=== PATIENT | male | born 1960 | race African-American/Black ===

== ENCOUNTER 2019-12-15 11:10 | Inpatient (IN) | payer SELFPAY ==
[~2019-12-15] VITALS: Ht 182.9 cm; Wt 65.0 kg
--- NOTE | 2019-12-15 11:49 | RAD ---
EXAM: PORTABLE CHEST 1V INDICATION: Shortness of air, chest pain. TECHNIQUE: Single view COMPARISON: 12/07/2008 FINDINGS: The heart size is normal. The great vessels appear unremarkable. There is no hilar or mediastinal mass. The lungs are clear. There is no pleural effusion or pneumothorax. There are no significant osseous abnormalities. IMPRESSION: No active cardiopulmonary disease. Electronically signed by: Victoriano Salazar MD (12/15/2019 11:46 AM) [id number]
[2019-12-15 11:52] LABS: BASO # 0.1 x10^3/uL (0.0-0.2); BASO % 1 % (0-3); EOS % 0 % (0-3); HEMATOCRIT 46.6 % (39.0-53.0); HEMOGLOBIN 15.8 g/dL (13.0-17.5); LYMPH # 1.2 x10^3/uL (1.0-4.8); LYMPH % 9 % (24-48); MEAN CORPUSCULAR HEMOGLOBIN 37 pg (25-35); MEAN CORPUSCULAR HGB CONC 34 g/dL (31-37); MEAN CORPUSCULAR VOLUME 108 fL (79-100); MONO # 0.8 x10^3/uL (0.0-1.1); MONO % 6 % (0-9); NEUT # 11.9 x10^3/uL (1.8-7.7); NEUT % 85 % (31-73); PLATELET COUNT 397 x10^3/uL (140-400); RED BLOOD COUNT 4.32 x10^6/uL (4.30-5.70); RED CELL DISTRIBUTION WIDTH 18.1 % (11.5-14.5)
--- NOTE | 2019-12-15 11:55 | PHYS DOC ---
Past Medical History Past Medical History: Diabetes-Type II, Hypertension Past Surgical History: Other Additional Past Surgical Histo: HERNIA Smoking Status: Current Every Day Smoker Alcohol Use: Heavy General Adult EDM: Chief Complaint: CHEST PAIN HPI: HPI: Patient is a 59 year old male who was brought here by EMS from home due to epigastric abdominal pain, nonproductive cough, nausea and vomiting. Patient has been drinking heavily every day. Patient has been depressed, he was thinking about drinking to . However, he has not been drinking today. 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 His younger brother about a month ago as well. Patient complained of epigastric pain whenever he drinks. Patient denied that he been exposed to anybody who tested positive for COVID-19 Review of Systems: Review of Systems: Constitutional: Denies fever or chills. [] Eyes: Denies change in visual acuity. [] HENT: Denies nasal congestion or sore throat. [] Respiratory: Positive for cough and trouble breathing] Cardiovascular: Positive for chest pain GI: Denies abdominal pain, nausea, vomiting, bloody stools or diarrhea. [] : Denies dysuria. [] Musculoskeletal: Denies back pain or joint pain. [] Integument: Denies rash. [] Neurologic: Denies headache, focal weakness or sensory changes. [] Endocrine: Denies polyuria or polydipsia. [] Lymphatic: Denies swollen glands. [] Psychiatric: Positive for depression, suicidal ideation Heart Score: HEART Score for Chest Pain: HEART Score for Chest Pain Response (Comments) Value History Slighlty/Non-Suspicious 0 ECG Normal 0 Age >45 - < 65 1 Risk Factors 1 or 2 Risk Factors 1 Troponin < Normal Limit 0 Total 2 Risk Factors: Risk Factors: DM, Current or recent (<one month) smoker, HTN, HLP, family history of CAD, obesity. Risk Scores: Score 0 - 3: 2.5% MACE over next 6 weeks - Discharge Home Score 4 - 6: 20.3% MACE over next 6 weeks - Admit for Clinical Observation Score 7 - 10: 72.7% MACE over next 6 weeks - Early Invasive Strategies Physical Exam: PE: Constitutional: Well developed, well nourished, no acute distress, non-toxic faye earance. [] HENT: Normocephalic, atraumatic, bilateral external ears normal, oropharynx moist, no oral exudates, nose normal. [] Eyes: PERRLA, EOMI, conjunctiva normal, no discharge. [] Neck: Normal range of motion, no tenderness, supple, no stridor. [] Cardiovascular:Heart rate regular rhythm, no murmur [] Lungs & Thorax: Bilateral breath sounds clear to auscultation [] Abdomen: Bowel sounds normal, soft, tenderness in epigastric area, no masses, no pulsatile masses. [] Skin: Warm, dry, no erythema, no rash. [] Back: No tenderness, no CVA tenderness. [] Extremities: No tenderness, no cyanosis, no clubbing, ROM intact, no edema. [] Neurologic: Alert and oriented X 3, normal motor function, normal sensory function, no focal deficits noted. [] Psychologic: Affect normal,depressed, suicidal ideation. Current Patient Data: Labs: Laboratory Tests Test 12/15/19 11:28 White Blood Count 14.0 x10^3/uL (4.0-11.0) H Red Blood Count 4.32 x10^6/uL (4.30-5.70) Hemoglobin 15.8 g/dL (13.0-17.5) Hematocrit 46.6 % (39.0-53.0) Mean Corpuscular Volume 108 fL (79-100) H Mean Corpuscular Hemoglobin 37 pg (25-35) H Mean Corpuscular Hemoglobin Concent 34 g/dL (31-37) Red Cell Distribution Width 18.1 % (11.5-14.5) H Platelet Count 397 x10^3/uL (140-400) Neutrophils (%) (Auto) 85 % (31-73) H Lymphocytes (%) (Auto) 9 % (24-48) L Monocytes (%) (Auto) 6 % (0-9) Eosinophils (%) (Auto) 0 % (0-3) Basophils (%) (Auto) 1 % (0-3) Neutrophils # (Auto) 11.9 x10^3/uL (1.8-7.7) H Lymphocytes # (Auto) 1.2 x10^3/uL (1.0-4.8) Monocytes # (Auto) 0.8 x10^3/uL (0.0-1.1) Eosinophils # (Auto) 0.0 x10^3/uL (0.0-0.7) Basophils # (Auto) 0.1 x10^3/uL (0.0-0.2) Laboratory Tests 12/15/19 11:28 Vital Signs: Vital Signs Date Time Temp Pulse Resp B/P (MAP) Pulse Ox O2 Delivery O2 Flow Rate FiO2 12/15/19 11:16 97.3 99 18 153/106 (122) 96 Room Air 97.3 EKG: EKG: [][place] [address] EKG REPORT Signed PATIENT: BELLA FLORES TACCOUNT: [id number] : 1960 LOCATION: [address] [place] [address] AGE: 59 SEX: M EXAM PROCEDURE: 12 Lead EKG STATUS: ADM IN ORD. PHYSICIAN: IZABEL PENG DO REASON: [address] [id number] Test Date: 2019-12-15 Test Time: 11:16:38 Pat Name: BELLA FLORES Department: Room: 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: : 1960 Requested By: IZABEL PENG Order Number: [id number] Reading MD: Brody Yung Measurements Intervals Mutual Rate: 99 P: 90 SD: 124 QRS: 90 QRSD: 86 T: 112 QT: 386 QTc: 501 Interpretive Statements SINUS RHYTHM BIATRIAL ENLARGEMENT LVH WITH REPOLARIZATION ABNORMALITY PROLONGED QT ABNORMAL ECG RI6.01 No previous ECG available for comparison Electronically Signed On 12-16-2019 8:59:27 CDT by Brody Yung DICTATED and SIGNED BY: BRODY YUNG MD DATE: 12/15/19 1116 Radiology/Procedures: Radiology/Procedures: [][address] [address] IMAGING REPORT Signed PATIENT: BELLA FLORES TACCOUNT: [id number] : 1960 LOCATION: ER AGE: 59 SEX: M EXAM STATUS: PRE ER ORD. PHYSICIAN: IZABEL PENG DO REASON: soa, cp PROCEDURE: PORTABLE CHEST 1V EXAM: PORTABLE CHEST 1V INDICATION: Shortness of air, chest pain. TECHNIQUE: Single view COMPARISON: 12/07/2008 FINDINGS: The heart size is normal. The great vessels appear unremarkable. There is no hilar or mediastinal mass. The lungs are clear. There is no pleural effusion or pneumothorax. There are no significant osseous abnormalities. IMPRESSION: No active cardiopulmonary disease. Electronically signed by: Marylin Salazar MD (12/15/2019 11:46 AM) [id number] DICTATED and SIGNED BY: MARYLIN SALAZAR MD DATE: 12/15/19 1146 [facility] [address] [place], [place] [id number] IMAGING REPORT Signed PATIENT: BELLA FLORES TACCOUNT: [id number] : 1960 LOCATION: ER AGE: 59 SEX: M EXAM STATUS: REG ER ORD. PHYSICIAN: IZABEL PENG DO REASON: abdominal pain, n/v,alcoholic, PROCEDURE: CT ABDOMEN PELVIS WO CONTRAST EXAM: CT Abdomen and Pelvis without IV contrast INDICATION: Abdominal pain, nausea vomiting. Alcoholic. TECHNIQUE: Multi-detector row CT images were acquired from the lung bases through the abdomen and pelvis without the use of IV contrast. Sagittal and coronal images were acquired from the transaxial data. All CT scans performed at this facility utilize dose optimization techniques as appropriate to the exam, including the following: Automated exposure control and adjustment of the mA and/or KV according to patient size (this includes techniques or standardized protocols for targeted exams where dose is indication/reason for exam). ORAL CONTRAST: None COMPARISON: None FINDINGS: The absence of IV contrast limits evaluation of soft tissue pathology. LOWER CHEST: Unremarkable LIVER: Mild diffuse hypoattenuation suggesting fatty infiltration of the liver. BILIARY SYSTEM: Gallbladder is surgically absent. Bile ducts are not dilated. PANCREAS: Unremarkable SPLEEN: Extensive splenic calcifications. No splenomegaly. ADRENALS: Unremarkable KIDNEYS & URETERS: Unremarkable BLADDER: Mild diffuse urinary bladder wall thickening. REPRODUCTIVE ORGANS: Unremarkable GASTROINTESTINAL: There is abnormal wall thickening in the cecum and ascending colon with diffuse collapse of the large bowel along the entirety of its length. There is colonic diverticulosis best appreciated in the sigmoid colon without pericolonic soft tissue stranding suspicious for acute diverticulitis. The stomach and small bowel are unremarkable. The appendix is not well seen. There are no findings of acute appendicitis. MESENTERY/PERITONEUM/RETROPERITONEUM: Unremarkable VASCULAR: Abdominal aortic calcifications. LYMPH NODES: No adenopathy OSSEOUS & SOFT TISSUES: Unremarkable IMPRESSION: Diffuse colonic spasm with wall thickening, suspicious for colitis in the appropriate clinical context. Mild diffuse urinary bladder wall thickening could also reflect cystitis or sequelae of chronic bladder outlet obstruction. Correlate clinically. Otherwise no acute findings on noncontrast abdomen and pelvis CT. Electronically signed by: Marylin Salazar MD (12/15/2019 2:42 PM) [id number] DICTATED and SIGNED BY: MARYLIN SALAZAR MD DATE: 12/15/19 1442 Course & Med Decision Making: Course & Med Decision Making Pertinent Labs and Imaging studies reviewed. (See chart for details) Patient is a 59-year-old male who was evaluated in ER today due to epigastric abdominal pain, patient is an alcoholic, he was found to have alcohol induced pancreatitis. Patient also has been depressed, suicidal ideation. Patient will be admitted to hospital for further evaluation and treatment. Dragon Disclaimer: Dragon Disclaimer: This electronic medical record was generated, in whole or in part, using a voice recognition dictation system. Departure Departure Impression: Primary Impression: Alcohol-induced pancreatitis Additional Impression: Suicidal ideation Disposition: ADMITTED INPATIENT Admitting Physician: MISSY (DR. MIKE) Condition: STABLE Referrals: NON,STAFF (PCP) IZABEL PENG DO December 15, 2019 11:55
[2019-12-15 12:00] LABS: PROTHROMBIN TIME PATIENT 12.9 SEC (11.7-14.0)
[2019-12-15 12:02] LABS: CALCIUM 9.1 mg/dL (8.5-10.1); CREATININE 1.8 mg/dL (0.7-1.3); GFR 38.9; POTASSIUM 4.1 mmol/L (3.5-5.1)
[2019-12-15 12:08] LABS: ALBUMIN 4.2 g/dL (3.4-5.0); MAGNESIUM 1.8 mg/dL (1.8-2.4); TOTAL BILIRUBIN 1.8 mg/dL (0.2-1.0); TOTAL PROTEIN 8.3 g/dL (6.4-8.2)
[2019-12-15 12:30] LABS: ACETAMIN < 2.0 mcg/ml (10-30); ETHANOL < 10 mg/dL (0-10); SALIC 4.7 mg/dL (2.8-20.0)
[2019-12-15] MEDS ORDERED: IV NORMAL SALINE 1000ML BAG 1,000 ML IV ONE (12:30)
--- NOTE | 2019-12-15 14:45 | RAD ---
EXAM: CT Abdomen and Pelvis without IV contrast INDICATION: Abdominal pain, nausea vomiting. Alcoholic. TECHNIQUE: Multi-detector row CT images were acquired from the lung bases through the abdomen and pelvis without the use of IV contrast. Sagittal and coronal images were acquired from the transaxial data. All CT scans performed at this facility utilize dose optimization techniques as appropriate to the exam, including the following: Automated exposure control and adjustment of the mA and/or KV according to patient size (this includes techniques or standardized protocols for targeted exams where dose is indication/reason for exam). ORAL CONTRAST: None COMPARISON: None FINDINGS: The absence of IV contrast limits evaluation of soft tissue pathology. LOWER CHEST: Unremarkable LIVER: Mild diffuse hypoattenuation suggesting fatty infiltration of the liver. BILIARY SYSTEM: Gallbladder is surgically absent. Bile ducts are not dilated. PANCREAS: Unremarkable SPLEEN: Extensive splenic calcifications. No splenomegaly. ADRENALS: Unremarkable KIDNEYS & URETERS: Unremarkable BLADDER: Mild diffuse urinary bladder wall thickening. REPRODUCTIVE ORGANS: Unremarkable GASTROINTESTINAL: There is abnormal wall thickening in the cecum and ascending colon with diffuse collapse of the large bowel along the entirety of its length. There is colonic diverticulosis best appreciated in the sigmoid colon without pericolonic soft tissue stranding suspicious for acute diverticulitis. The stomach and small bowel are unremarkable. The appendix is not well seen. There are no findings of acute appendicitis. MESENTERY/PERITONEUM/RETROPERITONEUM: Unremarkable VASCULAR: Abdominal aortic calcifications. LYMPH NODES: No adenopathy OSSEOUS & SOFT TISSUES: Unremarkable IMPRESSION: Diffuse colonic spasm with wall thickening, suspicious for colitis in the appropriate clinical context. Mild diffuse urinary bladder wall thickening could also reflect cystitis or sequelae of chronic bladder outlet obstruction. Correlate clinically. Otherwise no acute findings on noncontrast abdomen and pelvis CT. Electronically signed by: Victoriano Salazar MD (12/15/2019 2:42 PM) [id number]
[2019-12-15 14:50] LABS: BILIRUBIN,URINE MODERATE (NEG); CLARITY,URINE CLEAR; COLOR,URINE YELLOW; NITRITE,URINE NEGATIVE (NEG); PH,URINE 5.5 (<5.0-8.0); PROTEIN,URINE NEGATIVE (NEG-TRACE)
[2019-12-15 15:01] LABS: BACTERIA,URINE FEW /HPF (0-FEW); HYALINE CASTS, URINE MANY /HPF; RBC,URINE 0 /HPF (0-2); SQUAMOUS EPITHELIAL CELL,UR FEW /LPF
--- NOTE | 2019-12-15 15:10 | PDOC1 ---
History and Physical Date of Admission Date of Admission DATE: 12/15/19 TIME: 15:10 Identification/Chief Complaint Chief Complaint Chest pain History of Present Illness History of Present Illness Mr Barahona is a 59yo M w/ PMHx Diabetes-Type II, Hypertension, smoker, heavy ETOH drinker who presents to ED via EMS for complaint of chest pain, SOB, abdominal pain with vomiting. With regard to his chest pain he characterizes it as pain near his umbilicus and his abdomen and it does not radiate it is 6 out of 10, colicky in nature, worsens with food and drinking alcohol. With regard to his shortness of breath this only occurred after a few episodes of vomiting. He has been vomiting for the past 2 days, is unable to hold down the alcohol which she has been drinking heavily for the past 30 days. He called EMS after his last 2 episodes of emesis were bloody. On ROS he notes that he has been feeling suicidal lately and has been thinking of drinking alcohol until he dies he had thoughts and plans of his for the last few days every day. 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 He is also grieving for the of his brother who at age 49 approximately 29 days ago of an unspecified cancer. Patient notes he has not been taking care of himself and had been laid off from his job as part of the coronavirus pandemic that is currently globally affecting everyone. He is a heavy smoker as well smokes at least 20 cigars every day. He notes he has been losing weight over the past 30 days, thinks he is probably lost at least 10 kg. In ED he was noted with WBC 14 Hb 15.8 with MCV 108, platelets 397, BNP 214, lipase 1247, and a 135, K4.1, BUN 45, CR 1.8, glucose 105. He underwent a noncontrast CT scan of his abdomen and pelvis, revealing diffuse colonic spasm with wall thickening, suspicious for colitis. BP 180/101, HR 100 BPM, Afebrile. Admitted for further treatment. Past Medical History Cardiovascular: HTN Pulmonary: No pertinent hx Endocrine: Diabetes Past Surgical History Past Surgical History: Hernia Repair Family History Family History: Cancer, Diabetes, High Cholestrol, Hypertension, Kidney Disease Social History Smoke: 2 packs per day ALCOHOL: heavy Drugs: Marijuana Current Problem List Problem List Problems Medical Problems: (1) Cough Status: Acute Current Medications Current Medications Current Medications Sodium Chloride 1,000 ml @ 1,000 mls/hr 1X ONCE IV Last administered on 12/15/19at 12:26; Start 12/15/19 at 12:30; Stop 12/15/19 at 13:29; Status DC Allergies Allergies: Coded Allergies: No Known Drug Allergies (Unverified , 12/15/19) ROS General: YES: Fatigue, Malaise; No: Chills, Night Sweats, Appetite, Other PSYCHOLOGICAL ROS: YES: Anxiety, Depression, Obsessive thoughts, Sleep disturba nces, Suicidal ideation; No: Behavioral Disorder, Concentration difficultie, Decreased libido, Disorientation, Hallucinations, Hostility, Irritablity, Memory difficulties, Mood Swings, Physical abuse, Sexual abuse, Other Eyes: No Blurry vision, No Decreased vision, No Double vision, No Dry eyes, No Excessive tearing, No Eye Pain, No Itchy Eyes, No Loss of vision, No Photophobia, No Scotomata, No Uses contacts, No Uses glasses, No Other HEENT: No: Heacaches, Visual Changes, Hearing change, Nasal congestion, Nasal discharge, Oral lesions, Sinus pain, Sore Throat, Epistaxis, Sneezing, Snoring, Tinnitus, Vertigo, Vocal changes, Other ALLERGY AND IMMUNOLOGY: No: Hives, Insect Bite Sensitivity, Itchy/Watery Eyes, Nasal Congestion, Post Nasal Drip, Seasonal Allergies, Other Hematological and Lymphatic: No: Bleeding Problems, Blood Clots, Blood Transfusions, Brusing, Night Sweats, Pallor, Swollen Lymph Nodes, Other ENDOCRINE: No: Breast Changes, Galactorrhea, Hair Pattern Changes, Hot Flashes, Malaise/lethargy, Mood Swings, Palpitations, Polydipsia/polyuria, Skin Changes, Temperature Intolerance, Unexpected Weight Changes, Other Breast: No New/Changing Breast Lumps, No Nipple changes, No Nipple discharge, No Other Respiratory: No: Cough, Hemoptysis, Orthopnea, Pleuritic Pain, Shortness of breath, SOB with excertion, Sputum Changes, Stridor, Tachypnea, Wheezing, Other Cardiovascular: yes Chest Pain; No Palpitations, No Orthopnea, No Paroxysmal Noc. Dyspnea, No Edema, No Lt Headedness, No Other Gastrointestinal: Yes Nausea, Yes Vomiting, Yes Abdominal Pain; No Diarrhea, No Constipation, No Melena, No Hematochezia, No Other Genitourinary: No Dysuria, No Frequency, No Incontinence, No Hematuria, No Retention, No Discharge, No Urgency, No Pain, No Flank Pain, No Other, No , No , No , No , No , No , No Musculoskeletal: No Gait Disturbance, No Joint Pain, No Joint Stiffness, No Joint Swelling, No Muscle Pain, No Muscular Weakness, No Pain In:, No Swelling In:, No Other Neurological: No Behavorial Changes, No Bowel/Bladder ControlChng, No Confusion, No Dizziness, No Gait Disturbance, No Headaches, No Impaired Coord/balance, No Memory Loss, No Numbness/Tingling, No Seizures, No Speech Problems, No Tremors, No Visual Changes, No Weakness, No Other Skin: No Dry Skin, No Eczema, No Hair Changes, No Lumps, No Mole Changes, No Mottling, No Nail Changes, No Pruritus, No Rash, No Skin Lesion Changes, No Other, No Acne Physical Exam General: Alert, Oriented X3, Cooperative, mild distress HEENT: Atraumatic, PERRLA, EOMI, Mucous membr. moist/pink Lungs: Clear to auscultation, Normal air movement Heart: S1S2, RRR, no thrills, no rubs, no gallops, no murmurs Abdomen: Normal bowel sounds, Soft, No hepatosplenomegaly, No masses, Other (epigastric tenderness) Rectal Exam: not examined Extremities: No clubbing, No cyanosis, No edema, Normal pulses, No tenderness/ swelling Skin: No rashes, No breakdown, No significant lesion Neuro: Normal gait, Normal speech, Strength at 5/5 X4 ext, Normal tone, Sensation intact, Cranial nerves 3-12 NL, Reflexes 2+ Psych/Mental Status: Mental status NL, Mood NL Vitals Vitals Vital Signs Date Time Temp Pulse Resp B/P (MAP) Pulse Ox O2 Delivery O2 Flow Rate FiO2 12/15/19 11:16 97.3 99 18 153/106 (122) 96 Room Air 97.3 Labs Labs Laboratory Tests Test 12/15/19 11:12 12/15/19 11:15 12/15/19 11:28 12/15/19 14:40 Salicylates Level 4.7 mg/dL (2.8-20.0) Salicylate Last Dose Date Unknown Salicylate Last Dose Time Unknown Acetaminophen Level < 2.0 mcg/ml (10-30) Acetaminophen Last Dose Date Unknown Acetaminophen Last Dose Time Unknown Ethyl Alcohol Level < 10 mg/dL (0-10) Troponin I Quantitative < 0.017 ng/mL (0.000-0.055) White Blood Count 14.0 x10^3/uL (4.0-11.0) Red Blood Count 4.32 x10^6/uL (4.30-5.70) Hemoglobin 15.8 g/dL (13.0-17.5) Hematocrit 46.6 % (39.0-53.0) Mean Corpuscular Volume 108 fL (79-100) Mean Corpuscular Hemoglobin 37 pg (25-35) Mean Corpuscular Hemoglobin Concent 34 g/dL (31-37) Red Cell Distribution Width 18.1 % (11.5-14.5) Platelet Count 397 x10^3/uL (140-400) Neutrophils (%) (Auto) 85 % (31-73) Lymphocytes (%) (Auto) 9 % (24-48) Monocytes (%) (Auto) 6 % (0-9) Eosinophils (%) (Auto) 0 % (0-3) Basophils (%) (Auto) 1 % (0-3) Neutrophils # (Auto) 11.9 x10^3/uL (1.8-7.7) Lymphocytes # (Auto) 1.2 x10^3/uL (1.0-4.8) Monocytes # (Auto) 0.8 x10^3/uL (0.0-1.1) Eosinophils # (Auto) 0.0 x10^3/uL (0.0-0.7) Basophils # (Auto) 0.1 x10^3/uL (0.0-0.2) Prothrombin Time 12.9 SEC (11.7-14.0) Prothromb Time International Ratio 1.0 (0.8-1.1) Activated Partial Thromboplast Time 28 SEC (24-38) Sodium Level 135 mmol/L (136-145) Potassium Level 4.1 mmol/L (3.5-5.1) Chloride Level 86 mmol/L (98-107) Carbon Dioxide Level 24 mmol/L (21-32) Anion Gap 25 (6-14) Blood Urea Nitrogen 45 mg/dL (8-26) Creatinine 1.8 mg/dL (0.7-1.3) Estimated GFR (Cockcroft-Gault) 38.9 BUN/Creatinine Ratio 25 (6-20) Glucose Level 105 mg/dL (70-99) Calcium Level 9.1 mg/dL (8.5-10.1) Magnesium Level 1.8 mg/dL (1.8-2.4) Total Bilirubin 1.8 mg/dL (0.2-1.0) Aspartate Amino Transf (AST/SGOT) 194 U/L (15-37) Alanine Aminotransferase (ALT/SGPT) 116 U/L (16-63) Alkaline Phosphatase 132 U/L (46-116) CD-Hjd-J-Type Natriuretic Peptide 214 pg/mL (0-124) Total Protein 8.3 g/dL (6.4-8.2) Albumin 4.2 g/dL (3.4-5.0) Albumin/Globulin Ratio 1.0 (1.0-1.7) Lipase 1247 U/L (73-393) Urine Collection Type Unknown Urine Color Yellow Urine Clarity Clear Urine pH 5.5 (<5.0-8.0) Urine Specific [place] 1.020 (1.000-1.030) Urine Protein Negative mg/dL (NEG-TRACE) Urine Glucose (UA) Negative mg/dL (NEG) Urine Ketones (Stick) >=80 mg/dL (NEG) Urine Blood Negative (NEG) Urine Nitrite Negative (NEG) Urine Bilirubin Moderate (NEG) Urine Urobilinogen Dipstick 1.0 mg/dL (0.2 mg/dL) Urine Leukocyte Esterase Negative (NEG) Urine RBC 0 /HPF (0-2) Urine WBC 1-4 /HPF (0-4) Urine Squamous Epithelial Cells Few /LPF Urine Bacteria Few /HPF (0-FEW) Urine Hyaline Casts Many /HPF Urine Mucus Marked /LPF Laboratory Tests Test 12/15/19 11:12 12/15/19 11:15 12/15/19 11:28 12/15/19 14:40 Salicylates Level 4.7 mg/dL (2.8-20.0) Salicylate Last Dose Date Unknown Salicylate Last Dose Time Unknown Acetaminophen Level < 2.0 mcg/ml (10-30) Acetaminophen Last Dose Date Unknown Acetaminophen Last Dose Time Unknown Ethyl Alcohol Level < 10 mg/dL (0-10) Troponin I Quantitative < 0.017 ng/mL (0.000-0.055) White Blood Count 14.0 x10^3/uL (4.0-11.0) Red Blood Count 4.32 x10^6/uL (4.30-5.70) Hemoglobin 15.8 g/dL (13.0-17.5) Hematocrit 46.6 % (39.0-53.0) Mean Corpuscular Volume 108 fL (79-100) Mean Corpuscular Hemoglobin 37 pg (25-35) Mean Corpuscular Hemoglobin Concent 34 g/dL (31-37) Red Cell Distribution Width 18.1 % (11.5-14.5) Platelet Count 397 x10^3/uL (140-400) Neutrophils (%) (Auto) 85 % (31-73) Lymphocytes (%) (Auto) 9 % (24-48) Monocytes (%) (Auto) 6 % (0-9) Eosinophils (%) (Auto) 0 % (0-3) Basophils (%) (Auto) 1 % (0-3) Neutrophils # (Auto) 11.9 x10^3/uL (1.8-7.7) Lymphocytes # (Auto) 1.2 x10^3/uL (1.0-4.8) Monocytes # (Auto) 0.8 x10^3/uL (0.0-1.1) Eosinophils # (Auto) 0.0 x10^3/uL (0.0-0.7) Basophils # (Auto) 0.1 x10^3/uL (0.0-0.2) Prothrombin Time 12.9 SEC (11.7-14.0) Prothromb Time International Ratio 1.0 (0.8-1.1) Activated Partial Thromboplast Time 28 SEC (24-38) Sodium Level 135 mmol/L (136-145) Potassium Level 4.1 mmol/L (3.5-5.1) Chloride Level 86 mmol/L (98-107) Carbon Dioxide Level 24 mmol/L (21-32) Anion Gap 25 (6-14) Blood Urea Nitrogen 45 mg/dL (8-26) Creatinine 1.8 mg/dL (0.7-1.3) Estimated GFR (Cockcroft-Gault) 38.9 BUN/Creatinine Ratio 25 (6-20) Glucose Level 105 mg/dL (70-99) Calcium Level 9.1 mg/dL (8.5-10.1) Magnesium Level 1.8 mg/dL (1.8-2.4) Total Bilirubin 1.8 mg/dL (0.2-1.0) Aspartate Amino Transf (AST/SGOT) 194 U/L (15-37) Alanine Aminotransferase (ALT/SGPT) 116 U/L (16-63) Alkaline Phosphatase 132 U/L (46-116) TD-Eog-E-Type Natriuretic Peptide 214 pg/mL (0-124) Total Protein 8.3 g/dL (6.4-8.2) Albumin 4.2 g/dL (3.4-5.0) Albumin/Globulin Ratio 1.0 (1.0-1.7) Lipase 1247 U/L (73-393) Urine Collection Type Unknown Urine Color Yellow Urine Clarity Clear Urine pH 5.5 (<5.0-8.0) Urine Specific [place] 1.020 (1.000-1.030) Urine Protein Negative mg/dL (NEG-TRACE) Urine Glucose (UA) Negative mg/dL (NEG) Urine Ketones (Stick) >=80 mg/dL (NEG) Urine Blood Negative (NEG) Urine Nitrite Negative (NEG) Urine Bilirubin Moderate (NEG) Urine Urobilinogen Dipstick 1.0 mg/dL (0.2 mg/dL) Urine Leukocyte Esterase Negative (NEG) Urine RBC 0 /HPF (0-2) Urine WBC 1-4 /HPF (0-4) Urine Squamous Epithelial Cells Few /LPF Urine Bacteria Few /HPF (0-FEW) Urine Hyaline Casts Many /HPF Urine Mucus Marked /LPF Images Images CT abd/pelv noncontrast: LOWER CHEST: Unremarkable LIVER: Mild diffuse hypoattenuation suggesting fatty infiltration of the liver. BILIARY SYSTEM: Gallbladder is surgically absent. Bile ducts are not dilated. PANCREAS: Unremarkable SPLEEN: Extensive splenic calcifications. No splenomegaly. ADRENALS: Unremarkable KIDNEYS & URETERS: Unremarkable BLADDER: Mild diffuse urinary bladder wall thickening. REPRODUCTIVE ORGANS: Unremarkable GASTROINTESTINAL: There is abnormal wall thickening in the cecum and ascending colon with diffuse collapse of the large bowel along the entirety of its length. There is colonic diverticulosis best appreciated in the sigmoid colon without pericolonic soft tissue stranding suspicious for acute diverticulitis. The stomach and small bowel are unremarkable. The appendix is not well seen. There are no findings of acute appendicitis. MESENTERY/PERITONEUM/RETROPERITONEUM: Unremarkable VASCULAR: Abdominal aortic calcifications. LYMPH NODES: No adenopathy OSSEOUS & SOFT TISSUES: Unremarkable IMPRESSION: Diffuse colonic spasm with wall thickening, suspicious for colitis in the appropriate clinical context. Mild diffuse urinary bladder wall thickening could also reflect cystitis or sequelae of chronic bladder outlet obstruction. Correlate clinically. Otherwise no acute findings on noncontrast abdomen and pelvis CT. VTE Prophylaxis Ordered VTE Prophylaxis Devices: Yes VTE Pharmacological Prophylaxi: Yes Assessment/Plan Assessment/Plan A/P: Alcohol-induced pancreatitis - will keep NPO, IVF, pain control, nausea control Epigastric abdominal pain - likely pancreatitis vs concomitant PUD, will keep n.p.o., IV Protonix x1 Hematemesis - likely amarilis-hollingsworth from vomiting. Will give aggressive antiemetics Acute alcohol withdrawal - CIWA scale. Daily banana bag Macrocytosis - likely ETOH induced Leukocytosis - likely from vomiting, will trend WU - vasomotor nephropathy, will hydrate, follow renal function DM 2 -we will place on low-dose sliding scale while n.p.o. every 6 hours HTN - IV hydralazine prn Suicidal - counseled on coping mechanisms, will have PAT team assessment. Plan is to drink ETOH until he dies. FEN - NPO PPX - Protonix IV, lovenox FULL CODE Dispo - inpatient for at least 2 midnights for alcohol induced pancreatitis CAESAR MIKE MD December 15, 2019 15:10
[2019-12-15 15:37] LABS: AMPHETAMINE/METHAMPHETAMINE NEG (NEG); BARBITURATES NEG (NEG); BENZODIAZEPINES NEG (NEG); CANNABINOIDS POS (NEG); COCAINE NEG (NEG); METHADONE NEG (NEG); OPIATES NEG (NEG); PHENCYCLIDINE NEG (NEG)
--- NOTE | 2019-12-15 16:20 | NUR ---
Patient transferred from the ED to room 432. Nurse Adriana (3rd floor nurse) was with patient as a 1:1 for suicide ideation. She will do admission and charting and I will be a supporting RN.
[2019-12-15] MEDS ORDERED: IV NORMAL SALINE 1000ML BAG 1,000 ML IV SCH (16:45)
[2019-12-15] MEDS ORDERED: ACETAMINOPHEN 325 MG TABLET. PO PRN (16:45)
[2019-12-15] MEDS ORDERED: ONDANSETRON PF 4 MG/2 ML VIAL. IV PRN (16:45)
[2019-12-15] MEDS ORDERED: LORazepam 1 MG TABLET PO PRN ×2 (16:45)
[2019-12-15] MEDS ORDERED: HALOPERIDOL LACTATE 5 MG/ML VIAL. IVP PRN (16:45)
[2019-12-15] MEDS ORDERED: PANTOPRAZOLE IV PUSH 40 MG VIAL. IVP ONE (16:45)
[2019-12-15] MEDS ORDERED: diphenhydrAMINE 50 MG/ML VIAL IVP PRN (16:45)
[2019-12-15] MEDS ORDERED: DEXTROSE 50% 25 GM / 50ML DISP.SYRIN. IV PRN (16:45)
[2019-12-15] MEDS ORDERED: cloNIDine HCL 0.1 MG TABLET PO PRN (16:45)
[2019-12-15] MEDS: MULTIVIT INFUSN,ADULT 4,VIT K 10 ML, THIAMINE INJ 100 MG, FOLIC ACID INJ 1 MG in IV NOR... IV SCH (17:00)
[2019-12-15] MEDS ORDERED: PROCHLORPERAZINE 10 MG/2 ML VIAL. IV PRN (17:00)
[2019-12-15] MEDS ORDERED: hydrALAZINE 20 MG/ML VIAL. IVP PRN (17:00)
[2019-12-15 17:37] VITALS: BP 156/83
[2019-12-15] MEDS: INSULIN LISPRO 300 UNITS/3 ML VIAL. SQ SCH (18:00)
[2019-12-15] MEDS: NICOTINE 21MG PATCH. TD SCH (18:22)
[2019-12-15] MEDS: ENOXAPARIN 40 MG/0.4 ML SYRINGE. SQ SCH (18:23)
[2019-12-15] MEDS: MORPHINE SULFATE 4 MG/ML VIAL. IV PRN (18:25)
[2019-12-15 19:48] VITALS: BP 140/90
[2019-12-15 23:20] VITALS: BP 135/89
[2019-12-15] MEDS: ZOLPIDEM 5 MG TABLET. PO PRN (23:24)
[2019-12-16 03:12] VITALS: BP 137/93
--- NOTE | 2019-12-16 04:41 | NUR ---
iV FLUIDS OF NORMAL SALINE SCHEDULED FOR 1644 NOT GIVEN, PATIENT HAS BEEN ON BANANA BAG.
[2019-12-16] MEDS: INSULIN LISPRO 300 UNITS/3 ML VIAL. SQ SCH ×4 (06:00→17:18)
[2019-12-16 07:01] VITALS: BP 138/87
--- NOTE | 2019-12-16 08:06 | EKG ---
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
[2019-12-16] MEDS: MULTIVIT INFUSN,ADULT 4,VIT K 10 ML, THIAMINE INJ 100 MG, FOLIC ACID INJ 1 MG in IV NOR... IV SCH (08:30)
[2019-12-16] MEDS: NICOTINE 21MG PATCH. TD SCH (08:30)
[2019-12-16] MEDS: PANTOPRAZOLE IV PUSH 40 MG VIAL. IVP SCH (08:30)
[2019-12-16 11:01] VITALS: BP 140/88
[2019-12-16] MEDS: HYDROcodone/APAP 5/325MG 1 TAB TABLET PO PRN ×3 (11:06→22:46)
--- NOTE | 2019-12-16 11:27 | PDOC ---
[facility] PROGRESS NOTE Chief Complaint Chief Complaint Alcohol-induced pancreatitis Epigastric abdominal pain Hematemesis - likely amarilis-hollingsworth? Acute alcohol withdrawal Macrocytosis probably from chronic alcohol Leukocytosis WU DM 2 HTN Suicidal History of Present Illness History of Present Illness 12/16/2019 Patient seen and examined He has a one-to-one observer in the room Discussed with RN Chart reviewed Vitals/I&O Vitals/I&O: Vital Signs Date Time Temp Pulse Resp B/P (MAP) Pulse Ox O2 Delivery O2 Flow Rate FiO2 12/16/19 11:06 Room Air 12/16/19 11:01 98.8 96 16 140/88 (105) 96 98.8 I & O 12/15/19 12/15/19 12/16/19 15:00 23:00 07:00 Intake Total 1000 ml 1061.2 ml Output Total 0 ml Balance 1000 ml 1061.2 ml Physical Exam General: Alert, Oriented X3, Cooperative, mild distress, Other (Complains of thirst) Heart: Regular rate, Normal S1 Lungs: Clear Abdomen: Normal bowel sounds, No hepatosplenomegaly, No masses, Other (epigastric tenderness) Extremities: No clubbing, No cyanosis, No edema, Normal pulses, No tenderness/swelling Skin: No rashes, No breakdown, No significant lesion Labs Labs: Laboratory Tests Test 12/15/19 11:28 12/15/19 14:40 12/15/19 18:33 12/16/19 06:22 White Blood Count 14.0 x10^3/uL (4.0-11.0) Red Blood Count 4.32 x10^6/uL (4.30-5.70) Hemoglobin 15.8 g/dL (13.0-17.5) Hematocrit 46.6 % (39.0-53.0) Mean Corpuscular Volume 108 fL (79-100) Mean Corpuscular Hemoglobin 37 pg (25-35) Mean Corpuscular Hemoglobin Concent 34 g/dL (31-37) Red Cell Distribution Width 18.1 % (11.5-14.5) Platelet Count 397 x10^3/uL (140-400) Neutrophils (%) (Auto) 85 % (31-73) Lymphocytes (%) (Auto) 9 % (24-48) Monocytes (%) (Auto) 6 % (0-9) Eosinophils (%) (Auto) 0 % (0-3) Basophils (%) (Auto) 1 % (0-3) Neutrophils # (Auto) 11.9 x10^3/uL (1.8-7.7) Lymphocytes # (Auto) 1.2 x10^3/uL (1.0-4.8) Monocytes # (Auto) 0.8 x10^3/uL (0.0-1.1) Eosinophils # (Auto) 0.0 x10^3/uL (0.0-0.7) Basophils # (Auto) 0.1 x10^3/uL (0.0-0.2) Prothrombin Time 12.9 SEC (11.7-14.0) Prothromb Time International Ratio 1.0 (0.8-1.1) Activated Partial Thromboplast Time 28 SEC (24-38) Sodium Level 135 mmol/L (136-145) Potassium Level 4.1 mmol/L (3.5-5.1) Chloride Level 86 mmol/L (98-107) Carbon Dioxide Level 24 mmol/L (21-32) Anion Gap 25 (6-14) Blood Urea Nitrogen 45 mg/dL (8-26) Creatinine 1.8 mg/dL (0.7-1.3) Estimated GFR (Cockcroft-Gault) 38.9 BUN/Creatinine Ratio 25 (6-20) Glucose Level 105 mg/dL (70-99) Calcium Level 9.1 mg/dL (8.5-10.1) Magnesium Level 1.8 mg/dL (1.8-2.4) Total Bilirubin 1.8 mg/dL (0.2-1.0) Aspartate Amino Transf (AST/SGOT) 194 U/L (15-37) Alanine Aminotransferase (ALT/SGPT) 116 U/L (16-63) Alkaline Phosphatase 132 U/L (46-116) TL-Pin-X-Type Natriuretic Peptide 214 pg/mL (0-124) Total Protein 8.3 g/dL (6.4-8.2) Albumin 4.2 g/dL (3.4-5.0) Albumin/Globulin Ratio 1.0 (1.0-1.7) Lipase 1247 U/L (73-393) Urine Collection Type Unknown Urine Color Yellow Urine Clarity Clear Urine pH 5.5 (<5.0-8.0) Urine Specific [place] 1.020 (1.000-1.030) Urine Protein Negative mg/dL (NEG-TRACE) Urine Glucose (UA) Negative mg/dL (NEG) Urine Ketones (Stick) >=80 mg/dL (NEG) Urine Blood Negative (NEG) Urine Nitrite Negative (NEG) Urine Bilirubin Moderate (NEG) Urine Urobilinogen Dipstick 1.0 mg/dL (0.2 mg/dL) Urine Leukocyte Esterase Negative (NEG) Urine RBC 0 /HPF (0-2) Urine WBC 1-4 /HPF (0-4) Urine Squamous Epithelial Cells Few /LPF Urine Bacteria Few /HPF (0-FEW) Urine Hyaline Casts Many /HPF Urine Mucus Marked /LPF Urine Opiates Screen Neg (NEG) Urine Methadone Screen Neg (NEG) Urine Barbiturates Neg (NEG) Urine Phencyclidine Screen Neg (NEG) Urine Amphetamine/Methamphetamine Neg (NEG) Urine Benzodiazepines Screen Neg (NEG) Urine Cocaine Screen Neg (NEG) Urine Cannabinoids Screen Pos (NEG) Urine Ethyl Alcohol Neg (NEG) Glucose (Fingerstick) 220 mg/dL (70-99) 115 mg/dL (70-99) Assessment and Plan Assessmemt and Plan Problems Medical Problems: (1) Alcohol-induced pancreatitis Status: Acute (2) Cough Status: Acute Alcohol-induced pancreatitis slightly improved. We will start clear liquid diet and see if he tolerates it and recheck a lipase level in the morning Epigastric abdominal pain - likely pancreatitis vs concomitant PUD, will keep n.p.o., IV Protonix x1 Hematemesis - likely amarilis-hollingsworth from vomiting. Will give aggressive antiemetics and trend hemoglobin Acute alcohol withdrawal - CIWA scale. Daily banana bag and continue other alcohol withdrawal protocol discussed with RN Macrocytosis - likely ETOH induced, trend labs Leukocytosis - likely from vomiting, will trend WU -probably from dehydration we will give IV fluids DM 2 , sliding scale insulin HTN - IV hydralazine prn Suicidal - counseled on coping mechanisms, will have PAT team assessment. Plan is to drink ETOH until he dies. Prognosis long-term guarded if he does not quit drinking Home meds DVT prophylaxis Full code Comment Review of Relevant I have reviewed the following items adonis (where applicable) has been applied. Medications: Current Medications Medications (Trade) Dose Ordered Sig/Steph Route PRN Reason Start Time Stop Time Status Last Admin Dose Admin Sodium Chloride 1,000 ml @ 1,000 mls/hr 1X ONCE IV 12/15/19 12:30 12/15/19 13:29 DC 12/15/19 12:26 Ondansetron HCl (Zofran) 4 mg PRN Q4HRS PRN IV NAUSEA/VOMITING 12/15/19 16:45 12/15/19 18:25 Zolpidem Tartrate (Ambien) 5 mg PRN QHS PRN PO INSOMNIA 12/15/19 16:45 12/15/19 23:24 Enoxaparin Sodium (Lovenox 40mg Syringe) 40 mg Q24H SQ 12/15/19 17:00 12/15/19 18:23 Multivitamins 10 ml/Thiamine HCl 100 mg/Folic Acid 1 mg/Sodium Chloride 1,011.2 ml @ 100 mls/ hr DAILY IV 12/15/19 17:00 12/19/19 19:07 12/16/19 08:30 Nicotine (Nicoderm Cq 21mg) 1 patch DAILY TD 12/15/19 16:45 12/16/19 08:30 Sodium Chloride 1,000 ml @ 100 mls/hr Q10H IV 12/15/19 16:45 12/16/19 12:44 12/16/19 04:35 Pantoprazole Sodium (PROTONIX VIAL for IV PUSH) 40 mg DAILYAC IVP 12/16/19 07:30 12/16/19 08:30 Pantoprazole Sodium (PROTONIX VIAL for IV PUSH) 40 mg 1X ONCE IVP 12/15/19 16:45 12/15/19 16:55 DC 12/15/19 18:21 Morphine Sulfate (Morphine Sulfate) 4 mg PRN Q4HRS PRN IV PAIN 12/15/19 16:45 12/15/19 18:25 Prochlorperazine Edisylate (Compazine) 10 mg PRN Q6HRS PRN IV NAUSEA/VOMITING 12/15/19 17:00 12/15/19 20:07 Acetaminophen/ Hydrocodone Bitart (Lortab 5/325) 1 tab PRN Q4HRS PRN PO MODERATE-SEVERE PAIN 12/16/19 10:45 12/16/19 11:06 BETSY INMAN III DO December 16, 2019 11:27
--- NOTE | 2019-12-16 12:20 | NUR ---
SW following. Discussed with RN, pt currently 1:1, lipase elevated today. PAT team coming to see pt today for ETOH and SI. SW will continue to follow.
--- NOTE | 2019-12-16 12:30 | NUR ---
PT HOUSE [employer]YS PICKED UP BY DAUGHTER 'KEKE' AT 1145.
[2019-12-16 14:32] VITALS: BP 152/98
[2019-12-16] MEDS: ENOXAPARIN 40 MG/0.4 ML SYRINGE. SQ SCH (17:20)
[2019-12-16 19:00] VITALS: BP 152/92
--- NOTE | 2019-12-16 19:00 | PDOC1 ---
History & Psych Evaluation Date of Admission: Date of Admission DATE: 12/16/19 TIME: 18:45 Source: Source: Caregiver, Chart review, Patient Identification: Identification He is a 59-year-old -Beninese gentleman with alcoholic pancreatitis. Chief Complaint: Chief Complaint Alcohol abuse, depression, bereavement History of Present Illness: HPI: He is a 59-year-old -Beninese gentleman with history of untreated depression and alcohol use disorder admitted with alcohol induced pancreatitis. He is seen for initial psychiatric assessment. States, he has history of depression, however, never been treated for depression as it was not as bad. States, her depression is precipitated by the of his baby brother who of cancer a month ago. States, he used to drink heavily, since the of his brother he has been drinking 3 pints of vodka every day. 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 States, of his brother is ripping him apart. States, he was like his son. States, when he sees his 2 nephews who are very young, his depression get worse. In addition, he does have history of anxiety which exacerbated when coming out of alcohol. Depression is rated as 8/10 10 is worse. Anxiety is rated as 04/1010 is worse. He states, when his baby brother , he had thoughts of suicide to join him. Presently, he denies any suicidal or homicidal thoughts. Denies history of bipolar mood disorder. Denies history of hallucinations or psychosis. Denies history of complicated alcohol withdrawal. He is a smoker. He smokes marijuana daily. Past Psychiatric History: Denies past psychiatric history of hospital admissions, or treatment. Denies history of suicidal attempt. Past Medical History: Please see medical chart for details. Family History: Family history is significant for depression and anxiety in mother. Denies family history of suicide. 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 He lives with her and 2 granddaughters. Denies legal issues. He is unemployed. Current Medications: Current Medications Current Medications Medications (Trade) Dose Ordered Sig/Stehp Start Time Stop Time Status Last Admin Dose Admin Acetaminophen (Tylenol) 650 mg PRN Q4HRS PRN 12/15/19 16:45 Acetaminophen/ Hydrocodone Bitart (Lortab 5/325) 1 tab PRN Q4HRS PRN 12/16/19 10:45 12/16/19 18:34 1 TAB Clonidine HCl (Catapres) 0.1 mg PRN Q1HR PRN 12/15/19 16:45 Dextrose (Dextrose 50%-Water Syringe) 12.5 gm PRN Q15MIN PRN 12/15/19 16:45 Diphenhydramine HCl (Benadryl) 25 mg PRN Q15MIN PRN 12/15/19 16:45 Enoxaparin Sodium (Lovenox 40mg Syringe) 40 mg Q24H 12/15/19 17:00 12/16/19 17:20 40 MG Haloperidol Lactate (Haldol Inj) 5 mg PRN Q4HRS PRN 12/15/19 16:45 Hydralazine HCl (Apresoline Inj) 10 mg PRN Q4HRS PRN 12/15/19 17:00 Insulin Human Lispro (HumaLOG) 0-5 UNITS Q6HRS 12/15/19 18:00 Lorazepam (Ativan Inj) 2 mg PRN Q1HR PRN 12/15/19 16:45 Lorazepam (Ativan) 2 mg PRN Q1HR PRN 12/15/19 16:45 Morphine Sulfate (Morphine Sulfate) 4 mg PRN Q4HRS PRN 12/15/19 16:45 12/15/19 18:25 4 MG Multivitamins 10 ml/Thiamine HCl 100 mg/Folic Acid 1 mg/Sodium Chloride 1,011.2 ml @ 100 mls/ hr DAILY 12/15/19 17:00 12/19/19 19:07 12/16/19 08:30 100 MLS/HR Nicotine (Nicoderm Cq 21mg) 1 patch DAILY 12/15/19 16:45 12/16/19 08:30 1 PATCH Ondansetron HCl (Zofran) 4 mg PRN Q4HRS PRN 12/15/19 16:45 12/15/19 18:25 4 MG Pantoprazole Sodium (PROTONIX VIAL for IV PUSH) 40 mg 1X ONCE 12/15/19 16:45 12/15/19 16:55 DC 12/15/19 18:21 40 MG Prochlorperazine Edisylate (Compazine) 10 mg PRN Q6HRS PRN 12/15/19 17:00 12/15/19 20:07 10 MG Sodium Chloride 1,000 ml @ 100 mls/hr Q10H 12/15/19 16:45 12/16/19 12:44 DC 12/16/19 04:35 100 MLS/HR Zolpidem Tartrate (Ambien) 5 mg PRN QHS PRN 12/15/19 16:45 12/15/19 23:24 5 MG Allergies: Allergies: Coded Allergies: No Known Drug Allergies (Unverified , 12/15/19) Mental Status Examination: Mental Status Examination -Beninese gentleman, appears her stated age, depressed looking. Cooperative, tearful. Speech is soft with regular rate and rhythm. Thought processes goal directed. Denies auditory or visual hallucinations. Denies suicidal or homicidal thoughts. No abnormal perceptions noted. Mood is depressed and anxious. Affect is dysthymic. Insight is fair. Impulse control is fair. Judgment is fair. Attention span and concentration fair. ROS: Psychiatric review of system is positive for depression, anxiety, substance use, alcohol abuse, and complicated bereavement. Physical Exam: Refer to Physician's note. CHARGE ACCOUNT CLERK: No focal deficit MSK: No EPS, TDK, or abnormal involuntary movements Vitals: Vitals Vital Signs Date Time Temp Pulse Resp B/P (MAP) Pulse Ox O2 Delivery O2 Flow Rate FiO2 12/16/19 18:34 Room Air 12/16/19 14:32 98.3 88 18 152/98 (116) 96 98.3 Labs: Labs Laboratory Tests Test 12/15/19 11:12 12/15/19 11:15 12/15/19 11:28 12/15/19 14:40 Salicylates Level 4.7 mg/dL (2.8-20.0) Salicylate Last Dose Date Unknown Salicylate Last Dose Time Unknown Acetaminophen Level < 2.0 mcg/ml (10-30) Acetaminophen Last Dose Date Unknown Acetaminophen Last Dose Time Unknown Ethyl Alcohol Level < 10 mg/dL (0-10) Troponin I Quantitative < 0.017 ng/mL (0.000-0.055) White Blood Count 14.0 x10^3/uL (4.0-11.0) Red Blood Count 4.32 x10^6/uL (4.30-5.70) Hemoglobin 15.8 g/dL (13.0-17.5) Hematocrit 46.6 % (39.0-53.0) Mean Corpuscular Volume 108 fL (79-100) Mean Corpuscular Hemoglobin 37 pg (25-35) Mean Corpuscular Hemoglobin Concent 34 g/dL (31-37) Red Cell Distribution Width 18.1 % (11.5-14.5) Platelet Count 397 x10^3/uL (140-400) Neutrophils (%) (Auto) 85 % (31-73) Lymphocytes (%) (Auto) 9 % (24-48) Monocytes (%) (Auto) 6 % (0-9) Eosinophils (%) (Auto) 0 % (0-3) Basophils (%) (Auto) 1 % (0-3) Neutrophils # (Auto) 11.9 x10^3/uL (1.8-7.7) Lymphocytes # (Auto) 1.2 x10^3/uL (1.0-4.8) Monocytes # (Auto) 0.8 x10^3/uL (0.0-1.1) Eosinophils # (Auto) 0.0 x10^3/uL (0.0-0.7) Basophils # (Auto) 0.1 x10^3/uL (0.0-0.2) Prothrombin Time 12.9 SEC (11.7-14.0) Prothromb Time International Ratio 1.0 (0.8-1.1) Activated Partial Thromboplast Time 28 SEC (24-38) Sodium Level 135 mmol/L (136-145) Potassium Level 4.1 mmol/L (3.5-5.1) Chloride Level 86 mmol/L (98-107) Carbon Dioxide Level 24 mmol/L (21-32) Anion Gap 25 (6-14) Blood Urea Nitrogen 45 mg/dL (8-26) Creatinine 1.8 mg/dL (0.7-1.3) Estimated GFR (Cockcroft-Gault) 38.9 BUN/Creatinine Ratio 25 (6-20) Glucose Level 105 mg/dL (70-99) Calcium Level 9.1 mg/dL (8.5-10.1) Magnesium Level 1.8 mg/dL (1.8-2.4) Total Bilirubin 1.8 mg/dL (0.2-1.0) Aspartate Amino Transf (AST/SGOT) 194 U/L (15-37) Alanine Aminotransferase (ALT/SGPT) 116 U/L (16-63) Alkaline Phosphatase 132 U/L (46-116) LF-Woy-U-Type Natriuretic Peptide 214 pg/mL (0-124) Total Protein 8.3 g/dL (6.4-8.2) Albumin 4.2 g/dL (3.4-5.0) Albumin/Globulin Ratio 1.0 (1.0-1.7) Lipase 1247 U/L (73-393) Urine Collection Type Unknown Urine Color Yellow Urine Clarity Clear Urine pH 5.5 (<5.0-8.0) Urine Specific [place] 1.020 (1.000-1.030) Urine Protein Negative mg/dL (NEG-TRACE) Urine Glucose (UA) Negative mg/dL (NEG) Urine Ketones (Stick) >=80 mg/dL (NEG) Urine Blood Negative (NEG) Urine Nitrite Negative (NEG) Urine Bilirubin Moderate (NEG) Urine Urobilinogen Dipstick 1.0 mg/dL (0.2 mg/dL) Urine Leukocyte Esterase Negative (NEG) Urine RBC 0 /HPF (0-2) Urine WBC 1-4 /HPF (0-4) Urine Squamous Epithelial Cells Few /LPF Urine Bacteria Few /HPF (0-FEW) Urine Hyaline Casts Many /HPF Urine Mucus Marked /LPF Urine Opiates Screen Neg (NEG) Urine Methadone Screen Neg (NEG) Urine Barbiturates Neg (NEG) Urine Phencyclidine Screen Neg (NEG) Urine Amphetamine/Methamphetamine Neg (NEG) Urine Benzodiazepines Screen Neg (NEG) Urine Cocaine Screen Neg (NEG) Urine Cannabinoids Screen Pos (NEG) Urine Ethyl Alcohol Neg (NEG) Test 12/15/19 18:33 12/16/19 06:22 12/16/19 12:02 12/16/19 17:12 Glucose (Fingerstick) 220 mg/dL (70-99) 115 mg/dL (70-99) 176 mg/dL (70-99) 106 mg/dL (70-99) Laboratory Tests Test 12/16/19 06:22 12/16/19 12:02 12/16/19 17:12 Glucose (Fingerstick) 115 mg/dL (70-99) 176 mg/dL (70-99) 106 mg/dL (70-99) Diagnosis: Diagnosis: 1-major depressive disorder, first episode, moderate. 2-alcohol use disorder, recurrent, moderate to severe 3-THC use disorder. 4-complicated bereavement. Assessment: He is an -Beninese gentleman with major depressive episode in context of major depressive disorder. His low-grade depression is likely precipitated by the of his baby brother. He is taking care of his mother who has end- stage renal disease, adding up in his depression. He is in agreement to start Celexa 10 mg for depression and anxiety. Celexa is available in $4 list affordable for the patient. Plan: Start Celexa 10 mg daily for depression and anxiety. If tolerating orally. Psychoeducation provided. Supportive psychotherapy provided. Risks, benefits, alternatives of the treatment are discussed. He is in agreement with the plan and voiced understanding. Adverse drug reactions including but not limited to suicidality, weight gain/weight loss, increased anxiety, insomnia, sexual dysfunction, and risk of bleeding are discussed. He is cautioned about bleeding risk as he had bloody vomitus likely to Vanessa Onel. He is educated to stop Celexa in case of increased bleeding. Alcohol rehab is highly recommended to the patient. Grief counseling is also recommended to the patient as outpatient. Thank you for involving inpatient care. ENZO CRISTINA MD December 16, 2019 19:00
[2019-12-16] MEDS: ZOLPIDEM 5 MG TABLET. PO PRN (20:45)
[2019-12-16] MEDS: CITALOPRAM 10 MG TABLET. PO SCH (20:45)
[2019-12-16] MEDS: MORPHINE SULFATE 4 MG/ML VIAL. IV PRN (20:46)
[2019-12-16 23:00] VITALS: BP 141/84
[2019-12-17 03:00] VITALS: BP 137/98
[2019-12-17] MEDS: HYDROcodone/APAP 5/325MG 1 TAB TABLET PO PRN ×2 (05:24→16:52)
[2019-12-17] MEDS: PANTOPRAZOLE IV PUSH 40 MG VIAL. IVP SCH (05:24)
[2019-12-17] MEDS: INSULIN LISPRO 300 UNITS/3 ML VIAL. SQ SCH ×5 (07:30→21:42)
[2019-12-17 07:56] VITALS: BP 127/89
--- NOTE | 2019-12-17 08:48 | PDOC ---
PROGRESS NOTES Chief Complaint Chief Complaint IMPRESSION Alcohol-induced pancreatitis Epigastric abdominal pain Hematemesis - likely amarilis-hollingsworth? Acute alcohol withdrawal Macrocytosis probably from chronic alcohol Leukocytosis WU DM 2 HTN Suicidal History of Present Illness History of Present Illness 12/17/2019 Patient seen and examined He has a one-to-one observer in the room Discussed with RN Chart reviewed Vitals Vitals Vital Signs Date Time Temp Pulse Resp B/P (MAP) Pulse Ox O2 Delivery O2 Flow Rate FiO2 12/17/19 07:56 97.8 74 16 127/89 (102) 98 Room Air 97.8 Physical Exam General: Alert, Oriented X3, Cooperative, mild distress, Other (Complains of thirst) Heart: Regular rate, Normal S1 Lungs: Clear Abdomen: Normal bowel sounds, No hepatosplenomegaly, No masses, Other (epigastric tenderness) Extremities: No clubbing, No cyanosis, No edema, Normal pulses, No tenderness/swelling Skin: No rashes, No breakdown, No significant lesion Labs LABS Laboratory Tests Test 12/16/19 12:02 12/16/19 17:12 12/16/19 21:08 12/17/19 03:55 Glucose (Fingerstick) 176 mg/dL (70-99) 106 mg/dL (70-99) 130 mg/dL (70-99) Lipase 1113 U/L (73-393) Test 12/17/19 07:31 Glucose (Fingerstick) 96 mg/dL (70-99) Assessment and Plan Assessmemt and Plan Problems Medical Problems: (1) Alcohol-induced pancreatitis Status: Acute (2) Cough Status: Acute (3) Suicidal ideation Status: Acute Comment Review of Relevant I have reviewed the following items adonis (where applicable) has been applied. Labs Laboratory Tests Test 12/15/19 11:12 12/15/19 11:15 12/15/19 11:28 12/15/19 14:40 Salicylates Level 4.7 mg/dL (2.8-20.0) Salicylate Last Dose Date Unknown Salicylate Last Dose Time Unknown Acetaminophen Level < 2.0 mcg/ml (10-30) Acetaminophen Last Dose Date Unknown Acetaminophen Last Dose Time Unknown Ethyl Alcohol Level < 10 mg/dL (0-10) Troponin I Quantitative < 0.017 ng/mL (0.000-0.055) White Blood Count 14.0 x10^3/uL (4.0-11.0) Red Blood Count 4.32 x10^6/uL (4.30-5.70) Hemoglobin 15.8 g/dL (13.0-17.5) Hematocrit 46.6 % (39.0-53.0) Mean Corpuscular Volume 108 fL (79-100) Mean Corpuscular Hemoglobin 37 pg (25-35) Mean Corpuscular Hemoglobin Concent 34 g/dL (31-37) Red Cell Distribution Width 18.1 % (11.5-14.5) Platelet Count 397 x10^3/uL (140-400) Neutrophils (%) (Auto) 85 % (31-73) Lymphocytes (%) (Auto) 9 % (24-48) Monocytes (%) (Auto) 6 % (0-9) Eosinophils (%) (Auto) 0 % (0-3) Basophils (%) (Auto) 1 % (0-3) Neutrophils # (Auto) 11.9 x10^3/uL (1.8-7.7) Lymphocytes # (Auto) 1.2 x10^3/uL (1.0-4.8) Monocytes # (Auto) 0.8 x10^3/uL (0.0-1.1) Eosinophils # (Auto) 0.0 x10^3/uL (0.0-0.7) Basophils # (Auto) 0.1 x10^3/uL (0.0-0.2) Prothrombin Time 12.9 SEC (11.7-14.0) Prothromb Time International Ratio 1.0 (0.8-1.1) Activated Partial Thromboplast Time 28 SEC (24-38) Sodium Level 135 mmol/L (136-145) Potassium Level 4.1 mmol/L (3.5-5.1) Chloride Level 86 mmol/L (98-107) Carbon Dioxide Level 24 mmol/L (21-32) Anion Gap 25 (6-14) Blood Urea Nitrogen 45 mg/dL (8-26) Creatinine 1.8 mg/dL (0.7-1.3) Estimated GFR (Cockcroft-Gault) 38.9 BUN/Creatinine Ratio 25 (6-20) Glucose Level 105 mg/dL (70-99) Calcium Level 9.1 mg/dL (8.5-10.1) Magnesium Level 1.8 mg/dL (1.8-2.4) Total Bilirubin 1.8 mg/dL (0.2-1.0) Aspartate Amino Transf (AST/SGOT) 194 U/L (15-37) Alanine Aminotransferase (ALT/SGPT) 116 U/L (16-63) Alkaline Phosphatase 132 U/L (46-116) LV-Qdg-U-Type Natriuretic Peptide 214 pg/mL (0-124) Total Protein 8.3 g/dL (6.4-8.2) Albumin 4.2 g/dL (3.4-5.0) Albumin/Globulin Ratio 1.0 (1.0-1.7) Lipase 1247 U/L (73-393) Urine Collection Type Unknown Urine Color Yellow Urine Clarity Clear Urine pH 5.5 (<5.0-8.0) Urine Specific [place] 1.020 (1.000-1.030) Urine Protein Negative mg/dL (NEG-TRACE) Urine Glucose (UA) Negative mg/dL (NEG) Urine Ketones (Stick) >=80 mg/dL (NEG) Urine Blood Negative (NEG) Urine Nitrite Negative (NEG) Urine Bilirubin Moderate (NEG) Urine Urobilinogen Dipstick 1.0 mg/dL (0.2 mg/dL) Urine Leukocyte Esterase Negative (NEG) Urine RBC 0 /HPF (0-2) Urine WBC 1-4 /HPF (0-4) Urine Squamous Epithelial Cells Few /LPF Urine Bacteria Few /HPF (0-FEW) Urine Hyaline Casts Many /HPF Urine Mucus Marked /LPF Urine Opiates Screen Neg (NEG) Urine Methadone Screen Neg (NEG) Urine Barbiturates Neg (NEG) Urine Phencyclidine Screen Neg (NEG) Urine Amphetamine/Methamphetamine Neg (NEG) Urine Benzodiazepines Screen Neg (NEG) Urine Cocaine Screen Neg (NEG) Urine Cannabinoids Screen Pos (NEG) Urine Ethyl Alcohol Neg (NEG) Test 12/15/19 18:33 12/16/19 06:22 12/16/19 12:02 12/16/19 17:12 Glucose (Fingerstick) 220 mg/dL (70-99) 115 mg/dL (70-99) 176 mg/dL (70-99) 106 mg/dL (70-99) Test 5/4/20 21:08 12/17/19 03:55 12/17/19 07:31 Glucose (Fingerstick) 130 mg/dL (70-99) 96 mg/dL (70-99) Lipase 1113 U/L (73-393) Laboratory Tests Test 12/16/19 12:02 12/16/19 17:12 12/16/19 21:08 12/17/19 03:55 Glucose (Fingerstick) 176 mg/dL (70-99) 106 mg/dL (70-99) 130 mg/dL (70-99) Lipase 1113 U/L (73-393) Test 12/17/19 07:31 Glucose (Fingerstick) 96 mg/dL (70-99) Medications Current Medications Sodium Chloride 1,000 ml @ 1,000 mls/hr 1X ONCE IV Last administered on 12/15/19at 12:26; Start 12/15/19 at 12:30; Stop 12/15/19 at 13:29; Status DC Ondansetron HCl (Zofran) 4 mg PRN Q4HRS PRN IV NAUSEA/VOMITING, 1ST CHOICE Last administered on 12/15/19at 18:25; Start 12/15/19 at 16:45 Zolpidem Tartrate (Ambien) 5 mg PRN QHS PRN PO INSOMNIA Last administered on 12/16/19at 20:45; Start 12/15/19 at 16:45 Acetaminophen (Tylenol) 650 mg PRN Q4HRS PRN PO TEMP OVER 100.4F OR MILD PAIN; Start 12/15/19 at 16:45 Enoxaparin Sodium (Lovenox 40mg Syringe) 40 mg Q24H SQ Last administered on 12/16/19at 17:20; Start 12/15/19 at 17:00 Multivitamins 10 ml/Thiamine HCl 100 mg/Folic Acid 1 mg/Sodium Chloride 1,011.2 ml @ 100 mls/ hr DAILY IV Last administered on 12/16/19at 08:30; Start 12/15/19 at 17:00; Stop 12/19/19 at 19:07 Lorazepam (Ativan) 1 mg PRN Q1HR PRN PO For CIWA 8-14; Start 12/15/19 at 16:45 Lorazepam (Ativan) 2 mg PRN Q1HR PRN PO For CIWA 15 or greater; Start 12/15/19 at 16:45 Lorazepam (Ativan Inj) 1 mg PRN Q1HR PRN IV For CIWA 8-14; Start 12/15/19 at 16:45 Lorazepam (Ativan Inj) 2 mg PRN Q1HR PRN IV For CIWA 15 or greater; Start 12/15/19 at 16:45 Haloperidol Lactate (Haldol Inj) 5 mg PRN Q4HRS PRN IVP Hallucinatns,Confusn,Delirium; Start 12/15/19 at 16:45 Diphenhydramine HCl (Benadryl) 25 mg PRN Q15MIN PRN IVP EPS symptoms 2'Haldol admin; Start 12/15/19 at 16:45 Clonidine HCl (Catapres) 0.1 mg PRN Q1HR PRN PO SBP > 180 or DBP > 100, MRX3; Start 12/15/19 at 16:45 Nicotine (Nicoderm Cq 21mg) 1 patch DAILY TD Last administered on 12/16/19at 08:30; Start 12/15/19 at 16:45 Sodium Chloride 1,000 ml @ 100 mls/hr Q10H IV Last administered on 12/16/19at 04:35; Start 12/15/19 at 16:45; Stop 12/16/19 at 12:44; Status DC Insulin Human Lispro (HumaLOG) 0-5 UNITS Q6HRS SQ ; Start 12/15/19 at 18:00; Stop 12/17/19 at 00:47; Status DC Dextrose (Dextrose 50%-Water Syringe) 12.5 gm PRN Q15MIN PRN IV SEE COMMENTS; Start 12/15/19 at 16:45 Pantoprazole Sodium (PROTONIX VIAL for IV PUSH) 40 mg DAILYAC IVP Last administ ered on 12/17/19at 05:24; Start 12/16/19 at 07:30 Pantoprazole Sodium (PROTONIX VIAL for IV PUSH) 40 mg 1X ONCE IVP Last administered on 12/15/19at 18:21; Start 12/15/19 at 16:45; Stop 12/15/19 at 16:55; Status DC Morphine Sulfate (Morphine Sulfate) 4 mg PRN Q4HRS PRN IV PAIN Last administered on 12/16/19at 20:46; Start 12/15/19 at 16:45 Hydralazine HCl (Apresoline Inj) 10 mg PRN Q4HRS PRN IVP ELEVATED BP, SEE COMMENTS; Start 12/15/19 at 17:00 Prochlorperazine Edisylate (Compazine) 10 mg PRN Q6HRS PRN IV NAUSEA/VOMITING, 2ND CHOICE Last administered on 12/15/19at 20:07; Start 12/15/19 at 17:00 Acetaminophen/ Hydrocodone Bitart (Lortab 5/325) 1 tab PRN Q4HRS PRN PO MODERATE-SEVERE PAIN Last administered on 12/17/19at 05:24; Start 12/16/19 at 10:45 Citalopram Hydrobromide (CeleXA) 10 mg DAILY PO Last administered on 12/16/19at 20:45; Start 12/16/19 at 20:00 Insulin Human Lispro (HumaLOG) 0-5 UNITS QIDACHS SQ ; Start 12/17/19 at 07:30 Vitals/I & O Vital Sign - Last 24 Hours 12/16/19 12/16/19 12/16/19 12/16/19 11:01 11:06 12:20 14:32 Temp 98.8 98.3 98.8 98.3 Pulse 96 88 Resp 16 18 B/P (MAP) 140/88 (105) 152/98 (116) Pulse Ox 96 96 O2 Delivery Room Air Room Air Room Air Room Air 12/16/19 12/16/19 12/16/19 12/16/19 18:34 19:00 19:34 20:00 Temp 98.7 98.7 Pulse 88 Resp 16 18 B/P (MAP) 152/92 (112) Pulse Ox 98 96 O2 Delivery Room Air Room Air Room Air Room Air 12/16/19 12/16/19 12/16/19 12/16/19 20:46 21:16 22:46 23:00 Temp 98.5 98.5 Pulse 83 Resp 18 18 18 18 B/P (MAP) 141/84 (103) Pulse Ox 96 96 96 100 O2 Delivery Room Air Room Air Room Air Room Air 12/16/19 12/17/19 12/17/19 12/17/19 23:46 03:00 05:24 06:24 Temp 97.5 97.5 Pulse 85 Resp 18 18 18 18 B/P (MAP) 137/98 (111) Pulse Ox 100 9 9 9 O2 Delivery Room Air Room Air Room Air Room Air 12/17/19 07:56 Temp 97.8 97.8 Pulse 74 Resp 16 B/P (MAP) 127/89 (102) Pulse Ox 98 O2 Delivery Room Air Intake and Output 12/16/19 12/16/19 12/17/19 15:00 23:00 07:00 Intake Total 1470 ml 540 ml 450 ml Output Total 0 ml Balance 1470 ml 540 ml 450 ml CAMILLE GEE MD December 17, 2019 08:48
[2019-12-17] MEDS: NICOTINE 21MG PATCH. TD SCH (08:54)
[2019-12-17] MEDS: CITALOPRAM 10 MG TABLET. PO SCH (08:54)
[2019-12-17] MEDS: MULTIVIT INFUSN,ADULT 4,VIT K 10 ML, THIAMINE INJ 100 MG, FOLIC ACID INJ 1 MG in IV NOR... IV SCH (08:54)
--- NOTE | 2019-12-17 09:41 | NUR ---
[facility] following. Discussed with RN, pt scheduled for [facility] assessment at around 1100 today. Etienne from [facility] team saw pt yesterday (12/16/2019), pt received resources, will follow with [facility]. Dr. Soria consulted, started on mental health meds. [facility] will continue to follow. Addendum: 12/17/19 at 1314 by ELIZA URBAN [facility] to advise pt will follow up with [facility]. Pt will be contacted by [facility] for his intake. Pt does not need to stay in the hospital whilst waiting for intake date. RN notified.
[2019-12-17 11:00] VITALS: BP 154/94
[2019-12-17 15:00] VITALS: BP 157/97
[2019-12-17] MEDS: ENOXAPARIN 40 MG/0.4 ML SYRINGE. SQ SCH (17:35)
[2019-12-17 19:00] VITALS: BP 144/89
[2019-12-17 23:00] VITALS: BP 152/100
[2019-12-18 03:00] VITALS: BP 166/106
[2019-12-18 04:13] VITALS: BP 137/82
[2019-12-18 07:00] VITALS: BP 161/89
[2019-12-18] MEDS: PANTOPRAZOLE IV PUSH 40 MG VIAL. IVP SCH (07:26)
[2019-12-18] MEDS: INSULIN LISPRO 300 UNITS/3 ML VIAL. SQ SCH ×2 (07:30→11:30)
[2019-12-18] MEDS: HYDROcodone/APAP 5/325MG 1 TAB TABLET PO PRN (07:33)
[2019-12-18] MEDS: NICOTINE 21MG PATCH. TD SCH (08:45)
[2019-12-18] MEDS: MULTIVIT INFUSN,ADULT 4,VIT K 10 ML, THIAMINE INJ 100 MG, FOLIC ACID INJ 1 MG in IV NOR... IV SCH (08:46)
[2019-12-18] MEDS: CITALOPRAM 10 MG TABLET. PO SCH (08:46)
--- NOTE | 2019-12-18 09:57 | PDOC ---
PROGRESS NOTES Chief Complaint Chief Complaint DISCHARGE DX ========= Alcohol-induced pancreatitis Epigastric abdominal pain Hematemesis - likely amarilis-hollingsworth? RESOLVED Acute alcohol withdrawal RESOLVED Macrocytosis probably from chronic alcohol Leukocytosis WU DM 2 HTN Suicidal, RESOLVED History of Present Illness History of Present Illness 12/18/2019 Patient seen and examined F/U WITH OUT PT MENTAL HEALTH TOMORROW Discussed with RN Chart reviewed D/C PLANNING 35 MIN Vitals Vitals Vital Signs Date Time Temp Pulse Resp B/P (MAP) Pulse Ox O2 Delivery O2 Flow Rate FiO2 12/18/19 07:00 97.8 69 18 161/89 (113) 99 Room Air 97.8 Physical Exam Physical Exam ALERT, WANTS TO GO HOME TODAY, NO SI General: Alert, Oriented X3, Cooperative, No acute distress, mild distress, Other (Complains of thirst) Heart: Regular rate, Normal S1 Lungs: Clear Abdomen: Normal bowel sounds, Soft, No hepatosplenomegaly, No masses, Other (epigastric tenderness) Extremities: No clubbing, No cyanosis, No edema, Normal pulses, No tenderness/swelling Skin: No rashes, No breakdown, No significant lesion Labs LABS Laboratory Tests Test 12/17/19 11:03 12/17/19 17:13 12/17/19 21:30 12/18/19 07:28 Glucose (Fingerstick) 110 mg/dL (70-99) 114 mg/dL (70-99) 111 mg/dL (70-99) 101 mg/dL (70-99) Assessment and Plan Assessmemt and Plan Problems Medical Problems: (1) Alcohol-induced pancreatitis Status: Acute (2) Cough Status: Acute (3) Suicidal ideation Status: Acute Comment Review of Relevant I have reviewed the following items adonis (where applicable) has been applied. Labs Laboratory Tests Test 12/16/19 12:02 12/16/19 17:12 12/16/19 21:08 12/17/19 03:55 Glucose (Fingerstick) 176 mg/dL (70-99) 106 mg/dL (70-99) 130 mg/dL (70-99) Lipase 1113 U/L (73-393) Test 12/17/19 07:31 12/17/19 11:03 12/17/19 17:13 12/17/19 21:30 Glucose (Fingerstick) 96 mg/dL (70-99) 110 mg/dL (70-99) 114 mg/dL (70-99) 111 mg/dL (70-99) Test 12/18/19 07:28 Glucose (Fingerstick) 101 mg/dL (70-99) Laboratory Tests Test 12/17/19 11:03 12/17/19 17:13 12/17/19 21:30 12/18/19 07:28 Glucose (Fingerstick) 110 mg/dL (70-99) 114 mg/dL (70-99) 111 mg/dL (70-99) 101 mg/dL (70-99) Medications Current Medications Sodium Chloride 1,000 ml @ 1,000 mls/hr 1X ONCE IV Last administered on 12/15/19at 12:26; Start 12/15/19 at 12:30; Stop 12/15/19 at 13:29; Status DC Ondansetron HCl (Zofran) 4 mg PRN Q4HRS PRN IV NAUSEA/VOMITING, 1ST CHOICE Last administered on 12/15/19at 18:25; Start 12/15/19 at 16:45 Zolpidem Tartrate (Ambien) 5 mg PRN QHS PRN PO INSOMNIA Last administered on 12/16/19at 20:45; Start 12/15/19 at 16:45 Acetaminophen (Tylenol) 650 mg PRN Q4HRS PRN PO TEMP OVER 100.4F OR MILD PAIN; Start 12/15/19 at 16:45 Enoxaparin Sodium (Lovenox 40mg Syringe) 40 mg Q24H SQ Last administered on 12/17/19at 17:35; Start 12/15/19 at 17:00 Multivitamins 10 ml/Thiamine HCl 100 mg/Folic Acid 1 mg/Sodium Chloride 1,011.2 ml @ 100 mls/ hr DAILY IV Last administered on 12/18/19at 08:46; Start 12/15/19 at 17:00; Stop 12/19/19 at 19:07 Lorazepam (Ativan) 1 mg PRN Q1HR PRN PO For CIWA 8-14; Start 12/15/19 at 16:45 Lorazepam (Ativan) 2 mg PRN Q1HR PRN PO For CIWA 15 or greater; Start 12/15/19 at 16:45 Lorazepam (Ativan Inj) 1 mg PRN Q1HR PRN IV For CIWA 8-14; Start 12/15/19 at 16:45 Lorazepam (Ativan Inj) 2 mg PRN Q1HR PRN IV For CIWA 15 or greater; Start 12/15/19 at 16:45 Haloperidol Lactate (Haldol Inj) 5 mg PRN Q4HRS PRN IVP Hallucinatns,Confusn,Delirium; Start 12/15/19 at 16:45 Diphenhydramine HCl (Benadryl) 25 mg PRN Q15MIN PRN IVP EPS symptoms 2'Haldol admin; Start 12/15/19 at 16:45 Clonidine HCl (Catapres) 0.1 mg PRN Q1HR PRN PO SBP > 180 or DBP > 100, MRX3; Start 12/15/19 at 16:45 Nicotine (Nicoderm Cq 21mg) 1 patch DAILY TD Last administered on 12/18/19at 08:45; Start 12/15/19 at 16:45 Sodium Chloride 1,000 ml @ 100 mls/hr Q10H IV Last administered on 12/16/19at 04:35; Start 12/15/19 at 16:45; Stop 12/16/19 at 12:44; Status DC Insulin Human Lispro (HumaLOG) 0-5 UNITS Q6HRS SQ ; Start 12/15/19 at 18:00; Stop 12/17/19 at 00:47; Status DC Dextrose (Dextrose 50%-Water Syringe) 12.5 gm PRN Q15MIN PRN IV SEE COMMENTS; Start 12/15/19 at 16:45 Pantoprazole Sodium (PROTONIX VIAL for IV PUSH) 40 mg DAILYAC IVP Last administered on 12/18/19at 07:26; Start 12/16/19 at 07:30 Pantoprazole Sodium (PROTONIX VIAL for IV PUSH) 40 mg 1X ONCE IVP Last administered on 12/15/19at 18:21; Start 12/15/19 at 16:45; Stop 12/15/19 at 16:55; Status DC Morphine Sulfate (Morphine Sulfate) 4 mg PRN Q4HRS PRN IV PAIN Last administered on 12/16/19at 20:46; Start 12/15/19 at 16:45 Hydralazine HCl (Apresoline Inj) 10 mg PRN Q4HRS PRN IVP ELEVATED BP, SEE COMMENTS; Start 12/15/19 at 17:00 Prochlorperazine Edisylate (Compazine) 10 mg PRN Q6HRS PRN IV NAUSEA/VOMITING, 2ND CHOICE Last administered on 12/15/19at 20:07; Start 12/15/19 at 17:00 Acetaminophen/ Hydrocodone Bitart (Lortab 5/325) 1 tab PRN Q4HRS PRN PO MODERATE-SEVERE PAIN Last administered on 12/18/19at 07:33; Start 12/16/19 at 10:45 Citalopram Hydrobromide (CeleXA) 10 mg DAILY PO Last administered on 12/18/19at 08:46; Start 12/16/19 at 20:00 Insulin Human Lispro (HumaLOG) 0-5 UNITS QIDACHS SQ ; Start 12/17/19 at 07:30 Vitals/I & O Vital Sign - Last 24 Hours 12/17/19 12/17/19 12/17/19 12/17/19 11:00 15:00 16:52 17:58 Temp 97.4 98.2 97.4 98.2 Pulse 74 82 Resp 18 B/P (MAP) 154/94 (114) 157/97 (117) Pulse Ox 99 99 O2 Delivery Room Air Room Air Room Air Room Air 12/17/19 12/17/19 12/17/19 12/18/19 19:00 19:40 23:00 03:00 Temp 98.8 98.8 98.4 98.8 98.8 98.4 Pulse 82 80 76 Resp 18 16 18 B/P (MAP) 144/89 (107) 152/100 (117) 166/106 (126) Pulse Ox 94 98 98 O2 Delivery Room Air 12/18/19 12/18/19 04:13 07:00 Temp 97.8 97.8 Pulse 73 69 Resp 16 18 B/P (MAP) 137/82 (100) 161/89 (113) Pulse Ox 99 O2 Delivery Room Air Intake and Output 12/17/19 12/17/19 12/18/19 15:00 23:00 07:00 Intake Total 120 ml 360 ml 240 ml Output Total 1 ml Balance 120 ml 360 ml 239 ml CAMILLE GEE MD December 18, 2019 09:57
[2019-12-18 10:56] VITALS: BP 158/82
--- NOTE | 2019-12-18 11:22 | NUR ---
SW following. Discussed with RN, pt room air, GI soft diet. RN anticipates possible discharge home today with self care. Pt will follow up with [facility] for Level 1 treatment. SW will continue to follow.
--- NOTE | 2019-12-18 13:18 | PDOC3 ---
Discharge Summary Date of Admission: December 15, 2019 Date of Discharge: December 18, 2019 Follow-Up: 1-2 days Admitting Diagnosis comment: DISCHARGE DX ========= Alcohol-induced pancreatitis Epigastric abdominal pain Hematemesis - likely amarilis-hollingsworth? RESOLVED Acute alcohol withdrawal RESOLVED Macrocytosis probably from chronic alcohol Leukocytosis WU DM 2 HTN Suicidal, RESOLVED History of Present Illness History of Present Illness 12/18/2019 Patient seen and examined F/U WITH OUT PT MENTAL HEALTH TOMORROW Discussed with RN Chart reviewed D/C PLANNING 35 MIN Vitals Vitals Vital Signs Date Time Temp Pulse Resp B/P (MAP) Pulse Ox O2 Delivery O2 Flow Rate FiO2 12/18/19 07:00 97.8 69 18 161/89 (113) 99 Room Air 97.8 Physical Exam Physical Exam ALERT, WANTS TO GO HOME TODAY, NO SI General: Alert, Oriented X3, Cooperative, No acute distress, mild distress, Other (Complains of thirst) Heart: Regular rate, Normal S1 Lungs: Clear Abdomen: Normal bowel sounds, Soft, No hepatosplenomegaly, No masses, Other (epigastric tenderness) Extremities: No clubbing, No cyanosis, No edema, Normal pulses, No tenderness/swelling Skin: No rashes, No breakdown, No significant lesion Labs FINAL DIAGNOSIS Problems Medical Problems: (1) Alcohol-induced pancreatitis Status: Acute (2) Cough Status: Acute (3) Suicidal ideation Status: Acute Brief Hospital Course Mr. Barahona is a 59 old [sex] who presented with [ DEPRESSION, PANCREATITIS, ALCOHOL ABUSE] CONDITION AT DISCHARGE: Improved Discharge Medications Current Medications Sodium Chloride 1,000 ml @ 1,000 mls/hr 1X ONCE IV Last administered on 12/15/19at 12:26; Start 12/15/19 at 12:30; Stop 12/15/19 at 13:29; Status DC Ondansetron HCl (Zofran) 4 mg PRN Q4HRS PRN IV NAUSEA/VOMITING, 1ST CHOICE Last administered on 12/15/19at 18:25; Start 12/15/19 at 16:45 Zolpidem Tartrate (Ambien) 5 mg PRN QHS PRN PO INSOMNIA Last administered on 12/16/19at 20:45; Start 12/15/19 at 16:45 Acetaminophen (Tylenol) 650 mg PRN Q4HRS PRN PO TEMP OVER 100.4F OR MILD PAIN; Start 12/15/19 at 16:45 Enoxaparin Sodium (Lovenox 40mg Syringe) 40 mg Q24H SQ Last administered on 12/17/19at 17:35; Start 12/15/19 at 17:00 Multivitamins 10 ml/Thiamine HCl 100 mg/Folic Acid 1 mg/Sodium Chloride 1,011.2 ml @ 100 mls/ hr DAILY IV Last administered on 12/18/19at 08:46; Start 12/15/19 at 17:00; Stop 12/19/19 at 19:07 Lorazepam (Ativan) 1 mg PRN Q1HR PRN PO For CIWA 8-14; Start 12/15/19 at 16:45 Lorazepam (Ativan) 2 mg PRN Q1HR PRN PO For CIWA 15 or greater; Start 12/15/19 at 16:45 Lorazepam (Ativan Inj) 1 mg PRN Q1HR PRN IV For CIWA 8-14; Start 12/15/19 at 16:45 Lorazepam (Ativan Inj) 2 mg PRN Q1HR PRN IV For CIWA 15 or greater; Start 12/15/19 at 16:45 Haloperidol Lactate (Haldol Inj) 5 mg PRN Q4HRS PRN IVP Hallucinatns,Confusn,Delirium; Start 12/15/19 at 16:45 Diphenhydramine HCl (Benadryl) 25 mg PRN Q15MIN PRN IVP EPS symptoms 2'Haldol admin; Start 12/15/19 at 16:45 Clonidine HCl (Catapres) 0.1 mg PRN Q1HR PRN PO SBP > 180 or DBP > 100, MRX3; Start 12/15/19 at 16:45 Nicotine (Nicoderm Cq 21mg) 1 patch DAILY TD Last administered on 12/18/19at 08:45; Start 12/15/19 at 16:45 Sodium Chloride 1,000 ml @ 100 mls/hr Q10H IV Last administered on 12/16/19at 04:35; Start 12/15/19 at 16:45; Stop 12/16/19 at 12:44; Status DC Insulin Human Lispro (HumaLOG) 0-5 UNITS Q6HRS SQ ; Start 12/15/19 at 18:00; Stop 12/17/19 at 00:47; Status DC Dextrose (Dextrose 50%-Water Syringe) 12.5 gm PRN Q15MIN PRN IV SEE COMMENTS; Start 12/15/19 at 16:45 Pantoprazole Sodium (PROTONIX VIAL for IV PUSH) 40 mg DAILYAC IVP Last administered on 12/18/19at 07:26; Start 12/16/19 at 07:30 Pantoprazole Sodium (PROTONIX VIAL for IV PUSH) 40 mg 1X ONCE IVP Last administered on 12/15/19at 18:21; Start 12/15/19 at 16:45; Stop 12/15/19 at 16:55; Status DC Morphine Sulfate (Morphine Sulfate) 4 mg PRN Q4HRS PRN IV PAIN Last administered on 12/16/19at 20:46; Start 12/15/19 at 16:45 Hydralazine HCl (Apresoline Inj) 10 mg PRN Q4HRS PRN IVP ELEVATED BP, SEE COMMENTS; Start 12/15/19 at 17:00 Prochlorperazine Edisylate (Compazine) 10 mg PRN Q6HRS PRN IV NAUSEA/VOMITING, 2ND CHOICE Last administered on 12/15/19at 20:07; Start 12/15/19 at 17:00 Acetaminophen/ Hydrocodone Bitart (Lortab 5/325) 1 tab PRN Q4HRS PRN PO MODERATE-SEVERE PAIN Last administered on 12/18/19at 07:33; Start 12/16/19 at 10:45 Citalopram Hydrobromide (CeleXA) 10 mg DAILY PO Last administered on 12/18/19at 08:46; Start 12/16/19 at 20:00 Insulin Human Lispro (HumaLOG) 0-5 UNITS QIDACHS SQ ; Start 12/17/19 at 07:30 Vital Signs Vital Signs Date Time Temp Pulse Resp B/P (MAP) Pulse Ox O2 Delivery O2 Flow Rate FiO2 12/18/19 10:56 97.8 72 18 158/82 (107) 100 Room Air 97.8 Labs Laboratory Tests Test 12/16/19 17:12 12/16/19 21:08 12/17/19 03:55 12/17/19 07:31 Glucose (Fingerstick) 106 mg/dL (70-99) 130 mg/dL (70-99) 96 mg/dL (70-99) Lipase 1113 U/L (73-393) Test 12/17/19 11:03 12/17/19 17:13 12/17/19 21:30 12/18/19 07:28 Glucose (Fingerstick) 110 mg/dL (70-99) 114 mg/dL (70-99) 111 mg/dL (70-99) 101 mg/dL (70-99) Test 12/18/19 11:33 Glucose (Fingerstick) 98 mg/dL (70-99) Laboratory Tests Test 12/17/19 17:13 12/17/19 21:30 12/18/19 07:28 12/18/19 11:33 Glucose (Fingerstick) 114 mg/dL (70-99) 111 mg/dL (70-99) 101 mg/dL (70-99) 98 mg/dL (70-99) Allergies Allergies Coded Allergies Type Severity Reaction Last Updated Verified No Known Drug Allergies 12/15/19 No Disposition/Orders: D/C to Home CAMILLE GEE MD December 18, 2019 13:18
[2019-12-18] MEDS ORDERED: CITA10TA8 PO (13:23)
[2019-12-18] MEDS ORDERED: THIA100T43 PO (13:23)
[2019-12-18] MEDS ORDERED: FOLI0.8C PO (13:23)
[2019-12-18] MEDS ORDERED: ACET325T9 PO (13:23)
--- NOTE | 2019-12-18 13:26 | DISCH ---
DISCHARGE INSTRUCTIONS Condition on Discharge Condition on Discharge: Stable Activity After Discharge Activity Instructions for Disc: Activity as tolerated Exercise Instruction after Dis: Walk 10 min, 3 x per day Driving Instructions after Dis: Do not drive today Diet after Discharge Diet after Discharge: Regular Contacting the DR. after DC Call your doctor for: If your condition worsens CAMILLE GEE MD December 18, 2019 13:26
== END 2019-12-18 14:50 | disposition home or self-care (01) | DRG 368 ==
LOC: ER 11:10 → 4 NORTH 15:19
PROVIDERS: ADMIT Internal Medicine; ATTEND Internal Medicine
DX: K22.6 Gastro-esophageal laceration-hemorrhage syndrome (principal); K85.20 Alcohol induced acute pancreatitis without necrosis or infection; N17.0 Acute kidney failure with tubular necrosis; F10.239 Alcohol dependence with withdrawal, unspecified; R45.851 Suicidal ideations; D75.89 Other specified diseases of blood and blood-forming organs; E11.9 Type 2 diabetes mellitus without complications; E86.0 Dehydration; F12.90 Cannabis use, unspecified, uncomplicated; F17.210 Nicotine dependence, cigarettes, uncomplicated; F41.9 Anxiety disorder, unspecified; F43.21 Adjustment disorder with depressed mood; N30.90 Cystitis, unspecified without hematuria; I10 Essential (primary) hypertension; N32.0 Bladder-neck obstruction; Z71.89 Other specified counseling; Z63.4 Disappearance and death of family member; Z83.3 Family history of diabetes mellitus; Z82.49 Family history of ischemic heart disease and other diseases of the circulatory system; Z84.1 Family history of disorders of kidney and ureter; Z80.9 Family history of malignant neoplasm, unspecified
CPT/HCPCS: 36415; 71045; 74176; 80053; 80307; 80329; 81001; 82962; 83690; 83735; 83880; 84484; 85025; 85610; 85730; 93005; 96360; 96361; 99285; C9113; G0480; J0780; J1650; J1815; J2270; J2405; J3411; J3490; J7030; G0378

== ENCOUNTER 2019-12-27 22:47 | Emergency (ER) | payer SELFPAY ==
[~2019-12-27] VITALS: Ht 182.9 cm; Wt 59.1 kg
[2019-12-27 22:47] VITALS: BP 109/73
[~2019-12-27 22:47] MED LIST: ACET325T9 PO; CITA10TA8 PO; FOLI0.8C PO; THIA100T43 PO
--- NOTE | 2019-12-27 22:56 | PHYS DOC ---
Past Medical History Past Medical History: Diabetes-Type II, Hypertension Past Surgical History: Other Additional Past Surgical Histo: HERNIA Smoking Status: Current Every Day Smoker Alcohol Use: Heavy General Adult EDM: Chief Complaint: Shortness of breath HPI: HPI: Patient is a 59 year old male who presents with complaint of shortness of breath that started this morning about 9:00. Patient denies any chest pain. He denies any fever. He does indicate the cough is been productive of a little bit of white sputum. He was seen here about a week ago for the same complaint. Patient is also been drinking alcohol today. Medics indicate that patient's lungs were clear with 99% on room air. [] Review of Systems: Review of Systems: Constitutional: Denies fever or chills. [] Respiratory: Complains of cough and shortness of breath. [] Cardiovascular: Denies chest pain or edema. [] Integument: Denies rash. [] Neurologic: Denies headache, focal weakness or sensory changes. [] A full 10 point review of systems has been reviewed and is otherwise negative. Heart Score: Risk Factors: Risk Factors: DM, Current or recent (<one month) smoker, HTN, HLP, family history of CAD, obesity. Risk Scores: Score 0 - 3: 2.5% MACE over next 6 weeks - Discharge Home Score 4 - 6: 20.3% MACE over next 6 weeks - Admit for Clinical Observation Score 7 - 10: 72.7% MACE over next 6 weeks - Early Invasive Strategies Allergies: Allergies: Allergies Coded Allergies Type Severity Reaction Last Updated Verified No Known Drug Allergies 12/15/19 No Physical Exam: PE: Constitutional: Well developed, well nourished, no acute distress, non-toxic appearance. [] HENT: Normocephalic, atraumatic, bilateral external ears normal, oropharynx moist, no oral exudates, nose normal. [] Eyes: PERRLA, EOMI, conjunctiva normal, no discharge. [] Neck: Normal range of motion, no tenderness, supple, no stridor. [] Cardiovascular: Regular rate and rhythm [] Lungs & Thorax: Bilateral breath sounds clear to auscultation [] Abdomen: Bowel sounds normal, soft, no tenderness. [] Skin: Warm, dry, no erythema, no rash. [] Extremities: No tenderness, no cyanosis, no clubbing, ROM intact. [] Neurologic: Alert and oriented X 3, no focal deficits noted. [] EKG: EKG: [] Radiology/Procedures: Radiology/Procedures: [] Course & Med Decision Making: Course & Med Decision Making Pertinent Labs and Imaging studies reviewed. (See chart for details) [] Dragon Disclaimer: Dragon Disclaimer: This electronic medical record was generated, in whole or in part, using a voice recognition dictation system. Departure Departure Impression: Primary Impression: Anxiety Additional Impression: Alcohol abuse Disposition: 07 AGAINST MEDICAL ADVICE (A medical screening examination was performed on this patient and patient elected to leave with outpatient follow-up in lieu of paying $150 co-pay.) Referrals: NON,STAFF (PCP) SARITA VAZQUEZ Jr. DO December 27, 2019 22:56
== END 2019-12-27 23:17 | disposition left against medical advice (07) ==
LOC: ER 22:47
DX: F41.9 Anxiety disorder, unspecified (principal); R06.02 Shortness of breath; R05 Cough; E11.9 Type 2 diabetes mellitus without complications; I10 Essential (primary) hypertension; F17.200 Nicotine dependence, unspecified, uncomplicated; F10.20 Alcohol dependence, uncomplicated; Y90.9 Presence of alcohol in blood, level not specified
CPT/HCPCS: 99283

== ENCOUNTER 2020-03-24 23:14 | Inpatient (IN) | payer OTHER ==
[~2020-03-24] VITALS: Ht 182.9 cm; Wt 60.6 kg
--- NOTE | 2020-03-24 23:31 | PHYS DOC ---
Past Medical History Past Medical History: Anxiety, Diabetes-Type II, Hypertension Past Surgical History: Other Additional Past Surgical Histo: HERNIA Smoking Status: Current Every Day Smoker Alcohol Use: Heavy Drug Use: Marijuana General Adult EDM: Chief Complaint: WEAKNESS/GENERALIZED HPI: HPI: Patient is a 59 year old female who presents with a one-week history of generalized weakness and falls. Patient states he has difficulty moving his legs in the last week. Patient has had a fall. Patient denies any fever but states he cannot ambulate at home. Patient is having intermittent incontinence of stool urine. There is been no history of vomiting or difficulty breathing. Patient does have some lumbar back pain is worse with movement. Patient has had some diarrhea that is been yellow in nature Review of Systems: Review of Systems: Constitutional: Denies fever or chills. [] Eyes: Denies change in visual acuity. [] HENT: Denies nasal congestion or sore throat. [] Respiratory: Denies cough or shortness of breath. [] Cardiovascular: Denies chest pain complains of bilateral lower extremity edema GI: Denies abdominal pain, nausea, vomiting, bloody stools but has had diarrhea : Denies dysuria. [] Musculoskeletal: Complains of back pain Integument: Denies rash. [] Neurologic: Denies headache but has generalized weakness Endocrine: Denies polyuria or polydipsia. [] Lymphatic: Denies swollen glands. [] Psychiatric: Denies depression or anxiety. [] Heart Score: Risk Factors: Risk Factors: DM, Current or recent (<one month) smoker, HTN, HLP, family history of CAD, obesity. Risk Scores: Score 0 - 3: 2.5% MACE over next 6 weeks - Discharge Home Score 4 - 6: 20.3% MACE over next 6 weeks - Admit for Clinical Observation Score 7 - 10: 72.7% MACE over next 6 weeks - Early Invasive Strategies Allergies: Allergies: Allergies Coded Allergies Type Severity Reaction Last Updated Verified No Known Drug Allergies 12/15/19 No Physical Exam: PE: Constitutional: Cachectic, disheveled and frail HENT: Normocephalic, atraumatic, bilateral external ears normal, no trismus, nose normal. [] Eyes: PERRLA, EOMI, conjunctiva normal, no discharge. [] Neck: Normal range of motion, no tenderness, supple, no stridor. [] Cystic structure on the posterior neck Cardiovascular:Heart rate regular rhythm, peripheral pulses intact, cap refill brisk Lungs & Thorax: Bilateral breath sounds clear no respiratory distress Abdomen: soft, no tenderness, no masses, no pulsatile masses. [] Hepatomegaly Skin: Warm, dry, no erythema, no rash. [] Back: Mild tenderness diffusely Extremities: No tenderness, no cyanosis, no clubbing, ROM intact, 2+ bilateral lower extremities edema Neurologic: Alert and oriented X 3, generalized weakness to bilateral lower extremities. Patient is able to dorsiflex the bilateral but has difficulty lifting his legs off the bed. Psychologic: Blunted mood Current Patient Data: Labs: Laboratory Tests Test 03/24/20 23:55 03/25/20 00:06 White Blood Count 10.0 x10^3/uL Red Blood Count 2.70 x10^6/uL Hemoglobin 10.2 g/dL Hematocrit 29.1 % Mean Corpuscular Volume 108 fL Mean Corpuscular Hemoglobin 38 pg Mean Corpuscular Hemoglobin Concent 35 g/dL Red Cell Distribution Width 15.6 % Platelet Count 280 x10^3/uL Neutrophils (%) (Auto) 74 % Lymphocytes (%) (Auto) 18 % Monocytes (%) (Auto) 5 % Eosinophils (%) (Auto) 3 % Basophils (%) (Auto) 1 % Neutrophils # (Auto) 7.4 x10^3/uL Lymphocytes # (Auto) 1.8 x10^3/uL Monocytes # (Auto) 0.5 x10^3/uL Eosinophils # (Auto) 0.3 x10^3/uL Basophils # (Auto) 0.0 x10^3/uL Prothrombin Time 11.7 SEC Prothromb Time International Ratio 0.9 Activated Partial Thromboplast Time 32 SEC Sodium Level 141 mmol/L Potassium Level 1.7 mmol/L Chloride Level 94 mmol/L Carbon Dioxide Level 45 mmol/L Anion Gap 2 Blood Urea Nitrogen 11 mg/dL Creatinine 1.5 mg/dL Estimated GFR (Cockcroft-Gault) 58.2 BUN/Creatinine Ratio 7 Glucose Level 89 mg/dL Lactic Acid Level 3.2 mmol/L Calcium Level 8.9 mg/dL Magnesium Level 1.1 mg/dL Total Bilirubin 0.9 mg/dL Aspartate Amino Transf (AST/SGOT) 233 U/L Alanine Aminotransferase (ALT/SGPT) 93 U/L Alkaline Phosphatase 160 U/L Ammonia 16 mcmol/L Lactate Dehydrogenase 507 U/L Troponin I Quantitative 0.041 ng/mL FO-Sma-X-Type Natriuretic Peptide 1407 pg/mL Total Protein 6.4 g/dL Albumin 2.6 g/dL Albumin/Globulin Ratio 0.7 Lipase 220 U/L Thyroid Stimulating Hormone (TSH) 3.177 uIU/mL Ethyl Alcohol Level < 10 mg/dL Urine Collection Type Unknown Urine Color Yellow Urine Clarity Clear Urine pH 6.0 Urine Specific Sutton 1.010 Urine Protein 30 mg/dL Urine Glucose (UA) Negative mg/dL Urine Ketones (Stick) Negative mg/dL Urine Blood Large Urine Nitrite Negative Urine Bilirubin Negative Urine Urobilinogen Dipstick 1.0 mg/dL Urine Leukocyte Esterase Trace Urine RBC 6-10 /HPF Urine WBC 1-4 /HPF Urine Squamous Epithelial Cells Few /LPF Urine Amorphous Sediment Present /HPF Urine Bacteria 0 /HPF Urine Hyaline Casts Few /HPF Urine Mucus Slight /LPF Urine Opiates Screen Neg Urine Methadone Screen Neg Urine Barbiturates Neg Urine Phencyclidine Screen Neg Urine Amphetamine/Methamphetamine Neg Urine Benzodiazepines Screen Neg Urine Cocaine Screen Neg Urine Cannabinoids Screen Pos Urine Ethyl Alcohol Neg Current Medications Medications (Trade) Dose Ordered Sig/Steph Route PRN Reason Start Time Stop Time Status Last Admin Dose Admin Magnesium Sulfate 50 ml @ 25 mls/hr 1X ONCE IV 03/25/20 00:45 03/25/20 02:44 DC 03/25/20 01:16 Potassium Chloride/Water 100 ml @ 50 mls/hr 1X ONCE IV 03/25/20 01:00 03/25/20 02:59 03/25/20 01:16 Potassium Chloride (Klor-Con) 40 meq 1X ONCE PO 03/25/20 00:45 03/25/20 00:46 DC 03/25/20 01:15 Vital Signs: Vital Signs Date Time Temp Pulse Resp B/P (MAP) Pulse Ox O2 Delivery O2 Flow Rate FiO2 03/24/20 23:35 98.8 94 16 136/78 (97) 94 Room Air 98.8 EKG: EKG: [] EKG interpreted by me normal sinus rhythm with a rate of 91 normal axis inverted T waves with some ST depressions in V2 through V4 prolonged Q TC. These ST depressions are new from prior EKG. Radiology/Procedures: Radiology/Procedures: [][facility] [address] [facility] [place] [address] IMAGING REPORT Signed PATIENT: BELLA FLORESCOUNT: [id number] : 1960 LOCATION: ER AGE: 59 SEX: M EXAM STATUS: REG ER ORD. PHYSICIAN: MUSHTAQ CAMARILLO MD REASON: FALLS, WEAK PROCEDURE: CT LUMBAR SPINE WO CONTRAST CT head without contrast. CT lumbar spine without contrast. HISTORY: Fall, weakness. CT head findings: No intracranial hemorrhage, mass, hydrocephalus, extra-axial fluid collections or infarction. Imaged orbits, mastoids and bones are unremarkable. IMPRESSION: No acute intracranial CT abnormality. CT lumbar spine findings: There is a chronic appearing healed fracture deformity anterior cortex of the lower sacrum. There are chronic appearing bilateral L5 spondylolysis defects with sclerotic bony margins grade 1 anterolisthesis of L5 on S1. Lumbar vertebral body height and alignment intact. No acute fracture of the lumbar spine. Aortoiliac artery calcified plaque. Rectosigmoid wall thickening and diverticuli. Lumbar paraspinal tissues unremarkable. Disc bulges L4-5 and L5-S1 and facet spurring and endplate spurring contribute to spinal canal and neural foraminal stenoses are moderate to severe degree. IMPRESSION: 1. No acute osseous injury lumbar spine. 2. L5 spondylolysis. Lumbar disc disease as described above. 3. Rectosigmoid wall thickening and sigmoid diverticulosis, this could be wall thickening due to muscle spasm or due to colitis. Exposure: One or more of the following individualized dose reduction techniques were utilized for this examination: 1. Automated exposure control 2. Adjustment of the mA and/or kV according to patient size 3. Use of iterative reconstruction technique Electronically signed by: Libby Mendez MD (03/25/2020 1:10 AM) [facility] [place] SIGNED BY: LIBBY MENDEZ MD DATE: 03/25/20109 [facility] [address] [place] [address] IMAGING REPORT Signed PATIENT: BELLA FLORES TACCOUNT: [id number] : 1960 LOCATION: ER AGE: 59 SEX: M EXAM STATUS: REG ER ORD. PHYSICIAN: MUSHTAQ CAMARILLO MD REASON: FALLS, WEAK PROCEDURE: PORTABLE CHEST 1V AP chest x-ray HISTORY: Fall, weakness. COMPARISON: Chest x-ray December 15, 2019. FINDINGS: Calcified splenic granulomas. Heart size normal. Mediastinal silhouette is normal. No pneumothorax, pulmonary opacities or pleural effusions. Bones are unremarkable. IMPRESSION: No acute process. Electronically signed by: Libby Mendez MD (03/25/2020 1:44 AM) [facility] [place] SIGNED BY: LIBBY MENDEZ MD DATE: 03/25/20 0144 Course & Med Decision Making: Course & Med Decision Making Pertinent Labs and Imaging studies reviewed. (See chart for details) [] Patient denies any chest pain but upon further asking said he did have some about a week ago for the weakness started. 59-year-old male presents with profound weakness. Patient has significant hypokalemia with a potassium 1.7. Patient will be given IV and oral potassium as well as magnesium. Due to patient's reported back pain and weakness in the legs a CT was done which shows no obvious etiology for the symptoms. Patient does have evidence of colitis on the CT of the lumbar spine and has had diarrhea for a month. Patient will be given antibiotics. On reassessment patient is clinically unchanged. 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 Patient will be admitted to Dr. kang for evaluation and treatment. Critical care time was [35] minutes which includes time at bedside, spent in discussion of patient's care with specialist and/or family members, with interpretation of laboratory and/or radiological studies and is exclusive of procedures. Critical care time was [35] minutes exclusive of procedures. Critical condition: Profound hypokalemia, colitis, weakness Critical interventions: Potassium replacement and antibiotics and admission to the stepdown unit Arnulfo Disclaimer: Arnulfo Disclaimer: This electronic medical record was generated, in whole or in part, using a voice recognition dictation system. Departure Departure Impression: Primary Impression: Hypokalemia Additional Impressions: Generalized weakness Back pain Hypomagnesemia Colitis Admitting Physician: MISSY HONEYCUTT) Condition: GUARDED Referrals: NO PCP (PCP) Justicifation of Admission Dx: Justifications for Admission: Justification of Admission Dx: Yes MUSHTAQ CAMARILLO MD Mar 24, 2020 23:31
[2020-03-25 00:08] LABS: BASO % 1 % (0-3); EOS # 0.3 x10^3/uL (0.0-0.7); EOS % 3 % (0-3); HEMATOCRIT 29.1 % (39.0-53.0); HEMOGLOBIN 10.2 g/dL (13.0-17.5); LYMPH # 1.8 x10^3/uL (1.0-4.8); LYMPH % 18 % (24-48); MEAN CORPUSCULAR HEMOGLOBIN 38 pg (25-35); MEAN CORPUSCULAR HGB CONC 35 g/dL (31-37); MEAN CORPUSCULAR VOLUME 108 fL (79-100); MONO # 0.5 x10^3/uL (0.0-1.1); MONO % 5 % (0-9); NEUT # 7.4 x10^3/uL (1.8-7.7); NEUT % 74 % (31-73); PLATELET COUNT 280 x10^3/uL (140-400); RED CELL DISTRIBUTION WIDTH 15.6 % (11.5-14.5)
[2020-03-25 00:17] LABS: PROTHROMBIN TIME PATIENT 11.7 SEC (11.7-14.0)
[2020-03-25 00:21] LABS: BILIRUBIN,URINE NEGATIVE (NEG); CLARITY,URINE CLEAR; COLOR,URINE YELLOW; NITRITE,URINE NEGATIVE (NEG); PROTEIN,URINE 30 mg/dL (NEG-TRACE)
[2020-03-25 00:27] LABS: BARBITURATES NEG (NEG); BENZODIAZEPINES NEG (NEG); CANNABINOIDS POS (NEG); COCAINE NEG (NEG); METHADONE NEG (NEG); OPIATES NEG (NEG); PHENCYCLIDINE NEG (NEG)
[2020-03-25 00:28] LABS: ALBUMIN 2.6 g/dL (3.4-5.0); ALBUMIN/GLOBULIN RATIO 0.7 (1.0-1.7); CALCIUM 8.9 mg/dL (8.5-10.1); CREATININE 1.5 mg/dL (0.7-1.3); GFR 58.2; MAGNESIUM 1.1 mg/dL (1.8-2.4); TOTAL BILIRUBIN 0.9 mg/dL (0.2-1.0); TOTAL PROTEIN 6.4 g/dL (6.4-8.2)
[2020-03-25 00:30] LABS: AMPHETAMINE/METHAMPHETAMINE NEG (NEG)
[2020-03-25 00:34] LABS: POTASSIUM 1.7 mmol/L (3.5-5.1)
[2020-03-25 00:42] LABS: AMORPHOUS SEDIMENT,UR PRESENT /HPF; BACTERIA,URINE 0 /HPF (0-FEW); HYALINE CASTS, URINE FEW /HPF; SQUAMOUS EPITHELIAL CELL,UR FEW /LPF
[2020-03-25] MEDS ORDERED: POTASSIUM CHLORIDE 20 MEQ TABLET.ER. PO ONE ×5 (00:45→19:00)
[2020-03-25] MEDS ORDERED: MAGNESIUM SULFATE 2GM 50 ML IV ONE (00:45)
[2020-03-25] MEDS ORDERED: POTASSIUM CHLORIDE 20MEQ 100 ML IV ONE ×2 (01:00→03:00)
--- NOTE | 2020-03-25 01:13 | RAD ---
CT head without contrast. CT lumbar spine without contrast. HISTORY: Fall, weakness. CT head findings: No intracranial hemorrhage, mass, hydrocephalus, extra-axial fluid collections or infarction. Imaged orbits, mastoids and bones are unremarkable. IMPRESSION: No acute intracranial CT abnormality. CT lumbar spine findings: There is a chronic appearing healed fracture deformity anterior cortex of the lower sacrum. There are chronic appearing bilateral L5 spondylolysis defects with sclerotic bony margins grade 1 anterolisthesis of L5 on S1. Lumbar vertebral body height and alignment intact. No acute fracture of the lumbar spine. Aortoiliac artery calcified plaque. Rectosigmoid wall thickening and diverticuli. Lumbar paraspinal tissues unremarkable. Disc bulges L4-5 and L5-S1 and facet spurring and endplate spurring contribute to spinal canal and neural foraminal stenoses are moderate to severe degree. IMPRESSION: 1. No acute osseous injury lumbar spine. 2. L5 spondylolysis. Lumbar disc disease as described above. 3. Rectosigmoid wall thickening and sigmoid diverticulosis, this could be wall thickening due to muscle spasm or due to colitis. Exposure: One or more of the following individualized dose reduction techniques were utilized for this examination: 1. Automated exposure control 2. Adjustment of the mA and/or kV according to patient size 3. Use of iterative reconstruction technique Electronically signed by: Tobi Mendez MD (03/25/2020 1:10 AM) [facility]
[2020-03-25] MEDS ORDERED: IV NORMAL SALINE 1000ML BAG 1,000 ML IV ONE (01:30)
--- NOTE | 2020-03-25 01:47 | RAD ---
AP chest x-ray HISTORY: Fall, weakness. COMPARISON: Chest x-ray December 15, 2019. FINDINGS: Calcified splenic granulomas. Heart size normal. Mediastinal silhouette is normal. No pneumothorax, pulmonary opacities or pleural effusions. Bones are unremarkable. IMPRESSION: No acute process. Electronically signed by: Tobi Mendez MD (03/25/2020 1:44 AM) [facility]
[2020-03-25] MEDS ORDERED: ONDANSETRON PF 4 MG/2 ML VIAL. IV PRN ×2 (02:00→14:45)
[2020-03-25 03:00] VITALS: BP 186/79
[2020-03-25 04:17] LABS: BASO % 0 % (0-3); EOS # 0.2 x10^3/uL (0.0-0.7); EOS % 2 % (0-3); HEMATOCRIT 30.6 % (39.0-53.0); HEMOGLOBIN 10.8 g/dL (13.0-17.5); LYMPH # 1.6 x10^3/uL (1.0-4.8); LYMPH % 15 % (24-48); MEAN CORPUSCULAR HEMOGLOBIN 38 pg (25-35); MEAN CORPUSCULAR HGB CONC 35 g/dL (31-37); MEAN CORPUSCULAR VOLUME 108 fL (79-100); MONO # 0.5 x10^3/uL (0.0-1.1); MONO % 5 % (0-9); NEUT % 78 % (31-73); PLATELET COUNT 294 x10^3/uL (140-400); RED BLOOD COUNT 2.85 x10^6/uL (4.30-5.70); RED CELL DISTRIBUTION WIDTH 15.4 % (11.5-14.5); WHITE BLOOD COUNT 10.3 x10^3/uL (4.0-11.0)
[2020-03-25 04:29] LABS: BLOOD UREA NITROGEN 10 mg/dL (8-26); CALCIUM 8.1 mg/dL (8.5-10.1); CARBON DIOXIDE 44 mmol/L (21-32); CHLORIDE 99 mmol/L (98-107); CREATININE 1.2 mg/dL (0.7-1.3); GFR 75.2; GLUCOSE 90 mg/dL (70-99); SODIUM 142 mmol/L (136-145)
--- NOTE | 2020-03-25 04:36 | EKG ---
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
[2020-03-25 04:53] LABS: POTASSIUM 1.6 mmol/L (3.5-5.1)
[2020-03-25] MEDS ORDERED: MAGNESIUM SULFATE 4GM 100 ML IV ONE (05:30)
[2020-03-25] MEDS: POTASSIUM CHLORIDE 10MEQ 100 ML IV SCH ×6 (05:41→20:22)
[2020-03-25 07:00] VITALS: BP 131/83
--- NOTE | 2020-03-25 07:38 | NUR ---
Patient arrived by roshan at 0310. Patient inventory of items taken. Patient did not know what medications he is taking and only takes medication when available. Patient unable to walk has severe weakness in bilateral lower extremities. Patient had critical potassium this AM at 1.[address] Goodwin and new orders received.
[2020-03-25] MEDS: POTASSIUM CL 20MEQ D5-0.45NACL 1,000 ML IV SCH ×2 (08:00→15:42)
--- NOTE | 2020-03-25 10:18 | PDOC1 ---
History and Physical Date of Admission Date of Admission DATE: 03/25/20 TIME: 10:17 Identification/Chief Complaint Chief Complaint SEEN IN ER WITH WEAKNESS, 59 year old female who presents with a one-week history of generalized weakness and falls. Patient states he has difficulty moving his legs in the last week. has had a fall. Patient denies any fever but states he cannot ambulate at home.//intermittent incontinence of stool urine. There is been no history of vomiting or difficulty breathing. POS lumbar back pain is worse with movement. Patient has had some diarrhea that is been yellow in nature Past Medical History Past Medical History Past Medical History Past Medical History Past Medical History: Anxiety, Diabetes-Type II, Hypertension Past Surgical History: Other Additional Past Surgical Histo: HERNIA Smoking Status: Current Every Day Smoker Alcohol Use: Heavy Drug Use: Marijuana FHX ALCOHOL ABUSE Cardiovascular: HTN Pulmonary: No pertinent hx Endocrine: Diabetes Past Surgical History Past Surgical History: Hernia Repair Family History Family History: Cancer, Diabetes, High Cholestrol, Hypertension, Kidney Disease Social History Smoke: <1 pack per day ALCOHOL: none Drugs: Marijuana Current Problem List Problem List Problems Medical Problems: (1) Back pain Status: Acute (2) Colitis Status: Acute (3) Generalized weakness Status: Acute (4) Hypokalemia Status: Acute (5) Hypomagnesemia Status: Acute Current Medications Current Medications Current Medications Magnesium Sulfate 50 ml @ 25 mls/hr 1X ONCE IV Last administered on 03/25/20at 01:16; Start 03/25/20 at 00:45; Stop 03/25/20 at 02:44; Status DC Potassium Chloride/Water 100 ml @ 50 mls/hr 1X ONCE IV Last administered on 03/25/20at 01:16; Start 03/25/20 at 01:00; Stop 03/25/20 at 02:59; Status DC Potassium Chloride (Klor-Con) 40 meq 1X ONCE PO Last administered on 03/25/20at 01:15; Start 03/25/20 at 00:45; Stop 03/25/20 at 00:46; Status DC Potassium Chloride/Water 100 ml @ 50 mls/hr 1X ONCE IV Last administered on 03/25/20at 02:48; Start 03/25/20 at 03:00; Stop 03/25/20 at 04:59; Status DC Metronidazole 100 ml @ 100 mls/hr 1X ONCE IV Last administered on 03/25/20at 02:47; Start 03/25/20 at 01:30; Stop 03/25/20 at 02:29; Status DC Levofloxacin/ Dextrose 150 ml @ 100 mls/hr 1X ONCE IV Last administered on 03/25/20at 02:46; Start 03/25/20 at 01:30; Stop 03/25/20 at 02:59; Status DC Sodium Chloride 1,000 ml @ 1,000 mls/hr 1X ONCE IV Last administered on 03/25/20at 02:46; Start 03/25/20 at 01:30; Stop 03/25/20 at 02:29; Status DC Ondansetron HCl (Zofran) 4 mg PRN Q8HRS PRN IV NAUSEA/VOMITING; Start 03/25/20 at 02:00; Stop 03/26/20 at 01:59 Potassium Chloride (Klor-Con) 40 meq TIDWMEALS ONCE PO ; Start 03/25/20 at 08:00; Stop 03/25/20 at 08:01; Status DC Potassium Chloride (Klor-Con) 40 meq 1X ONCE PO Last administered on 03/25/20at 05:42; Start 03/25/20 at 05:30; Stop 03/25/20 at 05:31; Status DC Potassium Chloride/Water 100 ml @ 100 mls/hr Q1H IV Last administered on 03/25/20at 05:41; Start 03/25/20 at 05:30; Stop 03/25/20 at 07:29; Status DC Magnesium Sulfate 100 ml @ 25 mls/hr 1X ONCE IV Last administered on 03/25/20at 05:41; Start 03/25/20 at 05:30; Stop 03/25/20 at 09:29; Status DC Potassium Chloride/Dextrose/ Sod Cl 1,000 ml @ 100 mls/hr Q10H IV ; Start 03/25/20 at 08:00 Vitamin B Complex (Folbic Tablet) 1 tab DAILY PO ; Start 03/25/20 at 09:00 Thiamine Mononitrate (Vitamin B-1) 100 mg DAILY PO ; Start 03/25/20 at 09:00 Active Scripts Active B-1 (Thiamine HCl) 100 Mg Tablet 100 Mg PO DAILY08 30 Days Folic Acid 0.8 Mg Capsule 1 Cap PO DAILY 30 Days Celexa (Citalopram Hydrobromide) 10 Mg Tablet 10 Mg PO DAILY 30 Days Tylenol (Acetaminophen) 325 Mg Tablet 650 Mg PO PRN Q4HRS PRN 10 Days Allergies Allergies: Coded Allergies: No Known Drug Allergies (Unverified , 12/15/19) ROS Review of System Review of Systems: Review of Systems: Constitutional: Denies fever or chills. [] Eyes: Denies change in visual acuity. [] HENT: Denies nasal congestion or sore throat. [] Respiratory: Denies cough or shortness of breath. [] Cardiovascular: Denies chest pain complains of bilateral lower extremity edema GI: Denies abdominal pain, nausea, vomiting, bloody stools but has had diarrhea : Denies dysuria. [] Musculoskeletal: Complains of back pain Integument: Denies rash. [] Neurologic: Denies headache but has generalized weakness Endocrine: Denies polyuria or polydipsia. [] Lymphatic: Denies swollen glands. [] Psychiatric: Denies depression or anxiety. [] 14 PT ROS OTHERWISE NEG General: YES: Appetite ALLERGY AND IMMUNOLOGY: No: Hives, Insect Bite Sensitivity, Itchy/Watery Eyes, Nasal Congestion, Post Nasal Drip, Seasonal Allergies, Other Respiratory: No: Cough, Hemoptysis, Orthopnea, Pleuritic Pain, Shortness of breath, SOB with excertion, Sputum Changes, Stridor, Tachypnea, Wheezing, Other Musculoskeletal: Yes Gait Disturbance, Yes Joint Stiffness Neurological: Yes Gait Disturbance Physical Exam Physical Exam Constitutional: Cachectic, disheveled and frail HENT: Normocephalic, atraumatic, bilateral external ears normal, no trismus, nose normal. [] Eyes: PERRLA, EOMI, conjunctiva normal, no discharge. [] Neck: Normal range of motion, no tenderness, supple, no stridor. [] Cystic structure on the posterior neck Cardiovascular:Heart rate regular rhythm, peripheral pulses intact, cap refill brisk Lungs & Thorax: Bilateral breath sounds clear no respiratory distress Abdomen: soft, no tenderness, no masses, no pulsatile masses. [] Hepatomegaly Skin: Warm, dry, no erythema, no rash. [] Back: Mild tenderness diffusely Extremities: No tenderness, no cyanosis, no clubbing, ROM intact, 2+ bilateral lower extremities edema Neurologic: Alert and oriented X 3, generalized weakness to bilateral lower extremities. Patient is able to dorsiflex the bilateral but has difficulty lifting his legs off the bed. Psychologic: Blunted mood General: Cooperative HEENT: Atraumatic Abdomen: Normal bowel sounds, Soft Extremities: No cyanosis, No edema Neuro: Normal speech, Cranial nerves 3-12 NL Vitals Vitals Vital Signs Date Time Temp Pulse Resp B/P (MAP) Pulse Ox O2 Delivery O2 Flow Rate FiO2 03/25/20 07:00 97.8 81 18 131/83 (99) 98 Room Air 97.8 Labs Labs Laboratory Tests Test 03/24/20 23:55 03/25/20 00:01 03/25/20 00:06 03/25/20 03:40 White Blood Count 10.0 x10^3/uL (4.0-11.0) 10.3 x10^3/uL (4.0-11.0) Red Blood Count 2.70 x10^6/uL (4.30-5.70) 2.85 x10^6/uL (4.30-5.70) Hemoglobin 10.2 g/dL (13.0-17.5) 10.8 g/dL (13.0-17.5) Hematocrit 29.1 % (39.0-53.0) 30.6 % (39.0-53.0) Mean Corpuscular Volume 108 fL (79-100) 108 fL (79-100) Mean Corpuscular Hemoglobin 38 pg (25-35) 38 pg (25-35) Mean Corpuscular Hemoglobin Concent 35 g/dL (31-37) 35 g/dL (31-37) Red Cell Distribution Width 15.6 % (11.5-14.5) 15.4 % (11.5-14.5) Platelet Count 280 x10^3/uL (140-400) 294 x10^3/uL (140-400) Neutrophils (%) (Auto) 74 % (31-73) 78 % (31-73) Lymphocytes (%) (Auto) 18 % (24-48) 15 % (24-48) Monocytes (%) (Auto) 5 % (0-9) 5 % (0-9) Eosinophils (%) (Auto) 3 % (0-3) 2 % (0-3) Basophils (%) (Auto) 1 % (0-3) 0 % (0-3) Neutrophils # (Auto) 7.4 x10^3/uL (1.8-7.7) 8.0 x10^3/uL (1.8-7.7) Lymphocytes # (Auto) 1.8 x10^3/uL (1.0-4.8) 1.6 x10^3/uL (1.0-4.8) Monocytes # (Auto) 0.5 x10^3/uL (0.0-1.1) 0.5 x10^3/uL (0.0-1.1) Eosinophils # (Auto) 0.3 x10^3/uL (0.0-0.7) 0.2 x10^3/uL (0.0-0.7) Basophils # (Auto) 0.0 x10^3/uL (0.0-0.2) 0.0 x10^3/uL (0.0-0.2) Prothrombin Time 11.7 SEC (11.7-14.0) Prothromb Time International Ratio 0.9 (0.8-1.1) Activated Partial Thromboplast Time 32 SEC (24-38) Sodium Level 141 mmol/L (136-145) 142 mmol/L (136-145) Potassium Level 1.7 mmol/L (3.5-5.1) 1.6 mmol/L (3.5-5.1) Chloride Level 94 mmol/L (98-107) 99 mmol/L (98-107) Carbon Dioxide Level 45 mmol/L (21-32) 44 mmol/L (21-32) Anion Gap 2 (6-14) (6-14) Blood Urea Nitrogen 11 mg/dL (8-26) 10 mg/dL (8-26) Creatinine 1.5 mg/dL (0.7-1.3) 1.2 mg/dL (0.7-1.3) Estimated GFR (Cockcroft-Gault) 58.2 75.2 BUN/Creatinine Ratio 7 (6-20) Glucose Level 89 mg/dL (70-99) 90 mg/dL (70-99) Lactic Acid Level 3.2 mmol/L (0.4-2.0) 1.3 mmol/L (0.4-2.0) Calcium Level 8.9 mg/dL (8.5-10.1) 8.1 mg/dL (8.5-10.1) Magnesium Level 1.1 mg/dL (1.8-2.4) Total Bilirubin 0.9 mg/dL (0.2-1.0) Aspartate Amino Transf (AST/SGOT) 233 U/L (15-37) Alanine Aminotransferase (ALT/SGPT) 93 U/L (16-63) Alkaline Phosphatase 160 U/L (46-116) Ammonia 16 mcmol/L (11-34) Lactate Dehydrogenase 507 U/L (85-227) Troponin I Quantitative 0.041 ng/mL (0.000-0.055) AK-Mok-L-Type Natriuretic Peptide 1407 pg/mL (0-124) Total Protein 6.4 g/dL (6.4-8.2) Albumin 2.6 g/dL (3.4-5.0) Albumin/Globulin Ratio 0.7 (1.0-1.7) Lipase 220 U/L (73-393) Thyroid Stimulating Hormone (TSH) 3.177 uIU/mL (0.358-3.74) Ethyl Alcohol Level < 10 mg/dL (0-10) Bedside Troponin I 0.04 ng/ml (<0.08) Urine Collection Type Unknown Urine Color Yellow Urine Clarity Clear Urine pH 6.0 (<5.0-8.0) Urine Specific [place] 1.010 (1.000-1.030) Urine Protein 30 mg/dL (NEG-TRACE) Urine Glucose (UA) Negative mg/dL (NEG) Urine Ketones (Stick) Negative mg/dL (NEG) Urine Blood Large (NEG) Urine Nitrite Negative (NEG) Urine Bilirubin Negative (NEG) Urine Urobilinogen Dipstick 1.0 mg/dL (0.2 mg/dL) Urine Leukocyte Esterase Trace (NEG) Urine RBC 6-10 /HPF (0-2) Urine WBC 1-4 /HPF (0-4) Urine Squamous Epithelial Cells Few /LPF Urine Amorphous Sediment Present /HPF Urine Bacteria 0 /HPF (0-FEW) Urine Hyaline Casts Few /HPF Urine Mucus Slight /LPF Urine Opiates Screen Neg (NEG) Urine Methadone Screen Neg (NEG) Urine Barbiturates Neg (NEG) Urine Phencyclidine Screen Neg (NEG) Urine Amphetamine/Methamphetamine Neg (NEG) Urine Benzodiazepines Screen Neg (NEG) Urine Cocaine Screen Neg (NEG) Urine Cannabinoids Screen Pos (NEG) Urine Ethyl Alcohol Neg (NEG) Test 03/25/20 08:02 Glucose (Fingerstick) 105 mg/dL (70-99) Laboratory Tests Test 03/24/20 23:55 03/25/20 00:01 03/25/20 00:06 03/25/20 03:40 White Blood Count 10.0 x10^3/uL (4.0-11.0) 10.3 x10^3/uL (4.0-11.0) Red Blood Count 2.70 x10^6/uL (4.30-5.70) 2.85 x10^6/uL (4.30-5.70) Hemoglobin 10.2 g/dL (13.0-17.5) 10.8 g/dL (13.0-17.5) Hematocrit 29.1 % (39.0-53.0) 30.6 % (39.0-53.0) Mean Corpuscular Volume 108 fL (79-100) 108 fL (79-100) Mean Corpuscular Hemoglobin 38 pg (25-35) 38 pg (25-35) Mean Corpuscular Hemoglobin Concent 35 g/dL (31-37) 35 g/dL (31-37) Red Cell Distribution Width 15.6 % (11.5-14.5) 15.4 % (11.5-14.5) Platelet Count 280 x10^3/uL (140-400) 294 x10^3/uL (140-400) Neutrophils (%) (Auto) 74 % (31-73) 78 % (31-73) Lymphocytes (%) (Auto) 18 % (24-48) 15 % (24-48) Monocytes (%) (Auto) 5 % (0-9) 5 % (0-9) Eosinophils (%) (Auto) 3 % (0-3) 2 % (0-3) Basophils (%) (Auto) 1 % (0-3) 0 % (0-3) Neutrophils # (Auto) 7.4 x10^3/uL (1.8-7.7) 8.0 x10^3/uL (1.8-7.7) Lymphocytes # (Auto) 1.8 x10^3/uL (1.0-4.8) 1.6 x10^3/uL (1.0-4.8) Monocytes # (Auto) 0.5 x10^3/uL (0.0-1.1) 0.5 x10^3/uL (0.0-1.1) Eosinophils # (Auto) 0.3 x10^3/uL (0.0-0.7) 0.2 x10^3/uL (0.0-0.7) Basophils # (Auto) 0.0 x10^3/uL (0.0-0.2) 0.0 x10^3/uL (0.0-0.2) Prothrombin Time 11.7 SEC (11.7-14.0) Prothromb Time International Ratio 0.9 (0.8-1.1) Activated Partial Thromboplast Time 32 SEC (24-38) Sodium Level 141 mmol/L (136-145) 142 mmol/L (136-145) Potassium Level 1.7 mmol/L (3.5-5.1) 1.6 mmol/L (3.5-5.1) Chloride Level 94 mmol/L (98-107) 99 mmol/L (98-107) Carbon Dioxide Level 45 mmol/L (21-32) 44 mmol/L (21-32) Anion Gap 2 (6-14) (6-14) Blood Urea Nitrogen 11 mg/dL (8-26) 10 mg/dL (8-26) Creatinine 1.5 mg/dL (0.7-1.3) 1.2 mg/dL (0.7-1.3) Estimated GFR (Cockcroft-Gault) 58.2 75.2 BUN/Creatinine Ratio 7 (6-20) Glucose Level 89 mg/dL (70-99) 90 mg/dL (70-99) Lactic Acid Level 3.2 mmol/L (0.4-2.0) 1.3 mmol/L (0.4-2.0) Calcium Level 8.9 mg/dL (8.5-10.1) 8.1 mg/dL (8.5-10.1) Magnesium Level 1.1 mg/dL (1.8-2.4) Total Bilirubin 0.9 mg/dL (0.2-1.0) Aspartate Amino Transf (AST/SGOT) 233 U/L (15-37) Alanine Aminotransferase (ALT/SGPT) 93 U/L (16-63) Alkaline Phosphatase 160 U/L (46-116) Ammonia 16 mcmol/L (11-34) Lactate Dehydrogenase 507 U/L (85-227) Troponin I Quantitative 0.041 ng/mL (0.000-0.055) IV-Nuu-K-Type Natriuretic Peptide 1407 pg/mL (0-124) Total Protein 6.4 g/dL (6.4-8.2) Albumin 2.6 g/dL (3.4-5.0) Albumin/Globulin Ratio 0.7 (1.0-1.7) Lipase 220 U/L (73-393) Thyroid Stimulating Hormone (TSH) 3.177 uIU/mL (0.358-3.74) Ethyl Alcohol Level < 10 mg/dL (0-10) Bedside Troponin I 0.04 ng/ml (<0.08) Urine Collection Type Unknown Urine Color Yellow Urine Clarity Clear Urine pH 6.0 (<5.0-8.0) Urine Specific [place] 1.010 (1.000-1.030) Urine Protein 30 mg/dL (NEG-TRACE) Urine Glucose (UA) Negative mg/dL (NEG) Urine Ketones (Stick) Negative mg/dL (NEG) Urine Blood Large (NEG) Urine Nitrite Negative (NEG) Urine Bilirubin Negative (NEG) Urine Urobilinogen Dipstick 1.0 mg/dL (0.2 mg/dL) Urine Leukocyte Esterase Trace (NEG) Urine RBC 6-10 /HPF (0-2) Urine WBC 1-4 /HPF (0-4) Urine Squamous Epithelial Cells Few /LPF Urine Amorphous Sediment Present /HPF Urine Bacteria 0 /HPF (0-FEW) Urine Hyaline Casts Few /HPF Urine Mucus Slight /LPF Urine Opiates Screen Neg (NEG) Urine Methadone Screen Neg (NEG) Urine Barbiturates Neg (NEG) Urine Phencyclidine Screen Neg (NEG) Urine Amphetamine/Methamphetamine Neg (NEG) Urine Benzodiazepines Screen Neg (NEG) Urine Cocaine Screen Neg (NEG) Urine Cannabinoids Screen Pos (NEG) Urine Ethyl Alcohol Neg (NEG) Test 8/12/20 08:02 Glucose (Fingerstick) 105 mg/dL (70-99) Images Images CT head without contrast. CT lumbar spine without contrast. HISTORY: Fall, weakness. CT head findings: No intracranial hemorrhage, mass, hydrocephalus, extra-axial fluid collections or infarction. Imaged orbits, mastoids and bones are unremarkable. IMPRESSION: No acute intracranial CT abnormality. CT lumbar spine findings: There is a chronic appearing healed fracture deformity anterior cortex of the lower sacrum. There are chronic appearing bilateral L5 spondylolysis defects with sclerotic bony margins grade 1 anterolisthesis of L5 on S1. Lumbar vertebral body height and alignment intact. No acute fracture of the lumbar spine. Aortoiliac artery calcified plaque. Rectosigmoid wall thickening and diverticuli. Lumbar paraspinal tissues unremarkable. Disc bulges L4-5 and L5-S1 and facet spurring and endplate spurring contribute to spinal canal and neural foraminal stenoses are moderate to severe degree. IMPRESSION: 1. No acute osseous injury lumbar spine. 2. L5 spondylolysis. Lumbar disc disease as described above. 3. Rectosigmoid wall thickening and sigmoid diverticulosis, this could be wall thickening due to muscle spasm or due to colitis. Exposure: One or more of the following individualized dose reduction techniques were utilized for this examination: 1. Automated exposure control 2. Adjustment of the mA and/or kV according to patient size 3. Use of iterative reconstruction technique Electronically signed by: Tobi Mendez MD (03/25/2020 1:10 AM) AP chest x-ray HISTORY: Fall, weakness. COMPARISON: Chest x-ray December 15, 2019. FINDINGS: Calcified splenic granulomas. Heart size normal. Mediastinal silhouette is normal. No pneumothorax, pulmonary opacities or pleural effusions. Bones are unremarkable. IMPRESSION: No acute process. Electronically signed by: Tobi Mendez MD (03/25/2020 1:44 AM) [facility] [place] DICTATED and SIGNED BY: TOBI MENDEZ MD DATE: 03/25/20 0144 VTE Prophylaxis Ordered VTE Prophylaxis Devices: No VTE Pharmacological Prophylaxi: Yes Assessment/Plan Assessment/Plan Impression: Hypokalemia MALNUTRITION Generalized weakness Back pain Hypomagnesemia Colitis MACROCYTIC ANEMIA HX ALCOHOL ABUSE Macrocytosis probably from chronic alcohol Leukocytosis DM 2 HTN PLAN ADMIT PT/OT GI CONSULT REPLACE LYTES DVT PROPHYLAXIS STAT BMP 03/25 1430 STOOL CULTURE 74 MIN PT EXAM, CHART REVIEW, > 50% OF TIME SPENT WITH EXAM, CHART REVIEW, PT CARE COORDINATION Justicifation of Admission Dx: Justifications for Admission: Justification of Admission Dx: Yes CAMILLE GEE MD Mar 25, 2020 10:18
[2020-03-25 11:30] VITALS: BP 129/72
[2020-03-25] MEDS: THIAMINE 100 MG TABLET. PO SCH (13:00)
[2020-03-25] MEDS: VITAMIN B12,B9,B6 COMPLEX 1 TABLET. PO SCH (13:01)
[2020-03-25] MEDS: IV NORMAL SALINE 1000ML BAG 1,000 ML IV SCH (14:31)
[2020-03-25] MEDS ORDERED: ACETAMINOPHEN 325 MG TABLET. PO PRN (14:45)
[2020-03-25] MEDS ORDERED: ACETAMINOPHEN 650 MG SUPP.RECT. PR PRN (14:45)
[2020-03-25] MEDS ORDERED: 0.9 % SODIUM CHLORIDE 10 ML DISP.SYRIN. IV PRN (14:45)
[2020-03-25] MEDS ORDERED: DOCUSATE SODIUM 100 MG CAPSULE. PO PRN (14:45)
[2020-03-25] MEDS ORDERED: ALBUTEROL SULFATE 2.5 MG/3 ML NEBU. NEB PRN (14:45)
[2020-03-25] MEDS ORDERED: MAG HYDROX/ALUMINUM HYD/SIMETH 30 ML ORAL.SUSP PO PRN (14:45)
[2020-03-25] MEDS ORDERED: guaiFENesin ORAL 200 MG/10 ML LIQUID. PO PRN (14:45)
[2020-03-25 15:00] VITALS: BP 120/88
[2020-03-25 15:52] LABS: CALCIUM 7.7 mg/dL (8.5-10.1); CREATININE 1.2 mg/dL (0.7-1.3); GFR 75.2
--- NOTE | 2020-03-25 16:02 | PDOC2 ---
GI CONSULT Date of Service: DATE: 03/25/20 TIME: 15:39 Reason For Consult: colitis HPI: HPI: 59 y/o male admitted w/ weakness after fall at home. Noted w/ hypokalemia. GI- campos, tells me intermittent "bad hurting" epigastric pain x 1 month - occurs randomly, unrelated to eating. Additionally has lower abdominal bloating and diarrhea (sometimes every five minutes - can't make it to the mailbox and back without leaking). Also, sometimes he feels the urge to stool but nothing comes out. Stools are sometimes brown, sometimes red, sometimes yellow, and sometimes slimy clear. Says he has been eating and drinking but losing weight (not sure how much). Denies n/v, reflux/heartburn, dysphagia, melena, and constipation. Before symptom onset, sometimes would have a formed stool and sometimes would h ave a loose one. Additionally noted w/ macrocytic anemia and elevated LFTs. On CT in 12/2019: abnormal wall thickening in the cecum and ascending colon with diffuse collapse of the large bowel along the entirety of its length. Also noted diverticulosis (most notable in sigmoid colon, fatty liver, and urinary bladder wall thickening. On L-spine CT this time: rectosigmoid wall thickening. No previous EGD or colonoscopy. Diverticulosis and fatty liver on past imaging. S/p cholecystectomy (doesn't know if had stones). Denies liver and PUD history. Admitted in 12/2019 w/ alcoholic pancreatitis - he doesn't recall any past pancreas issues. No NSAIDs - takes Tylenol at home. Brother recently from colon cancer. PMH: PMH: HTN, DM, anxiety, depression w/ past suicidal thoughts, alcohol abuse, pancreatitis cholecystectomy, LIH repair FH: Family History: Cancer (sister - lymphoma, brother - colon (just )) Social History: Smoke: 2 packs per day ALCOHOL: heavy (down to 1 pint daily from 3) Drugs: Marijuana ROS: GEN: Denies fevers, chills, sweats HEENT: Denies blurred vision, sore throat CV: Denies chest pain RESP: Denies shortness of air, cough GI: Per HPI : Denies hematuria, dysuria ENDO: +weight loss NEURO: Denies confusion, dizziness MSK: +weakness SKIN: Denies jaundice, pruritus Vitals: Vitals: Vital Signs Date Time Temp Pulse Resp B/P (MAP) Pulse Ox O2 Delivery O2 Flow Rate FiO2 03/25/20 11:30 98.3 87 16 129/72 (91) 96 Room Air 98.3 Labs: Labs: Laboratory Tests Test 03/24/20 23:55 03/25/20 00:01 03/25/20 00:06 03/25/20 03:40 White Blood Count 10.0 x10^3/uL (4.0-11.0) 10.3 x10^3/uL (4.0-11.0) Red Blood Count 2.70 x10^6/uL (4.30-5.70) 2.85 x10^6/uL (4.30-5.70) Hemoglobin 10.2 g/dL (13.0-17.5) 10.8 g/dL (13.0-17.5) Hematocrit 29.1 % (39.0-53.0) 30.6 % (39.0-53.0) Mean Corpuscular Volume 108 fL (79-100) 108 fL (79-100) Mean Corpuscular Hemoglobin 38 pg (25-35) 38 pg (25-35) Mean Corpuscular Hemoglobin Concent 35 g/dL (31-37) 35 g/dL (31-37) Red Cell Distribution Width 15.6 % (11.5-14.5) 15.4 % (11.5-14.5) Platelet Count 280 x10^3/uL (140-400) 294 x10^3/uL (140-400) Neutrophils (%) (Auto) 74 % (31-73) 78 % (31-73) Lymphocytes (%) (Auto) 18 % (24-48) 15 % (24-48) Monocytes (%) (Auto) 5 % (0-9) 5 % (0-9) Eosinophils (%) (Auto) 3 % (0-3) 2 % (0-3) Basophils (%) (Auto) 1 % (0-3) 0 % (0-3) Neutrophils # (Auto) 7.4 x10^3/uL (1.8-7.7) 8.0 x10^3/uL (1.8-7.7) Lymphocytes # (Auto) 1.8 x10^3/uL (1.0-4.8) 1.6 x10^3/uL (1.0-4.8) Monocytes # (Auto) 0.5 x10^3/uL (0.0-1.1) 0.5 x10^3/uL (0.0-1.1) Eosinophils # (Auto) 0.3 x10^3/uL (0.0-0.7) 0.2 x10^3/uL (0.0-0.7) Basophils # (Auto) 0.0 x10^3/uL (0.0-0.2) 0.0 x10^3/uL (0.0-0.2) Prothrombin Time 11.7 SEC (11.7-14.0) Prothromb Time International Ratio 0.9 (0.8-1.1) Activated Partial Thromboplast Time 32 SEC (24-38) Sodium Level 141 mmol/L (136-145) 142 mmol/L (136-145) Potassium Level 1.7 mmol/L (3.5-5.1) 1.6 mmol/L (3.5-5.1) Chloride Level 94 mmol/L (98-107) 99 mmol/L (98-107) Carbon Dioxide Level 45 mmol/L (21-32) 44 mmol/L (21-32) Anion Gap 2 (6-14) (6-14) Blood Urea Nitrogen 11 mg/dL (8-26) 10 mg/dL (8-26) Creatinine 1.5 mg/dL (0.7-1.3) 1.2 mg/dL (0.7-1.3) Estimated GFR (Cockcroft-Gault) 58.2 75.2 BUN/Creatinine Ratio 7 (6-20) Glucose Level 89 mg/dL (70-99) 90 mg/dL (70-99) Lactic Acid Level 3.2 mmol/L (0.4-2.0) 1.3 mmol/L (0.4-2.0) Calcium Level 8.9 mg/dL (8.5-10.1) 8.1 mg/dL (8.5-10.1) Magnesium Level 1.1 mg/dL (1.8-2.4) Total Bilirubin 0.9 mg/dL (0.2-1.0) Aspartate Amino Transf (AST/SGOT) 233 U/L (15-37) Alanine Aminotransferase (ALT/SGPT) 93 U/L (16-63) Alkaline Phosphatase 160 U/L (46-116) Ammonia 16 mcmol/L (11-34) Lactate Dehydrogenase 507 U/L (85-227) Troponin I Quantitative 0.041 ng/mL (0.000-0.055) [id number]-[id number]-Type Natriuretic Peptide 1407 pg/mL (0-124) Total Protein 6.4 g/dL (6.4-8.2) Albumin 2.6 g/dL (3.4-5.0) Albumin/Globulin Ratio 0.7 (1.0-1.7) Lipase 220 U/L (73-393) Thyroid Stimulating Hormone (TSH) 3.177 uIU/mL (0.358-3.74) Ethyl Alcohol Level < 10 mg/dL (0-10) Bedside Troponin I 0.04 ng/ml (<0.08) Urine Collection Type Unknown Urine Color Yellow Urine Clarity Clear Urine pH 6.0 (<5.0-8.0) Urine Specific [place] 1.010 (1.000-1.030) Urine Protein 30 mg/dL (NEG-TRACE) Urine Glucose (UA) Negative mg/dL (NEG) Urine Ketones (Stick) Negative mg/dL (NEG) Urine Blood Large (NEG) Urine Nitrite Negative (NEG) Urine Bilirubin Negative (NEG) Urine Urobilinogen Dipstick 1.0 mg/dL (0.2 mg/dL) Urine Leukocyte Esterase Trace (NEG) Urine RBC 6-10 /HPF (0-2) Urine WBC 1-4 /HPF (0-4) Urine Squamous Epithelial Cells Few /LPF Urine Amorphous Sediment Present /HPF Urine Bacteria 0 /HPF (0-FEW) Urine Hyaline Casts Few /HPF Urine Mucus Slight /LPF Urine Opiates Screen Neg (NEG) Urine Methadone Screen Neg (NEG) Urine Barbiturates Neg (NEG) Urine Phencyclidine Screen Neg (NEG) Urine Amphetamine/Methamphetamine Neg (NEG) Urine Benzodiazepines Screen Neg (NEG) Urine Cocaine Screen Neg (NEG) Urine Cannabinoids Screen Pos (NEG) Urine Ethyl Alcohol Neg (NEG) Test 03/25/20 08:02 03/25/20 11:39 Glucose (Fingerstick) 105 mg/dL (70-99) 115 mg/dL (70-99) Allergies: Coded Allergies: No Known Drug Allergies (Unverified , 12/15/19) Medications: Current Medications Medications (Trade) Dose Ordered Sig/Steph Route PRN Reason Start Time Stop Time Status Last Admin Dose Admin Magnesium Sulfate 50 ml @ 25 mls/hr 1X ONCE IV 03/25/20 00:45 03/25/20 02:44 DC 03/25/20 01:16 Potassium Chloride/Water 100 ml @ 50 mls/hr 1X ONCE IV 03/25/20 01:00 03/25/20 02:59 DC 03/25/20 01:16 Potassium Chloride (Klor-Con) 40 meq 1X ONCE PO 03/25/20 00:45 03/25/20 00:46 DC 03/25/20 01:15 Potassium Chloride/Water 100 ml @ 50 mls/hr 1X ONCE IV 03/25/20 03:00 03/25/20 04:59 DC 03/25/20 02:48 Metronidazole 100 ml @ 100 mls/hr 1X ONCE IV 03/25/20 01:30 03/25/20 02:29 DC 03/25/20 02:47 Levofloxacin/ Dextrose 150 ml @ 100 mls/hr 1X ONCE IV 03/25/20 01:30 03/25/20 02:59 DC 03/25/20 02:46 Sodium Chloride 1,000 ml @ 1,000 mls/hr 1X ONCE IV 03/25/20 01:30 03/25/20 02:29 DC 03/25/20 02:46 Potassium Chloride (Klor-Con) 40 meq TIDWMEALS ONCE PO 03/25/20 08:00 03/25/20 08:01 DC 03/25/20 13:01 Potassium Chloride (Klor-Con) 40 meq 1X ONCE PO 03/25/20 05:30 03/25/20 05:31 DC 03/25/20 05:42 Potassium Chloride/Water 100 ml @ 100 mls/hr Q1H IV 03/25/20 05:30 03/25/20 07:29 DC 03/25/20 13:00 Magnesium Sulfate 100 ml @ 25 mls/hr 1X ONCE IV 03/25/20 05:30 03/25/20 09:29 DC 03/25/20 05:41 Vitamin B Complex (Folbic Tablet) 1 tab DAILY PO 03/25/20 09:00 03/25/20 13:01 Thiamine Mononitrate (Vitamin B-1) 100 mg DAILY PO 03/25/20 09:00 03/25/20 13:00 Sodium Chloride 1,000 ml @ 100 mls/hr Q10H IV 03/25/20 14:31 03/25/20 14:31 Imaging: Imaging: CXR IMPRESSION: No acute process. Head CT IMPRESSION: No acute intracranial CT abnormality. L-spine CT IMPRESSION: 1. No acute osseous injury lumbar spine. 2. L5 spondylolysis. Lumbar disc disease as described above. 3. Rectosigmoid wall thickening and sigmoid diverticulosis, this could be wall thickening due to muscle spasm or due to colitis. PE: GEN: thin, drinking coke HEENT: Atraumatic, PERRL LUNGS: diminished HEART: RRR ABD: currently non-tender (but points to epigastrium where pain occurs), soft, BS quiet EXTREMITY: No edema SKIN: No rashes, no jaundice NEURO/PSYCH: A & O 3 A/P: A/P: Weakness, fall, epigastric pain, bloating, diarrhea/change in bowel habits, weight loss Macrocytic anemia, hypokalemia Abnormal CT - this time w/ rectosigmoid thickening, earlier this year w/ right colon thickening and diffuse collapse of large bowel CRC screen - none Diverticulosis Alcohol abuse, abnormal LFTs, fatty liver S/p cholecystectomy H/o pancreatitis +marijuana R/o COVID-19 - test collected, though not STAT FH colon cancer -- Check anemia parameters. D/w Dr. Lennon - will return to pt room discuss possibility of EGD and colonoscopy on Monday. Enteric panel ordered per primary, will add fecal WBCs. 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 HOSEA RUBIO Mar 25, 2020 16:02
[2020-03-25 16:04] LABS: POTASSIUM 1.6 mmol/L (3.5-5.1)
[2020-03-25] MEDS ORDERED: LIDO:MAALOX 1:1 20 ML SINGLE DOSE. PO PRN (16:15)
--- NOTE | 2020-03-25 17:23 | NUR ---
SW following. Reviewed chart and discussed with RN. Pt from home, room air, clear liquid diet. GI consulted. SW to follow as needed.
[2020-03-25] MEDS: PANTOPRAZOLE 40 MG TABLET.DR. PO SCH (17:26)
[2020-03-25 19:00] VITALS: BP 151/85
[2020-03-25] MEDS: ENOXAPARIN 40 MG/0.4 ML SYRINGE. SQ SCH (20:23)
[2020-03-25 21:14] LABS: CALCIUM 8.2 mg/dL (8.5-10.1); CREATININE 1.1 mg/dL (0.7-1.3); GFR 83.2
[2020-03-25 21:31] LABS: POTASSIUM 1.8 mmol/L (3.5-5.1)
[2020-03-25 23:00] VITALS: BP 145/85
[2020-03-26] VITALS (12 sets, daily range): BP systolic 130–171; BP diastolic 69–104
[2020-03-26] MEDS: IV NORMAL SALINE 1000ML BAG 1,000 ML IV SCH ×3 (00:31→20:54)
[2020-03-26] MEDS: POTASSIUM CL 20MEQ D5-0.45NACL 1,000 ML IV SCH (02:23)
[2020-03-26 04:39] LABS: BASO % 0 % (0-3); EOS # 0.3 x10^3/uL (0.0-0.7); EOS % 4 % (0-3); HEMATOCRIT 27.5 % (39.0-53.0); HEMOGLOBIN 9.6 g/dL (13.0-17.5); LYMPH # 1.7 x10^3/uL (1.0-4.8); LYMPH % 19 % (24-48); MEAN CORPUSCULAR HEMOGLOBIN 38 pg (25-35); MEAN CORPUSCULAR HGB CONC 35 g/dL (31-37); MEAN CORPUSCULAR VOLUME 109 fL (79-100); MONO # 0.5 x10^3/uL (0.0-1.1); MONO % 6 % (0-9); NEUT # 6.2 x10^3/uL (1.8-7.7); NEUT % 71 % (31-73); PLATELET COUNT 254 x10^3/uL (140-400); RED BLOOD COUNT 2.52 x10^6/uL (4.30-5.70); RED CELL DISTRIBUTION WIDTH 15.2 % (11.5-14.5); WHITE BLOOD COUNT 8.7 x10^3/uL (4.0-11.0)
[2020-03-26 05:08] LABS: CALCIUM 7.5 mg/dL (8.5-10.1); CREATININE 1.1 mg/dL (0.7-1.3); GFR 83.2
[2020-03-26 05:16] LABS: POTASSIUM 1.7 mmol/L (3.5-5.1)
[2020-03-26] MEDS: PANTOPRAZOLE 40 MG TABLET.DR. PO SCH (07:30)
--- NOTE | 2020-03-26 08:24 | PDOC ---
PROGRESS NOTES Date of Service: DATE: 03/26/20 TIME: 08:24 Chief Complaint Chief Complaint VTE Prophylaxis Ordered VTE Prophylaxis Devices: No VTE Pharmacological Prophylaxi: Yes Assessment/Plan Assessment/Plan Impression: Hypokalemia COMBINED cause of alcohol and diarrhea MALNUTRITION Generalized weakness Back pain Hypomagnesemia Colitis MACROCYTIC ANEMIA HX ALCOHOL ABUSE Macrocytosis probably from chronic alcohol Leukocytosis DM 2 HTN 12/31 abnormal wall thickening in the cecum and ascending colon with diffuse collapse of the large bowel along the entirety of its length. There is colonic diverticulosis best appreciated in the sigmoid colon without p ericolonic soft tissue stranding MICROHEMATURIA PLAN ADMIT PT/OT GI CONSULT REPLACE LYTES, on protocol DVT PROPHYLAXIS STAT BMP 03/25 1430 STOOL CULTURE GI CONSULT Planning on mars-endoscopy Monday pending COVID testing. H/o alcoholic pancreatitis though normal pancreas on CT in [facility] 37 MIN PT EXAM, CC TIME CHART REVIEW, > 50% OF TIME SPENT WITH EXAM, CHART REVIEW, PT CARE COORDINATION Justicifation of Admission Dx: Justicifation of Admission Dx: Justifications for Admission: Justification of Admission Dx: Yes History of Present Illness History of Present Illness Identification/Chief Complaint Chief Complaint SEEN IN ER WITH WEAKNESS, 59 year old male who presents with a one-week history of generalized weakness and falls. Patient states he has difficulty moving his legs in the last week. has had a fall. Patient denies any fever but states he cannot ambulate at home.//intermittent incontinence of stool urine. There is been no history of vomiting or difficulty breathing. POS lumbar back pain is worse with movement. Patient has had some diarrhea that is been yellow in nature Past Medical History Past Medical History Past Medical History Past Medical History Past Medical History: Anxiety, Diabetes-Type II, Hypertension Past Surgical History: Other Additional Past Surgical Histo: HERNIA Smoking Status: Current Every Day Smoker Alcohol Use: Heavy Drug Use: Marijuana FHX ALCOHOL ABUSE Cardiovascular: HTN Pulmonary: No pertinent hx Endocrine: Diabetes Vitals Vitals Vital Signs Date Time Temp Pulse Resp B/P (MAP) Pulse Ox O2 Delivery O2 Flow Rate FiO2 03/26/20 07:00 97.2 81 18 155/88 (110) 94 Room Air 97.2 Physical Exam General: Alert, Oriented X3, Cooperative, No acute distress Lungs: Clear Abdomen: Normal bowel sounds, Soft Extremities: No cyanosis, No edema Labs LABS TECHNIQUE: Multi-detector row CT images were acquired from the lung bases through the abdomen and pelvis without the use of IV contrast. Sagittal and coronal images were acquired from the transaxial data. All CT scans performed at this facility utilize dose optimization techniques as appropriate to the exam, including the following: Automated exposure control and adjustment of the mA and/or KV according to patient size (this includes techniques or standardized protocols for targeted exams where dose is indication/reason for exam). ORAL CONTRAST: None COMPARISON: None FINDINGS: The absence of IV contrast limits evaluation of soft tissue pathology. LOWER CHEST: Unremarkable LIVER: Mild diffuse hypoattenuation suggesting fatty infiltration of the liver. BILIARY SYSTEM: Gallbladder is surgically absent. Bile ducts are not dilated. PANCREAS: Unremarkable SPLEEN: Extensive splenic calcifications. No splenomegaly. ADRENALS: Unremarkable KIDNEYS & URETERS: Unremarkable BLADDER: Mild diffuse urinary bladder wall thickening. REPRODUCTIVE ORGANS: Unremarkable GASTROINTESTINAL: There is abnormal wall thickening in the cecum and ascending colon with diffuse collapse of the large bowel along the entirety of its length. There is colonic diverticulosis best appreciated in the sigmoid colon without pericolonic soft tissue stranding suspicious for acute diverticulitis. The stomach and small bowel are unremarkable. The appendix is not well seen. There are no findings of acute appendicitis. MESENTERY/PERITONEUM/RETROPERITONEUM: Unremarkable VASCULAR: Abdominal aortic calcifications. LYMPH NODES: No adenopathy OSSEOUS & SOFT TISSUES: Unremarkable IMPRESSION: Diffuse colonic spasm with wall thickening, suspicious for colitis in the appropriate clinical context. Mild diffuse urinary bladder wall thickening could also reflect cystitis or sequelae of chronic bladder outlet obstruction. Correlate clinically. Otherwise no acute findings on noncontrast abdomen and pelvis CT. Electronically signed by: Marylin Bonilla MD (12/15/2019 2:42 PM) [id number] DICTATED and SIGNED BY: MARYLIN BONILLA MD DATE: 12/15/19 1442 Laboratory Tests Test 03/25/20 11:39 03/25/20 14:55 03/25/20 17:12 03/25/20 20:30 Glucose (Fingerstick) 115 mg/dL (70-99) 104 mg/dL (70-99) Sodium Level 141 mmol/L (136-145) 142 mmol/L (136-145) Potassium Level 1.6 mmol/L (3.5-5.1) 1.8 mmol/L (3.5-5.1) Chloride Level 99 mmol/L (98-107) 99 mmol/L (98-107) Carbon Dioxide Level 41 mmol/L (21-32) 39 mmol/L (21-32) Anion Gap 1 (6-14) 4 (6-14) Blood Urea Nitrogen 7 mg/dL (8-26) 6 mg/dL (8-26) Creatinine 1.2 mg/dL (0.7-1.3) 1.1 mg/dL (0.7-1.3) Estimated GFR (Cockcroft-Gault) 75.2 83.2 Glucose Level 130 mg/dL (70-99) 111 mg/dL (70-99) Calcium Level 7.7 mg/dL (8.5-10.1) 8.2 mg/dL (8.5-10.1) Test 03/25/20 20:31 03/26/20 03:50 Glucose (Fingerstick) 111 mg/dL (70-99) White Blood Count 8.7 x10^3/uL (4.0-11.0) Red Blood Count 2.52 x10^6/uL (4.30-5.70) Hemoglobin 9.6 g/dL (13.0-17.5) Hematocrit 27.5 % (39.0-53.0) Mean Corpuscular Volume 109 fL (79-100) Mean Corpuscular Hemoglobin 38 pg (25-35) Mean Corpuscular Hemoglobin Concent 35 g/dL (31-37) Red Cell Distribution Width 15.2 % (11.5-14.5) Platelet Count 254 x10^3/uL (140-400) Neutrophils (%) (Auto) 71 % (31-73) Lymphocytes (%) (Auto) 19 % (24-48) Monocytes (%) (Auto) 6 % (0-9) Eosinophils (%) (Auto) 4 % (0-3) Basophils (%) (Auto) 0 % (0-3) Neutrophils # (Auto) 6.2 x10^3/uL (1.8-7.7) Lymphocytes # (Auto) 1.7 x10^3/uL (1.0-4.8) Monocytes # (Auto) 0.5 x10^3/uL (0.0-1.1) Eosinophils # (Auto) 0.3 x10^3/uL (0.0-0.7) Basophils # (Auto) 0.0 x10^3/uL (0.0-0.2) Sodium Level 141 mmol/L (136-145) Potassium Level 1.7 mmol/L (3.5-5.1) Chloride Level 101 mmol/L (98-107) Carbon Dioxide Level 39 mmol/L (21-32) Anion Gap 1 (6-14) Blood Urea Nitrogen 5 mg/dL (8-26) Creatinine 1.1 mg/dL (0.7-1.3) Estimated GFR (Cockcroft-Gault) 83.2 Glucose Level 118 mg/dL (70-99) Calcium Level 7.5 mg/dL (8.5-10.1) Magnesium Level 1.7 mg/dL (1.8-2.4) Assessment and Plan Assessmemt and Plan Problems Medical Problems: (1) Back pain Status: Acute (2) Colitis Status: Acute (3) Generalized weakness Status: Acute (4) Hypokalemia Status: Acute (5) Hypomagnesemia Status: Acute Comment Review of Relevant I have reviewed the following items adonis (where applicable) has been applied. Labs Laboratory Tests Test 03/24/20 23:55 03/25/20 00:01 03/25/20 00:06 03/25/20 01:47 White Blood Count 10.0 x10^3/uL (4.0-11.0) Red Blood Count 2.70 x10^6/uL (4.30-5.70) Hemoglobin 10.2 g/dL (13.0-17.5) Hematocrit 29.1 % (39.0-53.0) Mean Corpuscular Volume 108 fL (79-100) Mean Corpuscular Hemoglobin 38 pg (25-35) Mean Corpuscular Hemoglobin Concent 35 g/dL (31-37) Red Cell Distribution Width 15.6 % (11.5-14.5) Platelet Count 280 x10^3/uL (140-400) Neutrophils (%) (Auto) 74 % (31-73) Lymphocytes (%) (Auto) 18 % (24-48) Monocytes (%) (Auto) 5 % (0-9) Eosinophils (%) (Auto) 3 % (0-3) Basophils (%) (Auto) 1 % (0-3) Neutrophils # (Auto) 7.4 x10^3/uL (1.8-7.7) Lymphocytes # (Auto) 1.8 x10^3/uL (1.0-4.8) Monocytes # (Auto) 0.5 x10^3/uL (0.0-1.1) Eosinophils # (Auto) 0.3 x10^3/uL (0.0-0.7) Basophils # (Auto) 0.0 x10^3/uL (0.0-0.2) Prothrombin Time 11.7 SEC (11.7-14.0) Prothromb Time International Ratio 0.9 (0.8-1.1) Activated Partial Thromboplast Time 32 SEC (24-38) Sodium Level 141 mmol/L (136-145) Potassium Level 1.7 mmol/L (3.5-5.1) Chloride Level 94 mmol/L (98-107) Carbon Dioxide Level 45 mmol/L (21-32) Anion Gap 2 (6-14) Blood Urea Nitrogen 11 mg/dL (8-26) Creatinine 1.5 mg/dL (0.7-1.3) Estimated GFR (Cockcroft-Gault) 58.2 BUN/Creatinine Ratio 7 (6-20) Glucose Level 89 mg/dL (70-99) Lactic Acid Level 3.2 mmol/L (0.4-2.0) Calcium Level 8.9 mg/dL (8.5-10.1) Magnesium Level 1.1 mg/dL (1.8-2.4) Total Bilirubin 0.9 mg/dL (0.2-1.0) Aspartate Amino Transf (AST/SGOT) 233 U/L (15-37) Alanine Aminotransferase (ALT/SGPT) 93 U/L (16-63) Alkaline Phosphatase 160 U/L (46-116) Ammonia 16 mcmol/L (11-34) Lactate Dehydrogenase 507 U/L (85-227) Troponin I Quantitative 0.041 ng/mL (0.000-0.055) BF-Adu-T-Type Natriuretic Peptide 1407 pg/mL (0-124) Total Protein 6.4 g/dL (6.4-8.2) Albumin 2.6 g/dL (3.4-5.0) Albumin/Globulin Ratio 0.7 (1.0-1.7) Lipase 220 U/L (73-393) Thyroid Stimulating Hormone (TSH) 3.177 uIU/mL (0.358-3.74) Ethyl Alcohol Level < 10 mg/dL (0-10) Bedside Troponin I 0.04 ng/ml (<0.08) Urine Collection Type Unknown Urine Color Yellow Urine Clarity Clear Urine pH 6.0 (<5.0-8.0) Urine Specific [place] 1.010 (1.000-1.030) Urine Protein 30 mg/dL (NEG-TRACE) Urine Glucose (UA) Negative mg/dL (NEG) Urine Ketones (Stick) Negative mg/dL (NEG) Urine Blood Large (NEG) Urine Nitrite Negative (NEG) Urine Bilirubin Negative (NEG) Urine Urobilinogen Dipstick 1.0 mg/dL (0.2 mg/dL) Urine Leukocyte Esterase Trace (NEG) Urine RBC 6-10 /HPF (0-2) Urine WBC 1-4 /HPF (0-4) Urine Squamous Epithelial Cells Few /LPF Urine Amorphous Sediment Present /HPF Urine Bacteria 0 /HPF (0-FEW) Urine Hyaline Casts Few /HPF Urine Mucus Slight /LPF Urine Opiates Screen Neg (NEG) Urine Methadone Screen Neg (NEG) Urine Barbiturates Neg (NEG) Urine Phencyclidine Screen Neg (NEG) Urine Amphetamine/Methamphetamine Neg (NEG) Urine Benzodiazepines Screen Neg (NEG) Urine Cocaine Screen Neg (NEG) Urine Cannabinoids Screen Pos (NEG) Urine Ethyl Alcohol Neg (NEG) Coronavirus (PCR) Not detected (Not Detected) Test 03/25/20 03:40 03/25/20 08:02 03/25/20 11:39 03/25/20 14:55 White Blood Count 10.3 x10^3/uL (4.0-11.0) Red Blood Count 2.85 x10^6/uL (4.30-5.70) Hemoglobin 10.8 g/dL (13.0-17.5) Hematocrit 30.6 % (39.0-53.0) Mean Corpuscular Volume 108 fL (79-100) Mean Corpuscular Hemoglobin 38 pg (25-35) Mean Corpuscular Hemoglobin Concent 35 g/dL (31-37) Red Cell Distribution Width 15.4 % (11.5-14.5) Platelet Count 294 x10^3/uL (140-400) Neutrophils (%) (Auto) 78 % (31-73) Lymphocytes (%) (Auto) 15 % (24-48) Monocytes (%) (Auto) 5 % (0-9) Eosinophils (%) (Auto) 2 % (0-3) Basophils (%) (Auto) 0 % (0-3) Neutrophils # (Auto) 8.0 x10^3/uL (1.8-7.7) Lymphocytes # (Auto) 1.6 x10^3/uL (1.0-4.8) Monocytes # (Auto) 0.5 x10^3/uL (0.0-1.1) Eosinophils # (Auto) 0.2 x10^3/uL (0.0-0.7) Basophils # (Auto) 0.0 x10^3/uL (0.0-0.2) Sodium Level 142 mmol/L (136-145) 141 mmol/L (136-145) Potassium Level 1.6 mmol/L (3.5-5.1) 1.6 mmol/L (3.5-5.1) Chloride Level 99 mmol/L (98-107) 99 mmol/L (98-107) Carbon Dioxide Level 44 mmol/L (21-32) 41 mmol/L (21-32) Anion Gap (6-14) 1 (6-14) Blood Urea Nitrogen 10 mg/dL (8-26) 7 mg/dL (8-26) Creatinine 1.2 mg/dL (0.7-1.3) 1.2 mg/dL (0.7-1.3) Estimated GFR (Cockcroft-Gault) 75.2 75.2 Glucose Level 90 mg/dL (70-99) 130 mg/dL (70-99) Lactic Acid Level 1.3 mmol/L (0.4-2.0) Calcium Level 8.1 mg/dL (8.5-10.1) 7.7 mg/dL (8.5-10.1) Iron Level 35 ug/dL (65-175) Total Iron Binding Capacity 97 ug/dL (250-450) Iron Saturation 36 % (15-34) Vitamin B12 Level 895 pg/mL (247-911) Glucose (Fingerstick) 105 mg/dL (70-99) 115 mg/dL (70-99) Test 03/25/20 17:12 03/25/20 20:30 03/25/20 20:31 03/26/20 03:50 Glucose (Fingerstick) 104 mg/dL (70-99) 111 mg/dL (70-99) Sodium Level 142 mmol/L (136-145) 141 mmol/L (136-145) Potassium Level 1.8 mmol/L (3.5-5.1) 1.7 mmol/L (3.5-5.1) Chloride Level 99 mmol/L (98-107) 101 mmol/L (98-107) Carbon Dioxide Level 39 mmol/L (21-32) 39 mmol/L (21-32) Anion Gap 4 (6-14) 1 (6-14) Blood Urea Nitrogen 6 mg/dL (8-26) 5 mg/dL (8-26) Creatinine 1.1 mg/dL (0.7-1.3) 1.1 mg/dL (0.7-1.3) Estimated GFR (Cockcroft-Gault) 83.2 83.2 Glucose Level 111 mg/dL (70-99) 118 mg/dL (70-99) Calcium Level 8.2 mg/dL (8.5-10.1) 7.5 mg/dL (8.5-10.1) White Blood Count 8.7 x10^3/uL (4.0-11.0) Red Blood Count 2.52 x10^6/uL (4.30-5.70) Hemoglobin 9.6 g/dL (13.0-17.5) Hematocrit 27.5 % (39.0-53.0) Mean Corpuscular Volume 109 fL (79-100) Mean Corpuscular Hemoglobin 38 pg (25-35) Mean Corpuscular Hemoglobin Concent 35 g/dL (31-37) Red Cell Distribution Width 15.2 % (11.5-14.5) Platelet Count 254 x10^3/uL (140-400) Neutrophils (%) (Auto) 71 % (31-73) Lymphocytes (%) (Auto) 19 % (24-48) Monocytes (%) (Auto) 6 % (0-9) Eosinophils (%) (Auto) 4 % (0-3) Basophils (%) (Auto) 0 % (0-3) Neutrophils # (Auto) 6.2 x10^3/uL (1.8-7.7) Lymphocytes # (Auto) 1.7 x10^3/uL (1.0-4.8) Monocytes # (Auto) 0.5 x10^3/uL (0.0-1.1) Eosinophils # (Auto) 0.3 x10^3/uL (0.0-0.7) Basophils # (Auto) 0.0 x10^3/uL (0.0-0.2) Magnesium Level 1.7 mg/dL (1.8-2.4) Laboratory Tests Test 03/25/20 11:39 03/25/20 14:55 03/25/20 17:12 03/25/20 20:30 Glucose (Fingerstick) 115 mg/dL (70-99) 104 mg/dL (70-99) Sodium Level 141 mmol/L (136-145) 142 mmol/L (136-145) Potassium Level 1.6 mmol/L (3.5-5.1) 1.8 mmol/L (3.5-5.1) Chloride Level 99 mmol/L (98-107) 99 mmol/L (98-107) Carbon Dioxide Level 41 mmol/L (21-32) 39 mmol/L (21-32) Anion Gap 1 (6-14) 4 (6-14) Blood Urea Nitrogen 7 mg/dL (8-26) 6 mg/dL (8-26) Creatinine 1.2 mg/dL (0.7-1.3) 1.1 mg/dL (0.7-1.3) Estimated GFR (Cockcroft-Gault) 75.2 83.2 Glucose Level 130 mg/dL (70-99) 111 mg/dL (70-99) Calcium Level 7.7 mg/dL (8.5-10.1) 8.2 mg/dL (8.5-10.1) Test 03/25/20 20:31 03/26/20 03:50 Glucose (Fingerstick) 111 mg/dL (70-99) White Blood Count 8.7 x10^3/uL (4.0-11.0) Red Blood Count 2.52 x10^6/uL (4.30-5.70) Hemoglobin 9.6 g/dL (13.0-17.5) Hematocrit 27.5 % (39.0-53.0) Mean Corpuscular Volume 109 fL (79-100) Mean Corpuscular Hemoglobin 38 pg (25-35) Mean Corpuscular Hemoglobin Concent 35 g/dL (31-37) Red Cell Distribution Width 15.2 % (11.5-14.5) Platelet Count 254 x10^3/uL (140-400) Neutrophils (%) (Auto) 71 % (31-73) Lymphocytes (%) (Auto) 19 % (24-48) Monocytes (%) (Auto) 6 % (0-9) Eosinophils (%) (Auto) 4 % (0-3) Basophils (%) (Auto) 0 % (0-3) Neutrophils # (Auto) 6.2 x10^3/uL (1.8-7.7) Lymphocytes # (Auto) 1.7 x10^3/uL (1.0-4.8) Monocytes # (Auto) 0.5 x10^3/uL (0.0-1.1) Eosinophils # (Auto) 0.3 x10^3/uL (0.0-0.7) Basophils # (Auto) 0.0 x10^3/uL (0.0-0.2) Sodium Level 141 mmol/L (136-145) Potassium Level 1.7 mmol/L (3.5-5.1) Chloride Level 101 mmol/L (98-107) Carbon Dioxide Level 39 mmol/L (21-32) Anion Gap 1 (6-14) Blood Urea Nitrogen 5 mg/dL (8-26) Creatinine 1.1 mg/dL (0.7-1.3) Estimated GFR (Cockcroft-Gault) 83.2 Glucose Level 118 mg/dL (70-99) Calcium Level 7.5 mg/dL (8.5-10.1) Magnesium Level 1.7 mg/dL (1.8-2.4) Microbiology 03/24/20 Blood Culture - Preliminary, Resulted NO GROWTH AFTER 1 DAY Medications Current Medications Magnesium Sulfate 50 ml @ 25 mls/hr 1X ONCE IV Last administered on 03/25/20at 01:16; Start 03/25/20 at 00:45; Stop 03/25/20 at 02:44; Status DC Potassium Chloride/Water 100 ml @ 50 mls/hr 1X ONCE IV Last administered on 03/25/20at 01:16; Start 03/25/20 at 01:00; Stop 03/25/20 at 02:59; Status DC Potassium Chloride (Klor-Con) 40 meq 1X ONCE PO Last administered on 03/25/20at 01:15; Start 03/25/20 at 00:45; Stop 03/25/20 at 00:46; Status DC Potassium Chloride/Water 100 ml @ 50 mls/hr 1X ONCE IV Last administered on 03/25/20at 02:48; Start 03/25/20 at 03:00; Stop 03/25/20 at 04:59; Status DC Metronidazole 100 ml @ 100 mls/hr 1X ONCE IV Last administered on 03/25/20at 02:47; Start 03/25/20 at 01:30; Stop 03/25/20 at 02:29; Status DC Levofloxacin/ Dextrose 150 ml @ 100 mls/hr 1X ONCE IV Last administered on 03/25/20at 02:46; Start 03/25/20 at 01:30; Stop 03/25/20 at 02:59; Status DC Sodium Chloride 1,000 ml @ 1,000 mls/hr 1X ONCE IV Last administered on 03/25/20at 02:46; Start 03/25/20 at 01:30; Stop 03/25/20 at 02:29; Status DC Ondansetron HCl (Zofran) 4 mg PRN Q8HRS PRN IV NAUSEA/VOMITING; Start 03/25/20 at 02:00; Stop 03/25/20 at 16:47; Status DC Potassium Chloride (Klor-Con) 40 meq TIDWMEALS ONCE PO Last administered on 03/25/20at 13:01; Start 03/25/20 at 08:00; Stop 03/25/20 at 08:01; Status DC Potassium Chloride (Klor-Con) 40 meq 1X ONCE PO Last administered on 03/25/20at 05:42; Start 03/25/20 at 05:30; Stop 03/25/20 at 05:31; Status DC Potassium Chloride/Water 100 ml @ 100 mls/hr Q1H IV Last administered on 03/25/20at 13:00; Start 03/25/20 at 05:30; Stop 03/25/20 at 07:29; Status DC Magnesium Sulfate 100 ml @ 25 mls/hr 1X ONCE IV Last administered on 03/25/20at 05:41; Start 03/25/20 at 05:30; Stop 03/25/20 at 09:29; Status DC Potassium Chloride/Dextrose/ Sod Cl 1,000 ml @ 100 mls/hr Q10H IV Last administered on 03/26/20at 02:23; Start 03/25/20 at 08:00 Vitamin B Complex (Folbic Tablet) 1 tab DAILY PO Last administered on 03/25/20at 13:01; Start 03/25/20 at 09:00 Thiamine Mononitrate (Vitamin B-1) 100 mg DAILY PO Last administered on 03/25/20at 13:00; Start 03/25/20 at 09:00 Sodium Chloride (Normal Saline Flush) 3 ml QSHIFT PRN IV AFTER MEDS AND BLOOD DRAWS; Start 03/25/20 at 14:45 Sodium Chloride 1,000 ml @ 100 mls/hr Q10H IV Last administered on 03/25/20at 14:31; Start 03/25/20 at 14:31 Ondansetron HCl (Zofran) 4 mg PRN Q4HRS PRN IV NAUSEA/VOMITING; Start 03/25/20 at 14:45 Acetaminophen (Tylenol) 650 mg PRN Q4HRS PRN PO TEMP OVER 100.4F OR MILD PAIN; Start 03/25/20 at 14:45 Acetaminophen (Tylenol Supp) 650 mg PRN Q4HRS PRN ID TEMP OVER 100.4F OR MILD PAIN; Start 03/25/20 at 14:45 Al Hydroxide/Mg Hydroxide (Mylanta Plus Xs) 30 ml PRN DAILY PRN PO HEARTBURN / GAS; Start 03/25/20 at 14:45 Docusate Sodium (Colace) 100 mg PRN BID PRN PO HARD STOOLS; Start 03/25/20 at 14:45 Albuterol Sulfate (Ventolin Neb Soln) 2.5 mg PRN Q4HRS PRN NEB SHORTNESS OF BREATH; Start 03/25/20 at 14:45 Guaifenesin (Robitussin) 200 mg PRN Q4HRS PRN PO COUGH; Start 03/25/20 at 14:45 Lorazepam (Ativan) 0.5 mg PRN Q4HRS PRN PO ANXIETY / AGITATION; Start 03/25/20 at 14:45 Enoxaparin Sodium (Lovenox 40mg Syringe) 40 mg Q24H SQ Last administered on 03/25/20at 20:23; Start 03/25/20 at 21:00 Pantoprazole Sodium (Protonix) 40 mg DAILYAC PO Last administered on 03/25/20at 17:26; Start 03/25/20 at 16:30 Multi-Ingredient Mouthwash/Gargle (Gi Cocktail) 20 ml PRN QID PRN PO epigastric pain Last administered on 03/25/20at 20:23; Start 03/25/20 at 16:15 Potassium Chloride (Klor-Con) 40 meq 1X ONCE PO Last administered on 03/25/20at 17:26; Start 03/25/20 at 16:45; Stop 03/25/20 at 16:46; Status DC Potassium Chloride (Klor-Con) 20 meq 1X ONCE PO Last administered on 03/25/20at 20:22; Start 03/25/20 at 19:00; Stop 03/25/20 at 19:01; Status DC Potassium Chloride/Water 100 ml @ 100 mls/hr Q1H IV Last administered on 03/25/20at 20:22; Start 03/25/20 at 17:00; Stop 03/25/20 at 20:59; Status DC Polyethylene Glycol (miraLAX Powder BULK BOTTLE) 238 gm 1X ONCE PO ; Start 03/26/20 at 11:00; Stop 03/26/20 at 11:01 Magnesium Citrate (Citroma) 296 ml 1X ONCE PO ; Start 03/26/20 at 09:00; Stop 03/26/20 at 09:01 Bisacodyl (Dulcolax Tab) 10 mg PRN DAILY PRN PO CONSTIPATION; Start 03/26/20 at 10:00 Active Scripts Active B-1 (Thiamine HCl) 100 Mg Tablet 100 Mg PO DAILY08 30 Days Folic Acid 0.8 Mg Capsule 1 Cap PO DAILY 30 Days Celexa (Citalopram Hydrobromide) 10 Mg Tablet 10 Mg PO DAILY 30 Days Tylenol (Acetaminophen) 325 Mg Tablet 650 Mg PO PRN Q4HRS PRN 10 Days Vitals/I & O Vital Sign - Last 24 Hours 03/25/20 03/25/20 03/25/20 03/25/20 11:30 15:00 19:00 20:00 Temp 98.3 97.6 97.8 98.3 97.6 97.8 Pulse 87 85 92 Resp 16 16 19 B/P (MAP) 129/72 (91) 120/88 (99) 151/85 (107) Pulse Ox 96 99 99 O2 Delivery Room Air Room Air Room Air Room Air 03/25/20 03/26/20 03/26/20 23:00 03:00 07:00 Temp 98.0 98.0 97.2 98.0 98.0 97.2 Pulse 81 78 81 Resp 22 18 B/P (MAP) 145/85 (105) 135/82 (99) 155/88 (110) Pulse Ox 99 96 94 O2 Delivery Room Air Room Air Room Air Intake and Output 03/25/20 03/25/20 03/26/20 15:00 23:00 07:00 Intake Total 240 ml 730 ml Output Total 1950 ml 1500 ml Balance -1710 ml -770 ml Justicifation of Admission Dx: Justifications for Admission: Justification of Admission Dx: Yes CAMILLE GEE MD Mar 26, 2020 08:24
[2020-03-26] MEDS ORDERED: POTASSIUM CHLORIDE 20 MEQ TABLET.ER. PO ONE (08:30)
[2020-03-26] MEDS: THIAMINE 100 MG TABLET. PO SCH (09:00)
[2020-03-26] MEDS: VITAMIN B12,B9,B6 COMPLEX 1 TABLET. PO SCH (09:00)
[2020-03-26] MEDS ORDERED: MAGNESIUM CITRATE 296 ML SOLUTION. PO ONE (09:00)
--- NOTE | 2020-03-26 09:34 | NUR ---
Dr Alcantar notified of patients continued critical lab values as well as involuntary muscle jerking that the pt has reported and staff noted. pt given orders to transfer to ICU. Kayley Duque notified of the patients status and bowel prep on hold until further notice.Pt sandy have ultrasound this morning and cdiff was collected on the pt 03/25/20 results pending. Pts covid results were negative. Pt notified of this change as well as his status and transferring to new room in ICU. Pt will go to room 108 and pt sttes he will call his mom Jennifer Eid [phone] to notify her.
--- NOTE | 2020-03-26 09:39 | PDOC ---
Date of Service: DATE: 03/26/20 TIME: 09:31 Subjective: Subjective: Diarrhea ongoing, feels weak, has muscle pain. Objective: Objective: Nurse called at 9:25 w/ plans to transfer to ICU for persistent hypokalemia - advised hold colonoscopy prep for now. Vital Signs: Vital Signs Date Time Temp Pulse Resp B/P (MAP) Pulse Ox O2 Delivery O2 Flow Rate FiO2 03/26/20 07:00 97.2 81 18 155/88 (110) 94 Room Air 97.2 Labs: Laboratory Tests Test 03/25/20 11:39 03/25/20 14:55 03/25/20 17:12 03/25/20 20:30 Glucose (Fingerstick) 115 mg/dL 104 mg/dL Sodium Level 141 mmol/L 142 mmol/L Potassium Level 1.6 mmol/L 1.8 mmol/L Chloride Level 99 mmol/L 99 mmol/L Carbon Dioxide Level 41 mmol/L 39 mmol/L Anion Gap 1 4 Blood Urea Nitrogen 7 mg/dL 6 mg/dL Creatinine 1.2 mg/dL 1.1 mg/dL Estimated GFR (Cockcroft-Gault) 75.2 83.2 Glucose Level 130 mg/dL 111 mg/dL Calcium Level 7.7 mg/dL 8.2 mg/dL Test 03/25/20 20:31 03/26/20 03:50 Glucose (Fingerstick) 111 mg/dL White Blood Count 8.7 x10^3/uL Red Blood Count 2.52 x10^6/uL Hemoglobin 9.6 g/dL Hematocrit 27.5 % Mean Corpuscular Volume 109 fL Mean Corpuscular Hemoglobin 38 pg Mean Corpuscular Hemoglobin Concent 35 g/dL Red Cell Distribution Width 15.2 % Platelet Count 254 x10^3/uL Neutrophils (%) (Auto) 71 % Lymphocytes (%) (Auto) 19 % Monocytes (%) (Auto) 6 % Eosinophils (%) (Auto) 4 % Basophils (%) (Auto) 0 % Neutrophils # (Auto) 6.2 x10^3/uL Lymphocytes # (Auto) 1.7 x10^3/uL Monocytes # (Auto) 0.5 x10^3/uL Eosinophils # (Auto) 0.3 x10^3/uL Basophils # (Auto) 0.0 x10^3/uL Sodium Level 141 mmol/L Potassium Level 1.7 mmol/L Chloride Level 101 mmol/L Carbon Dioxide Level 39 mmol/L Anion Gap 1 Blood Urea Nitrogen 5 mg/dL Creatinine 1.1 mg/dL Estimated GFR (Cockcroft-Gault) 83.2 Glucose Level 118 mg/dL Calcium Level 7.5 mg/dL Magnesium Level 1.7 mg/dL Imaging: Abd US pending PE: GEN: NAD LUNGS: CTAB HEART: RRR ABD: NABS, S/ND/NT NEURO/PSYCH: A & O 3 A/P: Persistent hypokalemia Macrocytic anemia Abd pain, diarrhea, weight loss ?colitis on imaging, FH colon cancer Alcohol abuse, h/o pancreatitis and cholecystectomy COVID negative -- Plans as above - hold colonoscopy prep for now - could pursue next week if remains inpatient. Await stool tests. Justicifation of Admission Dx: Justifications for Admission: Justification of Admission Dx: Yes HOSEA RUBIO Mar 26, 2020 09:39
[2020-03-26] MEDS ORDERED: BISACODYL 5 MG TABLET.DR. PO PRN (10:00)
[2020-03-26] MEDS ORDERED: MAGNESIUM SULFATE 4GM 100 ML IV ONE (10:00)
[2020-03-26] MEDS ORDERED: POLYETHYLENE GLYCOL 3350 BTL 238 GM POWDER PO ONE (11:00)
[2020-03-26] MEDS: POTASSIUM CHLORIDE 20 MEQ TABLET.ER. PO SCH ×3 (11:20→16:41)
--- NOTE | 2020-03-26 13:11 | NUR ---
Pt transferred to ICU and will need new orders once medically stable to initiate therapy service. Will await new orders Addendum: 03/26/20 at 1312 by DEEP COTTO PT Amended: Links added.
--- NOTE | 2020-03-26 14:04 | NUR ---
CONSULT CALLED TO DR. GARCÍA'S OFFICE ([place]).
--- NOTE | 2020-03-26 14:07 | RAD ---
EXAM: ABDOMINAL ULTRASOUND. HISTORY: Cirrhosis. COMPARISON: Abdomen pelvis CT without IV contrast 12/15/2019. FINDINGS: Sonographic evaluation of the abdomen was performed. The liver appears increased in parenchymal echotexture. It measures 17.8 cm in length.. There are no focal lesions. The spleen measures 9 cm. It contains scattered calcifications. Gallbladder surgically absent. The common duct measures 7 mm. The visualized portions of the pancreas reveal no abnormality. The right kidney measures 10.3 x 4.8 x 4.8 cm. Cortical thickness and echogenicity are preserved. There is no hydronephrosis. The left kidney measures 11.3 x 4.9 x 5.9 cm. Cortical thickness and echogenicity are preserved. There is no hydronephrosis. The visualized portions of the abdominal aorta and inferior vena cava are grossly patent and normal in caliber. Abdominal aortic calcifications are present. Small amount of ascites in the right abdomen. IMPRESSION: 1. Mild fatty liver. No hepatic masses identified. 2. Cholecystectomy with postcholecystectomy biliary prominence to 7 mm. No evidence of choledocholithiasis. 3. Small amount of ascites in the right upper quadrant abdomen. Electronically signed by: Victoriano Salazar MD (03/26/2020 2:04 PM) [id number]
[2020-03-26 14:48] LABS: BILIRUBIN,URINE NEGATIVE (NEG); CLARITY,URINE CLEAR; COLOR,URINE YELLOW; NITRITE,URINE NEGATIVE (NEG); PROTEIN,URINE NEGATIVE (NEG-TRACE); UROBILINOGEN,URINE 0.2 mg/dL (0.2 mg/dL)
[2020-03-26 14:56] LABS: BACTERIA,URINE 0 /HPF (0-FEW)
[2020-03-26 14:57] LABS: SQUAMOUS EPITHELIAL CELL,UR OCC /LPF
[2020-03-26] MEDS: VANCOMYCIN 125 MG/2.5 ML ORAL SOLUTION. PO SCH ×2 (14:57→21:39)
[2020-03-26 15:46] LABS: ALBUMIN 1.9 g/dL (3.4-5.0); ALBUMIN/GLOBULIN RATIO 0.6 (1.0-1.7); CALCIUM 8.5 mg/dL (8.5-10.1); CREATININE 0.9 mg/dL (0.7-1.3); GFR 104.9; TOTAL BILIRUBIN 0.4 mg/dL (0.2-1.0); TOTAL PROTEIN 5.2 g/dL (6.4-8.2)
[2020-03-26 16:04] LABS: BASE EXCESS COOX 10 mmol/L (-3-3); HCO3 COOX 33 mmol/L (21-28); METHEMOGLOBIN 0.3 % (0.0-1.9); OXYHEMOGLOBIN 90.3 %; PCO2 COOX 41 mmHg (35-46); PO2 COOX 63 mmHg (75-108); SAT O2 COOX 91 % (92-99)
[2020-03-26] MEDS: hydrALAZINE 20 MG/ML VIAL. IVP PRN (17:11)
--- NOTE | 2020-03-26 17:21 | NUR ---
PT TRANSFERRED TO ICU FROM 5TH FLOOR TO ELECTROLYTE MANAGEMENT. TALK TO GI AND START PO VANCOMYCIN. DR. GEE INSTRUCT TO OBTAIN PICC LINE TO GIVE FREQUENT POTASSIUM REPLACEMENT IV. DR. GARCÍA CONSULTED AND GAVE OK FOR PICC LINE. PT ORIENTED TO ROOM AND UNIT BED LOW AND LOCKED, SIDE RAILS UPX3, CALL LIGHT IN REACH, TELE APPLIED. WILL CONTINUE TO ASSESS.
[2020-03-26] MEDS ORDERED: POTASSIUM CHLORIDE 10MEQ 100 ML IV SCH (18:15)
[2020-03-26] MEDS: POTASSIUM CHLORIDE 20MEQ 100 ML IV SCH ×4 (18:33→22:48)
[2020-03-26] MEDS ORDERED: POTASSIUM CHLORIDE 20 MEQ TABLET.ER. PO SCH (19:00)
--- NOTE | 2020-03-26 19:11 | NUR ---
ASSESS PT AT BEDSIDE WITH NIGHT RN AND ASK PT IF HE FEELS HE IS GOING THROUGH WITHDRAWALS FROM ETOH. PT DENIES SYMPTOMS AT THIS TIME.
[2020-03-26] MEDS: NICOTINE 21MG PATCH. TD SCH (19:40)
[2020-03-26] MEDS ORDERED: HALOPERIDOL LACTATE 5 MG/ML VIAL. IVP PRN (20:15)
[2020-03-26] MEDS: diphenhydrAMINE 50 MG/ML VIAL IVP PRN (20:18)
[2020-03-26] MEDS: HALOPERIDOL LACTATE 5 MG/ML VIAL. IVP PRN (20:19)
[2020-03-26] MEDS ORDERED: DEXMEDETOMIDINE 400 MCG in IV NORMAL SALINE 100ML 96 ML IV PRN (21:00)
[2020-03-26] MEDS: ENOXAPARIN 40 MG/0.4 ML SYRINGE. SQ SCH (21:36)
[2020-03-27] VITALS (25 sets, daily range): BP systolic 103–175; BP diastolic 72–113
[2020-03-27] MEDS: POTASSIUM CHLORIDE 20MEQ 100 ML IV SCH ×4 (00:03→09:06)
[2020-03-27] MEDS: HALOPERIDOL LACTATE 5 MG/ML VIAL. IVP PRN ×4 (00:22→20:15)
[2020-03-27] MEDS: hydrALAZINE 20 MG/ML VIAL. IVP PRN ×4 (01:39→21:05)
--- NOTE | 2020-03-27 02:01 | NUR ---
At beginning of shift, pt tearful, stating "I have never felt like this before. I have never shook like this. I want my mom and I think she might while I am here." CIWA assessment performed-- pt scored 15 and stated "Well I have been drinking since I was a kid, so for over 45 years. I have never had withdrawals before." Call placed to Dr. Jenkins. Notified of pt hx and status. Received orders to start ETOH withdrawal protocol. 4 mg Ativan given per protocol at this time. [facility] then arrived to place a PICC line per order. After Ativan was given, pt became increasingly confused. Pt began garbling words together, was not following commands, and became agitated when the nurses performed ADLs and assisted with PICC placement. CIWA at this time up to 27. PICC line was placed successfully in [facility]. Another call placed to Dr. Jenkins to update on pt status, received order for PRN Precedex if needed. Order entered into system. Pt continues to be confused and is incontinent of bowel. Will pass on and continue to monitor. Pt is within sight of care team.
[2020-03-27] MEDS: diphenhydrAMINE 50 MG/ML VIAL IVP PRN (02:02)
[2020-03-27 06:11] LABS: BASO # 0.1 x10^3/uL (0.0-0.2); BASO % 1 % (0-3); EOS # 0.2 x10^3/uL (0.0-0.7); EOS % 3 % (0-3); HEMATOCRIT 29.6 % (39.0-53.0); HEMOGLOBIN 10.3 g/dL (13.0-17.5); LYMPH # 1.8 x10^3/uL (1.0-4.8); LYMPH % 21 % (24-48); MEAN CORPUSCULAR HEMOGLOBIN 38 pg (25-35); MEAN CORPUSCULAR HGB CONC 35 g/dL (31-37); MEAN CORPUSCULAR VOLUME 108 fL (79-100); MONO # 0.8 x10^3/uL (0.0-1.1); MONO % 10 % (0-9); NEUT # 5.4 x10^3/uL (1.8-7.7); NEUT % 65 % (31-73); PLATELET COUNT 281 x10^3/uL (140-400); RED BLOOD COUNT 2.73 x10^6/uL (4.30-5.70); RED CELL DISTRIBUTION WIDTH 15.5 % (11.5-14.5); WHITE BLOOD COUNT 8.3 x10^3/uL (4.0-11.0)
[2020-03-27 06:14] LABS: CALCIUM 8.2 mg/dL (8.5-10.1); GFR 92.9
[2020-03-27 06:27] LABS: POTASSIUM 2.7 mmol/L (3.5-5.1)
[2020-03-27] MEDS: IV NORMAL SALINE 1000ML BAG 1,000 ML IV SCH ×2 (06:33→19:46)
--- NOTE | 2020-03-27 07:07 | NUR ---
IP: Pt is COVID negative, however is C.diff + requiring contact plus precautions using brown sign.
[2020-03-27] MEDS: POTASSIUM CHLORIDE 20 MEQ TABLET.ER. PO SCH (08:00)
[2020-03-27] MEDS: PANTOPRAZOLE IV PUSH 40 MG VIAL. IVP SCH (08:19)
[2020-03-27] MEDS: NICOTINE 21MG PATCH. TD SCH (08:21)
[2020-03-27] MEDS: VITAMIN B12,B9,B6 COMPLEX 1 TABLET. PO SCH (09:00)
[2020-03-27] MEDS: VANCOMYCIN 125 MG/2.5 ML ORAL SOLUTION. PO SCH ×4 (09:00→20:47)
[2020-03-27] MEDS: THIAMINE 100 MG TABLET. PO SCH (09:00)
[2020-03-27] MEDS: MULTIVIT INFUSN,ADULT 4,VIT K 10 ML, THIAMINE INJ 100 MG, FOLIC ACID INJ 1 MG in IV NOR... IV SCH (09:07)
--- NOTE | 2020-03-27 11:06 | PDOC ---
[employer] PROGRESS NOTE Date of Service DOS: DATE: 03/27/20 TIME: 10:54 Chief Complaint Chief Complaint Hypokalemia Malnutrition Generalized weakness Back pain Hypomagnesemia Colitis Macrocytic anemia Alcohol abuse Macrocytosis probably from chronic alcohol Leukocytosis DM 2 Hypertension History of Present Illness History of Present Illness 03/27/2020 Patient seen and examined in the ICU Patient is sleepy in mild distress Potassium 2.7, Magnesium 2.5 GI hopes to do colonoscopy if still inpatient next week Discussed with RN Chart reviewed Vitals/I&O Vitals/I&O: Vital Signs Date Time Temp Pulse Resp B/P (MAP) Pulse Ox O2 Delivery O2 Flow Rate FiO2 03/27/20 10:11 107 20 134/87 (103) 98 Room Air 03/27/20 08:09 97.7 97.7 I & O 03/26/20 03/26/20 03/27/20 15:00 23:00 07:00 Intake Total 400 ml 890 ml 1429 ml Output Total 1610 ml 1250 ml Balance 400 ml -720 ml 179 ml Physical Exam General: Alert, mild distress Heart: Regular rate Lungs: Clear Abdomen: Normal bowel sounds, Soft Extremities: No clubbing, No cyanosis, No edema Skin: No rashes, No breakdown, No significant lesion Labs Labs: Laboratory Tests Test 03/26/20 13:29 03/26/20 14:00 03/26/20 15:15 03/27/20 05:45 O2 Saturation 91 % (92-99) Arterial Blood pH 7.53 (7.35-7.45) Arterial Blood pCO2 at Patient Temp 41 mmHg (35-46) Arterial Blood pO2 at Patient Temp 63 mmHg (75-108) Arterial Blood HCO3 33 mmol/L (21-28) Arterial Blood Base Excess 10 mmol/L (-3-3) Oxyhemoglobin 90.3 % Methemoglobin 0.3 % (0.0-1.9) Carbon Monoxide, Quantitative 0.3 % (0.0-1.9) FiO2 Ra Urine Collection Type Unknown Urine Color Yellow Urine Clarity Clear Urine pH 6.0 (<5.0-8.0) Urine Specific Atkins <=1.005 (1.000-1.030) Urine Protein Negative mg/dL (NEG-TRACE) Urine Glucose (UA) Negative mg/dL (NEG) Urine Ketones (Stick) Negative mg/dL (NEG) Urine Blood Moderate (NEG) Urine Nitrite Negative (NEG) Urine Bilirubin Negative (NEG) Urine Urobilinogen Dipstick 0.2 mg/dL (0.2 mg/dL) Urine Leukocyte Esterase Moderate (NEG) Urine RBC 6-10 /HPF (0-2) Urine WBC 1-4 /HPF (0-4) Urine Squamous Epithelial Cells Occ /LPF Urine Bacteria 0 /HPF (0-FEW) Sodium Level 142 mmol/L (136-145) 147 mmol/L (136-145) Potassium Level 2.0 mmol/L (3.5-5.1) 2.7 mmol/L (3.5-5.1) Chloride Level 102 mmol/L (98-107) 109 mmol/L (98-107) Carbon Dioxide Level 38 mmol/L (21-32) 33 mmol/L (21-32) Anion Gap 2 (6-14) 5 (6-14) Blood Urea Nitrogen 3 mg/dL (8-26) 2 mg/dL (8-26) Creatinine 0.9 mg/dL (0.7-1.3) 1.0 mg/dL (0.7-1.3) Estimated GFR (Cockcroft-Gault) 104.9 92.9 BUN/Creatinine Ratio 3 (6-20) Glucose Level 101 mg/dL (70-99) 97 mg/dL (70-99) Calcium Level 8.5 mg/dL (8.5-10.1) 8.2 mg/dL (8.5-10.1) Magnesium Level 2.5 mg/dL (1.8-2.4) Total Bilirubin 0.4 mg/dL (0.2-1.0) Aspartate Amino Transf (AST/SGOT) 103 U/L (15-37) Alanine Aminotransferase (ALT/SGPT) 63 U/L (16-63) Alkaline Phosphatase 108 U/L (46-116) Total Protein 5.2 g/dL (6.4-8.2) Albumin 1.9 g/dL (3.4-5.0) Albumin/Globulin Ratio 0.6 (1.0-1.7) Cortisol PM Sample 7.5 ug/dL (3.1-16.7) White Blood Count 8.3 x10^3/uL (4.0-11.0) Red Blood Count 2.73 x10^6/uL (4.30-5.70) Hemoglobin 10.3 g/dL (13.0-17.5) Hematocrit 29.6 % (39.0-53.0) Mean Corpuscular Volume 108 fL (79-100) Mean Corpuscular Hemoglobin 38 pg (25-35) Mean Corpuscular Hemoglobin Concent 35 g/dL (31-37) Red Cell Distribution Width 15.5 % (11.5-14.5) Platelet Count 281 x10^3/uL (140-400) Neutrophils (%) (Auto) 65 % (31-73) Lymphocytes (%) (Auto) 21 % (24-48) Monocytes (%) (Auto) 10 % (0-9) Eosinophils (%) (Auto) 3 % (0-3) Basophils (%) (Auto) 1 % (0-3) Neutrophils # (Auto) 5.4 x10^3/uL (1.8-7.7) Lymphocytes # (Auto) 1.8 x10^3/uL (1.0-4.8) Monocytes # (Auto) 0.8 x10^3/uL (0.0-1.1) Eosinophils # (Auto) 0.2 x10^3/uL (0.0-0.7) Basophils # (Auto) 0.1 x10^3/uL (0.0-0.2) Assessment and Plan Assessmemt and Plan Problems Medical Problems: (1) Back pain Status: Acute (2) Colitis Status: Acute (3) Generalized weakness Status: Acute (4) Hypokalemia Status: Acute (5) Hypomagnesemia Status: Acute ASSESSMENT Hypokalemia Malnutrition Generalized weakness Back pain Hypomagnesemia Colitis Macrocytic anemia Alcohol abuse Macrocytosis probably from chronic alcohol Leukocytosis DM 2 Hypertension PLAN Continue ICU monitoring Continue banana bag daily Continue IV protonix Acetaminophen PRN for pain Continue PT/OT Trend electrolytes, being replaced per protocol Home meds DVT prophylaxis Full code Comment Review of Relevant I have reviewed the following items adonis (where applicable) has been applied. Medications: Current Medications Medications (Trade) Dose Ordered Sig/Steph Route PRN Reason Start Time Stop Time Status Last Admin Dose Admin Hydralazine HCl (Apresoline Inj) 10 mg PRN Q4HRS PRN IVP ELEVATED BP, SEE COMMENTS 03/26/20 13:30 03/27/20 08:20 Vancomycin HCl (Vancomycin Oral Solution) 125 mg [id number] PO 03/26/20 17:00 03/26/20 21:39 Potassium Chloride/Water 100 ml @ 100 mls/hr Q2H IV 03/26/20 19:00 03/27/20 05:59 DC 03/27/20 01:53 Lorazepam (Ativan Inj) 4 mg PRN Q1HR PRN IV For CIWA 15 or greater 03/26/20 19:30 03/27/20 09:07 Nicotine (Nicoderm Cq 21mg) 1 patch DAILY TD 03/26/20 19:30 03/27/20 08:21 Haloperidol Lactate (Haldol Inj) 5 mg PRN Q4HRS PRN IVP Hallucinatns,Confusn,Delirium 03/26/20 20:15 03/27/20 06:22 Diphenhydramine HCl (Benadryl) 25 mg PRN Q15MIN PRN IVP EPS symptoms 2'Haldol admin 03/26/20 20:15 03/27/20 02:02 Potassium Chloride/Water 100 ml @ 100 mls/hr Q1H IV 03/27/20 08:00 03/27/20 09:59 DC 03/27/20 09:06 Multivitamins 10 ml/Thiamine HCl 100 mg/Folic Acid 1 mg/Sodium Chloride 1,011.2 ml @ 100 mls/ hr DAILY IV 03/27/20 09:00 03/31/20 19:07 03/27/20 09:07 Pantoprazole Sodium (PROTONIX VIAL for IV PUSH) 40 mg DAILYAC IVP 03/27/20 08:00 03/27/20 08:19 Justicifation of Admission Dx: Justifications for Admission: Justification of Admission Dx: Yes BETSY INMAN III DO Mar 27, 2020 11:06
--- NOTE | 2020-03-27 11:21 | PDOC2 ---
CONSULT Date of Consult Date of Consult DATE: 03/27/20 TIME: 11:12 Reason for Consult Reason for Consult: LOW K Referring Physician Referring Physician: KLEVER Identification/Chief Complaint Chief Complaint CRAMPING AND WEAKNESS Source Source: Chart review, Patient History of Present Illness Reason for Visit: THIS IS A 59 YR OLD WITH WEAKNESS AND FALL AT HOME. SEVERE HYPOKALEMIA WITH K OF 1.7 ON ADMIT WITH A CR OF 1.5. HAS HAD ABD BLOATING, EPIGASTRIC PAIN FOR ABOUT A MONTH. ALSO NOTED TO HAVE MET ALKALOSIS. GI EVALUATION ONGOING AT THIS TIME. ELEVATED TRANSAMINASES AND A MACROCYTIC ANEMIA IS ALSO NOTED. HE HAS ETOH ABUSE HX. NO CKD HX NOTED. Past Medical History Cardiovascular: HTN Pulmonary: No pertinent hx Endocrine: Diabetes Past Surgical History Past Surgical History: Hernia Repair Family History Family History: Cancer, Diabetes, High Cholestrol, Hypertension, Kidney Disease Social History 2 packs per day ALCOHOL: heavy (down to 1 pint daily from 3) Drugs: Marijuana Current Problem List Problem List Problems Medical Problems: (1) Back pain Status: Acute (2) Colitis Status: Acute (3) Generalized weakness Status: Acute (4) Hypokalemia Status: Acute (5) Hypomagnesemia Status: Acute Current Medications Current Medications Current Medications Magnesium Sulfate 50 ml @ 25 mls/hr 1X ONCE IV Last administered on 03/25/20at 01:16; Start 03/25/20 at 00:45; Stop 03/25/20 at 02:44; Status DC Potassium Chloride/Water 100 ml @ 50 mls/hr 1X ONCE IV Last administered on 03/25/20at 01:16; Start 03/25/20 at 01:00; Stop 03/25/20 at 02:59; Status DC Potassium Chloride (Klor-Con) 40 meq 1X ONCE PO Last administered on 03/25/20at 01:15; Start 03/25/20 at 00:45; Stop 03/25/20 at 00:46; Status DC Potassium Chloride/Water 100 ml @ 50 mls/hr 1X ONCE IV Last administered on 03/25/20at 02:48; Start 03/25/20 at 03:00; Stop 03/25/20 at 04:59; Status DC Metronidazole 100 ml @ 100 mls/hr 1X ONCE IV Last administered on 03/25/20at 02:47; Start 03/25/20 at 01:30; Stop 03/25/20 at 02:29; Status DC Levofloxacin/ Dextrose 150 ml @ 100 mls/hr 1X ONCE IV Last administered on 03/25/20at 02:46; Start 03/25/20 at 01:30; Stop 03/25/20 at 02:59; Status DC Sodium Chloride 1,000 ml @ 1,000 mls/hr 1X ONCE IV Last administered on 03/25/20at 02:46; Start 03/25/20 at 01:30; Stop 03/25/20 at 02:29; Status DC Ondansetron HCl (Zofran) 4 mg PRN Q8HRS PRN IV NAUSEA/VOMITING; Start 03/25/20 at 02:00; Stop 03/25/20 at 16:47; Status DC Potassium Chloride (Klor-Con) 40 meq TIDWMEALS ONCE PO Last administered on 03/25/20at 13:01; Start 03/25/20 at 08:00; Stop 03/25/20 at 08:01; Status DC Potassium Chloride (Klor-Con) 40 meq 1X ONCE PO Last administered on 03/25/20at 05:42; Start 03/25/20 at 05:30; Stop 03/25/20 at 05:31; Status DC Potassium Chloride/Water 100 ml @ 100 mls/hr Q1H IV Last administered on 03/25/20at 13:00; Start 03/25/20 at 05:30; Stop 03/25/20 at 07:29; Status DC Magnesium Sulfate 100 ml @ 25 mls/hr 1X ONCE IV Last administered on 03/25/20at 05:41; Start 03/25/20 at 05:30; Stop 03/25/20 at 09:29; Status DC Potassium Chloride/Dextrose/ Sod Cl 1,000 ml @ 100 mls/hr Q10H IV Last administered on 03/26/20at 02:23; Start 03/25/20 at 08:00; Stop 03/26/20 at 09:31; Status DC Vitamin B Complex (Folbic Tablet) 1 tab DAILY PO Last administered on 03/26/20at 09:00; Start 03/25/20 at 09:00 Thiamine Mononitrate (Vitamin B-1) 100 mg DAILY PO Last administered on 03/26/20at 09:00; Start 03/25/20 at 09:00 Sodium Chloride (Normal Saline Flush) 3 ml QSHIFT PRN IV AFTER MEDS AND BLOOD DRAWS; Start 03/25/20 at 14:45 Sodium Chloride 1,000 ml @ 100 mls/hr Q10H IV Last administered on 03/27/20at 06:33; Start 03/25/20 at 14:31 Ondansetron HCl (Zofran) 4 mg PRN Q4HRS PRN IV NAUSEA/VOMITING; Start 03/25/20 at 14:45 Acetaminophen (Tylenol) 650 mg PRN Q4HRS PRN PO TEMP OVER 100.4F OR MILD PAIN; Start 03/25/20 at 14:45 Acetaminophen (Tylenol Supp) 650 mg PRN Q4HRS PRN AR TEMP OVER 100.4F OR MILD PAIN; Start 03/25/20 at 14:45 Al Hydroxide/Mg Hydroxide (Mylanta Plus Xs) 30 ml PRN DAILY PRN PO HEARTBURN / GAS; Start 03/25/20 at 14:45 Docusate Sodium (Colace) 100 mg PRN BID PRN PO HARD STOOLS; Start 03/25/20 at 14:45; Stop 03/26/20 at 09:38; Status DC Albuterol Sulfate (Ventolin Neb Soln) 2.5 mg PRN Q4HRS PRN NEB SHORTNESS OF BREATH; Start 03/25/20 at 14:45 Guaifenesin (Robitussin) 200 mg PRN Q4HRS PRN PO COUGH; Start 03/25/20 at 14:45 Lorazepam (Ativan) 0.5 mg PRN Q4HRS PRN PO ANXIETY / AGITATION; Start 03/25/20 at 14:45 Enoxaparin Sodium (Lovenox 40mg Syringe) 40 mg Q24H SQ Last administered on 03/26/20at 21:36; Start 03/25/20 at 21:00 Pantoprazole Sodium (Protonix) 40 mg DAILYAC PO Last administered on 03/26/20at 07:30; Start 03/25/20 at 16:30; Stop 03/27/20 at 07:43; Status DC Multi-Ingredient Mouthwash/Gargle (Gi Cocktail) 20 ml PRN QID PRN PO epigastric pain Last administered on 03/25/20at 20:23; Start 03/25/20 at 16:15 Potassium Chloride (Klor-Con) 40 meq 1X ONCE PO Last administered on 03/25/20at 17:26; Start 03/25/20 at 16:45; Stop 03/25/20 at 16:46; Status DC Potassium Chloride (Klor-Con) 20 meq 1X ONCE PO Last administered on 03/25/20at 20:22; Start 03/25/20 at 19:00; Stop 03/25/20 at 19:01; Status DC Potassium Chloride/Water 100 ml @ 100 mls/hr Q1H IV Last administered on 03/25/20at 20:22; Start 03/25/20 at 17:00; Stop 03/25/20 at 20:59; Status DC Polyethylene Glycol (miraLAX Powder BULK BOTTLE) 238 gm 1X ONCE PO ; Start 03/26/20 at 11:00; Stop 03/26/20 at 09:38; Status DC Magnesium Citrate (Citroma) 296 ml 1X ONCE PO ; Start 03/26/20 at 09:00; Stop 03/26/20 at 09:39; Status DC Bisacodyl (Dulcolax Tab) 10 mg PRN DAILY PRN PO CONSTIPATION; Start 03/26/20 at 10:00; Stop 03/26/20 at 09:39; Status DC Potassium Chloride (Klor-Con) 60 meq 1X ONCE PO Last administered on 03/26/20at 08:30; Start 03/26/20 at 08:30; Stop 03/26/20 at 08:35; Status DC Potassium Chloride (Klor-Con) 40 meq DAILY08 PO ; Start 03/27/20 at 08:00 Potassium Chloride (Klor-Con) 40 meq Q2H PO Last administered on 03/26/20at 16:41; Start 03/26/20 at 10:00; Stop 03/26/20 at 14:01; Status DC Magnesium Sulfate 100 ml @ 25 mls/hr 1X ONCE IV Last administered on 03/26/20at 11:12; Start 03/26/20 at 10:00; Stop 03/26/20 at 13:59; Status DC Hydralazine HCl (Apresoline Inj) 10 mg PRN Q4HRS PRN IVP ELEVATED BP, SEE COMMENTS Last administered on 03/27/20at 08:20; Start 03/26/20 at 13:30 Vancomycin HCl (Vancomycin Oral Solution) 125 mg [id number] PO Last administered on 03/26/20at 21:39; Start 03/26/20 at 17:00 Potassium Chloride (Klor-Con) 40 meq Q2H PO ; Start 03/26/20 at 19:00; Stop 03/26/20 at 23:01; Status Cancel Potassium Chloride/Water 100 ml @ 100 mls/hr Q1H IV ; Start 03/26/20 at 18:15; Stop 03/27/20 at 06:14; Status UNV Potassium Chloride/Water 100 ml @ 100 mls/hr Q2H IV Last administered on 03/27/20at 01:53; Start 03/26/20 at 19:00; Stop 03/27/20 at 05:59; Status DC Lorazepam (Ativan Inj) 2 mg PRN Q1HR PRN IV For CIWA 8-14; Start 03/26/20 at 19:30 Lorazepam (Ativan Inj) 4 mg PRN Q1HR PRN IV For CIWA 15 or greater Last administered on 03/27/20at 09:07; Start 03/26/20 at 19:30 Nicotine (Nicoderm Cq 21mg) 1 patch DAILY TD Last administered on 03/27/20at 08:21; Start 03/26/20 at 19:30 Haloperidol Lactate (Haldol Inj) 5 mg PRN Q6HRS PRN IVP AGITATION; Start 03/26/20 at 20:15; Status UNV Haloperidol Lactate (Haldol Inj) 5 mg PRN Q4HRS PRN IVP Hallucinatns,Confusn,Delirium Last administered on 03/27/20at 06:22; Start 03/26/20 at 20:15 Diphenhydramine HCl (Benadryl) 25 mg PRN Q15MIN PRN IVP EPS symptoms 2'Haldol admin Last administered on 03/27/20at 02:02; Start 03/26/20 at 20:15 Dexmedetomidine HCl 400 mcg/ Sodium Chloride 100 ml @ 0 mls/hr CONT PRN IV ETOH WITHDRAWAL; Start 03/26/20 at 21:00 Potassium Chloride/Water 100 ml @ 100 mls/hr Q1H IV Last administered on 03/27/20at 09:06; Start 03/27/20 at 08:00; Stop 03/27/20 at 09:59; Status DC Multivitamins 10 ml/Thiamine HCl 100 mg/Folic Acid 1 mg/Sodium Chloride 1,011.2 ml @ 100 mls/ hr DAILY IV Last administered on 03/27/20at 09:07; Start 03/27/20 at 09:00; Stop 03/31/20 at 19:07 Pantoprazole Sodium (PROTONIX VIAL for IV PUSH) 40 mg DAILYAC IVP Last administered on 03/27/20at 08:19; Start 03/27/20 at 08:00 Active Scripts Active B-1 (Thiamine HCl) 100 Mg Tablet 100 Mg PO DAILY08 30 Days Folic Acid 0.8 Mg Capsule 1 Cap PO DAILY 30 Days Celexa (Citalopram Hydrobromide) 10 Mg Tablet 10 Mg PO DAILY 30 Days Tylenol (Acetaminophen) 325 Mg Tablet 650 Mg PO PRN Q4HRS PRN 10 Days Allergies Allergies: Coded Allergies: No Known Drug Allergies (Unverified , 12/15/19) ROS General: YES: Fatigue, Malaise, Appetite PSYCHOLOGICAL ROS: YES: Anxiety Eyes: Yes Decreased vision HEENT: YES: Heacaches Respiratory: YES: Cough Gastrointestinal: Yes Nausea, Yes Abdominal Pain, Yes Diarrhea Genitourinary: YES Other (DECREASED UO) Musculoskeletal: Yes Muscular Weakness Neurological: Yes Weakness Skin: Yes Dry Skin Physical Exam General: Alert, Cooperative HEENT: Atraumatic Lungs: Clear to auscultation Heart: Regular rate Abdomen: Normal bowel sounds Extremities: No clubbing Skin: No breakdown Neuro: Normal speech Psych/Mental Status: Mental status NL, Mood NL MUSCULOSKELETAL: No joint tenderness, No deformity Vitals VITALS Vital Signs Date Time Temp Pulse Resp B/P (MAP) Pulse Ox O2 Delivery O2 Flow Rate FiO2 03/27/20 10:11 107 20 134/87 (103) 98 Room Air 03/27/20 08:09 97.7 97.7 Labs Labs Laboratory Tests Test 03/25/20 11:39 03/25/20 14:55 03/25/20 17:12 03/25/20 18:20 Glucose (Fingerstick) 115 mg/dL (70-99) 104 mg/dL (70-99) Sodium Level 141 mmol/L (136-145) Potassium Level 1.6 mmol/L (3.5-5.1) Chloride Level 99 mmol/L (98-107) Carbon Dioxide Level 41 mmol/L (21-32) Anion Gap 1 (6-14) Blood Urea Nitrogen 7 mg/dL (8-26) Creatinine 1.2 mg/dL (0.7-1.3) Estimated GFR (Cockcroft-Gault) 75.2 Glucose Level 130 mg/dL (70-99) Calcium Level 7.7 mg/dL (8.5-10.1) Stool Campylobacter PCR Negative (NEGATIVE) Stool E. coli Shiga Toxins (PCR) Negative (NEGATIVE) Stool Salmonella PCR Negative (NEGATIVE) Stool Shigella PCR Negative (NEGATIVE) Test 03/25/20 18:40 03/25/20 20:30 03/25/20 20:31 03/26/20 03:50 Clostridium difficile Toxin (PCR) Positive (NEGATIVE) Sodium Level 142 mmol/L (136-145) 141 mmol/L (136-145) Potassium Level 1.8 mmol/L (3.5-5.1) 1.7 mmol/L (3.5-5.1) Chloride Level 99 mmol/L (98-107) 101 mmol/L (98-107) Carbon Dioxide Level 39 mmol/L (21-32) 39 mmol/L (21-32) Anion Gap 4 (6-14) 1 (6-14) Blood Urea Nitrogen 6 mg/dL (8-26) 5 mg/dL (8-26) Creatinine 1.1 mg/dL (0.7-1.3) 1.1 mg/dL (0.7-1.3) Estimated GFR (Cockcroft-Gault) 83.2 83.2 Glucose Level 111 mg/dL (70-99) 118 mg/dL (70-99) Calcium Level 8.2 mg/dL (8.5-10.1) 7.5 mg/dL (8.5-10.1) Glucose (Fingerstick) 111 mg/dL (70-99) White Blood Count 8.7 x10^3/uL (4.0-11.0) Red Blood Count 2.52 x10^6/uL (4.30-5.70) Hemoglobin 9.6 g/dL (13.0-17.5) Hematocrit 27.5 % (39.0-53.0) Mean Corpuscular Volume 109 fL (79-100) Mean Corpuscular Hemoglobin 38 pg (25-35) Mean Corpuscular Hemoglobin Concent 35 g/dL (31-37) Red Cell Distribution Width 15.2 % (11.5-14.5) Platelet Count 254 x10^3/uL (140-400) Neutrophils (%) (Auto) 71 % (31-73) Lymphocytes (%) (Auto) 19 % (24-48) Monocytes (%) (Auto) 6 % (0-9) Eosinophils (%) (Auto) 4 % (0-3) Basophils (%) (Auto) 0 % (0-3) Neutrophils # (Auto) 6.2 x10^3/uL (1.8-7.7) Lymphocytes # (Auto) 1.7 x10^3/uL (1.0-4.8) Monocytes # (Auto) 0.5 x10^3/uL (0.0-1.1) Eosinophils # (Auto) 0.3 x10^3/uL (0.0-0.7) Basophils # (Auto) 0.0 x10^3/uL (0.0-0.2) Phosphorus Level 3.5 mg/dL (2.6-4.7) Magnesium Level 1.7 mg/dL (1.8-2.4) Cortisol AM Sample 8.3 ug/dL (4.3-22.4) Test 03/26/20 13:29 03/26/20 14:00 03/26/20 15:15 03/27/20 05:45 O2 Saturation 91 % (92-99) Arterial Blood pH 7.53 (7.35-7.45) Arterial Blood pCO2 at Patient Temp 41 mmHg (35-46) Arterial Blood pO2 at Patient Temp 63 mmHg (75-108) Arterial Blood HCO3 33 mmol/L (21-28) Arterial Blood Base Excess 10 mmol/L (-3-3) Oxyhemoglobin 90.3 % Methemoglobin 0.3 % (0.0-1.9) Carbon Monoxide, Quantitative 0.3 % (0.0-1.9) FiO2 Ra Urine Collection Type Unknown Urine Color Yellow Urine Clarity Clear Urine pH 6.0 (<5.0-8.0) Urine Specific Hart <=1.005 (1.000-1.030) Urine Protein Negative mg/dL (NEG-TRACE) Urine Glucose (UA) Negative mg/dL (NEG) Urine Ketones (Stick) Negative mg/dL (NEG) Urine Blood Moderate (NEG) Urine Nitrite Negative (NEG) Urine Bilirubin Negative (NEG) Urine Urobilinogen Dipstick 0.2 mg/dL (0.2 mg/dL) Urine Leukocyte Esterase Moderate (NEG) Urine RBC 6-10 /HPF (0-2) Urine WBC 1-4 /HPF (0-4) Urine Squamous Epithelial Cells Occ /LPF Urine Bacteria 0 /HPF (0-FEW) Sodium Level 142 mmol/L (136-145) 147 mmol/L (136-145) Potassium Level 2.0 mmol/L (3.5-5.1) 2.7 mmol/L (3.5-5.1) Chloride Level 102 mmol/L (98-107) 109 mmol/L (98-107) Carbon Dioxide Level 38 mmol/L (21-32) 33 mmol/L (21-32) Anion Gap 2 (6-14) 5 (6-14) Blood Urea Nitrogen 3 mg/dL (8-26) 2 mg/dL (8-26) Creatinine 0.9 mg/dL (0.7-1.3) 1.0 mg/dL (0.7-1.3) Estimated GFR (Cockcroft-Gault) 104.9 92.9 BUN/Creatinine Ratio 3 (6-20) Glucose Level 101 mg/dL (70-99) 97 mg/dL (70-99) Calcium Level 8.5 mg/dL (8.5-10.1) 8.2 mg/dL (8.5-10.1) Magnesium Level 2.5 mg/dL (1.8-2.4) Total Bilirubin 0.4 mg/dL (0.2-1.0) Aspartate Amino Transf (AST/SGOT) 103 U/L (15-37) Alanine Aminotransferase (ALT/SGPT) 63 U/L (16-63) Alkaline Phosphatase 108 U/L (46-116) Total Protein 5.2 g/dL (6.4-8.2) Albumin 1.9 g/dL (3.4-5.0) Albumin/Globulin Ratio 0.6 (1.0-1.7) Cortisol PM Sample 7.5 ug/dL (3.1-16.7) White Blood Count 8.3 x10^3/uL (4.0-11.0) Red Blood Count 2.73 x10^6/uL (4.30-5.70) Hemoglobin 10.3 g/dL (13.0-17.5) Hematocrit 29.6 % (39.0-53.0) Mean Corpuscular Volume 108 fL (79-100) Mean Corpuscular Hemoglobin 38 pg (25-35) Mean Corpuscular Hemoglobin Concent 35 g/dL (31-37) Red Cell Distribution Width 15.5 % (11.5-14.5) Platelet Count 281 x10^3/uL (140-400) Neutrophils (%) (Auto) 65 % (31-73) Lymphocytes (%) (Auto) 21 % (24-48) Monocytes (%) (Auto) 10 % (0-9) Eosinophils (%) (Auto) 3 % (0-3) Basophils (%) (Auto) 1 % (0-3) Neutrophils # (Auto) 5.4 x10^3/uL (1.8-7.7) Lymphocytes # (Auto) 1.8 x10^3/uL (1.0-4.8) Monocytes # (Auto) 0.8 x10^3/uL (0.0-1.1) Eosinophils # (Auto) 0.2 x10^3/uL (0.0-0.7) Basophils # (Auto) 0.1 x10^3/uL (0.0-0.2) Laboratory Tests Test 03/26/20 13:29 03/26/20 14:00 03/26/20 15:15 03/27/20 05:45 O2 Saturation 91 % (92-99) Arterial Blood pH 7.53 (7.35-7.45) Arterial Blood pCO2 at Patient Temp 41 mmHg (35-46) Arterial Blood pO2 at Patient Temp 63 mmHg (75-108) Arterial Blood HCO3 33 mmol/L (21-28) Arterial Blood Base Excess 10 mmol/L (-3-3) Oxyhemoglobin 90.3 % Methemoglobin 0.3 % (0.0-1.9) Carbon Monoxide, Quantitative 0.3 % (0.0-1.9) FiO2 Ra Urine Collection Type Unknown Urine Color Yellow Urine Clarity Clear Urine pH 6.0 (<5.0-8.0) Urine Specific Hart <=1.005 (1.000-1.030) Urine Protein Negative mg/dL (NEG-TRACE) Urine Glucose (UA) Negative mg/dL (NEG) Urine Ketones (Stick) Negative mg/dL (NEG) Urine Blood Moderate (NEG) Urine Nitrite Negative (NEG) Urine Bilirubin Negative (NEG) Urine Urobilinogen Dipstick 0.2 mg/dL (0.2 mg/dL) Urine Leukocyte Esterase Moderate (NEG) Urine RBC 6-10 /HPF (0-2) Urine WBC 1-4 /HPF (0-4) Urine Squamous Epithelial Cells Occ /LPF Urine Bacteria 0 /HPF (0-FEW) Sodium Level 142 mmol/L (136-145) 147 mmol/L (136-145) Potassium Level 2.0 mmol/L (3.5-5.1) 2.7 mmol/L (3.5-5.1) Chloride Level 102 mmol/L (98-107) 109 mmol/L (98-107) Carbon Dioxide Level 38 mmol/L (21-32) 33 mmol/L (21-32) Anion Gap 2 (6-14) 5 (6-14) Blood Urea Nitrogen 3 mg/dL (8-26) 2 mg/dL (8-26) Creatinine 0.9 mg/dL (0.7-1.3) 1.0 mg/dL (0.7-1.3) Estimated GFR (Cockcroft-Gault) 104.9 92.9 BUN/Creatinine Ratio 3 (6-20) Glucose Level 101 mg/dL (70-99) 97 mg/dL (70-99) Calcium Level 8.5 mg/dL (8.5-10.1) 8.2 mg/dL (8.5-10.1) Magnesium Level 2.5 mg/dL (1.8-2.4) Total Bilirubin 0.4 mg/dL (0.2-1.0) Aspartate Amino Transf (AST/SGOT) 103 U/L (15-37) Alanine Aminotransferase (ALT/SGPT) 63 U/L (16-63) Alkaline Phosphatase 108 U/L (46-116) Total Protein 5.2 g/dL (6.4-8.2) Albumin 1.9 g/dL (3.4-5.0) Albumin/Globulin Ratio 0.6 (1.0-1.7) Cortisol PM Sample 7.5 ug/dL (3.1-16.7) White Blood Count 8.3 x10^3/uL (4.0-11.0) Red Blood Count 2.73 x10^6/uL (4.30-5.70) Hemoglobin 10.3 g/dL (13.0-17.5) Hematocrit 29.6 % (39.0-53.0) Mean Corpuscular Volume 108 fL (79-100) Mean Corpuscular Hemoglobin 38 pg (25-35) Mean Corpuscular Hemoglobin Concent 35 g/dL (31-37) Red Cell Distribution Width 15.5 % (11.5-14.5) Platelet Count 281 x10^3/uL (140-400) Neutrophils (%) (Auto) 65 % (31-73) Lymphocytes (%) (Auto) 21 % (24-48) Monocytes (%) (Auto) 10 % (0-9) Eosinophils (%) (Auto) 3 % (0-3) Basophils (%) (Auto) 1 % (0-3) Neutrophils # (Auto) 5.4 x10^3/uL (1.8-7.7) Lymphocytes # (Auto) 1.8 x10^3/uL (1.0-4.8) Monocytes # (Auto) 0.8 x10^3/uL (0.0-1.1) Eosinophils # (Auto) 0.2 x10^3/uL (0.0-0.7) Basophils # (Auto) 0.1 x10^3/uL (0.0-0.2) Assessment/Plan Assessment/Plan IMP DEHYDRATION MET ALKALOSIS WU DUE TO ABOVE SEVERE HYPOKALEMIA-GI LOSSES MOST LIKELY ETOH ABUSE DRUG ABUSE PLAN HYDRATION K REPLACEMENT URINE K GI EVALUATION WILL FOLLOW PIERRE GARCÍA MD Mar 27, 2020 11:21
--- NOTE | 2020-03-27 13:19 | PDOC ---
Date of Service: DATE: 03/27/20 TIME: 13:15 Objective: Objective: Per nurse - got Ativan and Haldol. Thinks mental status will allow to continue PO vanc. Vital Signs: Vital Signs Date Time Temp Pulse Resp B/P (MAP) Pulse Ox O2 Delivery O2 Flow Rate FiO2 03/27/20 13:09 104 20 167/98 (121) 94 Room Air 03/27/20 08:09 97.7 97.7 Labs: Laboratory Tests Test 03/26/20 13:29 03/26/20 14:00 03/26/20 15:15 03/27/20 05:45 O2 Saturation 91 % Arterial Blood pH 7.53 Arterial Blood pCO2 at Patient Temp 41 mmHg Arterial Blood pO2 at Patient Temp 63 mmHg Arterial Blood HCO3 33 mmol/L Arterial Blood Base Excess 10 mmol/L Oxyhemoglobin 90.3 % Methemoglobin 0.3 % Carbon Monoxide, Quantitative 0.3 % FiO2 Ra Urine Collection Type Unknown Urine Color Yellow Urine Clarity Clear Urine pH 6.0 Urine Specific [place] <=1.005 Urine Protein Negative mg/dL Urine Glucose (UA) Negative mg/dL Urine Ketones (Stick) Negative mg/dL Urine Blood Moderate Urine Nitrite Negative Urine Bilirubin Negative Urine Urobilinogen Dipstick 0.2 mg/dL Urine Leukocyte Esterase Moderate Urine RBC 6-10 /HPF Urine WBC 1-4 /HPF Urine Squamous Epithelial Cells Occ /LPF Urine Bacteria 0 /HPF Sodium Level 142 mmol/L 147 mmol/L Potassium Level 2.0 mmol/L 2.7 mmol/L Chloride Level 102 mmol/L 109 mmol/L Carbon Dioxide Level 38 mmol/L 33 mmol/L Anion Gap 2 5 Blood Urea Nitrogen 3 mg/dL 2 mg/dL Creatinine 0.9 mg/dL 1.0 mg/dL Estimated GFR (Cockcroft-Gault) 104.9 92.9 BUN/Creatinine Ratio 3 Glucose Level 101 mg/dL 97 mg/dL Calcium Level 8.5 mg/dL 8.2 mg/dL Magnesium Level 2.5 mg/dL Total Bilirubin 0.4 mg/dL Aspartate Amino Transf (AST/SGOT) 103 U/L Alanine Aminotransferase (ALT/SGPT) 63 U/L Alkaline Phosphatase 108 U/L Total Protein 5.2 g/dL Albumin 1.9 g/dL Albumin/Globulin Ratio 0.6 Cortisol PM Sample 7.5 ug/dL White Blood Count 8.3 x10^3/uL Red Blood Count 2.73 x10^6/uL Hemoglobin 10.3 g/dL Hematocrit 29.6 % Mean Corpuscular Volume 108 fL Mean Corpuscular Hemoglobin 38 pg Mean Corpuscular Hemoglobin Concent 35 g/dL Red Cell Distribution Width 15.5 % Platelet Count 281 x10^3/uL Neutrophils (%) (Auto) 65 % Lymphocytes (%) (Auto) 21 % Monocytes (%) (Auto) 10 % Eosinophils (%) (Auto) 3 % Basophils (%) (Auto) 1 % Neutrophils # (Auto) 5.4 x10^3/uL Lymphocytes # (Auto) 1.8 x10^3/uL Monocytes # (Auto) 0.8 x10^3/uL Eosinophils # (Auto) 0.2 x10^3/uL Basophils # (Auto) 0.1 x10^3/uL PE: GEN: NAD LUNGS: clear HEART: tachycardic ABD: non-distended NEURO/PSYCH: sleeping, has mittens A/P: Hypokalemia - better C Diff Alcohol abuse/withdrawal -- Hopefully alert enough to take vanco. Justicifation of Admission Dx: Justifications for Admission: Justification of Admission Dx: Yes HOSEA RUBIO Mar 27, 2020 13:19
--- NOTE | 2020-03-27 15:01 | NUR ---
SS following for discharge planning. SS reviewed pt chart and discussed with pt RN. Pt is from home and is currently on room air. Pt is self pay. PAT team referral made for ETOH and THC use. COVID19 negative. CDIFF positive. CIWA protocol. SS will continue to follow for discharge planning.
[2020-03-27] MEDS: ENOXAPARIN 40 MG/0.4 ML SYRINGE. SQ SCH (20:47)
[2020-03-27] MEDS ORDERED: LACTOBACILLUS RHAMNOSUS GG 1 CAPSULE. PO SCH (21:00)
[2020-03-28] VITALS (15 sets, daily range): BP systolic 131–180; BP diastolic 92–109
[2020-03-28] MEDS: hydrALAZINE 20 MG/ML VIAL. IVP PRN ×4 (01:11→15:36)
[2020-03-28 04:11] LABS: UR POTASSIUM 6.7 mmol/L (Not Estab.)
[2020-03-28] MEDS: HALOPERIDOL LACTATE 5 MG/ML VIAL. IVP PRN (04:50)
[2020-03-28] MEDS: IV NORMAL SALINE 1000ML BAG 1,000 ML IV SCH ×3 (04:51→22:31)
[2020-03-28 06:06] LABS: BASO % 1 % (0-3); EOS # 0.2 x10^3/uL (0.0-0.7); EOS % 3 % (0-3); HEMATOCRIT 30.8 % (39.0-53.0); HEMOGLOBIN 10.6 g/dL (13.0-17.5); LYMPH # 1.9 x10^3/uL (1.0-4.8); LYMPH % 24 % (24-48); MEAN CORPUSCULAR HEMOGLOBIN 38 pg (25-35); MEAN CORPUSCULAR HGB CONC 34 g/dL (31-37); MEAN CORPUSCULAR VOLUME 110 fL (79-100); MONO # 1.1 x10^3/uL (0.0-1.1); MONO % 14 % (0-9); NEUT # 4.7 x10^3/uL (1.8-7.7); NEUT % 59 % (31-73); PLATELET COUNT 337 x10^3/uL (140-400); RED CELL DISTRIBUTION WIDTH 16.3 % (11.5-14.5); WHITE BLOOD COUNT 7.9 x10^3/uL (4.0-11.0)
[2020-03-28 06:20] LABS: CALCIUM 8.4 mg/dL (8.5-10.1); GFR 92.9
[2020-03-28 06:21] LABS: POTASSIUM 2.6 mmol/L (3.5-5.1)
[2020-03-28] MEDS ORDERED: MAGNESIUM SULFATE 4GM 100 ML IV ONE (07:00)
[2020-03-28] MEDS: POTASSIUM CHLORIDE 20MEQ 100 ML IV SCH ×2 (07:37→08:49)
[2020-03-28] MEDS: POTASSIUM CHLORIDE 20 MEQ TABLET.ER. PO SCH (08:00)
[2020-03-28] MEDS: PANTOPRAZOLE IV PUSH 40 MG VIAL. IVP SCH (08:39)
[2020-03-28] MEDS: MULTIVIT INFUSN,ADULT 4,VIT K 10 ML, THIAMINE INJ 100 MG, FOLIC ACID INJ 1 MG in IV NOR... IV SCH (08:40)
[2020-03-28] MEDS: VANCOMYCIN 125 MG/2.5 ML ORAL SOLUTION. PO SCH ×4 (08:40→21:52)
[2020-03-28] MEDS: VITAMIN B12,B9,B6 COMPLEX 1 TABLET. PO SCH (08:47)
[2020-03-28] MEDS: NICOTINE 21MG PATCH. TD SCH (08:55)
--- NOTE | 2020-03-28 12:20 | PDOC ---
[employer] PROGRESS NOTE Date of Service DOS: DATE: 03/28/20 TIME: 12:09 Chief Complaint Chief Complaint Hypokalemia Malnutrition Generalized weakness Back pain Hypomagnesemia Colitis Macrocytic anemia Alcohol abuse Macrocytosis probably from chronic alcohol Leukocytosis DM 2 Hypertension History of Present Illness History of Present Illness 03/28/20 Patient seen and examined in ICU Discussed with RN Chart reviewed Potassium 2.6, Magnesium 1.6 Patient was not awake during visit 03/27/2020 Patient seen and examined in the ICU Patient is sleepy in mild distress Potassium 2.7, Magnesium 2.5 GI hopes to do colonoscopy if still inpatient next week Discussed with RN Chart reviewed Vitals/I&O Vitals/I&O: Vital Signs Date Time Temp Pulse Resp B/P (MAP) Pulse Ox O2 Delivery O2 Flow Rate FiO2 03/28/20 11:00 99 31 151/96 (114) 99 Room Air 03/28/20 08:00 98.1 98.1 I & O 03/27/20 03/27/20 03/28/20 15:00 23:00 07:00 Intake Total 1250 ml 1729 ml Output Total 625 ml 680 ml 725 ml Balance -625 ml 570 ml 1004 ml Physical Exam General: Alert, Cooperative, mild distress Heart: Regular rate Lungs: Clear Abdomen: Normal bowel sounds Extremities: No clubbing, Normal pulses Skin: No breakdown Labs Labs: Laboratory Tests Test 03/27/20 15:15 03/28/20 05:50 Urine Potassium 6.7 mmol/L (Not Estab.) Urine Potassium 24 Hour 27 mmol/24 hr (20-116) White Blood Count 7.9 x10^3/uL (4.0-11.0) Red Blood Count 2.80 x10^6/uL (4.30-5.70) Hemoglobin 10.6 g/dL (13.0-17.5) Hematocrit 30.8 % (39.0-53.0) Mean Corpuscular Volume 110 fL (79-100) Mean Corpuscular Hemoglobin 38 pg (25-35) Mean Corpuscular Hemoglobin Concent 34 g/dL (31-37) Red Cell Distribution Width 16.3 % (11.5-14.5) Platelet Count 337 x10^3/uL (140-400) Neutrophils (%) (Auto) 59 % (31-73) Lymphocytes (%) (Auto) 24 % (24-48) Monocytes (%) (Auto) 14 % (0-9) Eosinophils (%) (Auto) 3 % (0-3) Basophils (%) (Auto) 1 % (0-3) Neutrophils # (Auto) 4.7 x10^3/uL (1.8-7.7) Lymphocytes # (Auto) 1.9 x10^3/uL (1.0-4.8) Monocytes # (Auto) 1.1 x10^3/uL (0.0-1.1) Eosinophils # (Auto) 0.2 x10^3/uL (0.0-0.7) Basophils # (Auto) 0.0 x10^3/uL (0.0-0.2) Sodium Level 150 mmol/L (136-145) Potassium Level 2.6 mmol/L (3.5-5.1) Chloride Level 112 mmol/L (98-107) Carbon Dioxide Level 30 mmol/L (21-32) Anion Gap 8 (6-14) Blood Urea Nitrogen 3 mg/dL (8-26) Creatinine 1.0 mg/dL (0.7-1.3) Estimated GFR (Cockcroft-Gault) 92.9 Glucose Level 97 mg/dL (70-99) Calcium Level 8.4 mg/dL (8.5-10.1) Magnesium Level 1.6 mg/dL (1.8-2.4) Assessment and Plan Assessmemt and Plan Problems Medical Problems: (1) Back pain Status: Acute (2) Colitis Status: Acute (3) Generalized weakness Status: Acute (4) Hypokalemia Status: Acute (5) Hypomagnesemia Status: Acute Assessment: Hypokalemia Malnutrition Generalized weakness Back pain Hypomagnesemia Colitis Macrocytic anemia Alcohol abuse Macrocytosis probably from chronic alcohol Leukocytosis DM 2 Hypertension Plan: ICU monitoring Full code Mitts for patient safety Potassium and magnesium replacement Monitor potassium and magnesium levels Oral antibiotics Appreciate subspecialist input Comment Review of Relevant I have reviewed the following items adonis (where applicable) has been applied. Medications: Current Medications Medications (Trade) Dose Ordered Sig/Steph Route PRN Reason Start Time Stop Time Status Last Admin Dose Admin Magnesium Sulfate 100 ml @ 25 mls/hr 1X ONCE IV 03/28/20 07:00 03/28/20 10:59 DC 03/28/20 06:45 Potassium Chloride/Water 100 ml @ 100 mls/hr Q1H IV 03/28/20 07:00 03/28/20 08:59 DC 03/28/20 08:49 Justicifation of Admission Dx: Justifications for Admission: Justification of Admission Dx: Yes BETYS INMAN III DO Mar 28, 2020 12:20
--- NOTE | 2020-03-28 12:46 | PDOC ---
PROGRESS NOTES Date of Service DATE: 03/28/20 TIME: 12:44 SEEN IN FOLLOW UP OF HYPOK+. STILL WITH DIARRHEA Objective Objective Vital Signs Date Time Temp Pulse Resp B/P (MAP) Pulse Ox O2 Delivery O2 Flow Rate FiO2 03/28/20 12:00 98.2 100 34 164/95 (118) 99 Room Air 98.2 Intake and Output 03/28/20 07:00 Intake Total 2979 ml Output Total 2030 ml Balance 949 ml IV Total 2979 ml Output Urine Total 2030 ml Physical Exam Abdomen: Normal bowel sounds, Soft, No tenderness, No hepatosplenomegaly, No masses Extremities: No clubbing, No cyanosis, No edema, Normal pulses, No tenderness/swelling Lungs: Clear to auscultation Diagnosis Other HYPOKALEMIA Assessment Assessment Problems Medical Problems: (1) Back pain Status: Acute (2) Colitis Status: Acute (3) Generalized weakness Status: Acute (4) Hypokalemia Status: Acute (5) Hypomagnesemia Status: Acute Comment Review of Relevant I have reviewed the following items adonis (where applicable) has been applied. Labs Laboratory Tests Test 03/26/20 13:29 03/26/20 14:00 03/26/20 15:15 03/27/20 05:45 O2 Saturation 91 % (92-99) Arterial Blood pH 7.53 (7.35-7.45) Arterial Blood pCO2 at Patient Temp 41 mmHg (35-46) Arterial Blood pO2 at Patient Temp 63 mmHg (75-108) Arterial Blood HCO3 33 mmol/L (21-28) Arterial Blood Base Excess 10 mmol/L (-3-3) Oxyhemoglobin 90.3 % Methemoglobin 0.3 % (0.0-1.9) Carbon Monoxide, Quantitative 0.3 % (0.0-1.9) FiO2 Ra Urine Collection Type Unknown Urine Color Yellow Urine Clarity Clear Urine pH 6.0 (<5.0-8.0) Urine Specific Rogers <=1.005 (1.000-1.030) Urine Protein Negative mg/dL (NEG-TRACE) Urine Glucose (UA) Negative mg/dL (NEG) Urine Ketones (Stick) Negative mg/dL (NEG) Urine Blood Moderate (NEG) Urine Nitrite Negative (NEG) Urine Bilirubin Negative (NEG) Urine Urobilinogen Dipstick 0.2 mg/dL (0.2 mg/dL) Urine Leukocyte Esterase Moderate (NEG) Urine RBC 6-10 /HPF (0-2) Urine WBC 1-4 /HPF (0-4) Urine Squamous Epithelial Cells Occ /LPF Urine Bacteria 0 /HPF (0-FEW) Sodium Level 142 mmol/L (136-145) 147 mmol/L (136-145) Potassium Level 2.0 mmol/L (3.5-5.1) 2.7 mmol/L (3.5-5.1) Chloride Level 102 mmol/L (98-107) 109 mmol/L (98-107) Carbon Dioxide Level 38 mmol/L (21-32) 33 mmol/L (21-32) Anion Gap 2 (6-14) 5 (6-14) Blood Urea Nitrogen 3 mg/dL (8-26) 2 mg/dL (8-26) Creatinine 0.9 mg/dL (0.7-1.3) 1.0 mg/dL (0.7-1.3) Estimated GFR (Cockcroft-Gault) 104.9 92.9 BUN/Creatinine Ratio 3 (6-20) Glucose Level 101 mg/dL (70-99) 97 mg/dL (70-99) Calcium Level 8.5 mg/dL (8.5-10.1) 8.2 mg/dL (8.5-10.1) Magnesium Level 2.5 mg/dL (1.8-2.4) Total Bilirubin 0.4 mg/dL (0.2-1.0) Aspartate Amino Transf (AST/SGOT) 103 U/L (15-37) Alanine Aminotransferase (ALT/SGPT) 63 U/L (16-63) Alkaline Phosphatase 108 U/L (46-116) Total Protein 5.2 g/dL (6.4-8.2) Albumin 1.9 g/dL (3.4-5.0) Albumin/Globulin Ratio 0.6 (1.0-1.7) Cortisol PM Sample 7.5 ug/dL (3.1-16.7) White Blood Count 8.3 x10^3/uL (4.0-11.0) Red Blood Count 2.73 x10^6/uL (4.30-5.70) Hemoglobin 10.3 g/dL (13.0-17.5) Hematocrit 29.6 % (39.0-53.0) Mean Corpuscular Volume 108 fL (79-100) Mean Corpuscular Hemoglobin 38 pg (25-35) Mean Corpuscular Hemoglobin Concent 35 g/dL (31-37) Red Cell Distribution Width 15.5 % (11.5-14.5) Platelet Count 281 x10^3/uL (140-400) Neutrophils (%) (Auto) 65 % (31-73) Lymphocytes (%) (Auto) 21 % (24-48) Monocytes (%) (Auto) 10 % (0-9) Eosinophils (%) (Auto) 3 % (0-3) Basophils (%) (Auto) 1 % (0-3) Neutrophils # (Auto) 5.4 x10^3/uL (1.8-7.7) Lymphocytes # (Auto) 1.8 x10^3/uL (1.0-4.8) Monocytes # (Auto) 0.8 x10^3/uL (0.0-1.1) Eosinophils # (Auto) 0.2 x10^3/uL (0.0-0.7) Basophils # (Auto) 0.1 x10^3/uL (0.0-0.2) Test 03/27/20 15:15 03/28/20 05:50 Urine Potassium 6.7 mmol/L (Not Estab.) Urine Potassium 24 Hour 27 mmol/24 hr (20-116) White Blood Count 7.9 x10^3/uL (4.0-11.0) Red Blood Count 2.80 x10^6/uL (4.30-5.70) Hemoglobin 10.6 g/dL (13.0-17.5) Hematocrit 30.8 % (39.0-53.0) Mean Corpuscular Volume 110 fL (79-100) Mean Corpuscular Hemoglobin 38 pg (25-35) Mean Corpuscular Hemoglobin Concent 34 g/dL (31-37) Red Cell Distribution Width 16.3 % (11.5-14.5) Platelet Count 337 x10^3/uL (140-400) Neutrophils (%) (Auto) 59 % (31-73) Lymphocytes (%) (Auto) 24 % (24-48) Monocytes (%) (Auto) 14 % (0-9) Eosinophils (%) (Auto) 3 % (0-3) Basophils (%) (Auto) 1 % (0-3) Neutrophils # (Auto) 4.7 x10^3/uL (1.8-7.7) Lymphocytes # (Auto) 1.9 x10^3/uL (1.0-4.8) Monocytes # (Auto) 1.1 x10^3/uL (0.0-1.1) Eosinophils # (Auto) 0.2 x10^3/uL (0.0-0.7) Basophils # (Auto) 0.0 x10^3/uL (0.0-0.2) Sodium Level 150 mmol/L (136-145) Potassium Level 2.6 mmol/L (3.5-5.1) Chloride Level 112 mmol/L (98-107) Carbon Dioxide Level 30 mmol/L (21-32) Anion Gap 8 (6-14) Blood Urea Nitrogen 3 mg/dL (8-26) Creatinine 1.0 mg/dL (0.7-1.3) Estimated GFR (Cockcroft-Gault) 92.9 Glucose Level 97 mg/dL (70-99) Calcium Level 8.4 mg/dL (8.5-10.1) Magnesium Level 1.6 mg/dL (1.8-2.4) Laboratory Tests Test 03/27/20 15:15 03/28/20 05:50 Urine Potassium 6.7 mmol/L (Not Estab.) Urine Potassium 24 Hour 27 mmol/24 hr (20-116) White Blood Count 7.9 x10^3/uL (4.0-11.0) Red Blood Count 2.80 x10^6/uL (4.30-5.70) Hemoglobin 10.6 g/dL (13.0-17.5) Hematocrit 30.8 % (39.0-53.0) Mean Corpuscular Volume 110 fL (79-100) Mean Corpuscular Hemoglobin 38 pg (25-35) Mean Corpuscular Hemoglobin Concent 34 g/dL (31-37) Red Cell Distribution Width 16.3 % (11.5-14.5) Platelet Count 337 x10^3/uL (140-400) Neutrophils (%) (Auto) 59 % (31-73) Lymphocytes (%) (Auto) 24 % (24-48) Monocytes (%) (Auto) 14 % (0-9) Eosinophils (%) (Auto) 3 % (0-3) Basophils (%) (Auto) 1 % (0-3) Neutrophils # (Auto) 4.7 x10^3/uL (1.8-7.7) Lymphocytes # (Auto) 1.9 x10^3/uL (1.0-4.8) Monocytes # (Auto) 1.1 x10^3/uL (0.0-1.1) Eosinophils # (Auto) 0.2 x10^3/uL (0.0-0.7) Basophils # (Auto) 0.0 x10^3/uL (0.0-0.2) Sodium Level 150 mmol/L (136-145) Potassium Level 2.6 mmol/L (3.5-5.1) Chloride Level 112 mmol/L (98-107) Carbon Dioxide Level 30 mmol/L (21-32) Anion Gap 8 (6-14) Blood Urea Nitrogen 3 mg/dL (8-26) Creatinine 1.0 mg/dL (0.7-1.3) Estimated GFR (Cockcroft-Gault) 92.9 Glucose Level 97 mg/dL (70-99) Calcium Level 8.4 mg/dL (8.5-10.1) Magnesium Level 1.6 mg/dL (1.8-2.4) Microbiology 03/25/20 Fecal Leukocyte Stain - Final, Complete 03/25/20 Urine Culture - Final, Complete 03/24/20 Blood Culture - Preliminary, Resulted NO GROWTH AFTER 3 DAYS Medications Current Medications Magnesium Sulfate 50 ml @ 25 mls/hr 1X ONCE IV Last administered on 03/25/20at 01:16; Start 03/25/20 at 00:45; Stop 03/25/20 at 02:44; Status DC Potassium Chloride/Water 100 ml @ 50 mls/hr 1X ONCE IV Last administered on 03/25/20at 01:16; Start 03/25/20 at 01:00; Stop 03/25/20 at 02:59; Status DC Potassium Chloride (Klor-Con) 40 meq 1X ONCE PO Last administered on 03/25/20at 01:15; Start 03/25/20 at 00:45; Stop 03/25/20 at 00:46; Status DC Potassium Chloride/Water 100 ml @ 50 mls/hr 1X ONCE IV Last administered on 03/25/20at 02:48; Start 03/25/20 at 03:00; Stop 03/25/20 at 04:59; Status DC Metronidazole 100 ml @ 100 mls/hr 1X ONCE IV Last administered on 03/25/20at 02:47; Start 03/25/20 at 01:30; Stop 03/25/20 at 02:29; Status DC Levofloxacin/ Dextrose 150 ml @ 100 mls/hr 1X ONCE IV Last administered on 03/25/20at 02:46; Start 03/25/20 at 01:30; Stop 03/25/20 at 02:59; Status DC Sodium Chloride 1,000 ml @ 1,000 mls/hr 1X ONCE IV Last administered on 03/25/20at 02:46; Start 03/25/20 at 01:30; Stop 03/25/20 at 02:29; Status DC Ondansetron HCl (Zofran) 4 mg PRN Q8HRS PRN IV NAUSEA/VOMITING; Start 03/25/20 at 02:00; Stop 03/25/20 at 16:47; Status DC Potassium Chloride (Klor-Con) 40 meq TIDWMEALS ONCE PO Last administered on 03/25/20at 13:01; Start 03/25/20 at 08:00; Stop 03/25/20 at 08:01; Status DC Potassium Chloride (Klor-Con) 40 meq 1X ONCE PO Last administered on 03/25/20at 05:42; Start 03/25/20 at 05:30; Stop 03/25/20 at 05:31; Status DC Potassium Chloride/Water 100 ml @ 100 mls/hr Q1H IV Last administered on 03/25/20at 13:00; Start 03/25/20 at 05:30; Stop 03/25/20 at 07:29; Status DC Magnesium Sulfate 100 ml @ 25 mls/hr 1X ONCE IV Last administered on 03/25/20at 05:41; Start 03/25/20 at 05:30; Stop 03/25/20 at 09:29; Status DC Potassium Chloride/Dextrose/ Sod Cl 1,000 ml @ 100 mls/hr Q10H IV Last administered on 03/26/20at 02:23; Start 03/25/20 at 08:00; Stop 03/26/20 at 09:31; Status DC Vitamin B Complex (Folbic Tablet) 1 tab DAILY PO Last administered on 03/26/20at 09:00; Start 03/25/20 at 09:00 Thiamine Mononitrate (Vitamin B-1) 100 mg DAILY PO Last administered on 03/26/20at 09:00; Start 03/25/20 at 09:00; Stop 03/27/20 at 15:58; Status DC Sodium Chloride (Normal Saline Flush) 3 ml QSHIFT PRN IV AFTER MEDS AND BLOOD DRAWS; Start 03/25/20 at 14:45 Sodium Chloride 1,000 ml @ 100 mls/hr Q10H IV Last administered on 03/28/20at 12:31; Start 03/25/20 at 14:31 Ondansetron HCl (Zofran) 4 mg PRN Q4HRS PRN IV NAUSEA/VOMITING; Start 03/25/20 at 14:45 Acetaminophen (Tylenol) 650 mg PRN Q4HRS PRN PO TEMP OVER 100.4F OR MILD PAIN; Start 03/25/20 at 14:45 Acetaminophen (Tylenol Supp) 650 mg PRN Q4HRS PRN VT TEMP OVER 100.4F OR MILD PAIN; Start 03/25/20 at 14:45 Al Hydroxide/Mg Hydroxide (Mylanta Plus Xs) 30 ml PRN DAILY PRN PO HEARTBURN / GAS; Start 03/25/20 at 14:45 Docusate Sodium (Colace) 100 mg PRN BID PRN PO HARD STOOLS; Start 03/25/20 at 14:45; Stop 03/26/20 at 09:38; Status DC Albuterol Sulfate (Ventolin Neb Soln) 2.5 mg PRN Q4HRS PRN NEB SHORTNESS OF BREATH; Start 03/25/20 at 14:45 Guaifenesin (Robitussin) 200 mg PRN Q4HRS PRN PO COUGH; Start 03/25/20 at 14:45 Lorazepam (Ativan) 0.5 mg PRN Q4HRS PRN PO ANXIETY / AGITATION; Start 03/25/20 at 14:45 Enoxaparin Sodium (Lovenox 40mg Syringe) 40 mg Q24H SQ Last administered on 03/27/20at 20:47; Start 03/25/20 at 21:00 Pantoprazole Sodium (Protonix) 40 mg DAILYAC PO Last administered on 03/26/20at 07:30; Start 03/25/20 at 16:30; Stop 03/27/20 at 07:43; Status DC Multi-Ingredient Mouthwash/Gargle (Gi Cocktail) 20 ml PRN QID PRN PO epigastric pain Last administered on 03/25/20at 20:23; Start 03/25/20 at 16:15 Potassium Chloride (Klor-Con) 40 meq 1X ONCE PO Last administered on 03/25/20at 17:26; Start 03/25/20 at 16:45; Stop 03/25/20 at 16:46; Status DC Potassium Chloride (Klor-Con) 20 meq 1X ONCE PO Last administered on 03/25/20at 20:22; Start 03/25/20 at 19:00; Stop 03/25/20 at 19:01; Status DC Potassium Chloride/Water 100 ml @ 100 mls/hr Q1H IV Last administered on 03/25/20at 20:22; Start 03/25/20 at 17:00; Stop 03/25/20 at 20:59; Status DC Polyethylene Glycol (miraLAX Powder BULK BOTTLE) 238 gm 1X ONCE PO ; Start 03/26/20 at 11:00; Stop 03/26/20 at 09:38; Status DC Magnesium Citrate (Citroma) 296 ml 1X ONCE PO ; Start 03/26/20 at 09:00; Stop 03/26/20 at 09:39; Status DC Bisacodyl (Dulcolax Tab) 10 mg PRN DAILY PRN PO CONSTIPATION; Start 03/26/20 at 10:00; Stop 03/26/20 at 09:39; Status DC Potassium Chloride (Klor-Con) 60 meq 1X ONCE PO Last administered on 03/26/20at 08:30; Start 03/26/20 at 08:30; Stop 03/26/20 at 08:35; Status DC Potassium Chloride (Klor-Con) 40 meq DAILY08 PO ; Start 03/27/20 at 08:00 Potassium Chloride (Klor-Con) 40 meq Q2H PO Last administered on 03/26/20at 16:41; Start 03/26/20 at 10:00; Stop 03/26/20 at 14:01; Status DC Magnesium Sulfate 100 ml @ 25 mls/hr 1X ONCE IV Last administered on 03/26/20at 11:12; Start 03/26/20 at 10:00; Stop 03/26/20 at 13:59; Status DC Hydralazine HCl (Apresoline Inj) 10 mg PRN Q4HRS PRN IVP ELEVATED BP, SEE COMMENTS Last administered on 03/28/20at 09:41; Start 03/26/20 at 13:30 Vancomycin HCl (Vancomycin Oral Solution) 125 mg [id number] PO Last administered on 03/28/20at 08:40; Start 03/26/20 at 17:00 Potassium Chloride (Klor-Con) 40 meq Q2H PO ; Start 03/26/20 at 19:00; Stop 03/26/20 at 23:01; Status Cancel Potassium Chloride/Water 100 ml @ 100 mls/hr Q1H IV ; Start 03/26/20 at 18:15; Stop 03/27/20 at 06:14; Status UNV Potassium Chloride/Water 100 ml @ 100 mls/hr Q2H IV Last administered on 03/27/20at 01:53; Start 03/26/20 at 19:00; Stop 03/27/20 at 05:59; Status DC Lorazepam (Ativan Inj) 2 mg PRN Q1HR PRN IV For CIWA 8-14 Last administered on 03/28/20at 11:05; Start 03/26/20 at 19:30 Lorazepam (Ativan Inj) 4 mg PRN Q1HR PRN IV For CIWA 15 or greater Last administered on 03/28/20at 04:50; Start 03/26/20 at 19:30 Nicotine (Nicoderm Cq 21mg) 1 patch DAILY TD Last administered on 03/28/20at 08:55; Start 03/26/20 at 19:30 Haloperidol Lactate (Haldol Inj) 5 mg PRN Q6HRS PRN IVP AGITATION; Start 03/26/20 at 20:15; Status UNV Haloperidol Lactate (Haldol Inj) 5 mg PRN Q4HRS PRN IVP Hallucinatns,Confusn,Delirium Last administered on 03/28/20at 04:50; Start 03/26/20 at 20:15 Diphenhydramine HCl (Benadryl) 25 mg PRN Q15MIN PRN IVP EPS symptoms 2'Haldol admin Last administered on 03/27/20at 02:02; Start 03/26/20 at 20:15 Dexmedetomidine HCl 400 mcg/ Sodium Chloride 100 ml @ 0 mls/hr CONT PRN IV ETOH WITHDRAWAL; Start 03/26/20 at 21:00 Potassium Chloride/Water 100 ml @ 100 mls/hr Q1H IV Last administered on 03/27/20at 09:06; Start 03/27/20 at 08:00; Stop 03/27/20 at 09:59; Status DC Multivitamins 10 ml/Thiamine HCl 100 mg/Folic Acid 1 mg/Sodium Chloride 1,011.2 ml @ 100 mls/ hr DAILY IV Last administered on 03/28/20at 08:40; Start 03/27/20 at 09:00; Stop 03/31/20 at 19:07 Pantoprazole Sodium (PROTONIX VIAL for IV PUSH) 40 mg DAILYAC IVP Last administered on 03/28/20at 08:39; Start 03/27/20 at 08:00 Thiamine Mononitrate (Vitamin B-1) 100 mg DAILY PO ; Start 04/01/20 at 09:00 Lactobacillus Rhamnosus (Culturelle) 1 cap BID PO ; Start 03/27/20 at 21:00; Status Cancel Magnesium Sulfate 100 ml @ 25 mls/hr 1X ONCE IV Last administered on 03/28/20at 06:45; Start 03/28/20 at 07:00; Stop 03/28/20 at 10:59; Status DC Potassium Chloride/Water 100 ml @ 100 mls/hr Q1H IV Last administered on 03/28/20at 08:49; Start 03/28/20 at 07:00; Stop 03/28/20 at 08:59; Status DC Active Scripts Active B-1 (Thiamine HCl) 100 Mg Tablet 100 Mg PO DAILY08 30 Days Folic Acid 0.8 Mg Capsule 1 Cap PO DAILY 30 Days Celexa (Citalopram Hydrobromide) 10 Mg Tablet 10 Mg PO DAILY 30 Days Tylenol (Acetaminophen) 325 Mg Tablet 650 Mg PO PRN Q4HRS PRN 10 Days Vitals/I & O Vital Sign - Last 24 Hours 03/27/20 03/27/20 03/27/2014/20 13:09 13:59 15:17 16:00 Temp 97.3 97.3 Pulse 104 103 103 Resp 20 B/P (MAP) 167/98 (121) 154/96 (115) 169/110 (129) Pulse Ox 94 98 97 O2 Delivery Room Air Room Air Room Air Room Air 03/27/20 03/27/20 03/27/20 03/27/20 16:15 17:11 17:15 18:01 Pulse 106 97 97 103 Resp 20 B/P (MAP) 151/95 (113) 171/113 (132) 171/113 154/90 (111) Pulse Ox 96 98 97 O2 Delivery Room Air Room Air Room Air 03/27/20 03/27/20 03/27/20 03/27/20 19:00 20:00 20:00 21:00 Temp 98.0 98.0 Pulse 114 107 107 Resp 18 20 30 B/P (MAP) 168/107 (127) 165/104 (124) 175/112 (133) Pulse Ox 99 100 98 O2 Delivery Room Air Room Air Room Air Room Air 03/27/20 03/27/20 03/27/20 03/28/20 21:05 22:00 23:00 00:00 Pulse 104 118 114 Resp 36 40 B/P (MAP) 175/112 141/86 (104) 166/87 (113) Pulse Ox 98 99 O2 Delivery Room Air Room Air Room Air 03/28/20 03/28/20 03/28/20 03/28/20 00:00 01:00 01:11 02:00 Temp 98.2 98.2 Pulse 110 106 108 115 Resp 37 33 30 B/P (MAP) 167/99 (121) 180/95 (123) 180/99 131/92 (105) Pulse Ox 99 100 98 O2 Delivery Room Air Room Air Room Air 03/28/20 03/28/20 03/28/20 03/28/20 03:00 04:00 04:00 05:00 Temp 97.5 97.5 Pulse 109 111 102 Resp 21 B/P (MAP) 168/96 (120) 179/99 (125) 171/109 (129) Pulse Ox 99 98 99 O2 Delivery Room Air Room Air Room Air Room Air 8/15/03/28/20 03/28/20 03/28/20 05:16 06:00 07:00 08:00 Pulse 105 110 104 Resp 34 28 B/P (MAP) 171/109 142/94 (110) 163/93 (116) Pulse Ox 99 100 O2 Delivery Room Air Room Air Room Air 03/28/20 03/28/20 03/28/20 03/28/20 08:00 09:00 09:41 10:00 Temp 98.1 98.1 Pulse 103 105 105 104 Resp 32 35 23 B/P (MAP) 169/105 (126) 167/100 (122) 167/100 149/93 (111) Pulse Ox 100 100 100 O2 Delivery Room Air Room Air Room Air 03/28/20 03/28/20 11:00 12:00 Temp 98.2 98.2 Pulse 99 100 Resp 31 34 B/P (MAP) 151/96 (114) 164/95 (118) Pulse Ox 99 99 O2 Delivery Room Air Room Air Intake and Output 03/27/20 03/27/20 03/28/20 15:00 23:00 07:00 Intake Total 1250 ml 1729 ml Output Total 625 ml 680 ml 725 ml Balance -625 ml 570 ml 1004 ml Justicifation of Admission Dx: Justifications for Admission: Justification of Admission Dx: Yes Nutrition Consultation Dietary Evaluation: Recommendations by RD: Dietary education by RD, Increase Calorie Intake, Protein supplementation Comments: REC advance diet as able pending mental status, goal diet ADA/cardiac per pmhx w/glucerna supplemennts q day or more often pending pt preference If unable to advance diet within 24 - 48 hrs, recommend consideration of short-term nutrition support (dobhoff for TFs or TPN via PICC) Expected Outcomes/Goals: diet advancement Interpretation of weight loss: >10% in 6 months Malnutrition Findings: Food and Nutrition Intake (Sev: <50% est energy req 5days Weight Status: Underweight TERA ESQUIVEL MD Mar 28, 2020 12:46
[2020-03-28 13:55] LABS: ALBUMIN 1.9 g/dL (3.4-5.0); ALBUMIN/GLOBULIN RATIO 0.6 (1.0-1.7); CALCIUM 7.9 mg/dL (8.5-10.1); GFR 92.9; MAGNESIUM 2.6 mg/dL (1.8-2.4); POTASSIUM 3.4 mmol/L (3.5-5.1); TOTAL BILIRUBIN 0.3 mg/dL (0.2-1.0)
--- NOTE | 2020-03-28 21:33 | NUR ---
Report called to Nanci RN and pt transferred to [facility]
[2020-03-28] MEDS: ENOXAPARIN 40 MG/0.4 ML SYRINGE. SQ SCH (21:51)
[2020-03-29 02:33] VITALS: BP 162/100
[2020-03-29] MEDS: POTASSIUM CHLORIDE 20 MEQ TABLET.ER. PO SCH (08:00)
[2020-03-29] MEDS: PANTOPRAZOLE IV PUSH 40 MG VIAL. IVP SCH (08:20)
[2020-03-29] MEDS: MULTIVIT INFUSN,ADULT 4,VIT K 10 ML, THIAMINE INJ 100 MG, FOLIC ACID INJ 1 MG in IV NOR... IV SCH (08:20)
[2020-03-29] MEDS: VITAMIN B12,B9,B6 COMPLEX 1 TABLET. PO SCH (08:23)
[2020-03-29] MEDS: IV NORMAL SALINE 1000ML BAG 1,000 ML IV SCH (08:23)
[2020-03-29 08:38] LABS: BASO % 1 % (0-3); EOS # 0.5 x10^3/uL (0.0-0.7); EOS % 6 % (0-3); HEMATOCRIT 33.6 % (39.0-53.0); HEMOGLOBIN 11.2 g/dL (13.0-17.5); LYMPH # 2.2 x10^3/uL (1.0-4.8); LYMPH % 29 % (24-48); MEAN CORPUSCULAR HEMOGLOBIN 37 pg (25-35); MEAN CORPUSCULAR HGB CONC 33 g/dL (31-37); MEAN CORPUSCULAR VOLUME 112 fL (79-100); MONO # 0.9 x10^3/uL (0.0-1.1); MONO % 12 % (0-9); NEUT # 3.9 x10^3/uL (1.8-7.7); NEUT % 52 % (31-73); PLATELET COUNT 401 x10^3/uL (140-400); RED BLOOD COUNT 3.01 x10^6/uL (4.30-5.70); RED CELL DISTRIBUTION WIDTH 16.1 % (11.5-14.5); WHITE BLOOD COUNT 7.6 x10^3/uL (4.0-11.0)
[2020-03-29 08:55] LABS: ALBUMIN 2.1 g/dL (3.4-5.0); ALBUMIN/GLOBULIN RATIO 0.5 (1.0-1.7); CALCIUM 8.7 mg/dL (8.5-10.1); CREATININE 1.1 mg/dL (0.7-1.3); GFR 83.2; TOTAL BILIRUBIN 0.4 mg/dL (0.2-1.0); TOTAL PROTEIN 6.1 g/dL (6.4-8.2)
[2020-03-29 08:57] LABS: POTASSIUM 2.7 mmol/L (3.5-5.1)
[2020-03-29 09:00] VITALS: BP 158/100
[2020-03-29] MEDS: VANCOMYCIN 125 MG/2.5 ML ORAL SOLUTION. PO SCH ×5 (09:00→21:16)
[2020-03-29] MEDS: NICOTINE 21MG PATCH. TD SCH (09:06)
--- NOTE | 2020-03-29 09:43 | PDOC ---
PROGRESS NOTES Date of Service: DATE: 03/29/20 TIME: 09:40 Chief Complaint Chief Complaint Alcohol abuse and acute withdrawl sepsis, COlitis, c diff, on vanc and in isolation acute toxic and metabolic encephalopathy, concern for Wernicke, has been getting banana bag daily Hypokalemia , hypernatreia, severe Malnutrition Generalized weakness and debiltiy Back pain Hypomagnesemia Macrocytic anemia from alcohol, replacing vitamins Macrocytosis probably from chronic alcohol Leukocytosis DM 2 Hypertension History of Present Illness History of Present Illness 03/29, out of ICU, still very ill, confused, labs look terrible, I have changed the IV fluid from NS to d5half with K, PO intake poor, needs speech eval, marked trouble swallowing pills this AM, confused 03/28/20 Patient seen and examined in ICU Discussed with RN Chart reviewed Potassium 2.6, Magnesium 1.6 Patient was not awake during visit 03/27/2020 Patient seen and examined in the ICU Patient is sleepy in mild distress Potassium 2.7, Magnesium 2.5 GI hopes to do colonoscopy if still inpatient next week Discussed with RN Chart reviewed Vitals Vitals Vital Signs Date Time Temp Pulse Resp B/P (MAP) Pulse Ox O2 Delivery O2 Flow Rate FiO2 03/29/20 02:33 97.8 96 19 162/100 (120) 100 Room Air 97.8 Physical Exam General: Alert, Cooperative, mild distress, Other (confused, not oriented) Heart: Regular rate Lungs: Clear Abdomen: Normal bowel sounds, Soft, No tenderness, No hepatosplenomegaly, No masses Extremities: No clubbing, No cyanosis, No edema, Normal pulses, No tenderness/swelling Skin: No breakdown Labs LABS Laboratory Tests Test 03/28/20 13:00 03/29/20 07:45 Sodium Level 151 mmol/L (136-145) 152 mmol/L (136-145) Potassium Level 3.4 mmol/L (3.5-5.1) 2.7 mmol/L (3.5-5.1) Chloride Level 112 mmol/L (98-107) 113 mmol/L (98-107) Carbon Dioxide Level 30 mmol/L (21-32) 30 mmol/L (21-32) Anion Gap 9 (6-14) 9 (6-14) Blood Urea Nitrogen 4 mg/dL (8-26) 5 mg/dL (8-26) Creatinine 1.0 mg/dL (0.7-1.3) 1.1 mg/dL (0.7-1.3) Estimated GFR (Cockcroft-Gault) 92.9 83.2 BUN/Creatinine Ratio 4 (6-20) 5 (6-20) Glucose Level 94 mg/dL (70-99) 81 mg/dL (70-99) Calcium Level 7.9 mg/dL (8.5-10.1) 8.7 mg/dL (8.5-10.1) Magnesium Level 2.6 mg/dL (1.8-2.4) Total Bilirubin 0.3 mg/dL (0.2-1.0) 0.4 mg/dL (0.2-1.0) Aspartate Amino Transf (AST/SGOT) 55 U/L (15-37) 48 U/L (15-37) Alanine Aminotransferase (ALT/SGPT) 52 U/L (16-63) 49 U/L (16-63) Alkaline Phosphatase 109 U/L (46-116) 116 U/L (46-116) Total Protein 5.0 g/dL (6.4-8.2) 6.1 g/dL (6.4-8.2) Albumin 1.9 g/dL (3.4-5.0) 2.1 g/dL (3.4-5.0) Albumin/Globulin Ratio 0.6 (1.0-1.7) 0.5 (1.0-1.7) White Blood Count 7.6 x10^3/uL (4.0-11.0) Red Blood Count 3.01 x10^6/uL (4.30-5.70) Hemoglobin 11.2 g/dL (13.0-17.5) Hematocrit 33.6 % (39.0-53.0) Mean Corpuscular Volume 112 fL (79-100) Mean Corpuscular Hemoglobin 37 pg (25-35) Mean Corpuscular Hemoglobin Concent 33 g/dL (31-37) Red Cell Distribution Width 16.1 % (11.5-14.5) Platelet Count 401 x10^3/uL (140-400) Neutrophils (%) (Auto) 52 % (31-73) Lymphocytes (%) (Auto) 29 % (24-48) Monocytes (%) (Auto) 12 % (0-9) Eosinophils (%) (Auto) 6 % (0-3) Basophils (%) (Auto) 1 % (0-3) Neutrophils # (Auto) 3.9 x10^3/uL (1.8-7.7) Lymphocytes # (Auto) 2.2 x10^3/uL (1.0-4.8) Monocytes # (Auto) 0.9 x10^3/uL (0.0-1.1) Eosinophils # (Auto) 0.5 x10^3/uL (0.0-0.7) Basophils # (Auto) 0.0 x10^3/uL (0.0-0.2) Assessment and Plan Assessmemt and Plan Problems Medical Problems: (1) Back pain Status: Acute (2) Colitis Status: Acute (3) Generalized weakness Status: Acute (4) Hypokalemia Status: Acute (5) Hypomagnesemia Status: Acute Comment Review of Relevant I have reviewed the following items adonis (where applicable) has been applied. Labs Laboratory Tests Test 03/27/20 15:15 03/28/20 05:50 03/28/20 13:00 03/29/20 07:45 Urine Potassium 6.7 mmol/L (Not Estab.) Urine Potassium 24 Hour 27 mmol/24 hr (20-116) White Blood Count 7.9 x10^3/uL (4.0-11.0) 7.6 x10^3/uL (4.0-11.0) Red Blood Count 2.80 x10^6/uL (4.30-5.70) 3.01 x10^6/uL (4.30-5.70) Hemoglobin 10.6 g/dL (13.0-17.5) 11.2 g/dL (13.0-17.5) Hematocrit 30.8 % (39.0-53.0) 33.6 % (39.0-53.0) Mean Corpuscular Volume 110 fL (79-100) 112 fL (79-100) Mean Corpuscular Hemoglobin 38 pg (25-35) 37 pg (25-35) Mean Corpuscular Hemoglobin Concent 34 g/dL (31-37) 33 g/dL (31-37) Red Cell Distribution Width 16.3 % (11.5-14.5) 16.1 % (11.5-14.5) Platelet Count 337 x10^3/uL (140-400) 401 x10^3/uL (140-400) Neutrophils (%) (Auto) 59 % (31-73) 52 % (31-73) Lymphocytes (%) (Auto) 24 % (24-48) 29 % (24-48) Monocytes (%) (Auto) 14 % (0-9) 12 % (0-9) Eosinophils (%) (Auto) 3 % (0-3) 6 % (0-3) Basophils (%) (Auto) 1 % (0-3) 1 % (0-3) Neutrophils # (Auto) 4.7 x10^3/uL (1.8-7.7) 3.9 x10^3/uL (1.8-7.7) Lymphocytes # (Auto) 1.9 x10^3/uL (1.0-4.8) 2.2 x10^3/uL (1.0-4.8) Monocytes # (Auto) 1.1 x10^3/uL (0.0-1.1) 0.9 x10^3/uL (0.0-1.1) Eosinophils # (Auto) 0.2 x10^3/uL (0.0-0.7) 0.5 x10^3/uL (0.0-0.7) Basophils # (Auto) 0.0 x10^3/uL (0.0-0.2) 0.0 x10^3/uL (0.0-0.2) Sodium Level 150 mmol/L (136-145) 151 mmol/L (136-145) 152 mmol/L (136-145) Potassium Level 2.6 mmol/L (3.5-5.1) 3.4 mmol/L (3.5-5.1) 2.7 mmol/L (3.5-5.1) Chloride Level 112 mmol/L (98-107) 112 mmol/L (98-107) 113 mmol/L (98-107) Carbon Dioxide Level 30 mmol/L (21-32) 30 mmol/L (21-32) 30 mmol/L (21-32) Anion Gap 8 (6-14) 9 (6-14) 9 (6-14) Blood Urea Nitrogen 3 mg/dL (8-26) 4 mg/dL (8-26) 5 mg/dL (8-26) Creatinine 1.0 mg/dL (0.7-1.3) 1.0 mg/dL (0.7-1.3) 1.1 mg/dL (0.7-1.3) Estimated GFR (Cockcroft-Gault) 92.9 92.9 83.2 Glucose Level 97 mg/dL (70-99) 94 mg/dL (70-99) 81 mg/dL (70-99) Calcium Level 8.4 mg/dL (8.5-10.1) 7.9 mg/dL (8.5-10.1) 8.7 mg/dL (8.5-10.1) Magnesium Level 1.6 mg/dL (1.8-2.4) 2.6 mg/dL (1.8-2.4) BUN/Creatinine Ratio 4 (6-20) 5 (6-20) Total Bilirubin 0.3 mg/dL (0.2-1.0) 0.4 mg/dL (0.2-1.0) Aspartate Amino Transf (AST/SGOT) 55 U/L (15-37) 48 U/L (15-37) Alanine Aminotransferase (ALT/SGPT) 52 U/L (16-63) 49 U/L (16-63) Alkaline Phosphatase 109 U/L (46-116) 116 U/L (46-116) Total Protein 5.0 g/dL (6.4-8.2) 6.1 g/dL (6.4-8.2) Albumin 1.9 g/dL (3.4-5.0) 2.1 g/dL (3.4-5.0) Albumin/Globulin Ratio 0.6 (1.0-1.7) 0.5 (1.0-1.7) Laboratory Tests Test 03/28/20 13:00 03/29/20 07:45 Sodium Level 151 mmol/L (136-145) 152 mmol/L (136-145) Potassium Level 3.4 mmol/L (3.5-5.1) 2.7 mmol/L (3.5-5.1) Chloride Level 112 mmol/L (98-107) 113 mmol/L (98-107) Carbon Dioxide Level 30 mmol/L (21-32) 30 mmol/L (21-32) Anion Gap 9 (6-14) 9 (6-14) Blood Urea Nitrogen 4 mg/dL (8-26) 5 mg/dL (8-26) Creatinine 1.0 mg/dL (0.7-1.3) 1.1 mg/dL (0.7-1.3) Estimated GFR (Cockcroft-Gault) 92.9 83.2 BUN/Creatinine Ratio 4 (6-20) 5 (6-20) Glucose Level 94 mg/dL (70-99) 81 mg/dL (70-99) Calcium Level 7.9 mg/dL (8.5-10.1) 8.7 mg/dL (8.5-10.1) Magnesium Level 2.6 mg/dL (1.8-2.4) Total Bilirubin 0.3 mg/dL (0.2-1.0) 0.4 mg/dL (0.2-1.0) Aspartate Amino Transf (AST/SGOT) 55 U/L (15-37) 48 U/L (15-37) Alanine Aminotransferase (ALT/SGPT) 52 U/L (16-63) 49 U/L (16-63) Alkaline Phosphatase 109 U/L (46-116) 116 U/L (46-116) Total Protein 5.0 g/dL (6.4-8.2) 6.1 g/dL (6.4-8.2) Albumin 1.9 g/dL (3.4-5.0) 2.1 g/dL (3.4-5.0) Albumin/Globulin Ratio 0.6 (1.0-1.7) 0.5 (1.0-1.7) White Blood Count 7.6 x10^3/uL (4.0-11.0) Red Blood Count 3.01 x10^6/uL (4.30-5.70) Hemoglobin 11.2 g/dL (13.0-17.5) Hematocrit 33.6 % (39.0-53.0) Mean Corpuscular Volume 112 fL (79-100) Mean Corpuscular Hemoglobin 37 pg (25-35) Mean Corpuscular Hemoglobin Concent 33 g/dL (31-37) Red Cell Distribution Width 16.1 % (11.5-14.5) Platelet Count 401 x10^3/uL (140-400) Neutrophils (%) (Auto) 52 % (31-73) Lymphocytes (%) (Auto) 29 % (24-48) Monocytes (%) (Auto) 12 % (0-9) Eosinophils (%) (Auto) 6 % (0-3) Basophils (%) (Auto) 1 % (0-3) Neutrophils # (Auto) 3.9 x10^3/uL (1.8-7.7) Lymphocytes # (Auto) 2.2 x10^3/uL (1.0-4.8) Monocytes # (Auto) 0.9 x10^3/uL (0.0-1.1) Eosinophils # (Auto) 0.5 x10^3/uL (0.0-0.7) Basophils # (Auto) 0.0 x10^3/uL (0.0-0.2) Microbiology 03/26/20 Urine Culture - Final, Complete 03/25/20 Fecal Leukocyte Stain - Final, Complete 03/24/20 Blood Culture - Preliminary, Resulted NO GROWTH AFTER 4 DAYS Medications Current Medications Magnesium Sulfate 50 ml @ 25 mls/hr 1X ONCE IV Last administered on 03/25/20at 01:16; Start 03/25/20 at 00:45; Stop 03/25/20 at 02:44; Status DC Potassium Chloride/Water 100 ml @ 50 mls/hr 1X ONCE IV Last administered on 03/25/20at 01:16; Start 03/25/20 at 01:00; Stop 03/25/20 at 02:59; Status DC Potassium Chloride (Klor-Con) 40 meq 1X ONCE PO Last administered on 03/25/20at 01:15; Start 03/25/20 at 00:45; Stop 03/25/20 at 00:46; Status DC Potassium Chloride/Water 100 ml @ 50 mls/hr 1X ONCE IV Last administered on 03/25/20at 02:48; Start 03/25/20 at 03:00; Stop 03/25/20 at 04:59; Status DC Metronidazole 100 ml @ 100 mls/hr 1X ONCE IV Last administered on 03/25/20at 02:47; Start 03/25/20 at 01:30; Stop 03/25/20 at 02:29; Status DC Levofloxacin/ Dextrose 150 ml @ 100 mls/hr 1X ONCE IV Last administered on 03/25/20at 02:46; Start 03/25/20 at 01:30; Stop 03/25/20 at 02:59; Status DC Sodium Chloride 1,000 ml @ 1,000 mls/hr 1X ONCE IV Last administered on 03/25/20at 02:46; Start 03/25/20 at 01:30; Stop 03/25/20 at 02:29; Status DC Ondansetron HCl (Zofran) 4 mg PRN Q8HRS PRN IV NAUSEA/VOMITING; Start 03/25/20 at 02:00; Stop 03/25/20 at 16:47; Status DC Potassium Chloride (Klor-Con) 40 meq TIDWMEALS ONCE PO Last administered on 03/25/20at 13:01; Start 03/25/20 at 08:00; Stop 03/25/20 at 08:01; Status DC Potassium Chloride (Klor-Con) 40 meq 1X ONCE PO Last administered on 03/25/20at 05:42; Start 03/25/20 at 05:30; Stop 03/25/20 at 05:31; Status DC Potassium Chloride/Water 100 ml @ 100 mls/hr Q1H IV Last administered on 03/25/20at 13:00; Start 03/25/20 at 05:30; Stop 03/25/20 at 07:29; Status DC Magnesium Sulfate 100 ml @ 25 mls/hr 1X ONCE IV Last administered on 03/25/20at 05:41; Start 03/25/20 at 05:30; Stop 03/25/20 at 09:29; Status DC Potassium Chloride/Dextrose/ Sod Cl 1,000 ml @ 100 mls/hr Q10H IV Last administered on 03/26/20at 02:23; Start 03/25/20 at 08:00; Stop 03/26/20 at 09:31; Status DC Vitamin B Complex (Folbic Tablet) 1 tab DAILY PO Last administered on 03/26/20at 09:00; Start 03/25/20 at 09:00 Thiamine Mononitrate (Vitamin B-1) 100 mg DAILY PO Last administered on 03/26/20at 09:00; Start 03/25/20 at 09:00; Stop 03/27/20 at 15:58; Status DC Sodium Chloride (Normal Saline Flush) 3 ml QSHIFT PRN IV AFTER MEDS AND BLOOD DRAWS; Start 03/25/20 at 14:45 Sodium Chloride 1,000 ml @ 100 mls/hr Q10H IV Last administered on 03/29/20at 08:23; Start 03/25/20 at 14:31 Ondansetron HCl (Zofran) 4 mg PRN Q4HRS PRN IV NAUSEA/VOMITING; Start 03/25/20 at 14:45 Acetaminophen (Tylenol) 650 mg PRN Q4HRS PRN PO TEMP OVER 100.4F OR MILD PAIN; Start 03/25/20 at 14:45 Acetaminophen (Tylenol Supp) 650 mg PRN Q4HRS PRN [place] TEMP OVER 100.4F OR MILD PAIN; Start 03/25/20 at 14:45 Al Hydroxide/Mg Hydroxide (Mylanta Plus Xs) 30 ml PRN DAILY PRN PO HEARTBURN / GAS; Start 03/25/20 at 14:45 Docusate Sodium (Colace) 100 mg PRN BID PRN PO HARD STOOLS; Start 03/25/20 at 14:45; Stop 03/26/20 at 09:38; Status DC Albuterol Sulfate (Ventolin Neb Soln) 2.5 mg PRN Q4HRS PRN NEB SHORTNESS OF BREATH; Start 03/25/20 at 14:45 Guaifenesin (Robitussin) 200 mg PRN Q4HRS PRN PO COUGH; Start 03/25/20 at 14:45 Lorazepam (Ativan) 0.5 mg PRN Q4HRS PRN PO ANXIETY / AGITATION; Start 03/25/20 at 14:45 Enoxaparin Sodium (Lovenox 40mg Syringe) 40 mg Q24H SQ Last administered on 03/28/20at 21:51; Start 03/25/20 at 21:00 Pantoprazole Sodium (Protonix) 40 mg DAILYAC PO Last administered on 03/26/20at 07:30; Start 03/25/20 at 16:30; Stop 03/27/20 at 07:43; Status DC Multi-Ingredient Mouthwash/Gargle (Gi Cocktail) 20 ml PRN QID PRN PO epigastric pain Last administered on 03/25/20at 20:23; Start 03/25/20 at 16:15 Potassium Chloride (Klor-Con) 40 meq 1X ONCE PO Last administered on 03/25/20at 17:26; Start 03/25/20 at 16:45; Stop 03/25/20 at 16:46; Status DC Potassium Chloride (Klor-Con) 20 meq 1X ONCE PO Last administered on 03/25/20at 20:22; Start 03/25/20 at 19:00; Stop 03/25/20 at 19:01; Status DC Potassium Chloride/Water 100 ml @ 100 mls/hr Q1H IV Last administered on 03/25/20at 20:22; Start 03/25/20 at 17:00; Stop 03/25/20 at 20:59; Status DC Polyethylene Glycol (miraLAX Powder BULK BOTTLE) 238 gm 1X ONCE PO ; Start 03/26/20 at 11:00; Stop 03/26/20 at 09:38; Status DC Magnesium Citrate (Citroma) 296 ml 1X ONCE PO ; Start 03/26/20 at 09:00; Stop 03/26/20 at 09:39; Status DC Bisacodyl (Dulcolax Tab) 10 mg PRN DAILY PRN PO CONSTIPATION; Start 03/26/20 at 10:00; Stop 03/26/20 at 09:39; Status DC Potassium Chloride (Klor-Con) 60 meq 1X ONCE PO Last administered on 03/26/20at 08:30; Start 03/26/20 at 08:30; Stop 03/26/20 at 08:35; Status DC Potassium Chloride (Klor-Con) 40 meq DAILY08 PO ; Start 03/27/20 at 08:00 Potassium Chloride (Klor-Con) 40 meq Q2H PO Last administered on 03/26/20at 16:41; Start 03/26/20 at 10:00; Stop 03/26/20 at 14:01; Status DC Magnesium Sulfate 100 ml @ 25 mls/hr 1X ONCE IV Last administered on 03/26/20at 11:12; Start 03/26/20 at 10:00; Stop 03/26/20 at 13:59; Status DC Hydralazine HCl (Apresoline Inj) 10 mg PRN Q4HRS PRN IVP ELEVATED BP, SEE COMMENTS Last administered on 03/28/20at 15:36; Start 03/26/20 at 13:30 Vancomycin HCl (Vancomycin Oral Solution) 125 mg [id number] PO Last administered on 03/28/20at 21:52; Start 03/26/20 at 17:00 Potassium Chloride (Klor-Con) 40 meq Q2H PO ; Start 03/26/20 at 19:00; Stop 03/26/20 at 23:01; Status Cancel Potassium Chloride/Water 100 ml @ 100 mls/hr Q1H IV ; Start 03/26/20 at 18:15; Stop 03/27/20 at 06:14; Status UNV Potassium Chloride/Water 100 ml @ 100 mls/hr Q2H IV Last administered on 03/27/20at 01:53; Start 03/26/20 at 19:00; Stop 03/27/20 at 05:59; Status DC Lorazepam (Ativan Inj) 2 mg PRN Q1HR PRN IV For CIWA 8-14 Last administered on 03/29/20at 08:20; Start 03/26/20 at 19:30 Lorazepam (Ativan Inj) 4 mg PRN Q1HR PRN IV For CIWA 15 or greater Last administered on 03/29/20at 01:59; Start 03/26/20 at 19:30 Nicotine (Nicoderm Cq 21mg) 1 patch DAILY TD Last administered on 03/29/20at 09:06; Start 03/26/20 at 19:30 Haloperidol Lactate (Haldol Inj) 5 mg PRN Q6HRS PRN IVP AGITATION; Start 03/26/20 at 20:15; Status UNV Haloperidol Lactate (Haldol Inj) 5 mg PRN Q4HRS PRN IVP Martinez ucinatns,Confusn,Delirium Last administered on 03/28/20at 04:50; Start 03/26/20 at 20:15 Diphenhydramine HCl (Benadryl) 25 mg PRN Q15MIN PRN IVP EPS symptoms 2'Haldol admin Last administered on 03/27/20at 02:02; Start 03/26/20 at 20:15 Dexmedetomidine HCl 400 mcg/ Sodium Chloride 100 ml @ 0 mls/hr CONT PRN IV ETOH WITHDRAWAL; Start 03/26/20 at 21:00 Potassium Chloride/Water 100 ml @ 100 mls/hr Q1H IV Last administered on 03/27/20at 09:06; Start 03/27/20 at 08:00; Stop 03/27/20 at 09:59; Status DC Multivitamins 10 ml/Thiamine HCl 100 mg/Folic Acid 1 mg/Sodium Chloride 1,011.2 ml @ 100 mls/ hr DAILY IV Last administered on 03/29/20at 08:20; Start 03/27/20 at 09:00; Stop 03/31/20 at 19:07 Pantoprazole Sodium (PROTONIX VIAL for IV PUSH) 40 mg DAILYAC IVP Last administered on 03/29/20at 08:20; Start 03/27/20 at 08:00 Thiamine Mononitrate (Vitamin B-1) 100 mg DAILY PO ; Start 04/01/20 at 09:00 Lactobacillus Rhamnosus (Culturelle) 1 cap BID PO ; Start 03/27/20 at 21:00; Status Cancel Magnesium Sulfate 100 ml @ 25 mls/hr 1X ONCE IV Last administered on 03/28/20at 06:45; Start 03/28/20 at 07:00; Stop 03/28/20 at 10:59; Status DC Potassium Chloride/Water 100 ml @ 100 mls/hr Q1H IV Last administered on 03/28/20at 08:49; Start 03/28/20 at 07:00; Stop 03/28/20 at 08:59; Status DC Active Scripts Active B-1 (Thiamine HCl) 100 Mg Tablet 100 Mg PO DAILY08 30 Days Folic Acid 0.8 Mg Capsule 1 Cap PO DAILY 30 Days Celexa (Citalopram Hydrobromide) 10 Mg Tablet 10 Mg PO DAILY 30 Days Tylenol (Acetaminophen) 325 Mg Tablet 650 Mg PO PRN Q4HRS PRN 10 Days Vitals/I & O Vital Sign - Last 24 Hours 03/28/20 03/28/20 03/28/20 03/28/20 09:41 10:00 11:00 12:00 Temp 98.2 98.2 Pulse 105 104 99 100 Resp 23 31 34 B/P (MAP) 167/100 149/93 (111) 151/96 (114) 164/95 (118) Pulse Ox 100 99 99 O2 Delivery Room Air Room Air Room Air 03/28/20 03/28/20 03/28/20 03/28/20 15:36 16:00 21:35 23:00 Temp 97.9 98.0 97.9 98.0 Pulse 106 106 106 Resp 25 18 B/P (MAP) 183/110 172/93 (119) 153/95 (114) Pulse Ox 99 100 O2 Delivery Room Air Room Air Room Air 03/29/20 02:33 Temp 97.8 97.8 Pulse 96 Resp 19 B/P (MAP) 162/100 (120) Pulse Ox 100 O2 Delivery Room Air Intake and Output 03/28/20 03/28/20 03/29/20 15:00 23:00 07:00 Intake Total 1625 ml Output Total 500 ml 300 ml 1000 ml Balance -500 ml -300 ml 625 ml Nutrition Consultation Dietary Evaluation: Recommendations by RD: Dietary education by RD, Increase Calorie Intake, Protein supplementation Comments: REC advance diet as able pending mental status, goal diet ADA/cardiac per pmhx w/glucerna supplemennts q day or more often pending pt preference If unable to advance diet within 24 - 48 hrs, recommend consideration of short-term nutrition support (dobhoff for TFs or TPN via PICC) Expected Outcomes/Goals: diet advancement Interpretation of weight loss: >10% in 6 months Malnutrition Findings: Food and Nutrition Intake (Sev: <50% est energy req 5days Weight Status: Underweight Justicifation of Admission Dx: Justifications for Admission: Justification of Admission Dx: Yes OBEY ERNST MD Mar 29, 2020 09:43
[2020-03-29] MEDS: POTASSIUM CHLORIDE 20MEQ 100 ML IV SCH ×2 (09:49→11:35)
[2020-03-29] MEDS: POTASSIUM CL 20MEQ D5-0.45NACL 1,000 ML IV SCH ×2 (09:51→17:12)
[2020-03-29] MEDS ORDERED: HALOPERIDOL LACTATE 5 MG/ML VIAL. IVP ONE (11:00)
[2020-03-29 11:14] LABS: ANISOCYTOSIS PRESENT; PLT ESTIMATE ADEQUATE (ADEQUATE)
[2020-03-29 11:59] VITALS: BP 153/108
--- NOTE | 2020-03-29 12:08 | PDOC ---
PROGRESS NOTES Date of Service DATE: 03/29/20 TIME: 12:04 Subjective Subjective SEEN IN FOLLOW UP OF HYPOKALEMIA Objective Objective Vital Signs Date Time Temp Pulse Resp B/P (MAP) Pulse Ox O2 Delivery O2 Flow Rate FiO2 03/29/20 09:00 98.1 100 18 158/100 (119) 98 Room Air 98.1 Intake and Output 03/29/20 07:00 Intake Total 1625 ml Output Total 1800 ml Balance -175 ml Intake Oral 0 ml Blood Product IV Normal Saline Flush 110 ml Other 1515 ml Output Urine Total 1800 ml # Bowel Movements 3 Physical Exam Abdomen: Normal bowel sounds, Soft, No tenderness, No hepatosplenomegaly, No masses Heart: Regular rate, Normal S1, Normal S2, No murmurs, Gallops General: Alert, Oriented X3, Cooperative, No acute distress Lungs: Clear to auscultation, Normal air movement Psych/Mental Status: Other (CONFUSED) Diagnosis Other HYPOKALEMIA Assessment Assessment Problems Medical Problems: (1) Back pain Status: Acute (2) Colitis Status: Acute (3) Generalized weakness Status: Acute (4) Hypokalemia Status: Acute (5) Hypomagnesemia Status: Acute Plan Plan of Care K+ STILL LOW. CONT K+ REPLACEMENT. MAINTAIN MG++.WATCH FOR ETOH WITHDRAWAL Comment Review of Relevant I have reviewed the following items adonis (where applicable) has been applied. Labs Laboratory Tests Test 03/27/20 15:15 03/28/20 05:50 03/28/20 13:00 03/29/20 07:45 Urine Potassium 6.7 mmol/L (Not Estab.) Urine Potassium 24 Hour 27 mmol/24 hr (20-116) White Blood Count 7.9 x10^3/uL (4.0-11.0) 7.6 x10^3/uL (4.0-11.0) Red Blood Count 2.80 x10^6/uL (4.30-5.70) 3.01 x10^6/uL (4.30-5.70) Hemoglobin 10.6 g/dL (13.0-17.5) 11.2 g/dL (13.0-17.5) Hematocrit 30.8 % (39.0-53.0) 33.6 % (39.0-53.0) Mean Corpuscular Volume 110 fL (79-100) 112 fL (79-100) Mean Corpuscular Hemoglobin 38 pg (25-35) 37 pg (25-35) Mean Corpuscular Hemoglobin Concent 34 g/dL (31-37) 33 g/dL (31-37) Red Cell Distribution Width 16.3 % (11.5-14.5) 16.1 % (11.5-14.5) Platelet Count 337 x10^3/uL (140-400) 401 x10^3/uL (140-400) Neutrophils (%) (Auto) 59 % (31-73) 52 % (31-73) Lymphocytes (%) (Auto) 24 % (24-48) 29 % (24-48) Monocytes (%) (Auto) 14 % (0-9) 12 % (0-9) Eosinophils (%) (Auto) 3 % (0-3) 6 % (0-3) Basophils (%) (Auto) 1 % (0-3) 1 % (0-3) Neutrophils # (Auto) 4.7 x10^3/uL (1.8-7.7) 3.9 x10^3/uL (1.8-7.7) Lymphocytes # (Auto) 1.9 x10^3/uL (1.0-4.8) 2.2 x10^3/uL (1.0-4.8) Monocytes # (Auto) 1.1 x10^3/uL (0.0-1.1) 0.9 x10^3/uL (0.0-1.1) Eosinophils # (Auto) 0.2 x10^3/uL (0.0-0.7) 0.5 x10^3/uL (0.0-0.7) Basophils # (Auto) 0.0 x10^3/uL (0.0-0.2) 0.0 x10^3/uL (0.0-0.2) Sodium Level 150 mmol/L (136-145) 151 mmol/L (136-145) 152 mmol/L (136-145) Potassium Level 2.6 mmol/L (3.5-5.1) 3.4 mmol/L (3.5-5.1) 2.7 mmol/L (3.5-5.1) Chloride Level 112 mmol/L (98-107) 112 mmol/L (98-107) 113 mmol/L (98-107) Carbon Dioxide Level 30 mmol/L (21-32) 30 mmol/L (21-32) 30 mmol/L (21-32) Anion Gap 8 (6-14) 9 (6-14) 9 (6-14) Blood Urea Nitrogen 3 mg/dL (8-26) 4 mg/dL (8-26) 5 mg/dL (8-26) Creatinine 1.0 mg/dL (0.7-1.3) 1.0 mg/dL (0.7-1.3) 1.1 mg/dL (0.7-1.3) Estimated GFR (Cockcroft-Gault) 92.9 92.9 83.2 Glucose Level 97 mg/dL (70-99) 94 mg/dL (70-99) 81 mg/dL (70-99) Calcium Level 8.4 mg/dL (8.5-10.1) 7.9 mg/dL (8.5-10.1) 8.7 mg/dL (8.5-10.1) Magnesium Level 1.6 mg/dL (1.8-2.4) 2.6 mg/dL (1.8-2.4) BUN/Creatinine Ratio 4 (6-20) 5 (6-20) Total Bilirubin 0.3 mg/dL (0.2-1.0) 0.4 mg/dL (0.2-1.0) Aspartate Amino Transf (AST/SGOT) 55 U/L (15-37) 48 U/L (15-37) Alanine Aminotransferase (ALT/SGPT) 52 U/L (16-63) 49 U/L (16-63) Alkaline Phosphatase 109 U/L (46-116) 116 U/L (46-116) Total Protein 5.0 g/dL (6.4-8.2) 6.1 g/dL (6.4-8.2) Albumin 1.9 g/dL (3.4-5.0) 2.1 g/dL (3.4-5.0) Albumin/Globulin Ratio 0.6 (1.0-1.7) 0.5 (1.0-1.7) Platelet Estimate Adequate (ADEQUATE) Anisocytosis Present Macrocytosis Slight Laboratory Tests Test 03/28/20 13:00 03/29/20 07:45 Sodium Level 151 mmol/L (136-145) 152 mmol/L (136-145) Potassium Level 3.4 mmol/L (3.5-5.1) 2.7 mmol/L (3.5-5.1) Chloride Level 112 mmol/L (98-107) 113 mmol/L (98-107) Carbon Dioxide Level 30 mmol/L (21-32) 30 mmol/L (21-32) Anion Gap 9 (6-14) 9 (6-14) Blood Urea Nitrogen 4 mg/dL (8-26) 5 mg/dL (8-26) Creatinine 1.0 mg/dL (0.7-1.3) 1.1 mg/dL (0.7-1.3) Estimated GFR (Cockcroft-Gault) 92.9 83.2 BUN/Creatinine Ratio 4 (6-20) 5 (6-20) Glucose Level 94 mg/dL (70-99) 81 mg/dL (70-99) Calcium Level 7.9 mg/dL (8.5-10.1) 8.7 mg/dL (8.5-10.1) Magnesium Level 2.6 mg/dL (1.8-2.4) Total Bilirubin 0.3 mg/dL (0.2-1.0) 0.4 mg/dL (0.2-1.0) Aspartate Amino Transf (AST/SGOT) 55 U/L (15-37) 48 U/L (15-37) Alanine Aminotransferase (ALT/SGPT) 52 U/L (16-63) 49 U/L (16-63) Alkaline Phosphatase 109 U/L (46-116) 116 U/L (46-116) Total Protein 5.0 g/dL (6.4-8.2) 6.1 g/dL (6.4-8.2) Albumin 1.9 g/dL (3.4-5.0) 2.1 g/dL (3.4-5.0) Albumin/Globulin Ratio 0.6 (1.0-1.7) 0.5 (1.0-1.7) White Blood Count 7.6 x10^3/uL (4.0-11.0) Red Blood Count 3.01 x10^6/uL (4.30-5.70) Hemoglobin 11.2 g/dL (13.0-17.5) Hematocrit 33.6 % (39.0-53.0) Mean Corpuscular Volume 112 fL (79-100) Mean Corpuscular Hemoglobin 37 pg (25-35) Mean Corpuscular Hemoglobin Concent 33 g/dL (31-37) Red Cell Distribution Width 16.1 % (11.5-14.5) Platelet Count 401 x10^3/uL (140-400) Neutrophils (%) (Auto) 52 % (31-73) Lymphocytes (%) (Auto) 29 % (24-48) Monocytes (%) (Auto) 12 % (0-9) Eosinophils (%) (Auto) 6 % (0-3) Basophils (%) (Auto) 1 % (0-3) Neutrophils # (Auto) 3.9 x10^3/uL (1.8-7.7) Lymphocytes # (Auto) 2.2 x10^3/uL (1.0-4.8) Monocytes # (Auto) 0.9 x10^3/uL (0.0-1.1) Eosinophils # (Auto) 0.5 x10^3/uL (0.0-0.7) Basophils # (Auto) 0.0 x10^3/uL (0.0-0.2) Platelet Estimate Adequate (ADEQUATE) Anisocytosis Present Macrocytosis Slight Microbiology 03/26/20 Urine Culture - Final, Complete 03/25/20 Fecal Leukocyte Stain - Final, Complete 03/24/20 Blood Culture - Preliminary, Resulted NO GROWTH AFTER 4 DAYS Medications Current Medications Magnesium Sulfate 50 ml @ 25 mls/hr 1X ONCE IV Last administered on 03/25/20at 01:16; Start 03/25/20 at 00:45; Stop 03/25/20 at 02:44; Status DC Potassium Chloride/Water 100 ml @ 50 mls/hr 1X ONCE IV Last administered on 03/25/20at 01:16; Start 03/25/20 at 01:00; Stop 03/25/20 at 02:59; Status DC Potassium Chloride (Klor-Con) 40 meq 1X ONCE PO Last administered on 03/25/20at 01:15; Start 03/25/20 at 00:45; Stop 03/25/20 at 00:46; Status DC Potassium Chloride/Water 100 ml @ 50 mls/hr 1X ONCE IV Last administered on 03/25/20at 02:48; Start 03/25/20 at 03:00; Stop 03/25/20 at 04:59; Status DC Metronidazole 100 ml @ 100 mls/hr 1X ONCE IV Last administered on 03/25/20at 02:47; Start 03/25/20 at 01:30; Stop 03/25/20 at 02:29; Status DC Levofloxacin/ Dextrose 150 ml @ 100 mls/hr 1X ONCE IV Last administered on 03/25/20at 02:46; Start 03/25/20 at 01:30; Stop 03/25/20 at 02:59; Status DC Sodium Chloride 1,000 ml @ 1,000 mls/hr 1X ONCE IV Last administered on 03/25/20at 02:46; Start 03/25/20 at 01:30; Stop 03/25/20 at 02:29; Status DC Ondansetron HCl (Zofran) 4 mg PRN Q8HRS PRN IV NAUSEA/VOMITING; Start 03/25/20 at 02:00; Stop 03/25/20 at 16:47; Status DC Potassium Chloride (Klor-Con) 40 meq TIDWMEALS ONCE PO Last administered on 03/25/20at 13:01; Start 03/25/20 at 08:00; Stop 03/25/20 at 08:01; Status DC Potassium Chloride (Klor-Con) 40 meq 1X ONCE PO Last administered on 03/25/20at 05:42; Start 03/25/20 at 05:30; Stop 03/25/20 at 05:31; Status DC Potassium Chloride/Water 100 ml @ 100 mls/hr Q1H IV Last administered on 03/25/20at 13:00; Start 03/25/20 at 05:30; Stop 03/25/20 at 07:29; Status DC Magnesium Sulfate 100 ml @ 25 mls/hr 1X ONCE IV Last administered on 03/25/20at 05:41; Start 03/25/20 at 05:30; Stop 03/25/20 at 09:29; Status DC Potassium Chloride/Dextrose/ Sod Cl 1,000 ml @ 100 mls/hr Q10H IV Last administered on 03/26/20at 02:23; Start 03/25/20 at 08:00; Stop 03/26/20 at 09:31; Status DC Vitamin B Complex (Folbic Tablet) 1 tab DAILY PO Last administered on 03/26/20at 09:00; Start 03/25/20 at 09:00 Thiamine Mononitrate (Vitamin B-1) 100 mg DAILY PO Last administered on 03/26/20at 09:00; Start 03/25/20 at 09:00; Stop 03/27/20 at 15:58; Status DC Sodium Chloride (Normal Saline Flush) 3 ml QSHIFT PRN IV AFTER MEDS AND BLOOD DRAWS; Start 03/25/20 at 14:45 Sodium Chloride 1,000 ml @ 100 mls/hr Q10H IV Last administered on 03/29/20at 08:23; Start 03/25/20 at 14:31; Stop 03/29/20 at 09:37; Status DC Ondansetron HCl (Zofran) 4 mg PRN Q4HRS PRN IV NAUSEA/VOMITING; Start 03/25/20 at 14:45 Acetaminophen (Tylenol) 650 mg PRN Q4HRS PRN PO TEMP OVER 100.4F OR MILD PAIN; Start 03/25/20 at 14:45 Acetaminophen (Tylenol Supp) 650 mg PRN Q4HRS PRN UT TEMP OVER 100.4F OR MILD PAIN; Start 03/25/20 at 14:45 Al Hydroxide/Mg Hydroxide (Mylanta Plus Xs) 30 ml PRN DAILY PRN PO HEARTBURN / GAS; Start 03/25/20 at 14:45 Docusate Sodium (Colace) 100 mg PRN BID PRN PO HARD STOOLS; Start 03/25/20 at 14:45; Stop 03/26/20 at 09:38; Status DC Albuterol Sulfate (Ventolin Neb Soln) 2.5 mg PRN Q4HRS PRN NEB SHORTNESS OF BREATH; Start 03/25/20 at 14:45 Guaifenesin (Robitussin) 200 mg PRN Q4HRS PRN PO COUGH; Start 03/25/20 at 14:45 Lorazepam (Ativan) 0.5 mg PRN Q4HRS PRN PO ANXIETY / AGITATION; Start 03/25/20 at 14:45 Enoxaparin Sodium (Lovenox 40mg Syringe) 40 mg Q24H SQ Last administered on 03/28/20at 21:51; Start 03/25/20 at 21:00 Pantoprazole Sodium (Protonix) 40 mg DAILYAC PO Last administered on 03/26/20at 07:30; Start 03/25/20 at 16:30; Stop 03/27/20 at 07:43; Status DC Multi-Ingredient Mouthwash/Gargle (Gi Cocktail) 20 ml PRN QID PRN PO epigastric pain Last administered on 03/25/20at 20:23; Start 03/25/20 at 16:15 Potassium Chloride (Klor-Con) 40 meq 1X ONCE PO Last administered on 03/25/20at 17:26; Start 03/25/20 at 16:45; Stop 03/25/20 at 16:46; Status DC Potassium Chloride (Klor-Con) 20 meq 1X ONCE PO Last administered on 03/25/20at 20:22; Start 03/25/20 at 19:00; Stop 03/25/20 at 19:01; Status DC Potassium Chloride/Water 100 ml @ 100 mls/hr Q1H IV Last administered on 03/25/20at 20:22; Start 03/25/20 at 17:00; Stop 03/25/20 at 20:59; Status DC Polyethylene Glycol (miraLAX Powder BULK BOTTLE) 238 gm 1X ONCE PO ; Start 03/26/20 at 11:00; Stop 03/26/20 at 09:38; Status DC Magnesium Citrate (Citroma) 296 ml 1X ONCE PO ; Start 03/26/20 at 09:00; Stop 03/26/20 at 09:39; Status DC Bisacodyl (Dulcolax Tab) 10 mg PRN DAILY PRN PO CONSTIPATION; Start 03/26/20 at 10:00; Stop 03/26/20 at 09:39; Status DC Potassium Chloride (Klor-Con) 60 meq 1X ONCE PO Last administered on 03/26/20at 08:30; Start 03/26/20 at 08:30; Stop 03/26/20 at 08:35; Status DC Potassium Chloride (Klor-Con) 40 meq DAILY08 PO ; Start 03/27/20 at 08:00 Potassium Chloride (Klor-Con) 40 meq Q2H PO Last administered on 03/26/20at 16:41; Start 03/26/20 at 10:00; Stop 03/26/20 at 14:01; Status DC Magnesium Sulfate 100 ml @ 25 mls/hr 1X ONCE IV Last administered on 03/26/20at 11:12; Start 03/26/20 at 10:00; Stop 03/26/20 at 13:59; Status DC Hydralazine HCl (Apresoline Inj) 10 mg PRN Q4HRS PRN IVP ELEVATED BP, SEE COMMENTS Last administered on 03/28/20at 15:36; Start 03/26/20 at 13:30 Vancomycin HCl (Vancomycin Oral Solution) 125 mg [id number] PO Last administered on 03/28/20at 21:52; Start 03/26/20 at 17:00 Potassium Chloride (Klor-Con) 40 meq Q2H PO ; Start 03/26/20 at 19:00; Stop 03/26/20 at 23:01; Status Cancel Potassium Chloride/Water 100 ml @ 100 mls/hr Q1H IV ; Start 03/26/20 at 18:15; Stop 03/27/20 at 06:14; Status UNV Potassium Chloride/Water 100 ml @ 100 mls/hr Q2H IV Last administered on 03/27/20at 01:53; Start 03/26/20 at 19:00; Stop 03/27/20 at 05:59; Status DC Lorazepam (Ativan Inj) 2 mg PRN Q1HR PRN IV For CIWA 8-14 Last administered on 03/29/20at 08:20; Start 03/26/20 at 19:30 Lorazepam (Ativan Inj) 4 mg PRN Q1HR PRN IV For CIWA 15 or greater Last administered on 03/29/20at 10:02; Start 03/26/20 at 19:30 Nicotine (Nicoderm Cq 21mg) 1 patch DAILY TD Last administered on 03/29/20at 09:06; Start 03/26/20 at 19:30 Haloperidol Lactate (Haldol Inj) 5 mg PRN Q6HRS PRN IVP AGITATION; Start 03/26/20 at 20:15; Status UNV Haloperidol Lactate (Haldol Inj) 5 mg PRN Q4HRS PRN IVP Hallucinatns,Confusn,Delirium Last administered on 03/28/20at 04:50; Start 03/26/20 at 20:15 Diphenhydramine HCl (Benadryl) 25 mg PRN Q15MIN PRN IVP EPS symptoms 2'Haldol admin Last administered on 03/27/20at 02:02; Start 03/26/20 at 20:15 Dexmedetomidine HCl 400 mcg/ Sodium Chloride 100 ml @ 0 mls/hr CONT PRN IV ETOH WITHDRAWAL; Start 03/26/20 at 21:00 Potassium Chloride/Water 100 ml @ 100 mls/hr Q1H IV Last administered on 03/27/20at 09:06; Start 03/27/20 at 08:00; Stop 03/27/20 at 09:59; Status DC Multivitamins 10 ml/Thiamine HCl 100 mg/Folic Acid 1 mg/Sodium Chloride 1,011.2 ml @ 100 mls/ hr DAILY IV Last administered on 03/29/20at 08:20; Start 03/27/20 at 09:00; Stop 03/31/20 at 19:07 Pantoprazole Sodium (PROTONIX VIAL for IV PUSH) 40 mg DAILYAC IVP Last administered on 03/29/20at 08:20; Start 03/27/20 at 08:00 Thiamine Mononitrate (Vitamin B-1) 100 mg DAILY PO ; Start 04/01/20 at 09:00 Lactobacillus Rhamnosus (Culturelle) 1 cap BID PO ; Start 03/27/20 at 21:00; Status Cancel Magnesium Sulfate 100 ml @ 25 mls/hr 1X ONCE IV Last administered on 03/28/20at 06:45; Start 03/28/20 at 07:00; Stop 03/28/20 at 10:59; Status DC Potassium Chloride/Water 100 ml @ 100 mls/hr Q1H IV Last administered on 03/28/20at 08:49; Start 03/28/20 at 07:00; Stop 03/28/20 at 08:59; Status DC Potassium Chloride/Water 100 ml @ 100 mls/hr Q1H IV Last administered on 03/29/20at 11:35; Start 03/29/20 at 10:00; Stop 03/29/20 at 11:59; Status DC Potassium Chloride/Dextrose/ Sod Cl 1,000 ml @ 125 mls/hr Q8H IV Last administered on 03/29/20at 09:51; Start 03/29/20 at 09:45 Haloperidol Lactate (Haldol Inj) 5 mg 1X ONCE IVP Last administered on 03/29/20at 11:21; Start 03/29/20 at 11:00; Stop 03/29/20 at 11:01; Status DC Active Scripts Active B-1 (Thiamine HCl) 100 Mg Tablet 100 Mg PO DAILY08 30 Days Folic Acid 0.8 Mg Capsule 1 Cap PO DAILY 30 Days Celexa (Citalopram Hydrobromide) 10 Mg Tablet 10 Mg PO DAILY 30 Days Tylenol (Acetaminophen) 325 Mg Tablet 650 Mg PO PRN Q4HRS PRN 10 Days Vitals/I & O Vital Sign - Last 24 Hours 03/28/20 03/28/20 03/28/20 03/28/20 15:36 16:00 21:35 23:00 Temp 97.9 98.0 97.9 98.0 Pulse 106 106 106 Resp 25 18 B/P (MAP) 183/110 172/93 (119) 153/95 (114) Pulse Ox 99 100 O2 Delivery Room Air Room Air Room Air 03/29/20 03/29/20 03/29/20 02:33 08:00 09:00 Temp 97.8 98.1 97.8 98.1 Pulse 96 100 Resp 19 18 B/P (MAP) 162/100 (120) 158/100 (119) Pulse Ox 100 98 O2 Delivery Room Air Room Air Room Air Intake and Output 03/28/20 03/28/20 03/29/20 15:00 23:00 07:00 Intake Total 1625 ml Output Total 500 ml 300 ml 1000 ml Balance -500 ml -300 ml 625 ml Justicifation of Admission Dx: Justifications for Admission: Justification of Admission Dx: Yes Nutrition Consultation Dietary Evaluation: Recommendations by RD: Dietary education by RD, Increase Calorie Intake, Protein supplementation Comments: REC advance diet as able pending mental status, goal diet ADA/cardiac per pmhx w/glucerna supplemennts q day or more often pending pt preference If unable to advance diet within 24 - 48 hrs, recommend consideration of short-term nutrition support (dobhoff for TFs or TPN via PICC) Expected Outcomes/Goals: diet advancement Interpretation of weight loss: >10% in 6 months Malnutrition Findings: Food and Nutrition Intake (Sev: <50% est energy req 5days Weight Status: Underweight TERA ESQUIVEL MD Mar 29, 2020 12:08
--- NOTE | 2020-03-29 14:55 | NUR ---
Patient unable to swallow so vanco PO changed to flagyl IV, swallow study to be done tomorrow.
[2020-03-29 15:59] VITALS: BP 176/101
[2020-03-29] MEDS: hydrALAZINE 20 MG/ML VIAL. IVP PRN (17:13)
[2020-03-29 19:00] VITALS: BP 154/94
[2020-03-29] MEDS: ENOXAPARIN 40 MG/0.4 ML SYRINGE. SQ SCH (21:16)
[2020-03-29] MEDS: HALOPERIDOL LACTATE 5 MG/ML VIAL. IVP PRN (22:18)
[2020-03-29 22:51] VITALS: BP 145/95
[2020-03-29] MEDS: diphenhydrAMINE 50 MG/ML VIAL IVP PRN (23:03)
[2020-03-30] VITALS (8 sets, daily range): BP systolic 141–172; BP diastolic 88–119
[2020-03-30] MEDS: POTASSIUM CL 20MEQ D5-0.45NACL 1,000 ML IV SCH ×3 (02:10→16:39)
[2020-03-30 03:44] LABS: BASO # 0.1 x10^3/uL (0.0-0.2); BASO % 1 % (0-3); EOS # 0.3 x10^3/uL (0.0-0.7); EOS % 4 % (0-3); HEMATOCRIT 28.8 % (39.0-53.0); HEMOGLOBIN 9.6 g/dL (13.0-17.5); LYMPH # 2.3 x10^3/uL (1.0-4.8); LYMPH % 29 % (24-48); MEAN CORPUSCULAR HEMOGLOBIN 37 pg (25-35); MEAN CORPUSCULAR HGB CONC 33 g/dL (31-37); MEAN CORPUSCULAR VOLUME 110 fL (79-100); MONO # 1.2 x10^3/uL (0.0-1.1); MONO % 15 % (0-9); NEUT # 4.1 x10^3/uL (1.8-7.7); NEUT % 51 % (31-73); PLATELET COUNT 434 x10^3/uL (140-400); RED BLOOD COUNT 2.62 x10^6/uL (4.30-5.70); RED CELL DISTRIBUTION WIDTH 16.3 % (11.5-14.5); WHITE BLOOD COUNT 8.1 x10^3/uL (4.0-11.0)
[2020-03-30 04:02] LABS: CALCIUM 8.5 mg/dL (8.5-10.1); CREATININE 1.2 mg/dL (0.7-1.3); GFR 75.2
[2020-03-30 04:10] LABS: POTASSIUM 2.9 mmol/L (3.5-5.1)
--- NOTE | 2020-03-30 04:20 | NUR ---
Critical Potassium Lab 2.9, notified by Huyen in pharmacy at 0410, page sent to Dr. Jenkins at 0413. Made contact with Dr. Jenkins at 0418 hours and reviewed critical lab and received additional order for treatment. Will continue to monitor the patient at this time.
[2020-03-30] MEDS: POTASSIUM CHLORIDE 20MEQ 100 ML IV SCH ×2 (05:08→05:48)
[2020-03-30] MEDS: POTASSIUM CHLORIDE 20 MEQ TABLET.ER. PO SCH (07:43)
[2020-03-30] MEDS: VITAMIN B12,B9,B6 COMPLEX 1 TABLET. PO SCH (07:44)
[2020-03-30] MEDS: VANCOMYCIN 125 MG/2.5 ML ORAL SOLUTION. PO SCH ×3 (08:32→11:22)
[2020-03-30] MEDS: PANTOPRAZOLE IV PUSH 40 MG VIAL. IVP SCH (08:33)
[2020-03-30] MEDS: hydrALAZINE 20 MG/ML VIAL. IVP PRN (08:37)
[2020-03-30] MEDS: NICOTINE 21MG PATCH. TD SCH (08:39)
[2020-03-30] MEDS: MULTIVIT INFUSN,ADULT 4,VIT K 10 ML, THIAMINE INJ 100 MG, FOLIC ACID INJ 1 MG in IV NOR... IV SCH (08:40)
--- NOTE | 2020-03-30 10:16 | PDOC ---
Date of Service: DATE: 03/30/20 TIME: 10:11 Objective: Objective: Nurse was told getting scopes today - these were cancelled last week due to transfer to ICU for hypokalemia, +C Diff, and AMS. 1 stool charted today, 3 yesterday. Vital Signs: Vital Signs Date Time Temp Pulse Resp B/P (MAP) Pulse Ox O2 Delivery O2 Flow Rate FiO2 03/30/20 10:00 85 18 Room Air 03/30/20 08:37 171/101 03/30/20 07:00 97.8 97 97.8 Labs: Laboratory Tests Test 03/30/20 03:22 03/30/20 08:13 White Blood Count 8.1 x10^3/uL Red Blood Count 2.62 x10^6/uL Hemoglobin 9.6 g/dL Hematocrit 28.8 % Mean Corpuscular Volume 110 fL Mean Corpuscular Hemoglobin 37 pg Mean Corpuscular Hemoglobin Concent 33 g/dL Red Cell Distribution Width 16.3 % Platelet Count 434 x10^3/uL Neutrophils (%) (Auto) 51 % Lymphocytes (%) (Auto) 29 % Monocytes (%) (Auto) 15 % Eosinophils (%) (Auto) 4 % Basophils (%) (Auto) 1 % Neutrophils # (Auto) 4.1 x10^3/uL Lymphocytes # (Auto) 2.3 x10^3/uL Monocytes # (Auto) 1.2 x10^3/uL Eosinophils # (Auto) 0.3 x10^3/uL Basophils # (Auto) 0.1 x10^3/uL Sodium Level 153 mmol/L Potassium Level 2.9 mmol/L Chloride Level 115 mmol/L Carbon Dioxide Level 28 mmol/L Anion Gap 10 Blood Urea Nitrogen 5 mg/dL Creatinine 1.2 mg/dL Estimated GFR (Cockcroft-Gault) 75.2 Glucose Level 76 mg/dL Calcium Level 8.5 mg/dL Glucose (Fingerstick) 71 mg/dL URINE CULTURE Final Final No Growth on 03/28/20 at 1339 BLOOD CULTURE Final NO GROWTH AFTER 5 DAYS Imaging: [employer] Bedside Swallow Eval: Pt demo's inconsistent s/s aspiration across consistencies. Poor awareness &/or attention to the task of swallowing results in inconsistent oral holding. Hyolaryngeal mvmt appears WFL via palpation; however, pt requires 2 swallows per bolus w/ puree and honey thick, indicating risk for pharyngeal residues. No safe PO consistency identified at this time. See [employer] BSE report in Interventions for add'l details. IMPRESSIONS: Mod. oropharyngeal dysphagia w/ high risk for aspiration. Dysphagia appears c/w mild laryngeal dysfunction and impaired mental status. Dysphagia may improve w/ improved mental status, specifically improved awareness/attention to task. Baseline mental status unknown. RECOMMENDATIONS: NPO. Aggressive oral care. Will continue [employer] f/u to address dysphagia. PE: GEN: NAD, has mittens LUNGS: clear HEART: RR ABD: non-distended NEURO/PSYCH: sleeping A/P: Alcohol withdrawal Hypokalemia C Diff - PO vanco stopped, getting IV Flagyl - [employer] recommends NPO w/ AMS HTN -- Supportive care. Justicifation of Admission Dx: Justifications for Admission: Justification of Admission Dx: Yes HOSEA RUBIO Mar 30, 2020 10:16
--- NOTE | 2020-03-30 10:24 | NUR ---
SW following. Discussed with RN, pt still withdrawing, needs swallow eval. PAT unable to meet with pt since admission due to pt being too confused and not able to communicate effectively. RN advised pt is still very confused - not making any sense. SW will continue to follow.
--- NOTE | 2020-03-30 11:39 | NUR ---
Notified Dr. Murillo of patients elevated blood pressure, new orders received.
[2020-03-30] MEDS ORDERED: LABETALOL 20 MG/4 ML DISP.SYRIN. IVP PRN (11:45)
--- NOTE | 2020-03-30 13:27 | PDOC ---
DATE OF SERVICE DATE: 03/30/20 TIME: 13:21 SUBJECTIVE ROS stable OBJECTIVE Vital Signs Vital Signs Date Time Temp Pulse Resp B/P (MAP) Pulse Ox O2 Delivery O2 Flow Rate FiO2 03/30/20 12:12 99 172/106 03/30/20 11:00 97.4 22 96 Room Air 97.4 I & 0 Intake and Output 03/30/20 07:00 Intake Total 100 ml Output Total 1250 ml Balance -1150 ml IV Total 100 ml Output Urine Total 1250 ml # Voids 1 # Bowel Movements 1 PHYSICAL EXAM Physical Exam Abdomen: Normal bowel sounds, Soft, No tenderness, No hepatosplenomegaly, No masses Heart: Regular rate, Normal S1, Normal S2, No murmurs, Gallops General: Alert, Oriented X3, Cooperative, No acute distress Lungs: Clear to auscultation, Normal air movement Torres + DIAGNOSIS/ASSESSMENT Assessment & Plan HypoKalemia - Replace IV HyperNatremia - D5W IV, Pt currently NPO Alcohol abuse and acute withdrawal sepsis, COlitis, c diff, acute toxic and metabolic encephalopathy, concern for Wernicke, has been getting banana bag daily Severe Malnutrition Generalized weakness and debiltiy Hypomagnesemia- corrected 03/29 Macrocytic anemia from alcohol, replacing vitamins Macrocytosis probably from chronic alcohol DM 2 Hypertension COMMENT/RELEVANT DATA Meds Current Medications Medications (Trade) Dose Ordered Sig/Steph Start Time Stop Time Status Last Admin Dose Admin Acetaminophen (Tylenol Supp) 650 mg PRN Q4HRS PRN 03/25/20 14:45 Acetaminophen (Tylenol) 650 mg PRN Q4HRS PRN 03/25/20 14:45 Al Hydroxide/Mg Hydroxide (Mylanta Plus Xs) 30 ml PRN DAILY PRN 03/25/20 14:45 Albuterol Sulfate (Ventolin Neb Soln) 2.5 mg PRN Q4HRS PRN 03/25/20 14:45 Bisacodyl (Dulcolax Tab) 10 mg PRN DAILY PRN 03/26/20 10:00 03/26/20 09:39 DC Dexmedetomidine HCl 400 mcg/ Sodium Chloride 100 ml @ 0 mls/hr CONT PRN 03/26/20 21:00 03/29/20 13:16 DC Diphenhydramine HCl (Benadryl) 25 mg PRN Q15MIN PRN 03/26/20 20:15 03/29/20 23:03 25 MG Docusate Sodium (Colace) 100 mg PRN BID PRN 03/25/20 14:45 03/26/20 09:38 DC Enoxaparin Sodium (Lovenox 40mg Syringe) 40 mg Q24H 03/25/20 21:00 03/29/20 21:16 40 MG Guaifenesin (Robitussin) 200 mg PRN Q4HRS PRN 03/25/20 14:45 Haloperidol Lactate (Haldol Inj) 5 mg 1X ONCE 03/29/20 11:00 03/29/20 11:01 DC 03/29/20 11:21 5 MG Hydralazine HCl (Apresoline Inj) 10 mg PRN Q4HRS PRN 03/26/20 13:30 03/30/20 08:37 10 MG Labetalol HCl (Normodyne Iv Push) 10 mg PRN Q15MIN PRN 03/30/20 11:45 03/30/20 12:12 10 MG Lactobacillus Rhamnosus (Culturelle) 1 cap BID 03/27/20 21:00 Cancel Levofloxacin/ Dextrose 150 ml @ 100 mls/hr 1X ONCE 03/25/20 01:30 03/25/20 02:59 DC 03/25/20 02:46 100 MLS/HR Lorazepam (Ativan Inj) 4 mg PRN Q1HR PRN 03/26/20 19:30 03/30/20 02:05 4 MG Lorazepam (Ativan) 0.5 mg PRN Q4HRS PRN 03/25/20 14:45 Magnesium Citrate (Citroma) 296 ml 1X ONCE 03/26/20 09:00 03/26/20 09:39 DC Magnesium Sulfate 100 ml @ 25 mls/hr 1X ONCE 03/28/20 07:00 03/28/20 10:59 DC 03/28/20 06:45 25 MLS/HR Metronidazole 100 ml @ 100 mls/hr Q8HRS 03/29/20 14:00 03/30/20 12:40 100 MLS/HR Multi-Ingredient Mouthwash/Gargle (Gi Cocktail) 20 ml PRN QID PRN 03/25/20 16:15 03/25/20 20:23 20 ML Multivitamins 10 ml/Thiamine HCl 100 mg/Folic Acid 1 mg/Sodium Chloride 1,011.2 ml @ 100 mls/ hr DAILY 03/27/20 09:00 03/31/20 19:07 03/30/20 08:40 100 MLS/HR Nicotine (Nicoderm Cq 21mg) 1 patch DAILY 03/26/20 19:30 03/30/20 08:39 1 PATCH Ondansetron HCl (Zofran) 4 mg PRN Q4HRS PRN 03/25/20 14:45 Pantoprazole Sodium (PROTONIX VIAL for IV PUSH) 40 mg DAILYAC 03/27/20 08:00 03/30/20 08:33 40 MG Pantoprazole Sodium (Protonix) 40 mg DAILYAC 03/25/20 16:30 03/27/20 07:43 DC 03/26/20 07:30 40 MG Polyethylene Glycol (miraLAX Powder BULK BOTTLE) 238 gm 1X ONCE 03/26/20 11:00 03/26/20 09:38 DC Potassium Chloride/Dextrose/ Sod Cl 1,000 ml @ 125 mls/hr Q8H 03/29/20 09:45 03/30/20 02:10 125 MLS/HR Potassium Chloride/Water 100 ml @ 100 mls/hr Q1H 03/30/20 05:00 03/30/20 06:59 DC 03/30/20 05:48 100 MLS/HR Potassium Chloride (Klor-Con) 40 meq Q2H 03/26/20 19:00 03/26/20 23:01 Cancel Sodium Chloride 1,000 ml @ 100 mls/hr Q10H 03/25/20 14:31 03/29/20 09:37 DC 03/29/20 08:23 100 MLS/HR Sodium Chloride (Normal Saline Flush) 3 ml QSHIFT PRN 03/25/20 14:45 Thiamine Mononitrate (Vitamin B-1) 100 mg DAILY 04/01/20 09:00 Vancomycin HCl (Vancomycin Oral Solution) 125 mg [id number] 03/26/20 17:00 03/30/20 12:04 DC 03/30/20 08:32 125 MG Vitamin B Complex (Folbic Tablet) 1 tab DAILY 03/25/20 09:00 03/26/20 09:00 1 TAB Lab Laboratory Tests Test 03/30/20 03:22 03/30/20 08:13 03/30/20 11:19 White Blood Count 8.1 x10^3/uL (4.0-11.0) Red Blood Count 2.62 x10^6/uL (4.30-5.70) Hemoglobin 9.6 g/dL (13.0-17.5) Hematocrit 28.8 % (39.0-53.0) Mean Corpuscular Volume 110 fL (79-100) Mean Corpuscular Hemoglobin 37 pg (25-35) Mean Corpuscular Hemoglobin Concent 33 g/dL (31-37) Red Cell Distribution Width 16.3 % (11.5-14.5) Platelet Count 434 x10^3/uL (140-400) Neutrophils (%) (Auto) 51 % (31-73) Lymphocytes (%) (Auto) 29 % (24-48) Monocytes (%) (Auto) 15 % (0-9) Eosinophils (%) (Auto) 4 % (0-3) Basophils (%) (Auto) 1 % (0-3) Neutrophils # (Auto) 4.1 x10^3/uL (1.8-7.7) Lymphocytes # (Auto) 2.3 x10^3/uL (1.0-4.8) Monocytes # (Auto) 1.2 x10^3/uL (0.0-1.1) Eosinophils # (Auto) 0.3 x10^3/uL (0.0-0.7) Basophils # (Auto) 0.1 x10^3/uL (0.0-0.2) Sodium Level 153 mmol/L (136-145) Potassium Level 2.9 mmol/L (3.5-5.1) Chloride Level 115 mmol/L (98-107) Carbon Dioxide Level 28 mmol/L (21-32) Anion Gap 10 (6-14) Blood Urea Nitrogen 5 mg/dL (8-26) Creatinine 1.2 mg/dL (0.7-1.3) Estimated GFR (Cockcroft-Gault) 75.2 Glucose Level 76 mg/dL (70-99) Calcium Level 8.5 mg/dL (8.5-10.1) Glucose (Fingerstick) 71 mg/dL (70-99) 76 mg/dL (70-99) Results All relevant outside records, renal labs, imaging studies, telemetry/EKG's were reviewed. Justicifation of Admission Dx: Justifications for Admission: Justification of Admission Dx: Yes TENNILLE BEVERLY MD Mar 30, 2020 13:27
--- NOTE | 2020-03-30 15:16 | PDOC ---
PROGRESS NOTES Date of Service: DATE: 03/30/20 TIME: 15:10 Chief Complaint Chief Complaint Alcohol abuse and acute withdrawl sepsis, COlitis, c diff, on vanc and in isolation acute toxic and metabolic encephalopathy, concern for Wernicke, has been getting banana bag daily Hypokalemia , hypernatreia, severe Malnutrition Generalized weakness and debiltiy Back pain Hypomagnesemia Macrocytic anemia from alcohol, replacing vitamins Macrocytosis probably from chronic alcohol Leukocytosis DM 2 Hypertension History of Present Illness History of Present Illness Unable to obtain history due to patient's extreme somnolence. Per patient's nurse, remains NPO for swallow eval and contact precautions for C.diff. Vitals Vitals Vital Signs Date Time Temp Pulse Resp B/P (MAP) Pulse Ox O2 Delivery O2 Flow Rate FiO2 03/30/20 14:50 92 143/101 (115) 03/30/20 14:28 97.2 24 94 Room Air 97.2 Physical Exam General: No acute distress, Other (Somnolent, difficult to arouse, snoring loudly) Heart: Regular rate, Normal S1, Normal S2, No murmurs, Gallops Lungs: Clear Abdomen: Normal bowel sounds, Soft, No tenderness, No hepatosplenomegaly, No masses Extremities: No clubbing, No cyanosis, No edema, Normal pulses, No tenderness/swelling Skin: No breakdown Labs LABS Laboratory Tests Test 03/30/20 03:22 03/30/20 08:13 03/30/20 11:19 White Blood Count 8.1 x10^3/uL (4.0-11.0) Red Blood Count 2.62 x10^6/uL (4.30-5.70) Hemoglobin 9.6 g/dL (13.0-17.5) Hematocrit 28.8 % (39.0-53.0) Mean Corpuscular Volume 110 fL (79-100) Mean Corpuscular Hemoglobin 37 pg (25-35) Mean Corpuscular Hemoglobin Concent 33 g/dL (31-37) Red Cell Distribution Width 16.3 % (11.5-14.5) Platelet Count 434 x10^3/uL (140-400) Neutrophils (%) (Auto) 51 % (31-73) Lymphocytes (%) (Auto) 29 % (24-48) Monocytes (%) (Auto) 15 % (0-9) Eosinophils (%) (Auto) 4 % (0-3) Basophils (%) (Auto) 1 % (0-3) Neutrophils # (Auto) 4.1 x10^3/uL (1.8-7.7) Lymphocytes # (Auto) 2.3 x10^3/uL (1.0-4.8) Monocytes # (Auto) 1.2 x10^3/uL (0.0-1.1) Eosinophils # (Auto) 0.3 x10^3/uL (0.0-0.7) Basophils # (Auto) 0.1 x10^3/uL (0.0-0.2) Sodium Level 153 mmol/L (136-145) Potassium Level 2.9 mmol/L (3.5-5.1) Chloride Level 115 mmol/L (98-107) Carbon Dioxide Level 28 mmol/L (21-32) Anion Gap 10 (6-14) Blood Urea Nitrogen 5 mg/dL (8-26) Creatinine 1.2 mg/dL (0.7-1.3) Estimated GFR (Cockcroft-Gault) 75.2 Glucose Level 76 mg/dL (70-99) Calcium Level 8.5 mg/dL (8.5-10.1) Glucose (Fingerstick) 71 mg/dL (70-99) 76 mg/dL (70-99) Review of Systems Review of Systems Unable to obtain due to somnolent state Assessment and Plan Assessmemt and Plan Problems Medical Problems: (1) Back pain Status: Acute (2) Colitis Status: Acute (3) Generalized weakness Status: Acute (4) Hypokalemia Status: Acute (5) Hypomagnesemia Status: Acute Comment Review of Relevant I have reviewed the following items adonis (where applicable) has been applied. Labs Laboratory Tests Test 03/29/20 07:45 03/30/20 03:22 03/30/20 08:13 03/30/20 11:19 White Blood Count 7.6 x10^3/uL (4.0-11.0) 8.1 x10^3/uL (4.0-11.0) Red Blood Count 3.01 x10^6/uL (4.30-5.70) 2.62 x10^6/uL (4.30-5.70) Hemoglobin 11.2 g/dL (13.0-17.5) 9.6 g/dL (13.0-17.5) Hematocrit 33.6 % (39.0-53.0) 28.8 % (39.0-53.0) Mean Corpuscular Volume 112 fL (79-100) 110 fL (79-100) Mean Corpuscular Hemoglobin 37 pg (25-35) 37 pg (25-35) Mean Corpuscular Hemoglobin Concent 33 g/dL (31-37) 33 g/dL (31-37) Red Cell Distribution Width 16.1 % (11.5-14.5) 16.3 % (11.5-14.5) Platelet Count 401 x10^3/uL (140-400) 434 x10^3/uL (140-400) Neutrophils (%) (Auto) 52 % (31-73) 51 % (31-73) Lymphocytes (%) (Auto) 29 % (24-48) 29 % (24-48) Monocytes (%) (Auto) 12 % (0-9) 15 % (0-9) Eosinophils (%) (Auto) 6 % (0-3) 4 % (0-3) Basophils (%) (Auto) 1 % (0-3) 1 % (0-3) Neutrophils # (Auto) 3.9 x10^3/uL (1.8-7.7) 4.1 x10^3/uL (1.8-7.7) Lymphocytes # (Auto) 2.2 x10^3/uL (1.0-4.8) 2.3 x10^3/uL (1.0-4.8) Monocytes # (Auto) 0.9 x10^3/uL (0.0-1.1) 1.2 x10^3/uL (0.0-1.1) Eosinophils # (Auto) 0.5 x10^3/uL (0.0-0.7) 0.3 x10^3/uL (0.0-0.7) Basophils # (Auto) 0.0 x10^3/uL (0.0-0.2) 0.1 x10^3/uL (0.0-0.2) Platelet Estimate Adequate (ADEQUATE) Anisocytosis Present Macrocytosis Slight Sodium Level 152 mmol/L (136-145) 153 mmol/L (136-145) Potassium Level 2.7 mmol/L (3.5-5.1) 2.9 mmol/L (3.5-5.1) Chloride Level 113 mmol/L (98-107) 115 mmol/L (98-107) Carbon Dioxide Level 30 mmol/L (21-32) 28 mmol/L (21-32) Anion Gap 9 (6-14) 10 (6-14) Blood Urea Nitrogen 5 mg/dL (8-26) 5 mg/dL (8-26) Creatinine 1.1 mg/dL (0.7-1.3) 1.2 mg/dL (0.7-1.3) Estimated GFR (Cockcroft-Gault) 83.2 75.2 BUN/Creatinine Ratio 5 (6-20) Glucose Level 81 mg/dL (70-99) 76 mg/dL (70-99) Calcium Level 8.7 mg/dL (8.5-10.1) 8.5 mg/dL (8.5-10.1) Total Bilirubin 0.4 mg/dL (0.2-1.0) Aspartate Amino Transf (AST/SGOT) 48 U/L (15-37) Alanine Aminotransferase (ALT/SGPT) 49 U/L (16-63) Alkaline Phosphatase 116 U/L (46-116) Total Protein 6.1 g/dL (6.4-8.2) Albumin 2.1 g/dL (3.4-5.0) Albumin/Globulin Ratio 0.5 (1.0-1.7) Glucose (Fingerstick) 71 mg/dL (70-99) 76 mg/dL (70-99) Laboratory Tests Test 03/30/20 03:22 03/30/20 08:13 03/30/20 11:19 White Blood Count 8.1 x10^3/uL (4.0-11.0) Red Blood Count 2.62 x10^6/uL (4.30-5.70) Hemoglobin 9.6 g/dL (13.0-17.5) Hematocrit 28.8 % (39.0-53.0) Mean Corpuscular Volume 110 fL (79-100) Mean Corpuscular Hemoglobin 37 pg (25-35) Mean Corpuscular Hemoglobin Concent 33 g/dL (31-37) Red Cell Distribution Width 16.3 % (11.5-14.5) Platelet Count 434 x10^3/uL (140-400) Neutrophils (%) (Auto) 51 % (31-73) Lymphocytes (%) (Auto) 29 % (24-48) Monocytes (%) (Auto) 15 % (0-9) Eosinophils (%) (Auto) 4 % (0-3) Basophils (%) (Auto) 1 % (0-3) Neutrophils # (Auto) 4.1 x10^3/uL (1.8-7.7) Lymphocytes # (Auto) 2.3 x10^3/uL (1.0-4.8) Monocytes # (Auto) 1.2 x10^3/uL (0.0-1.1) Eosinophils # (Auto) 0.3 x10^3/uL (0.0-0.7) Basophils # (Auto) 0.1 x10^3/uL (0.0-0.2) Sodium Level 153 mmol/L (136-145) Potassium Level 2.9 mmol/L (3.5-5.1) Chloride Level 115 mmol/L (98-107) Carbon Dioxide Level 28 mmol/L (21-32) Anion Gap 10 (6-14) Blood Urea Nitrogen 5 mg/dL (8-26) Creatinine 1.2 mg/dL (0.7-1.3) Estimated GFR (Cockcroft-Gault) 75.2 Glucose Level 76 mg/dL (70-99) Calcium Level 8.5 mg/dL (8.5-10.1) Glucose (Fingerstick) 71 mg/dL (70-99) 76 mg/dL (70-99) Microbiology 03/26/20 Urine Culture - Final, Complete 03/25/20 Fecal Leukocyte Stain - Final, Complete 03/24/20 Blood Culture - Final, Complete NO GROWTH AFTER 5 DAYS Medications Current Medications Magnesium Sulfate 50 ml @ 25 mls/hr 1X ONCE IV Last administered on 03/25/20at 01:16; Start 03/25/20 at 00:45; Stop 03/25/20 at 02:44; Status DC Potassium Chloride/Water 100 ml @ 50 mls/hr 1X ONCE IV Last administered on 03/25/20at 01:16; Start 03/25/20 at 01:00; Stop 03/25/20 at 02:59; Status DC Potassium Chloride (Klor-Con) 40 meq 1X ONCE PO Last administered on 03/25/20at 01:15; Start 03/25/20 at 00:45; Stop 03/25/20 at 00:46; Status DC Potassium Chloride/Water 100 ml @ 50 mls/hr 1X ONCE IV Last administered on 03/25/20at 02:48; Start 03/25/20 at 03:00; Stop 03/25/20 at 04:59; Status DC Metronidazole 100 ml @ 100 mls/hr 1X ONCE IV Last administered on 03/25/20at 02:47; Start 03/25/20 at 01:30; Stop 03/25/20 at 02:29; Status DC Levofloxacin/ Dextrose 150 ml @ 100 mls/hr 1X ONCE IV Last administered on 03/25/20at 02:46; Start 03/25/20 at 01:30; Stop 03/25/20 at 02:59; Status DC Sodium Chloride 1,000 ml @ 1,000 mls/hr 1X ONCE IV Last administered on 03/25/20at 02:46; Start 03/25/20 at 01:30; Stop 03/25/20 at 02:29; Status DC Ondansetron HCl (Zofran) 4 mg PRN Q8HRS PRN IV NAUSEA/VOMITING; Start 03/25/20 at 02:00; Stop 03/25/20 at 16:47; Status DC Potassium Chloride (Klor-Con) 40 meq TIDWMEALS ONCE PO Last administered on 03/25/20at 13:01; Start 03/25/20 at 08:00; Stop 03/25/20 at 08:01; Status DC Potassium Chloride (Klor-Con) 40 meq 1X ONCE PO Last administered on 03/25/20at 05:42; Start 03/25/20 at 05:30; Stop 03/25/20 at 05:31; Status DC Potassium Chloride/Water 100 ml @ 100 mls/hr Q1H IV Last administered on 03/25/20at 13:00; Start 03/25/20 at 05:30; Stop 03/25/20 at 07:29; Status DC Magnesium Sulfate 100 ml @ 25 mls/hr 1X ONCE IV Last administered on 03/25/20at 05:41; Start 03/25/20 at 05:30; Stop 03/25/20 at 09:29; Status DC Potassium Chloride/Dextrose/ Sod Cl 1,000 ml @ 100 mls/hr Q10H IV Last administered on 03/26/20at 02:23; Start 03/25/20 at 08:00; Stop 03/26/20 at 09:31; Status DC Vitamin B Complex (Folbic Tablet) 1 tab DAILY PO Last administered on 03/26/20at 09:00; Start 03/25/20 at 09:00 Thiamine Mononitrate (Vitamin B-1) 100 mg DAILY PO Last administered on 03/26/20at 09:00; Start 03/25/20 at 09:00; Stop 03/27/20 at 15:58; Status DC Sodium Chloride (Normal Saline Flush) 3 ml QSHIFT PRN IV AFTER MEDS AND BLOOD DRAWS; Start 03/25/20 at 14:45 Sodium Chloride 1,000 ml @ 100 mls/hr Q10H IV Last administered on 03/29/20at 08:23; Start 03/25/20 at 14:31; Stop 03/29/20 at 09:37; Status DC Ondansetron HCl (Zofran) 4 mg PRN Q4HRS PRN IV NAUSEA/VOMITING; Start 03/25/20 at 14:45 Acetaminophen (Tylenol) 650 mg PRN Q4HRS PRN PO TEMP OVER 100.4F OR MILD PAIN; Start 03/25/20 at 14:45 Acetaminophen (Tylenol Supp) 650 mg PRN Q4HRS PRN PA TEMP OVER 100.4F OR MILD PAIN; Start 03/25/20 at 14:45 Al Hydroxide/Mg Hydroxide (Mylanta Plus Xs) 30 ml PRN DAILY PRN PO HEARTBURN / GAS; Start 03/25/20 at 14:45 Docusate Sodium (Colace) 100 mg PRN BID PRN PO HARD STOOLS; Start 03/25/20 at 14:45; Stop 03/26/20 at 09:38; Status DC Albuterol Sulfate (Ventolin Neb Soln) 2.5 mg PRN Q4HRS PRN NEB SHORTNESS OF BREATH; Start 03/25/20 at 14:45 Guaifenesin (Robitussin) 200 mg PRN Q4HRS PRN PO COUGH; Start 03/25/20 at 14:45 Lorazepam (Ativan) 0.5 mg PRN Q4HRS PRN PO ANXIETY / AGITATION; Start 03/25/20 at 14:45 Enoxaparin Sodium (Lovenox 40mg Syringe) 40 mg Q24H SQ Last administered on 03/29/20at 21:16; Start 03/25/20 at 21:00 Pantoprazole Sodium (Protonix) 40 mg DAILYAC PO Last administered on 03/26/20at 07:30; Start 03/25/20 at 16:30; Stop 03/27/20 at 07:43; Status DC Multi-Ingredient Mouthwash/Gargle (Gi Cocktail) 20 ml PRN QID PRN PO epigastric pain Last administered on 03/25/20at 20:23; Start 03/25/20 at 16:15 Potassium Chloride (Klor-Con) 40 meq 1X ONCE PO Last administered on 03/25/20at 17:26; Start 03/25/20 at 16:45; Stop 03/25/20 at 16:46; Status DC Potassium Chloride (Klor-Con) 20 meq 1X ONCE PO Last administered on 03/25/20at 20:22; Start 03/25/20 at 19:00; Stop 03/25/20 at 19:01; Status DC Potassium Chloride/Water 100 ml @ 100 mls/hr Q1H IV Last administered on 03/25/20at 20:22; Start 03/25/20 at 17:00; Stop 03/25/20 at 20:59; Status DC Polyethylene Glycol (miraLAX Powder BULK BOTTLE) 238 gm 1X ONCE PO ; Start 03/26/20 at 11:00; Stop 03/26/20 at 09:38; Status DC Magnesium Citrate (Citroma) 296 ml 1X ONCE PO ; Start 03/26/20 at 09:00; Stop 03/26/20 at 09:39; Status DC Bisacodyl (Dulcolax Tab) 10 mg PRN DAILY PRN PO CONSTIPATION; Start 03/26/20 at 10:00; Stop 03/26/20 at 09:39; Status DC Potassium Chloride (Klor-Con) 60 meq 1X ONCE PO Last administered on 03/26/20at 08:30; Start 03/26/20 at 08:30; Stop 03/26/20 at 08:35; Status DC Potassium Chloride (Klor-Con) 40 meq DAILY08 PO ; Start 03/27/20 at 08:00 Potassium Chloride (Klor-Con) 40 meq Q2H PO Last administered on 03/26/20at 16:41; Start 03/26/20 at 10:00; Stop 03/26/20 at 14:01; Status DC Magnesium Sulfate 100 ml @ 25 mls/hr 1X ONCE IV Last administered on 03/26/20at 11:12; Start 03/26/20 at 10:00; Stop 03/26/20 at 13:59; Status DC Hydralazine HCl (Apresoline Inj) 10 mg PRN Q4HRS PRN IVP ELEVATED BP, SEE COMMENTS Last administered on 03/30/20at 08:37; Start 03/26/20 at 13:30 Vancomycin HCl (Vancomycin Oral Solution) 125 mg [id number] PO Last administered on 03/30/20at 08:32; Start 03/26/20 at 17:00; Stop 03/30/20 at 12:04; Status DC Potassium Chloride (Klor-Con) 40 meq Q2H PO ; Start 03/26/20 at 19:00; Stop 03/26/20 at 23:01; Status Cancel Potassium Chloride/Water 100 ml @ 100 mls/hr Q1H IV ; Start 03/26/20 at 18:15; Stop 03/27/20 at 06:14; Status UNV Potassium Chloride/Water 100 ml @ 100 mls/hr Q2H IV Last administered on 03/27/20at 01:53; Start 03/26/20 at 19:00; Stop 03/27/20 at 05:59; Status DC Lorazepam (Ativan Inj) 2 mg PRN Q1HR PRN IV For CIWA 8-14 Last administered on 03/29/20at 08:20; Start 03/26/20 at 19:30 Lorazepam (Ativan Inj) 4 mg PRN Q1HR PRN IV For CIWA 15 or greater Last administered on 03/30/20at 02:05; Start 03/26/20 at 19:30 Nicotine (Nicoderm Cq 21mg) 1 patch DAILY TD Last administered on 03/30/20at 08:39; Start 03/26/20 at 19:30 Haloperidol Lactate (Haldol Inj) 5 mg PRN Q6HRS PRN IVP AGITATION; Start 03/26/20 at 20:15; Status UNV Haloperidol Lactate (Haldol Inj) 5 mg PRN Q4HRS PRN IVP Hallucinatns,Confusn,Delirium Last administered on 03/29/20at 22:18; Start 03/26/20 at 20:15 Diphenhydramine HCl (Benadryl) 25 mg PRN Q15MIN PRN IVP EPS symptoms 2'Haldol admin Last administered on 03/29/20at 23:03; Start 03/26/20 at 20:15 Dexmedetomidine HCl 400 mcg/ Sodium Chloride 100 ml @ 0 mls/hr CONT PRN IV ETOH WITHDRAWAL; Start 03/26/20 at 21:00; Stop 03/29/20 at 13:16; Status DC Potassium Chloride/Water 100 ml @ 100 mls/hr Q1H IV Last administered on 03/27/20at 09:06; Start 03/27/20 at 08:00; Stop 03/27/20 at 09:59; Status DC Multivitamins 10 ml/Thiamine HCl 100 mg/Folic Acid 1 mg/Sodium Chloride 1,011.2 ml @ 100 mls/ hr DAILY IV Last administered on 03/30/20at 08:40; Start 03/27/20 at 09:00; Stop 03/31/20 at 19:07 Pantoprazole Sodium (PROTONIX VIAL for IV PUSH) 40 mg DAILYAC IVP Last administered on 03/30/20at 08:33; Start 03/27/20 at 08:00 Thiamine Mononitrate (Vitamin B-1) 100 mg DAILY PO ; Start 04/01/20 at 09:00 Lactobacillus Rhamnosus (Culturelle) 1 cap BID PO ; Start 03/27/20 at 21:00; Status Cancel Magnesium Sulfate 100 ml @ 25 mls/hr 1X ONCE IV Last administered on 03/28/20at 06:45; Start 03/28/20 at 07:00; Stop 03/28/20 at 10:59; Status DC Potassium Chloride/Water 100 ml @ 100 mls/hr Q1H IV Last administered on 03/28/20at 08:49; Start 03/28/20 at 07:00; Stop 03/28/20 at 08:59; Status DC Potassium Chloride/Water 100 ml @ 100 mls/hr Q1H IV Last administered on 03/29/20at 11:35; Start 03/29/20 at 10:00; Stop 03/29/20 at 11:59; Status DC Potassium Chloride/Dextrose/ Sod Cl 1,000 ml @ 125 mls/hr Q8H IV Last administered on 03/30/20at 02:10; Start 03/29/20 at 09:45 Haloperidol Lactate (Haldol Inj) 5 mg 1X ONCE IVP Last administered on 03/29/20at 11:21; Start 03/29/20 at 11:00; Stop 03/29/20 at 11:01; Status DC Metronidazole 100 ml @ 100 mls/hr Q8HRS IV Last administered on 03/30/20at 12:40; Start 03/29/20 at 14:00 Potassium Chloride/Water 100 ml @ 100 mls/hr Q1H IV Last administered on 03/30/20at 05:48; Start 03/30/20 at 05:00; Stop 03/30/20 at 06:59; Status DC Labetalol HCl (Normodyne Iv Push) 10 mg PRN Q15MIN PRN IVP HYPERTENSION Last administered on 03/30/20at 12:12; Start 03/30/20 at 11:45 Active Scripts Active B-1 (Thiamine HCl) 100 Mg Tablet 100 Mg PO DAILY08 30 Days Folic Acid 0.8 Mg Capsule 1 Cap PO DAILY 30 Days Celexa (Citalopram Hydrobromide) 10 Mg Tablet 10 Mg PO DAILY 30 Days Tylenol (Acetaminophen) 325 Mg Tablet 650 Mg PO PRN Q4HRS PRN 10 Days Vitals/I & O Vital Sign - Last 24 Hours 03/29/20 03/29/20 03/29/20 03/29/20 15:59 17:13 19:00 20:00 Temp 98.2 98.7 98.2 98.7 Pulse 100 100 103 Resp 20 22 B/P (MAP) 176/101 (126) 176/101 154/94 (114) Pulse Ox 91 100 O2 Delivery Room Air Room Air Room Air 03/29/20 03/30/20 03/30/20 03/30/20 22:51 02:59 07:00 07:40 Temp 98.2 97.9 97.8 98.2 97.9 97.8 Pulse 120 102 96 Resp 18 20 24 B/P (MAP) 145/95 (112) 160/89 (112) 171/101 (124) Pulse Ox 100 100 97 O2 Delivery Room Air Room Air Room Air Room Air 03/30/20 03/30/20 03/30/20 03/30/20 08:37 10:00 11:00 12:12 Temp 97.4 97.4 Pulse 96 85 99 99 Resp 18 22 B/P (MAP) 171/101 172/106 (128) 172/106 Pulse Ox 96 O2 Delivery Room Air Room Air 03/30/20 03/30/20 14:28 14:50 Temp 97.2 97.2 Pulse 89 92 Resp 24 B/P (MAP) 172/119 (136) 143/101 (115) Pulse Ox 94 O2 Delivery Room Air Intake and Output 03/29/20 03/29/20 03/30/20 15:00 23:00 07:00 Intake Total 100 ml Output Total 600 ml 650 ml Balance 100 ml -600 ml -650 ml Nutrition Consultation Dietary Evaluation: Recommendations by RD: Dietary education by RD, Increase Calorie Intake, Protein supplementation Comments: REC advance diet as able pending mental status, diet per [employer] with ADA/cardiac per pmhx and offer glucerna supplements If unable to advance diet within 24 - 48 hrs, recommend consideration of short-term nutrition support via dobhoff for TFs Expected Outcomes/Goals: diet advancement- not met, goal onogoing Interpretation of weight loss: >10% in 6 months Malnutrition Findings: Food and Nutrition Intake (Sev: <50% est energy req 5days Weight Status: Underweight Justicifation of Admission Dx: Justifications for Admission: Justification of Admission Dx: Yes BRANDON WATSON MD Mar 30, 2020 15:16
[2020-03-30] MEDS: ENOXAPARIN 40 MG/0.4 ML SYRINGE. SQ SCH (20:41)
[2020-03-31] MEDS: POTASSIUM CL 20MEQ D5-0.45NACL 1,000 ML IV SCH ×4 (00:20→20:26)
[2020-03-31 03:00] VITALS: BP 141/93
[2020-03-31 04:27] LABS: BASO % 0 % (0-3); EOS # 0.3 x10^3/uL (0.0-0.7); EOS % 3 % (0-3); HEMATOCRIT 27.8 % (39.0-53.0); HEMOGLOBIN 9.5 g/dL (13.0-17.5); LYMPH # 2.8 x10^3/uL (1.0-4.8); LYMPH % 27 % (24-48); MEAN CORPUSCULAR HEMOGLOBIN 37 pg (25-35); MEAN CORPUSCULAR HGB CONC 34 g/dL (31-37); MEAN CORPUSCULAR VOLUME 109 fL (79-100); MONO # 1.2 x10^3/uL (0.0-1.1); MONO % 12 % (0-9); NEUT % 58 % (31-73); PLATELET COUNT 443 x10^3/uL (140-400); RED BLOOD COUNT 2.55 x10^6/uL (4.30-5.70); RED CELL DISTRIBUTION WIDTH 16.3 % (11.5-14.5); WHITE BLOOD COUNT 10.3 x10^3/uL (4.0-11.0)
[2020-03-31 04:59] LABS: CALCIUM 8.4 mg/dL (8.5-10.1); CREATININE 1.3 mg/dL (0.7-1.3); GFR 68.6
[2020-03-31 05:00] LABS: POTASSIUM 2.9 mmol/L (3.5-5.1)
[2020-03-31 05:03] LABS: MAGNESIUM 1.5 mg/dL (1.8-2.4); PHOSPHORUS 4.9 mg/dL (2.6-4.7)
[2020-03-31] MEDS: POTASSIUM CHLORIDE 20MEQ 100 ML IV SCH ×2 (05:33→07:25)
[2020-03-31] MEDS: PANTOPRAZOLE IV PUSH 40 MG VIAL. IVP SCH (05:37)
[2020-03-31] MEDS ORDERED: MAGNESIUM SULFATE 2GM 50 ML IV ONE (06:00)
[2020-03-31 07:00] VITALS: BP 143/91
[2020-03-31] MEDS: POTASSIUM CHLORIDE 20 MEQ TABLET.ER. PO SCH (07:08)
[2020-03-31] MEDS: VITAMIN B12,B9,B6 COMPLEX 1 TABLET. PO SCH (07:52)
[2020-03-31] MEDS: NICOTINE 21MG PATCH. TD SCH (08:41)
[2020-03-31] MEDS: MULTIVIT INFUSN,ADULT 4,VIT K 10 ML, THIAMINE INJ 100 MG, FOLIC ACID INJ 1 MG in IV NOR... IV SCH (08:43)
--- NOTE | 2020-03-31 09:13 | NUR ---
SW following. Discussed with RN, pt still withdrawing, getting mag and potassium replaced. Pt failed swallow study. SW will continue to follow.
[2020-03-31 11:00] VITALS: BP 140/92
--- NOTE | 2020-03-31 11:16 | PDOC ---
DATE OF SERVICE DATE: 03/31/20 TIME: 11:13 SUBJECTIVE ROS No concerns voiced by RN, Pt states feeling good OBJECTIVE Vital Signs Vital Signs Date Time Temp Pulse Resp B/P (MAP) Pulse Ox O2 Delivery O2 Flow Rate FiO2 03/31/20 07:24 Room Air 03/31/20 07:00 98.6 93 18 143/91 (108) 100 98.6 I & 0 Intake and Output 03/31/20 07:00 Intake Total 1100 ml Output Total 1800 ml Balance -700 ml IV Total 1100 ml Output Urine Total 1800 ml # Bowel Movements 2 PHYSICAL EXAM Physical Exam Abdomen: Normal bowel sounds, Soft, No tenderness, No hepatosplenomegaly, No masses Heart: Regular rate, Normal S1, Normal S2, No murmurs, Gallops General: Alert, Oriented X3, Cooperative, No acute distress Lungs: Clear to auscultation, Normal air movement Torres + DIAGNOSIS/ASSESSMENT Assessment & Plan HypoKalemia - Replace IV Hypomg - Low today, replace HyperNatremia - D5W IV, Alcohol abuse and acute withdrawal sepsis, COlitis, c diff, acute toxic and metabolic encephalopathy, concern for [place]ke, has been getting banana bag daily Severe Malnutrition Generalized weakness and debiltiy Macrocytic anemia from alcohol, replacing vitamins Macrocytosis probably from chronic alcohol DM 2 Hypertension- BP stable COMMENT/RELEVANT DATA Meds Current Medications Medications (Trade) Dose Ordered Sig/Steph Start Time Stop Time Status Last Admin Dose Admin Acetaminophen (Tylenol Supp) 650 mg PRN Q4HRS PRN 03/25/20 14:45 Acetaminophen (Tylenol) 650 mg PRN Q4HRS PRN 03/25/20 14:45 Al Hydroxide/Mg Hydroxide (Mylanta Plus Xs) 30 ml PRN DAILY PRN 03/25/20 14:45 Albuterol Sulfate (Ventolin Neb Soln) 2.5 mg PRN Q4HRS PRN 03/25/20 14:45 Bisacodyl (Dulcolax Tab) 10 mg PRN DAILY PRN 03/26/20 10:00 03/26/20 09:39 DC Dexmedetomidine HCl 400 mcg/ Sodium Chloride 100 ml @ 0 mls/hr CONT PRN 03/26/20 21:00 03/29/20 13:16 DC Diphenhydramine HCl (Benadryl) 25 mg PRN Q15MIN PRN 03/26/20 20:15 03/29/20 23:03 25 MG Docusate Sodium (Colace) 100 mg PRN BID PRN 03/25/20 14:45 03/26/20 09:38 DC Enoxaparin Sodium (Lovenox 40mg Syringe) 40 mg Q24H 03/25/20 21:00 03/30/20 20:41 40 MG Guaifenesin (Robitussin) 200 mg PRN Q4HRS PRN 03/25/20 14:45 Haloperidol Lactate (Haldol Inj) 5 mg 1X ONCE 03/29/20 11:00 03/29/20 11:01 DC 03/29/20 11:21 5 MG Hydralazine HCl (Apresoline Inj) 10 mg PRN Q4HRS PRN 03/26/20 13:30 03/30/20 08:37 10 MG Labetalol HCl (Normodyne Iv Push) 10 mg PRN Q15MIN PRN 03/30/20 11:45 03/30/20 12:12 10 MG Lactobacillus Rhamnosus (Culturelle) 1 cap BID 03/27/20 21:00 Cancel Levofloxacin/ Dextrose 150 ml @ 100 mls/hr 1X ONCE 03/25/20 01:30 03/25/20 02:59 DC 03/25/20 02:46 100 MLS/HR Lorazepam (Ativan Inj) 4 mg PRN Q1HR PRN 03/26/20 19:30 03/30/20 20:41 4 MG Lorazepam (Ativan) 0.5 mg PRN Q4HRS PRN 03/25/20 14:45 Magnesium Citrate (Citroma) 296 ml 1X ONCE 03/26/20 09:00 03/26/20 09:39 DC Magnesium Sulfate 50 ml @ 25 mls/hr 1X ONCE 03/31/20 06:00 03/31/20 07:59 DC 03/31/20 05:34 25 MLS/HR Metronidazole 100 ml @ 100 mls/hr Q8HRS 03/29/20 14:00 03/31/20 05:36 100 MLS/HR Multi-Ingredient Mouthwash/Gargle (Gi Cocktail) 20 ml PRN QID PRN 03/25/20 16:15 03/25/20 20:23 20 ML Multivitamins 10 ml/Thiamine HCl 100 mg/Folic Acid 1 mg/Sodium Chloride 1,011.2 ml @ 100 mls/ hr DAILY 03/27/20 09:00 03/31/20 19:07 03/31/20 08:43 100 MLS/HR Nicotine (Nicoderm Cq 21mg) 1 patch DAILY 03/26/20 19:30 03/31/20 08:41 1 PATCH Ondansetron HCl (Zofran) 4 mg PRN Q4HRS PRN 03/25/20 14:45 Pantoprazole Sodium (PROTONIX VIAL for IV PUSH) 40 mg DAILYAC 03/27/20 08:00 03/31/20 05:37 40 MG Pantoprazole Sodium (Protonix) 40 mg DAILYAC 03/25/20 16:30 03/27/20 07:43 DC 03/26/20 07:30 40 MG Polyethylene Glycol (miraLAX Powder BULK BOTTLE) 238 gm 1X ONCE 03/26/20 11:00 03/26/20 09:38 DC Potassium Chloride/Dextrose/ Sod Cl 1,000 ml @ 125 mls/hr Q8H 03/29/20 09:45 03/31/20 00:20 125 MLS/HR Potassium Chloride/Water 100 ml @ 100 mls/hr Q1H 03/31/20 06:00 03/31/20 07:59 DC 03/31/20 07:25 100 MLS/HR Potassium Chloride (Klor-Con) 40 meq Q2H 03/26/20 19:00 03/26/20 23:01 Cancel Sodium Chloride 1,000 ml @ 100 mls/hr Q10H 03/25/20 14:31 03/29/20 09:37 DC 03/29/20 08:23 100 MLS/HR Sodium Chloride (Normal Saline Flush) 3 ml QSHIFT PRN 03/25/20 14:45 Thiamine Mononitrate (Vitamin B-1) 100 mg DAILY 04/01/20 09:00 Vancomycin HCl (Vancomycin Oral Solution) 125 mg [id number] 03/26/20 17:00 03/30/20 12:04 DC 03/30/20 08:32 125 MG Vitamin B Complex (Folbic Tablet) 1 tab DAILY 03/25/20 09:00 03/26/20 09:00 1 TAB Lab Laboratory Tests Test 03/30/20 11:19 03/31/20 04:10 Glucose (Fingerstick) 76 mg/dL (70-99) White Blood Count 10.3 x10^3/uL (4.0-11.0) Red Blood Count 2.55 x10^6/uL (4.30-5.70) Hemoglobin 9.5 g/dL (13.0-17.5) Hematocrit 27.8 % (39.0-53.0) Mean Corpuscular Volume 109 fL (79-100) Mean Corpuscular Hemoglobin 37 pg (25-35) Mean Corpuscular Hemoglobin Concent 34 g/dL (31-37) Red Cell Distribution Width 16.3 % (11.5-14.5) Platelet Count 443 x10^3/uL (140-400) Neutrophils (%) (Auto) 58 % (31-73) Lymphocytes (%) (Auto) 27 % (24-48) Monocytes (%) (Auto) 12 % (0-9) Eosinophils (%) (Auto) 3 % (0-3) Basophils (%) (Auto) 0 % (0-3) Neutrophils # (Auto) 6.0 x10^3/uL (1.8-7.7) Lymphocytes # (Auto) 2.8 x10^3/uL (1.0-4.8) Monocytes # (Auto) 1.2 x10^3/uL (0.0-1.1) Eosinophils # (Auto) 0.3 x10^3/uL (0.0-0.7) Basophils # (Auto) 0.0 x10^3/uL (0.0-0.2) Sodium Level 153 mmol/L (136-145) Potassium Level 2.9 mmol/L (3.5-5.1) Chloride Level 116 mmol/L (98-107) Carbon Dioxide Level 29 mmol/L (21-32) Anion Gap 8 (6-14) Blood Urea Nitrogen 4 mg/dL (8-26) Creatinine 1.3 mg/dL (0.7-1.3) Estimated GFR (Cockcroft-Gault) 68.6 Glucose Level 95 mg/dL (70-99) Calcium Level 8.4 mg/dL (8.5-10.1) Phosphorus Level 4.9 mg/dL (2.6-4.7) Magnesium Level 1.5 mg/dL (1.8-2.4) Results All relevant outside records, renal labs, imaging studies, telemetry/EKG's were reviewed. Justicifation of Admission Dx: Justifications for Admission: Justification of Admission Dx: Yes TENNILLE BEVERLY MD Mar 31, 2020 11:16
[2020-03-31 12:28] LABS: CALCIUM 8.4 mg/dL (8.5-10.1); CREATININE 1.4 mg/dL (0.7-1.3); MAGNESIUM 1.8 mg/dL (1.8-2.4); POTASSIUM 3.3 mmol/L (3.5-5.1)
--- NOTE | 2020-03-31 12:48 | PDOC ---
Date of Service: DATE: 03/31/20 TIME: 12:46 Subjective: Subjective: More alert - doesn't think much diarrhea. Objective: Vital Signs: Vital Signs Date Time Temp Pulse Resp B/P (MAP) Pulse Ox O2 Delivery O2 Flow Rate FiO2 03/31/20 11:00 98.4 98 16 140/92 (108) 99 Room Air 98.4 Labs: Laboratory Tests Test 03/31/20 04:10 03/31/20 12:09 White Blood Count 10.3 x10^3/uL Red Blood Count 2.55 x10^6/uL Hemoglobin 9.5 g/dL Hematocrit 27.8 % Mean Corpuscular Volume 109 fL Mean Corpuscular Hemoglobin 37 pg Mean Corpuscular Hemoglobin Concent 34 g/dL Red Cell Distribution Width 16.3 % Platelet Count 443 x10^3/uL Neutrophils (%) (Auto) 58 % Lymphocytes (%) (Auto) 27 % Monocytes (%) (Auto) 12 % Eosinophils (%) (Auto) 3 % Basophils (%) (Auto) 0 % Neutrophils # (Auto) 6.0 x10^3/uL Lymphocytes # (Auto) 2.8 x10^3/uL Monocytes # (Auto) 1.2 x10^3/uL Eosinophils # (Auto) 0.3 x10^3/uL Basophils # (Auto) 0.0 x10^3/uL Sodium Level 153 mmol/L 152 mmol/L Potassium Level 2.9 mmol/L 3.3 mmol/L Chloride Level 116 mmol/L 116 mmol/L Carbon Dioxide Level 29 mmol/L 27 mmol/L Anion Gap 8 9 Blood Urea Nitrogen 4 mg/dL 4 mg/dL Creatinine 1.3 mg/dL 1.4 mg/dL Estimated GFR (Cockcroft-Gault) 68.6 63.0 Glucose Level 95 mg/dL 87 mg/dL Calcium Level 8.4 mg/dL 8.4 mg/dL Phosphorus Level 4.9 mg/dL Magnesium Level 1.5 mg/dL 1.8 mg/dL PE: GEN: NAD LUNGS: CTAB HEART: borderline tachycardic ABD: non-tender NEURO/PSYCH: more awake today, still w/ mittens A/P: Alcohol withdrawal Hypokalemia (better), hypernatremia C Diff -- Change to PO vanco when safe for PO. Justicifation of Admission Dx: Justifications for Admission: Justification of Admission Dx: Yes HOSEA RUBIO Mar 31, 2020 12:48
[2020-03-31 15:00] VITALS: BP 148/93
--- NOTE | 2020-03-31 15:25 | PDOC ---
PROGRESS NOTES Date of Service: DATE: 03/31/20 TIME: 15:20 Chief Complaint Chief Complaint Alcohol abuse and acute withdrawl sepsis, COlitis, c diff, on vanc and in isolation acute toxic and metabolic encephalopathy, concern for Wernicke, has been getting banana bag daily Hypokalemia , hypernatreia, severe Malnutrition Generalized weakness and debiltiy Back pain Hypomagnesemia Macrocytic anemia from alcohol, replacing vitamins Macrocytosis probably from chronic alcohol Leukocytosis DM 2 Hypertension History of Present Illness History of Present Illness Discussed with patient the details of his diagnoses, course of treatment, and plan. Still with diarrhea. Vitals Vitals Vital Signs Date Time Temp Pulse Resp B/P (MAP) Pulse Ox O2 Delivery O2 Flow Rate FiO2 03/31/20 11:00 98.4 98 16 140/92 (108) 99 Room Air 98.4 Physical Exam General: No acute distress, Other (Somnolent, difficult to arouse, snoring loudly) Heart: Regular rate, No murmurs, Gallops Lungs: Clear Abdomen: Normal bowel sounds, Soft, No tenderness Extremities: No clubbing, No cyanosis, No edema, Normal pulses Skin: No breakdown Labs LABS Laboratory Tests Test 03/31/20 04:10 03/31/20 12:09 White Blood Count 10.3 x10^3/uL (4.0-11.0) Red Blood Count 2.55 x10^6/uL (4.30-5.70) Hemoglobin 9.5 g/dL (13.0-17.5) Hematocrit 27.8 % (39.0-53.0) Mean Corpuscular Volume 109 fL (79-100) Mean Corpuscular Hemoglobin 37 pg (25-35) Mean Corpuscular Hemoglobin Concent 34 g/dL (31-37) Red Cell Distribution Width 16.3 % (11.5-14.5) Platelet Count 443 x10^3/uL (140-400) Neutrophils (%) (Auto) 58 % (31-73) Lymphocytes (%) (Auto) 27 % (24-48) Monocytes (%) (Auto) 12 % (0-9) Eosinophils (%) (Auto) 3 % (0-3) Basophils (%) (Auto) 0 % (0-3) Neutrophils # (Auto) 6.0 x10^3/uL (1.8-7.7) Lymphocytes # (Auto) 2.8 x10^3/uL (1.0-4.8) Monocytes # (Auto) 1.2 x10^3/uL (0.0-1.1) Eosinophils # (Auto) 0.3 x10^3/uL (0.0-0.7) Basophils # (Auto) 0.0 x10^3/uL (0.0-0.2) Sodium Level 153 mmol/L (136-145) 152 mmol/L (136-145) Potassium Level 2.9 mmol/L (3.5-5.1) 3.3 mmol/L (3.5-5.1) Chloride Level 116 mmol/L (98-107) 116 mmol/L (98-107) Carbon Dioxide Level 29 mmol/L (21-32) 27 mmol/L (21-32) Anion Gap 8 (6-14) 9 (6-14) Blood Urea Nitrogen 4 mg/dL (8-26) 4 mg/dL (8-26) Creatinine 1.3 mg/dL (0.7-1.3) 1.4 mg/dL (0.7-1.3) Estimated GFR (Cockcroft-Gault) 68.6 63.0 Glucose Level 95 mg/dL (70-99) 87 mg/dL (70-99) Calcium Level 8.4 mg/dL (8.5-10.1) 8.4 mg/dL (8.5-10.1) Phosphorus Level 4.9 mg/dL (2.6-4.7) Magnesium Level 1.5 mg/dL (1.8-2.4) 1.8 mg/dL (1.8-2.4) Review of Systems Review of Systems Diarrhea. Weakness. No abdominal pain, no fever. All other systems negative. Assessment and Plan Assessmemt and Plan Problems Medical Problems: (1) Back pain Status: Acute (2) Colitis Status: Acute (3) Generalized weakness Status: Acute (4) Hypokalemia Status: Acute (5) Hypomagnesemia Status: Acute Comment Review of Relevant I have reviewed the following items adonis (where applicable) has been applied. Labs Laboratory Tests Test 03/30/20 03:22 03/30/20 08:13 03/30/20 11:19 03/31/20 04:10 White Blood Count 8.1 x10^3/uL (4.0-11.0) 10.3 x10^3/uL (4.0-11.0) Red Blood Count 2.62 x10^6/uL (4.30-5.70) 2.55 x10^6/uL (4.30-5.70) Hemoglobin 9.6 g/dL (13.0-17.5) 9.5 g/dL (13.0-17.5) Hematocrit 28.8 % (39.0-53.0) 27.8 % (39.0-53.0) Mean Corpuscular Volume 110 fL (79-100) 109 fL (79-100) Mean Corpuscular Hemoglobin 37 pg (25-35) 37 pg (25-35) Mean Corpuscular Hemoglobin Concent 33 g/dL (31-37) 34 g/dL (31-37) Red Cell Distribution Width 16.3 % (11.5-14.5) 16.3 % (11.5-14.5) Platelet Count 434 x10^3/uL (140-400) 443 x10^3/uL (140-400) Neutrophils (%) (Auto) 51 % (31-73) 58 % (31-73) Lymphocytes (%) (Auto) 29 % (24-48) 27 % (24-48) Monocytes (%) (Auto) 15 % (0-9) 12 % (0-9) Eosinophils (%) (Auto) 4 % (0-3) 3 % (0-3) Basophils (%) (Auto) 1 % (0-3) 0 % (0-3) Neutrophils # (Auto) 4.1 x10^3/uL (1.8-7.7) 6.0 x10^3/uL (1.8-7.7) Lymphocytes # (Auto) 2.3 x10^3/uL (1.0-4.8) 2.8 x10^3/uL (1.0-4.8) Monocytes # (Auto) 1.2 x10^3/uL (0.0-1.1) 1.2 x10^3/uL (0.0-1.1) Eosinophils # (Auto) 0.3 x10^3/uL (0.0-0.7) 0.3 x10^3/uL (0.0-0.7) Basophils # (Auto) 0.1 x10^3/uL (0.0-0.2) 0.0 x10^3/uL (0.0-0.2) Sodium Level 153 mmol/L (136-145) 153 mmol/L (136-145) Potassium Level 2.9 mmol/L (3.5-5.1) 2.9 mmol/L (3.5-5.1) Chloride Level 115 mmol/L (98-107) 116 mmol/L (98-107) Carbon Dioxide Level 28 mmol/L (21-32) 29 mmol/L (21-32) Anion Gap 10 (6-14) 8 (6-14) Blood Urea Nitrogen 5 mg/dL (8-26) 4 mg/dL (8-26) Creatinine 1.2 mg/dL (0.7-1.3) 1.3 mg/dL (0.7-1.3) Estimated GFR (Cockcroft-Gault) 75.2 68.6 Glucose Level 76 mg/dL (70-99) 95 mg/dL (70-99) Calcium Level 8.5 mg/dL (8.5-10.1) 8.4 mg/dL (8.5-10.1) Glucose (Fingerstick) 71 mg/dL (70-99) 76 mg/dL (70-99) Phosphorus Level 4.9 mg/dL (2.6-4.7) Magnesium Level 1.5 mg/dL (1.8-2.4) Test 03/31/20 12:09 Sodium Level 152 mmol/L (136-145) Potassium Level 3.3 mmol/L (3.5-5.1) Chloride Level 116 mmol/L (98-107) Carbon Dioxide Level 27 mmol/L (21-32) Anion Gap 9 (6-14) Blood Urea Nitrogen 4 mg/dL (8-26) Creatinine 1.4 mg/dL (0.7-1.3) Estimated GFR (Cockcroft-Gault) 63.0 Glucose Level 87 mg/dL (70-99) Calcium Level 8.4 mg/dL (8.5-10.1) Magnesium Level 1.8 mg/dL (1.8-2.4) Laboratory Tests Test 03/31/20 04:10 03/31/20 12:09 White Blood Count 10.3 x10^3/uL (4.0-11.0) Red Blood Count 2.55 x10^6/uL (4.30-5.70) Hemoglobin 9.5 g/dL (13.0-17.5) Hematocrit 27.8 % (39.0-53.0) Mean Corpuscular Volume 109 fL (79-100) Mean Corpuscular Hemoglobin 37 pg (25-35) Mean Corpuscular Hemoglobin Concent 34 g/dL (31-37) Red Cell Distribution Width 16.3 % (11.5-14.5) Platelet Count 443 x10^3/uL (140-400) Neutrophils (%) (Auto) 58 % (31-73) Lymphocytes (%) (Auto) 27 % (24-48) Monocytes (%) (Auto) 12 % (0-9) Eosinophils (%) (Auto) 3 % (0-3) Basophils (%) (Auto) 0 % (0-3) Neutrophils # (Auto) 6.0 x10^3/uL (1.8-7.7) Lymphocytes # (Auto) 2.8 x10^3/uL (1.0-4.8) Monocytes # (Auto) 1.2 x10^3/uL (0.0-1.1) Eosinophils # (Auto) 0.3 x10^3/uL (0.0-0.7) Basophils # (Auto) 0.0 x10^3/uL (0.0-0.2) Sodium Level 153 mmol/L (136-145) 152 mmol/L (136-145) Potassium Level 2.9 mmol/L (3.5-5.1) 3.3 mmol/L (3.5-5.1) Chloride Level 116 mmol/L (98-107) 116 mmol/L (98-107) Carbon Dioxide Level 29 mmol/L (21-32) 27 mmol/L (21-32) Anion Gap 8 (6-14) 9 (6-14) Blood Urea Nitrogen 4 mg/dL (8-26) 4 mg/dL (8-26) Creatinine 1.3 mg/dL (0.7-1.3) 1.4 mg/dL (0.7-1.3) Estimated GFR (Cockcroft-Gault) 68.6 63.0 Glucose Level 95 mg/dL (70-99) 87 mg/dL (70-99) Calcium Level 8.4 mg/dL (8.5-10.1) 8.4 mg/dL (8.5-10.1) Phosphorus Level 4.9 mg/dL (2.6-4.7) Magnesium Level 1.5 mg/dL (1.8-2.4) 1.8 mg/dL (1.8-2.4) Microbiology 03/26/20 Urine Culture - Final, Complete 03/25/20 Fecal Leukocyte Stain - Final, Complete 03/24/20 Blood Culture - Final, Complete NO GROWTH AFTER 5 DAYS Medications Current Medications Magnesium Sulfate 50 ml @ 25 mls/hr 1X ONCE IV Last administered on 03/25/20at 01:16; Start 03/25/20 at 00:45; Stop 03/25/20 at 02:44; Status DC Potassium Chloride/Water 100 ml @ 50 mls/hr 1X ONCE IV Last administered on 03/25/20at 01:16; Start 03/25/20 at 01:00; Stop 03/25/20 at 02:59; Status DC Potassium Chloride (Klor-Con) 40 meq 1X ONCE PO Last administered on 03/25/20at 01:15; Start 03/25/20 at 00:45; Stop 03/25/20 at 00:46; Status DC Potassium Chloride/Water 100 ml @ 50 mls/hr 1X ONCE IV Last administered on 03/25/20at 02:48; Start 03/25/20 at 03:00; Stop 03/25/20 at 04:59; Status DC Metronidazole 100 ml @ 100 mls/hr 1X ONCE IV Last administered on 03/25/20at 02:47; Start 03/25/20 at 01:30; Stop 03/25/20 at 02:29; Status DC Levofloxacin/ Dextrose 150 ml @ 100 mls/hr 1X ONCE IV Last administered on 03/25/20at 02:46; Start 03/25/20 at 01:30; Stop 03/25/20 at 02:59; Status DC Sodium Chloride 1,000 ml @ 1,000 mls/hr 1X ONCE IV Last administered on 03/25/20at 02:46; Start 03/25/20 at 01:30; Stop 03/25/20 at 02:29; Status DC Ondansetron HCl (Zofran) 4 mg PRN Q8HRS PRN IV NAUSEA/VOMITING; Start 03/25/20 at 02:00; Stop 03/25/20 at 16:47; Status DC Potassium Chloride (Klor-Con) 40 meq TIDWMEALS ONCE PO Last administered on 03/25/20at 13:01; Start 03/25/20 at 08:00; Stop 03/25/20 at 08:01; Status DC Potassium Chloride (Klor-Con) 40 meq 1X ONCE PO Last administered on 03/25/20at 05:42; Start 03/25/20 at 05:30; Stop 03/25/20 at 05:31; Status DC Potassium Chloride/Water 100 ml @ 100 mls/hr Q1H IV Last administered on 03/25/20at 13:00; Start 03/25/20 at 05:30; Stop 03/25/20 at 07:29; Status DC Magnesium Sulfate 100 ml @ 25 mls/hr 1X ONCE IV Last administered on at 05:41; Start 03/25/20 at 05:30; Stop 03/25/20 at 09:29; Status DC Potassium Chloride/Dextrose/ Sod Cl 1,000 ml @ 100 mls/hr Q10H IV Last administered on 03/26/20at 02:23; Start 03/25/20 at 08:00; Stop 03/26/20 at 09:31; Status DC Vitamin B Complex (Folbic Tablet) 1 tab DAILY PO Last administered on 03/26/20at 09:00; Start 03/25/20 at 09:00 Thiamine Mononitrate (Vitamin B-1) 100 mg DAILY PO Last administered on 03/26/20at 09:00; Start 03/25/20 at 09:00; Stop 03/27/20 at 15:58; Status DC Sodium Chloride (Normal Saline Flush) 3 ml QSHIFT PRN IV AFTER MEDS AND BLOOD DRAWS; Start 03/25/20 at 14:45 Sodium Chloride 1,000 ml @ 100 mls/hr Q10H IV Last administered on 03/29/20at 08:23; Start 03/25/20 at 14:31; Stop 03/29/20 at 09:37; Status DC Ondansetron HCl (Zofran) 4 mg PRN Q4HRS PRN IV NAUSEA/VOMITING; Start 03/25/20 at 14:45 Acetaminophen (Tylenol) 650 mg PRN Q4HRS PRN PO TEMP OVER 100.4F OR MILD PAIN; Start 03/25/20 at 14:45 Acetaminophen (Tylenol Supp) 650 mg PRN Q4HRS PRN PA TEMP OVER 100.4F OR MILD PAIN; Start 03/25/20 at 14:45 Al Hydroxide/Mg Hydroxide (Mylanta Plus Xs) 30 ml PRN DAILY PRN PO HEARTBURN / GAS; Start 03/25/20 at 14:45 Docusate Sodium (Colace) 100 mg PRN BID PRN PO HARD STOOLS; Start 03/25/20 at 14:45; Stop 03/26/20 at 09:38; Status DC Albuterol Sulfate (Ventolin Neb Soln) 2.5 mg PRN Q4HRS PRN NEB SHORTNESS OF BREATH; Start 03/25/20 at 14:45 Guaifenesin (Robitussin) 200 mg PRN Q4HRS PRN PO COUGH; Start 03/25/20 at 14:45 Lorazepam (Ativan) 0.5 mg PRN Q4HRS PRN PO ANXIETY / AGITATION; Start 03/25/20 at 14:45 Enoxaparin Sodium (Lovenox 40mg Syringe) 40 mg Q24H SQ Last administered on 03/30/20at 20:41; Start 03/25/20 at 21:00 Pantoprazole Sodium (Protonix) 40 mg DAILYAC PO Last administered on 03/26/20at 07:30; Start 03/25/20 at 16:30; Stop 03/27/20 at 07:43; Status DC Multi-Ingredient Mouthwash/Gargle (Gi Cocktail) 20 ml PRN QID PRN PO epigastric pain Last administered on 03/25/20at 20:23; Start 03/25/20 at 16:15 Potassium Chloride (Klor-Con) 40 meq 1X ONCE PO Last administered on 03/25/20at 17:26; Start 03/25/20 at 16:45; Stop 03/25/20 at 16:46; Status DC Potassium Chloride (Klor-Con) 20 meq 1X ONCE PO Last administered on 03/25/20at 20:22; Start 03/25/20 at 19:00; Stop 03/25/20 at 19:01; Status DC Potassium Chloride/Water 100 ml @ 100 mls/hr Q1H IV Last administered on 03/25/20at 20:22; Start 03/25/20 at 17:00; Stop 03/25/20 at 20:59; Status DC Polyethylene Glycol (miraLAX Powder BULK BOTTLE) 238 gm 1X ONCE PO ; Start 03/26/20 at 11:00; Stop 03/26/20 at 09:38; Status DC Magnesium Citrate (Citroma) 296 ml 1X ONCE PO ; Start 03/26/20 at 09:00; Stop 03/26/20 at 09:39; Status DC Bisacodyl (Dulcolax Tab) 10 mg PRN DAILY PRN PO CONSTIPATION; Start 03/26/20 at 10:00; Stop 03/26/20 at 09:39; Status DC Potassium Chloride (Klor-Con) 60 meq 1X ONCE PO Last administered on 03/26/20at 08:30; Start 03/26/20 at 08:30; Stop 03/26/20 at 08:35; Status DC Potassium Chloride (Klor-Con) 40 meq DAILY08 PO ; Start 03/27/20 at 08:00 Potassium Chloride (Klor-Con) 40 meq Q2H PO Last administered on 03/26/20at 16:41; Start 03/26/20 at 10:00; Stop 03/26/20 at 14:01; Status DC Magnesium Sulfate 100 ml @ 25 mls/hr 1X ONCE IV Last administered on 03/26/20at 11:12; Start 03/26/20 at 10:00; Stop 03/26/20 at 13:59; Status DC Hydralazine HCl (Apresoline Inj) 10 mg PRN Q4HRS PRN IVP ELEVATED BP, SEE COMMENTS Last administered on 03/30/20at 08:37; Start 03/26/20 at 13:30 Vancomycin HCl (Vancomycin Oral Solution) 125 mg [id number] PO Last administered on 03/30/20at 08:32; Start 03/26/20 at 17:00; Stop 03/30/20 at 12:04; Status DC Potassium Chloride (Klor-Con) 40 meq Q2H PO ; Start 03/26/20 at 19:00; Stop 03/26/20 at 23:01; Status Cancel Potassium Chloride/Water 100 ml @ 100 mls/hr Q1H IV ; Start 03/26/20 at 18:15; Stop 03/27/20 at 06:14; Status UNV Potassium Chloride/Water 100 ml @ 100 mls/hr Q2H IV Last administered on 03/27/20at 01:53; Start 03/26/20 at 19:00; Stop 03/27/20 at 05:59; Status DC Lorazepam (Ativan Inj) 2 mg PRN Q1HR PRN IV For CIWA 8-14 Last administered on 03/31/20at 08:38; Start 03/26/20 at 19:30 Lorazepam (Ativan Inj) 4 mg PRN Q1HR PRN IV For CIWA 15 or greater Last administered on 03/30/20at 20:41; Start 03/26/20 at 19:30 Nicotine (Nicoderm Cq 21mg) 1 patch DAILY TD Last administered on 03/31/20at 08:41; Start 03/26/20 at 19:30 Haloperidol Lactate (Haldol Inj) 5 mg PRN Q6HRS PRN IVP AGITATION; Start 03/26/20 at 20:15; Status UNV Haloperidol Lactate (Haldol Inj) 5 mg PRN Q4HRS PRN IVP Hallucinatns,Confusn,Delirium Last administered on 03/29/20at 22:18; Start 03/26/20 at 20:15 Diphenhydramine HCl (Benadryl) 25 mg PRN Q15MIN PRN IVP EPS symptoms 2'Haldol admin Last administered on 03/29/20at 23:03; Start 03/26/20 at 20:15 Dexmedetomidine HCl 400 mcg/ Sodium Chloride 100 ml @ 0 mls/hr CONT PRN IV ETOH WITHDRAWAL; Start 03/26/20 at 21:00; Stop 03/29/20 at 13:16; Status DC Potassium Chloride/Water 100 ml @ 100 mls/hr Q1H IV Last administered on 03/27/20at 09:06; Start 03/27/20 at 08:00; Stop 03/27/20 at 09:59; Status DC Multivitamins 10 ml/Thiamine HCl 100 mg/Folic Acid 1 mg/Sodium Chloride 1,011.2 ml @ 100 mls/ hr DAILY IV Last administered on 03/31/20at 08:43; Start 03/27/20 at 09:00; Stop 03/31/20 at 19:07 Pantoprazole Sodium (PROTONIX VIAL for IV PUSH) 40 mg DAILYAC IVP Last administered on 03/31/20at 05:37; Start 03/27/20 at 08:00 Thiamine Mononitrate (Vitamin B-1) 100 mg DAILY PO ; Start 04/01/20 at 09:00 Lactobacillus Rhamnosus (Culturelle) 1 cap BID PO ; Start 03/27/20 at 21:00; Status Cancel Magnesium Sulfate 100 ml @ 25 mls/hr 1X ONCE IV Last administered on 03/28/20at 06:45; Start 03/28/20 at 07:00; Stop 03/28/20 at 10:59; Status DC Potassium Chloride/Water 100 ml @ 100 mls/hr Q1H IV Last administered on 03/28/20at 08:49; Start 03/28/20 at 07:00; Stop 03/28/20 at 08:59; Status DC Potassium Chloride/Water 100 ml @ 100 mls/hr Q1H IV Last administered on 03/29/20at 11:35; Start 03/29/20 at 10:00; Stop 03/29/20 at 11:59; Status DC Potassium Chloride/Dextrose/ Sod Cl 1,000 ml @ 125 mls/hr Q8H IV Last administered on 03/31/20at 00:20; Start 03/29/20 at 09:45 Haloperidol Lactate (Haldol Inj) 5 mg 1X ONCE IVP Last administered on 03/29/20at 11:21; Start 03/29/20 at 11:00; Stop 03/29/20 at 11:01; Status DC Metronidazole 100 ml @ 100 mls/hr Q8HRS IV Last administered on 03/31/20at 12:58; Start 03/29/20 at 14:00 Potassium Chloride/Water 100 ml @ 100 mls/hr Q1H IV Last administered on 03/30/20at 05:48; Start 03/30/20 at 05:00; Stop 03/30/20 at 06:59; Status DC Labetalol HCl (Normodyne Iv Push) 10 mg PRN Q15MIN PRN IVP HYPERTENSION- 2ND CHOICE Last administered on 03/30/20at 12:12; Start 03/30/20 at 11:45 Magnesium Sulfate 50 ml @ 25 mls/hr 1X ONCE IV Last administered on 03/31/20at 05:34; Start 03/31/20 at 06:00; Stop 03/31/20 at 07:59; Status DC Potassium Chloride/Water 100 ml @ 100 mls/hr Q1H IV Last administered on 03/31/20at 07:25; Start 03/31/20 at 06:00; Stop 03/31/20 at 07:59; Status DC Active Scripts Active B-1 (Thiamine HCl) 100 Mg Tablet 100 Mg PO DAILY08 30 Days Folic Acid 0.8 Mg Capsule 1 Cap PO DAILY 30 Days Celexa (Citalopram Hydrobromide) 10 Mg Tablet 10 Mg PO DAILY 30 Days Tylenol (Acetaminophen) 325 Mg Tablet 650 Mg PO PRN Q4HRS PRN 10 Days Vitals/I & O Vital Sign - Last 24 Hours 03/30/20 03/30/20 03/30/20 03/30/20 19:00 20:00 21:37 23:00 Temp 98.5 98.3 98.5 98.3 Pulse 127 101 100 Resp 20 18 18 B/P (MAP) 145/99 (114) 141/88 (105) 145/91 (109) Pulse Ox 99 96 94 O2 Delivery Room Air Room Air Room Air 03/31/20 03/31/20 03/31/20 03/31/20 03:00 07:00 07:24 11:00 Temp 98.3 98.6 98.4 98.3 98.6 98.4 Pulse 101 93 98 Resp 18 18 16 B/P (MAP) 141/93 (109) 143/91 (108) 140/92 (108) Pulse Ox 95 100 99 O2 Delivery Room Air Room Air Room Air Room Air Intake and Output 03/30/20 03/30/20 03/31/20 15:00 23:00 07:00 Intake Total 1100 ml Output Total 1100 ml 700 ml Balance -1100 ml 400 ml Nutrition Consultation Dietary Evaluation: Recommendations by RD: Dietary education by RD, Increase Calorie Intake, Protein supplementation Comments: REC advance diet as able pending mental status, diet per [employer] with ADA/cardiac per pmhx and offer glucerna supplements If unable to advance diet within 24 - 48 hrs, recommend consideration of short-term nutrition support via dobhoff for TFs Expected Outcomes/Goals: diet advancement- not met, goal onogoing Interpretation of weight loss: >10% in 6 months Malnutrition Findings: Food and Nutrition Intake (Sev: <50% est energy req 5days Weight Status: Underweight Justicifation of Admission Dx: Justifications for Admission: Justification of Admission Dx: Yes BRANDON WATSON MD Mar 31, 2020 15:25
[2020-03-31 19:00] VITALS: BP 150/93
[2020-03-31] MEDS: LORazepam 0.5 MG TABLET PO PRN (20:23)
[2020-03-31] MEDS: ENOXAPARIN 40 MG/0.4 ML SYRINGE. SQ SCH (20:24)
[2020-03-31 23:00] VITALS: BP 140/87
[2020-04-01 03:00] VITALS: BP 142/91
[2020-04-01] MEDS: PANTOPRAZOLE IV PUSH 40 MG VIAL. IVP SCH (05:56)
[2020-04-01] MEDS: POTASSIUM CL 20MEQ D5-0.45NACL 1,000 ML IV SCH ×3 (06:17→23:30)
[2020-04-01 07:00] VITALS: BP_SYST 161; BP_SYST 97; BP_DIAS 97
[2020-04-01 07:34] LABS: BASO # 0.1 x10^3/uL (0.0-0.2); BASO % 1 % (0-3); EOS # 0.3 x10^3/uL (0.0-0.7); EOS % 4 % (0-3); HEMATOCRIT 27.8 % (39.0-53.0); HEMOGLOBIN 9.3 g/dL (13.0-17.5); LYMPH % 34 % (24-48); MEAN CORPUSCULAR HEMOGLOBIN 37 pg (25-35); MEAN CORPUSCULAR HGB CONC 33 g/dL (31-37); MEAN CORPUSCULAR VOLUME 110 fL (79-100); MONO # 0.8 x10^3/uL (0.0-1.1); MONO % 9 % (0-9); NEUT # 4.6 x10^3/uL (1.8-7.7); NEUT % 52 % (31-73); PLATELET COUNT 435 x10^3/uL (140-400); RED BLOOD COUNT 2.53 x10^6/uL (4.30-5.70); RED CELL DISTRIBUTION WIDTH 16.6 % (11.5-14.5); WHITE BLOOD COUNT 8.9 x10^3/uL (4.0-11.0)
[2020-04-01 07:56] LABS: CALCIUM 8.2 mg/dL (8.5-10.1); CREATININE 1.5 mg/dL (0.7-1.3); GFR 58.2
[2020-04-01 07:58] LABS: POTASSIUM 2.8 mmol/L (3.5-5.1)
[2020-04-01] MEDS ORDERED: POTASSIUM CHLORIDE 20 MEQ TABLET.ER. PO PRN (08:15)
[2020-04-01] MEDS ORDERED: POTASSIUM CHLORIDE 10MEQ 100 ML IV PRN ×2 (08:15)
[2020-04-01] MEDS ORDERED: POTASSIUM BICARB 20 MEQ EFFERVESCENT TABLET. PO PRN (08:15)
[2020-04-01] MEDS ORDERED: POTASSIUM BICARB 20 MEQ EFFERVESCENT TABLET. FT PRN (08:15)
[2020-04-01] MEDS ORDERED: MAGNESIUM SULFATE 2GM 50 ML IV PRN (08:15)
[2020-04-01] MEDS: LORazepam 0.5 MG TABLET PO PRN (08:56)
[2020-04-01] MEDS: VITAMIN B12,B9,B6 COMPLEX 1 TABLET. PO SCH (08:56)
[2020-04-01] MEDS: THIAMINE 100 MG TABLET. PO SCH (08:56)
[2020-04-01] MEDS: POTASSIUM CHLORIDE 20 MEQ TABLET.ER. PO SCH (08:56)
[2020-04-01] MEDS: NICOTINE 21MG PATCH. TD SCH (08:57)
[2020-04-01] MEDS: POTASSIUM CHLORIDE 10MEQ 100 ML IV SCH ×4 (08:58→11:50)
[2020-04-01] MEDS ORDERED: MAGNESIUM OXIDE 400 MG TABLET PO PRN (09:00)
[2020-04-01] MEDS ORDERED: POTASSIUM & SODIUM PHOSPHATES PACKET. PO PRN (09:00)
--- NOTE | 2020-04-01 09:14 | PDOC ---
DATE OF SERVICE DATE: 04/01/20 TIME: 09:14 SUBJECTIVE ROS No concerns voiced by RN, Pt states feeling good OBJECTIVE Vital Signs Vital Signs Date Time Temp Pulse Resp B/P (MAP) Pulse Ox O2 Delivery O2 Flow Rate FiO2 04/01/20 07:08 Room Air 04/01/20 07:00 98.4 90 16 97/ 98 98.4 I & 0 Intake and Output 04/01/20 06:59 Intake Total 2550 ml Output Total 1425 ml Balance 1125 ml Intake Oral 1200 ml IV Total 1350 ml Output Urine Total 875 ml Stool Total 550 ml # Bowel Movements 5 PHYSICAL EXAM Physical Exam Abdomen: Normal bowel sounds, Soft, No tenderness, No hepatosplenomegaly, No masses Heart: Regular rate, Normal S1, Normal S2, No murmurs, Gallops General: Alert, Oriented X3, Cooperative, No acute distress Lungs: Clear to auscultation, Normal air movement Torres + DIAGNOSIS/ASSESSMENT Assessment & Plan HypoKalemia - Replace IV GI losses , ETOH , malnutrition Hypomg - replace as needed HyperNatremia - Recommend start D5W IV or encourage free water intake if not NPO UW - Worsening renal function, Cr was Normal Suspect 2/2 Diarrhea , IVF Diarrhea- per GI Alcohol abuse and acute withdrawal sepsis, COlitis, c diff, acute toxic and metabolic encephalopathy, concern for Wernicke, has been getting banana bag daily Severe Malnutrition Generalized weakness and debiltiy Macrocytic anemia from alcohol, replacing vitamins Macrocytosis probably from chronic alcohol DM 2 Hypertension- BP stable COMMENT/RELEVANT DATA Meds Current Medications Medications (Trade) Dose Ordered Sig/Steph Start Time Stop Time Status Last Admin Dose Admin Acetaminophen (Tylenol Supp) 650 mg PRN Q4HRS PRN 03/25/20 14:45 Acetaminophen (Tylenol) 650 mg PRN Q4HRS PRN 03/25/20 14:45 Al Hydroxide/Mg Hydroxide (Mylanta Plus Xs) 30 ml PRN DAILY PRN 03/25/20 14:45 Albuterol Sulfate (Ventolin Neb Soln) 2.5 mg PRN Q4HRS PRN 03/25/20 14:45 Bisacodyl (Dulcolax Tab) 10 mg PRN DAILY PRN 03/26/20 10:00 03/26/20 09:39 DC Dexmedetomidine HCl 400 mcg/ Sodium Chloride 100 ml @ 0 mls/hr CONT PRN 03/26/20 21:00 03/29/20 13:16 DC Diphenhydramine HCl (Benadryl) 25 mg PRN Q15MIN PRN 03/26/20 20:15 03/29/20 23:03 25 MG Docusate Sodium (Colace) 100 mg PRN BID PRN 03/25/20 14:45 03/26/20 09:38 DC Enoxaparin Sodium (Lovenox 40mg Syringe) 40 mg Q24H 03/25/20 21:00 03/31/20 20:24 40 MG Guaifenesin (Robitussin) 200 mg PRN Q4HRS PRN 03/25/20 14:45 Haloperidol Lactate (Haldol Inj) 5 mg 1X ONCE 03/29/20 11:00 03/29/20 11:01 DC 03/29/20 11:21 5 MG Hydralazine HCl (Apresoline Inj) 10 mg PRN Q4HRS PRN 03/26/20 13:30 03/30/20 08:37 10 MG Labetalol HCl (Normodyne Iv Push) 10 mg PRN Q15MIN PRN 03/30/20 11:45 03/30/20 12:12 10 MG Lactobacillus Rhamnosus (Culturelle) 1 cap BID 03/27/20 21:00 Cancel Levofloxacin/ Dextrose 150 ml @ 100 mls/hr 1X ONCE 03/25/20 01:30 03/25/20 02:59 DC 03/25/20 02:46 100 MLS/HR Lorazepam (Ativan Inj) 4 mg PRN Q1HR PRN 03/26/20 19:30 03/30/20 20:41 4 MG Lorazepam (Ativan) 0.5 mg PRN Q4HRS PRN 03/25/20 14:45 04/01/20 08:56 0.5 MG Magnesium Citrate (Citroma) 296 ml 1X ONCE 03/26/20 09:00 03/26/20 09:39 DC Magnesium Oxide (Magnesium Oxide) 400 mg PRN BID PRN 04/01/20 09:00 Magnesium Sulfate 50 ml @ 25 mls/hr PRN DAILY PRN 04/01/20 08:15 Metronidazole 100 ml @ 100 mls/hr Q8HRS 03/29/20 14:00 04/01/20 05:56 100 MLS/HR Multi-Ingredient Mouthwash/Gargle (Gi Cocktail) 20 ml PRN QID PRN 03/25/20 16:15 03/25/20 20:23 20 ML Multivitamins 10 ml/Thiamine HCl 100 mg/Folic Acid 1 mg/Sodium Chloride 1,011.2 ml @ 100 mls/ hr DAILY 03/27/20 09:00 03/31/20 19:07 DC 03/31/20 08:43 100 MLS/HR Nicotine (Nicoderm Cq 21mg) 1 patch DAILY 03/26/20 19:30 04/01/20 08:57 1 PATCH Ondansetron HCl (Zofran) 4 mg PRN Q4HRS PRN 03/25/20 14:45 Pantoprazole Sodium (PROTONIX VIAL for IV PUSH) 40 mg DAILYAC 03/27/20 08:00 04/01/20 05:56 40 MG Pantoprazole Sodium (Protonix) 40 mg DAILYAC 03/25/20 16:30 03/27/20 07:43 DC 03/26/20 07:30 40 MG Polyethylene Glycol (miraLAX Powder BULK BOTTLE) 238 gm 1X ONCE 03/26/20 11:00 03/26/20 09:38 DC Potassium Bicarbonate (Potassium Effervescent Tablet) 40 meq PRN Q4HRS PRN 04/01/20 08:15 Potassium Chloride/Dextrose/ Sod Cl 1,000 ml @ 125 mls/hr Q8H 03/29/20 09:45 04/01/20 06:17 125 MLS/HR Potassium Chloride/Water 100 ml @ 100 mls/hr Q1HR 04/01/20 09:00 04/01/20 12:59 04/01/20 08:58 100 MLS/HR Potassium Chloride (Klor-Con) 40 meq 1X PREOP PRN 04/01/20 08:15 Potassium Phos/ Sodium Phos (Phos-Nak) 1 pkt PRN BID PRN 04/01/20 09:00 Sodium Chloride 1,000 ml @ 100 mls/hr Q10H 03/25/20 14:31 03/29/20 09:37 DC 03/29/20 08:23 100 MLS/HR Sodium Chloride (Normal Saline Flush) 3 ml QSHIFT PRN 03/25/20 14:45 Thiamine Mononitrate (Vitamin B-1) 100 mg DAILY 04/01/20 09:00 04/01/20 08:56 100 MG Vancomycin HCl (Vancomycin Oral Solution) 125 mg [id number] 03/26/20 17:00 03/30/20 12:04 DC 03/30/20 08:32 125 MG Vitamin B Complex (Folbic Tablet) 1 tab DAILY 03/25/20 09:00 04/01/20 08:56 1 TAB Lab Laboratory Tests Test 03/31/20 12:09 04/01/20 06:10 Sodium Level 152 mmol/L (136-145) 151 mmol/L (136-145) Potassium Level 3.3 mmol/L (3.5-5.1) 2.8 mmol/L (3.5-5.1) Chloride Level 116 mmol/L (98-107) 115 mmol/L (98-107) Carbon Dioxide Level 27 mmol/L (21-32) 26 mmol/L (21-32) Anion Gap 9 (6-14) 10 (6-14) Blood Urea Nitrogen 4 mg/dL (8-26) 3 mg/dL (8-26) Creatinine 1.4 mg/dL (0.7-1.3) 1.5 mg/dL (0.7-1.3) Estimated GFR (Cockcroft-Gault) 63.0 58.2 Glucose Level 87 mg/dL (70-99) 100 mg/dL (70-99) Calcium Level 8.4 mg/dL (8.5-10.1) 8.2 mg/dL (8.5-10.1) Magnesium Level 1.8 mg/dL (1.8-2.4) White Blood Count 8.9 x10^3/uL (4.0-11.0) Red Blood Count 2.53 x10^6/uL (4.30-5.70) Hemoglobin 9.3 g/dL (13.0-17.5) Hematocrit 27.8 % (39.0-53.0) Mean Corpuscular Volume 110 fL (79-100) Mean Corpuscular Hemoglobin 37 pg (25-35) Mean Corpuscular Hemoglobin Concent 33 g/dL (31-37) Red Cell Distribution Width 16.6 % (11.5-14.5) Platelet Count 435 x10^3/uL (140-400) Neutrophils (%) (Auto) 52 % (31-73) Lymphocytes (%) (Auto) 34 % (24-48) Monocytes (%) (Auto) 9 % (0-9) Eosinophils (%) (Auto) 4 % (0-3) Basophils (%) (Auto) 1 % (0-3) Neutrophils # (Auto) 4.6 x10^3/uL (1.8-7.7) Lymphocytes # (Auto) 3.0 x10^3/uL (1.0-4.8) Monocytes # (Auto) 0.8 x10^3/uL (0.0-1.1) Eosinophils # (Auto) 0.3 x10^3/uL (0.0-0.7) Basophils # (Auto) 0.1 x10^3/uL (0.0-0.2) Results All relevant outside records, renal labs, imaging studies, telemetry/EKG's were reviewed. Justicifation of Admission Dx: Justifications for Admission: Justification of Admission Dx: Yes TENNILLE BEVERLY MD Apr 01, 2020 09:14
--- NOTE | 2020-04-01 09:36 | NUR ---
RAJNI following. Discussed with RN, pt more alert today, appropriate for PAT to come and assess. Pt still has critical potassium, has been upgraded to dysphagia 3. RAJNI will continue to follow. Addendum: 04/01/20 at 1023 by ELIZA URBAN Etienne (BERNARDINO) actually met with pt yesterday. Pt reported he smokes marijuana and drinks a pint of vodka a day, but does not feel this is an issue. Pt reported no depression, no SI, but does have some anxiety. Pt referral to [facility], [facility] and [facility]. Cleared by BERNARDINO.
--- NOTE | 2020-04-01 10:58 | PDOC ---
Date of Service: DATE: 04/01/20 TIME: 10:55 Subjective: Subjective: Feels better, doesn't like thickened liquids. Diarrhea is better but still there. Objective: Vital Signs: Vital Signs Date Time Temp Pulse Resp B/P (MAP) Pulse Ox O2 Delivery O2 Flow Rate FiO2 04/01/20 07:08 Room Air 04/01/20 07:00 98.4 90 16 161/97 (118) 98 98.4 Labs: Laboratory Tests Test 03/31/20 12:09 04/01/20 06:10 Sodium Level 152 mmol/L 151 mmol/L Potassium Level 3.3 mmol/L 2.8 mmol/L Chloride Level 116 mmol/L 115 mmol/L Carbon Dioxide Level 27 mmol/L 26 mmol/L Anion Gap 9 10 Blood Urea Nitrogen 4 mg/dL 3 mg/dL Creatinine 1.4 mg/dL 1.5 mg/dL Estimated GFR (Cockcroft-Gault) 63.0 58.2 Glucose Level 87 mg/dL 100 mg/dL Calcium Level 8.4 mg/dL 8.2 mg/dL Magnesium Level 1.8 mg/dL White Blood Count 8.9 x10^3/uL Red Blood Count 2.53 x10^6/uL Hemoglobin 9.3 g/dL Hematocrit 27.8 % Mean Corpuscular Volume 110 fL Mean Corpuscular Hemoglobin 37 pg Mean Corpuscular Hemoglobin Concent 33 g/dL Red Cell Distribution Width 16.6 % Platelet Count 435 x10^3/uL Neutrophils (%) (Auto) 52 % Lymphocytes (%) (Auto) 34 % Monocytes (%) (Auto) 9 % Eosinophils (%) (Auto) 4 % Basophils (%) (Auto) 1 % Neutrophils # (Auto) 4.6 x10^3/uL Lymphocytes # (Auto) 3.0 x10^3/uL Monocytes # (Auto) 0.8 x10^3/uL Eosinophils # (Auto) 0.3 x10^3/uL Basophils # (Auto) 0.1 x10^3/uL PE: GEN: NAD - sitting up in bed eating breakfast LUNGS: CTAB HEART: RRR ABD: soft NEURO/PSYCH: A & O 3 A/P: Alcohol withdrawal, dysphagia Hypokalemia, hypernatremia C Diff -- Thickened liquids per [employer] - ?okay for PO vanco Justicifation of Admission Dx: Justifications for Admission: Justification of Admission Dx: Yes HOSEA RUBIO Apr 01, 2020 10:58
[2020-04-01 11:00] VITALS: BP 157/94
[2020-04-01] MEDS ORDERED: PANTOPRAZOLE 40 MG TABLET.DR. PO SCH (11:30)
[2020-04-01 15:00] VITALS: BP 134/86
--- NOTE | 2020-04-01 18:54 | PDOC ---
PROGRESS NOTES Date of Service: DATE: 04/01/20 TIME: 18:53 Chief Complaint Chief Complaint Alcohol abuse and acute withdrawl sepsis, COlitis, c diff, on vanc and in isolation acute toxic and metabolic encephalopathy, concern for Wernicke, has been getting banana bag daily Hypokalemia , hypernatreia, severe Malnutrition Generalized weakness and debiltiy Back pain Hypomagnesemia Macrocytic anemia from alcohol, replacing vitamins Macrocytosis probably from chronic alcohol Leukocytosis DM 2 Hypertension History of Present Illness History of Present Illness Patient state she feels fine. Still with diarrhea. No nausea or vomiting. Vitals Vitals Vital Signs Date Time Temp Pulse Resp B/P (MAP) Pulse Ox O2 Delivery O2 Flow Rate FiO2 04/01/20 15:00 98.3 92 16 134/86 (102) 92 Room Air 98.3 Physical Exam General: No acute distress, Other (Somnolent, difficult to arouse, snoring loudly) Heart: Regular rate, No murmurs, Gallops Lungs: Clear Abdomen: Normal bowel sounds, Soft, No tenderness Extremities: No clubbing, No cyanosis, No edema, Normal pulses Skin: No breakdown Labs LABS Laboratory Tests Test 04/01/20 06:10 04/01/20 16:15 White Blood Count 8.9 x10^3/uL (4.0-11.0) Red Blood Count 2.53 x10^6/uL (4.30-5.70) Hemoglobin 9.3 g/dL (13.0-17.5) Hematocrit 27.8 % (39.0-53.0) Mean Corpuscular Volume 110 fL (79-100) Mean Corpuscular Hemoglobin 37 pg (25-35) Mean Corpuscular Hemoglobin Concent 33 g/dL (31-37) Red Cell Distribution Width 16.6 % (11.5-14.5) Platelet Count 435 x10^3/uL (140-400) Neutrophils (%) (Auto) 52 % (31-73) Lymphocytes (%) (Auto) 34 % (24-48) Monocytes (%) (Auto) 9 % (0-9) Eosinophils (%) (Auto) 4 % (0-3) Basophils (%) (Auto) 1 % (0-3) Neutrophils # (Auto) 4.6 x10^3/uL (1.8-7.7) Lymphocytes # (Auto) 3.0 x10^3/uL (1.0-4.8) Monocytes # (Auto) 0.8 x10^3/uL (0.0-1.1) Eosinophils # (Auto) 0.3 x10^3/uL (0.0-0.7) Basophils # (Auto) 0.1 x10^3/uL (0.0-0.2) Sodium Level 151 mmol/L (136-145) Potassium Level 2.8 mmol/L (3.5-5.1) 3.6 mmol/L (3.5-5.1) Chloride Level 115 mmol/L (98-107) Carbon Dioxide Level 26 mmol/L (21-32) Anion Gap 10 (6-14) Blood Urea Nitrogen 3 mg/dL (8-26) Creatinine 1.5 mg/dL (0.7-1.3) Estimated GFR (Cockcroft-Gault) 58.2 Glucose Level 100 mg/dL (70-99) Calcium Level 8.2 mg/dL (8.5-10.1) Review of Systems Review of Systems Diarrhea. Denies nausea, vomiting. All other review of systems negative Assessment and Plan Assessmemt and Plan Problems Medical Problems: (1) Back pain Status: Acute (2) Colitis Status: Acute (3) Generalized weakness Status: Acute (4) Hypokalemia Status: Acute (5) Hypomagnesemia Status: Acute Plan: We will switch patient to oral vancomycin once he is able to pass a swallow study. At that time he will be stable for discharge. Comment Review of Relevant I have reviewed the following items adonis (where applicable) has been applied. Labs Laboratory Tests Test 03/31/20 04:10 03/31/20 12:09 04/01/20 06:10 04/01/20 16:15 White Blood Count 10.3 x10^3/uL (4.0-11.0) 8.9 x10^3/uL (4.0-11.0) Red Blood Count 2.55 x10^6/uL (4.30-5.70) 2.53 x10^6/uL (4.30-5.70) Hemoglobin 9.5 g/dL (13.0-17.5) 9.3 g/dL (13.0-17.5) Hematocrit 27.8 % (39.0-53.0) 27.8 % (39.0-53.0) Mean Corpuscular Volume 109 fL (79-100) 110 fL (79-100) Mean Corpuscular Hemoglobin 37 pg (25-35) 37 pg (25-35) Mean Corpuscular Hemoglobin Concent 34 g/dL (31-37) 33 g/dL (31-37) Red Cell Distribution Width 16.3 % (11.5-14.5) 16.6 % (11.5-14.5) Platelet Count 443 x10^3/uL (140-400) 435 x10^3/uL (140-400) Neutrophils (%) (Auto) 58 % (31-73) 52 % (31-73) Lymphocytes (%) (Auto) 27 % (24-48) 34 % (24-48) Monocytes (%) (Auto) 12 % (0-9) 9 % (0-9) Eosinophils (%) (Auto) 3 % (0-3) 4 % (0-3) Basophils (%) (Auto) 0 % (0-3) 1 % (0-3) Neutrophils # (Auto) 6.0 x10^3/uL (1.8-7.7) 4.6 x10^3/uL (1.8-7.7) Lymphocytes # (Auto) 2.8 x10^3/uL (1.0-4.8) 3.0 x10^3/uL (1.0-4.8) Monocytes # (Auto) 1.2 x10^3/uL (0.0-1.1) 0.8 x10^3/uL (0.0-1.1) Eosinophils # (Auto) 0.3 x10^3/uL (0.0-0.7) 0.3 x10^3/uL (0.0-0.7) Basophils # (Auto) 0.0 x10^3/uL (0.0-0.2) 0.1 x10^3/uL (0.0-0.2) Sodium Level 153 mmol/L (136-145) 152 mmol/L (136-145) 151 mmol/L (136-145) Potassium Level 2.9 mmol/L (3.5-5.1) 3.3 mmol/L (3.5-5.1) 2.8 mmol/L (3.5-5.1) 3.6 mmol/L (3.5-5.1) Chloride Level 116 mmol/L (98-107) 116 mmol/L (98-107) 115 mmol/L (98-107) Carbon Dioxide Level 29 mmol/L (21-32) 27 mmol/L (21-32) 26 mmol/L (21-32) Anion Gap 8 (6-14) 9 (6-14) 10 (6-14) Blood Urea Nitrogen 4 mg/dL (8-26) 4 mg/dL (8-26) 3 mg/dL (8-26) Creatinine 1.3 mg/dL (0.7-1.3) 1.4 mg/dL (0.7-1.3) 1.5 mg/dL (0.7-1.3) Estimated GFR (Cockcroft-Gault) 68.6 63.0 58.2 Glucose Level 95 mg/dL (70-99) 87 mg/dL (70-99) 100 mg/dL (70-99) Calcium Level 8.4 mg/dL (8.5-10.1) 8.4 mg/dL (8.5-10.1) 8.2 mg/dL (8.5-10.1) Phosphorus Level 4.9 mg/dL (2.6-4.7) Magnesium Level 1.5 mg/dL (1.8-2.4) 1.8 mg/dL (1.8-2.4) Laboratory Tests Test 04/01/20 06:10 04/01/20 16:15 White Blood Count 8.9 x10^3/uL (4.0-11.0) Red Blood Count 2.53 x10^6/uL (4.30-5.70) Hemoglobin 9.3 g/dL (13.0-17.5) Hematocrit 27.8 % (39.0-53.0) Mean Corpuscular Volume 110 fL (79-100) Mean Corpuscular Hemoglobin 37 pg (25-35) Mean Corpuscular Hemoglobin Concent 33 g/dL (31-37) Red Cell Distribution Width 16.6 % (11.5-14.5) Platelet Count 435 x10^3/uL (140-400) Neutrophils (%) (Auto) 52 % (31-73) Lymphocytes (%) (Auto) 34 % (24-48) Monocytes (%) (Auto) 9 % (0-9) Eosinophils (%) (Auto) 4 % (0-3) Basophils (%) (Auto) 1 % (0-3) Neutrophils # (Auto) 4.6 x10^3/uL (1.8-7.7) Lymphocytes # (Auto) 3.0 x10^3/uL (1.0-4.8) Monocytes # (Auto) 0.8 x10^3/uL (0.0-1.1) Eosinophils # (Auto) 0.3 x10^3/uL (0.0-0.7) Basophils # (Auto) 0.1 x10^3/uL (0.0-0.2) Sodium Level 151 mmol/L (136-145) Potassium Level 2.8 mmol/L (3.5-5.1) 3.6 mmol/L (3.5-5.1) Chloride Level 115 mmol/L (98-107) Carbon Dioxide Level 26 mmol/L (21-32) Anion Gap 10 (6-14) Blood Urea Nitrogen 3 mg/dL (8-26) Creatinine 1.5 mg/dL (0.7-1.3) Estimated GFR (Cockcroft-Gault) 58.2 Glucose Level 100 mg/dL (70-99) Calcium Level 8.2 mg/dL (8.5-10.1) Microbiology 03/26/20 Urine Culture - Final, Complete 03/25/20 Fecal Leukocyte Stain - Final, Complete 03/24/20 Blood Culture - Final, Complete NO GROWTH AFTER 5 DAYS Medications Current Medications Magnesium Sulfate 50 ml @ 25 mls/hr 1X ONCE IV Last administered on 03/25/20at 01:16; Start 03/25/20 at 00:45; Stop 03/25/20 at 02:44; Status DC Potassium Chloride/Water 100 ml @ 50 mls/hr 1X ONCE IV Last administered on 03/25/20at 01:16; Start 03/25/20 at 01:00; Stop 03/25/20 at 02:59; Status DC Potassium Chloride (Klor-Con) 40 meq 1X ONCE PO Last administered on 03/25/20at 01:15; Start 03/25/20 at 00:45; Stop 03/25/20 at 00:46; Status DC Potassium Chloride/Water 100 ml @ 50 mls/hr 1X ONCE IV Last administered on 03/25/20at 02:48; Start 03/25/20 at 03:00; Stop 03/25/20 at 04:59; Status DC Metronidazole 100 ml @ 100 mls/hr 1X ONCE IV Last administered on 03/25/20at 02:47; Start 03/25/20 at 01:30; Stop 03/25/20 at 02:29; Status DC Levofloxacin/ Dextrose 150 ml @ 100 mls/hr 1X ONCE IV Last administered on 03/25/20at 02:46; Start 03/25/20 at 01:30; Stop 03/25/20 at 02:59; Status DC Sodium Chloride 1,000 ml @ 1,000 mls/hr 1X ONCE IV Last administered on 03/25/20at 02:46; Start 03/25/20 at 01:30; Stop 03/25/20 at 02:29; Status DC Ondansetron HCl (Zofran) 4 mg PRN Q8HRS PRN IV NAUSEA/VOMITING; Start 03/25/20 at 02:00; Stop 03/25/20 at 16:47; Status DC Potassium Chloride (Klor-Con) 40 meq TIDWMEALS ONCE PO Last administered on 03/25/20at 13:01; Start 03/25/20 at 08:00; Stop 03/25/20 at 08:01; Status DC Potassium Chloride (Klor-Con) 40 meq 1X ONCE PO Last administered on 03/25/20at 05:42; Start 03/25/20 at 05:30; Stop 03/25/20 at 05:31; Status DC Potassium Chloride/Water 100 ml @ 100 mls/hr Q1H IV Last administered on 03/25/20at 13:00; Start 03/25/20 at 05:30; Stop 03/25/20 at 07:29; Status DC Magnesium Sulfate 100 ml @ 25 mls/hr 1X ONCE IV Last administered on 03/25/20at 05:41; Start 03/25/20 at 05:30; Stop 03/25/20 at 09:29; Status DC Potassium Chloride/Dextrose/ Sod Cl 1,000 ml @ 100 mls/hr Q10H IV Last administered on 03/26/20at 02:23; Start 03/25/20 at 08:00; Stop 03/26/20 at 09:31; Status DC Vitamin B Complex (Folbic Tablet) 1 tab DAILY PO Last administered on 04/01/20at 08:56; Start 03/25/20 at 09:00 Thiamine Mononitrate (Vitamin B-1) 100 mg DAILY PO Last administered on 03/26/20at 09:00; Start 03/25/20 at 09:00; Stop 03/27/20 at 15:58; Status DC Sodium Chloride (Normal Saline Flush) 3 ml QSHIFT PRN IV AFTER MEDS AND BLOOD DRAWS; Start 03/25/20 at 14:45 Sodium Chloride 1,000 ml @ 100 mls/hr Q10H IV Last administered on 03/29/20at 08:23; Start 03/25/20 at 14:31; Stop 03/29/20 at 09:37; Status DC Ondansetron HCl (Zofran) 4 mg PRN Q4HRS PRN IV NAUSEA/VOMITING; Start 03/25/20 at 14:45 Acetaminophen (Tylenol) 650 mg PRN Q4HRS PRN PO TEMP OVER 100.4F OR MILD PAIN; Start 03/25/20 at 14:45 Acetaminophen (Tylenol Supp) 650 mg PRN Q4HRS PRN FL TEMP OVER 100.4F OR MILD PAIN; Start 03/25/20 at 14:45 Al Hydroxide/Mg Hydroxide (Mylanta Plus Xs) 30 ml PRN DAILY PRN PO HEARTBURN / GAS; Start 03/25/20 at 14:45 Docusate Sodium (Colace) 100 mg PRN BID PRN PO HARD STOOLS; Start 03/25/20 at 14:45; Stop 03/26/20 at 09:38; Status DC Albuterol Sulfate (Ventolin Neb Soln) 2.5 mg PRN Q4HRS PRN NEB SHORTNESS OF BREATH; Start 03/25/20 at 14:45 Guaifenesin (Robitussin) 200 mg PRN Q4HRS PRN PO COUGH; Start 03/25/20 at 14:45 Lorazepam (Ativan) 0.5 mg PRN Q4HRS PRN PO ANXIETY / AGITATION Last administered on 04/01/20at 08:56; Start 03/25/20 at 14:45 Enoxaparin Sodium (Lovenox 40mg Syringe) 40 mg Q24H SQ Last administered on 03/31/20at 20:24; Start 03/25/20 at 21:00 Pantoprazole Sodium (Protonix) 40 mg DAILYAC PO Last administered on 03/26/20at 07:30; Start 03/25/20 at 16:30; Stop 03/27/20 at 07:43; Status DC Multi-Ingredient Mouthwash/Gargle (Gi Cocktail) 20 ml PRN QID PRN PO epigastric pain Last administered on 03/25/20at 20:23; Start 03/25/20 at 16:15 Potassium Chloride (Klor-Con) 40 meq 1X ONCE PO Last administered on 03/25/20at 17:26; Start 03/25/20 at 16:45; Stop 03/25/20 at 16:46; Status DC Potassium Chloride (Klor-Con) 20 meq 1X ONCE PO Last administered on 03/25/20at 20:22; Start 03/25/20 at 19:00; Stop 03/25/20 at 19:01; Status DC Potassium Chloride/Water 100 ml @ 100 mls/hr Q1H IV Last administered on 03/25/20at 20:22; Start 03/25/20 at 17:00; Stop 03/25/20 at 20:59; Status DC Polyethylene Glycol (miraLAX Powder BULK BOTTLE) 238 gm 1X ONCE PO ; Start 03/26/20 at 11:00; Stop 03/26/20 at 09:38; Status DC Magnesium Citrate (Citroma) 296 ml 1X ONCE PO ; Start 03/26/20 at 09:00; Stop 03/26/20 at 09:39; Status DC Bisacodyl (Dulcolax Tab) 10 mg PRN DAILY PRN PO CONSTIPATION; Start 03/26/20 at 10:00; Stop 03/26/20 at 09:39; Status DC Potassium Chloride (Klor-Con) 60 meq 1X ONCE PO Last administered on 03/26/20at 08:30; Start 03/26/20 at 08:30; Stop 03/26/20 at 08:35; Status DC Potassium Chloride (Klor-Con) 40 meq DAILY08 PO Last administered on 04/01/20at 08:56; Start 03/27/20 at 08:00 Potassium Chloride (Klor-Con) 40 meq Q2H PO Last administered on 03/26/20at 1 6:41; Start 03/26/20 at 10:00; Stop 03/26/20 at 14:01; Status DC Magnesium Sulfate 100 ml @ 25 mls/hr 1X ONCE IV Last administered on 03/26/20at 11:12; Start 03/26/20 at 10:00; Stop 03/26/20 at 13:59; Status DC Hydralazine HCl (Apresoline Inj) 10 mg PRN Q4HRS PRN IVP ELEVATED BP, SEE COMMENTS Last administered on 03/30/20at 08:37; Start 03/26/20 at 13:30 Vancomycin HCl (Vancomycin Oral Solution) 125 mg [id number] PO Last administered on 03/30/20at 08:32; Start 03/26/20 at 17:00; Stop 03/30/20 at 12:04; Status DC Potassium Chloride (Klor-Con) 40 meq Q2H PO ; Start 03/26/20 at 19:00; Stop 03/26/20 at 23:01; Status Cancel Potassium Chloride/Water 100 ml @ 100 mls/hr Q1H IV ; Start 03/26/20 at 18:15; Stop 03/27/20 at 06:14; Status UNV Potassium Chloride/Water 100 ml @ 100 mls/hr Q2H IV Last administered on 03/27/20at 01:53; Start 03/26/20 at 19:00; Stop 03/27/20 at 05:59; Status DC Lorazepam (Ativan Inj) 2 mg PRN Q1HR PRN IV For CIWA 8-14 Last administered on 03/31/20at 23:35; Start 03/26/20 at 19:30 Lorazepam (Ativan Inj) 4 mg PRN Q1HR PRN IV For CIWA 15 or greater Last administered on 03/30/20at 20:41; Start 03/26/20 at 19:30 Nicotine (Nicoderm Cq 21mg) 1 patch DAILY TD Last administered on 04/01/20at 08:57; Start 03/26/20 at 19:30 Haloperidol Lactate (Haldol Inj) 5 mg PRN Q6HRS PRN IVP AGITATION; Start 03/26/20 at 20:15; Status UNV Haloperidol Lactate (Haldol Inj) 5 mg PRN Q4HRS PRN IVP Hallucinatns,Confusn,Delirium Last administered on 03/29/20at 22:18; Start 03/26/20 at 20:15 Diphenhydramine HCl (Benadryl) 25 mg PRN Q15MIN PRN IVP EPS symptoms 2'Haldol admin Last administered on 03/29/20at 23:03; Start 03/26/20 at 20:15 Dexmedetomidine HCl 400 mcg/ Sodium Chloride 100 ml @ 0 mls/hr CONT PRN IV ETOH WITHDRAWAL; Start 03/26/20 at 21:00; Stop 03/29/20 at 13:16; Status DC Potassium Chloride/Water 100 ml @ 100 mls/hr Q1H IV Last administered on 03/27/20at 09:06; Start 03/27/20 at 08:00; Stop 03/27/20 at 09:59; Status DC Multivitamins 10 ml/Thiamine HCl 100 mg/Folic Acid 1 mg/Sodium Chloride 1,011.2 ml @ 100 mls/ hr DAILY IV Last administered on 03/31/20at 08:43; Start 03/27/20 at 09:00; Stop 03/31/20 at 19:07; Status DC Pantoprazole Sodium (PROTONIX VIAL for IV PUSH) 40 mg DAILYAC IVP Last administered on 04/01/20at 05:56; Start 03/27/20 at 08:00; Stop 04/01/20 at 10:58; Status DC Thiamine Mononitrate (Vitamin B-1) 100 mg DAILY PO Last administered on 04/01/20at 08:56; Start 04/01/20 at 09:00 Lactobacillus Rhamnosus (Culturelle) 1 cap BID PO ; Start 03/27/20 at 21:00; Status Cancel Magnesium Sulfate 100 ml @ 25 mls/hr 1X ONCE IV Last administered on 03/28/20at 06:45; Start 03/28/20 at 07:00; Stop 03/28/20 at 10:59; Status DC Potassium Chloride/Water 100 ml @ 100 mls/hr Q1H IV Last administered on 03/28/20at 08:49; Start 03/28/20 at 07:00; Stop 03/28/20 at 08:59; Status DC Potassium Chloride/Water 100 ml @ 100 mls/hr Q1H IV Last administered on 03/29/20at 11:35; Start 03/29/20 at 10:00; Stop 03/29/20 at 11:59; Status DC Potassium Chloride/Dextrose/ Sod Cl 1,000 ml @ 125 mls/hr Q8H IV Last adminis tered on 04/01/20at 14:30; Start 03/29/20 at 09:45 Haloperidol Lactate (Haldol Inj) 5 mg 1X ONCE IVP Last administered on at 11:21; Start 03/29/20 at 11:00; Stop 03/29/20 at 11:01; Status DC Metronidazole 100 ml @ 100 mls/hr Q8HRS IV Last administered on 04/01/20at 13:10; Start 03/29/20 at 14:00 Potassium Chloride/Water 100 ml @ 100 mls/hr Q1H IV Last administered on at 05:48; Start 03/30/20 at 05:00; Stop 03/30/20 at 06:59; Status DC Labetalol HCl (Normodyne Iv Push) 10 mg PRN Q15MIN PRN IVP HYPERTENSION- 2ND CHOICE Last administered on 03/30/20at 12:12; Start 03/30/20 at 11:45 Magnesium Sulfate 50 ml @ 25 mls/hr 1X ONCE IV Last administered on 03/31/20at 05:34; Start 03/31/20 at 06:00; Stop 03/31/20 at 07:59; Status DC Potassium Chloride/Water 100 ml @ 100 mls/hr Q1H IV Last administered on 03/31/20at 07:25; Start 03/31/20 at 06:00; Stop 03/31/20 at 07:59; Status DC Potassium Chloride (Klor-Con) 40 meq 1X PREOP PRN PO SEE COMMENTS; Start 04/01/20 at 08:15 Potassium Bicarbonate (Potassium Effervescent Tablet) 40 meq 1X PRN PRN FT SEE COMMENTS; Start 04/01/20 at 08:15 Magnesium Oxide (Magnesium Oxide) 400 mg PRN BID PRN PO SEE COMMENTS; Start 04/01/20 at 09:00 Potassium Chloride/Water 100 ml @ 100 mls/hr PRN Q1HR PRN IV SEE COMMENTS; Start 04/01/20 at 08:15 Magnesium Sulfate 50 ml @ 25 mls/hr PRN DAILY PRN IV SEE COMMENTS; Start 04/01/20 at 08:15 Potassium Phos/ Sodium Phos (Phos-Nak) 1 pkt PRN BID PRN PO SEE COMMENTS; Start 04/01/20 at 09:00 Potassium Bicarbonate (Potassium Effervescent Tablet) 40 meq PRN Q4HRS PRN PO SEE COMMENTS; Start 04/01/20 at 08:15 Potassium Chloride/Water 100 ml @ 100 mls/hr PRN Q1HR PRN IV SEE COMMENTS; Start 04/01/20 at 08:15 Potassium Chloride/Water 100 ml @ 100 mls/hr Q1HR IV Last administered on 04/01/20at 11:50; Start 04/01/20 at 09:00; Stop 04/01/20 at 12:59; Status DC Lactobacillus Rhamnosus (Culturelle) 1 cap BID PO ; Start 04/01/20 at 21:00 Pantoprazole Sodium (Protonix) 40 mg DAILYAC PO ; Start 04/01/20 at 11:30; Stop 04/01/20 at 11:06; Status DC Pantoprazole Sodium (Protonix) 40 mg DAILYAC PO ; Start 04/02/20 at 07:30 Active Scripts Active B-1 (Thiamine HCl) 100 Mg Tablet 100 Mg PO DAILY08 30 Days Folic Acid 0.8 Mg Capsule 1 Cap PO DAILY 30 Days Celexa (Citalopram Hydrobromide) 10 Mg Tablet 10 Mg PO DAILY 30 Days Tylenol (Acetaminophen) 325 Mg Tablet 650 Mg PO PRN Q4HRS PRN 10 Days Vitals/I & O Vital Sign - Last 24 Hours 03/31/20 03/31/20 03/31/20 04/01/20 19:00 20:00 23:00 03:00 Temp 98.4 97.9 98.3 98.4 97.9 98.3 Pulse 98 99 101 Resp 20 20 20 B/P (MAP) 150/93 (112) 140/87 (104) 142/91 (108) Pulse Ox 98 95 98 O2 Delivery Room Air Room Air Room Air Room Air 04/01/20 04/01/20 04/01/20 04/01/20 07:00 07:08 11:00 15:00 Temp 98.4 97.8 98.3 98.4 97.8 98.3 Pulse 90 97 92 Resp 16 16 16 B/P (MAP) 161/97 (118) 157/94 (115) 134/86 (102) Pulse Ox 98 97 92 O2 Delivery Room Air Room Air Room Air Room Air Intake and Output 03/31/20 03/31/20 04/01/20 15:00 23:00 07:00 Intake Total 250 ml 2000 ml 300 ml Output Total 900 ml 525 ml Balance 250 ml 1100 ml -225 ml Nutrition Consultation Dietary Evaluation: Recommendations by RD: Dietary education by RD, Increase Calorie Intake, Protein supplementation Comments: REC advance diet as able pending mental status, diet per [employer] with ADA/cardiac per pmhx and offer glucerna supplements If unable to advance diet within 24 - 48 hrs, recommend consideration of short-term nutrition support via dobhoff for TFs Expected Outcomes/Goals: diet advancement- not met, goal onogoing Interpretation of weight loss: >10% in 6 months Malnutrition Findings: Food and Nutrition Intake (Sev: <50% est energy req 5days Weight Status: Underweight Justicifation of Admission Dx: Justifications for Admission: Justification of Admission Dx: Yes BRANDON WATSON MD Apr 01, 2020 18:54
[2020-04-01 19:00] VITALS: BP 144/89
[2020-04-01] MEDS ORDERED: hydrOXYzine 25 MG TABLET PO PRN (20:15)
[2020-04-01] MEDS: ENOXAPARIN 40 MG/0.4 ML SYRINGE. SQ SCH (21:00)
[2020-04-01] MEDS: LACTOBACILLUS RHAMNOSUS GG 1 CAPSULE. PO SCH (21:56)
[2020-04-01 23:00] VITALS: BP 136/85
[2020-04-02 03:00] VITALS: BP 134/89
[2020-04-02 06:31] LABS: BASO # 0.1 x10^3/uL (0.0-0.2); BASO % 1 % (0-3); EOS # 0.4 x10^3/uL (0.0-0.7); EOS % 4 % (0-3); HEMATOCRIT 26.2 % (39.0-53.0); LYMPH # 3.2 x10^3/uL (1.0-4.8); LYMPH % 31 % (24-48); MEAN CORPUSCULAR HEMOGLOBIN 38 pg (25-35); MEAN CORPUSCULAR HGB CONC 34 g/dL (31-37); MEAN CORPUSCULAR VOLUME 109 fL (79-100); MONO # 0.7 x10^3/uL (0.0-1.1); MONO % 7 % (0-9); NEUT # 5.9 x10^3/uL (1.8-7.7); NEUT % 58 % (31-73); PLATELET COUNT 407 x10^3/uL (140-400); RED CELL DISTRIBUTION WIDTH 16.7 % (11.5-14.5); WHITE BLOOD COUNT 10.3 x10^3/uL (4.0-11.0)
[2020-04-02 06:56] LABS: CALCIUM 8.2 mg/dL (8.5-10.1); CREATININE 1.4 mg/dL (0.7-1.3); POTASSIUM 3.7 mmol/L (3.5-5.1)
[2020-04-02 07:00] VITALS: BP 143/94
[2020-04-02] MEDS ORDERED: PANTOPRAZOLE 40 MG TABLET.DR. PO SCH (07:30)
[2020-04-02] MEDS: THIAMINE 100 MG TABLET. PO SCH (08:53)
[2020-04-02] MEDS: POTASSIUM CL 20MEQ D5-0.45NACL 1,000 ML IV SCH ×2 (08:53→17:45)
[2020-04-02] MEDS: LACTOBACILLUS RHAMNOSUS GG 1 CAPSULE. PO SCH (08:53)
[2020-04-02] MEDS: POTASSIUM CHLORIDE 20 MEQ TABLET.ER. PO SCH (08:54)
[2020-04-02] MEDS: VITAMIN B12,B9,B6 COMPLEX 1 TABLET. PO SCH (08:54)
[2020-04-02] MEDS: NICOTINE 21MG PATCH. TD SCH (08:59)
--- NOTE | 2020-04-02 09:33 | NUR ---
SW following. Discussed with RN, swallow re eval today, if okay - pt will be switched to oral abx and can discharge per Dr. Murillo. Pt cleared by PAT, no further SW needs.
--- NOTE | 2020-04-02 10:36 | PDOC ---
PROGRESS NOTES Date of Service: DATE: 04/02/20 TIME: 10:31 Chief Complaint Chief Complaint Alcohol abuse and acute withdrawl sepsis, COlitis, c diff, on vanc and in isolation acute toxic and metabolic encephalopathy, concern for Wernicke, has been getting banana bag daily Hypokalemia , hypernatreia, severe Malnutrition Generalized weakness and debiltiy Back pain Hypomagnesemia Macrocytic anemia from alcohol, replacing vitamins Macrocytosis probably from chronic alcohol Leukocytosis DM 2 Hypertension History of Present Illness History of Present Illness Patient states his diarrhea has resolved. He feels ready to go home. Discussed finishing course of antibiotics outpatient. Vitals Vitals Vital Signs Date Time Temp Pulse Resp B/P (MAP) Pulse Ox O2 Delivery O2 Flow Rate FiO2 04/02/20 07:00 98.5 96 18 143/94 (110) 93 Room Air 98.5 Physical Exam General: No acute distress, Other (Somnolent, difficult to arouse, snoring l oudly) Heart: Regular rate, No murmurs, Gallops Lungs: Clear Abdomen: Normal bowel sounds, Soft, No tenderness Extremities: No clubbing, No cyanosis, No edema, Normal pulses Skin: No breakdown Labs LABS Laboratory Tests Test 04/01/20 16:15 04/02/20 06:14 Potassium Level 3.6 mmol/L (3.5-5.1) 3.7 mmol/L (3.5-5.1) White Blood Count 10.3 x10^3/uL (4.0-11.0) Red Blood Count 2.40 x10^6/uL (4.30-5.70) Hemoglobin 9.0 g/dL (13.0-17.5) Hematocrit 26.2 % (39.0-53.0) Mean Corpuscular Volume 109 fL (79-100) Mean Corpuscular Hemoglobin 38 pg (25-35) Mean Corpuscular Hemoglobin Concent 34 g/dL (31-37) Red Cell Distribution Width 16.7 % (11.5-14.5) Platelet Count 407 x10^3/uL (140-400) Neutrophils (%) (Auto) 58 % (31-73) Lymphocytes (%) (Auto) 31 % (24-48) Monocytes (%) (Auto) 7 % (0-9) Eosinophils (%) (Auto) 4 % (0-3) Basophils (%) (Auto) 1 % (0-3) Neutrophils # (Auto) 5.9 x10^3/uL (1.8-7.7) Lymphocytes # (Auto) 3.2 x10^3/uL (1.0-4.8) Monocytes # (Auto) 0.7 x10^3/uL (0.0-1.1) Eosinophils # (Auto) 0.4 x10^3/uL (0.0-0.7) Basophils # (Auto) 0.1 x10^3/uL (0.0-0.2) Sodium Level 148 mmol/L (136-145) Chloride Level 114 mmol/L (98-107) Carbon Dioxide Level 24 mmol/L (21-32) Anion Gap 10 (6-14) Blood Urea Nitrogen 2 mg/dL (8-26) Creatinine 1.4 mg/dL (0.7-1.3) Estimated GFR (Cockcroft-Gault) 63.0 Glucose Level 102 mg/dL (70-99) Calcium Level 8.2 mg/dL (8.5-10.1) Phosphorus Level 4.3 mg/dL (2.6-4.7) Review of Systems Review of Systems Denies diarrhea, denies weakness, denies numbness. All other review of systems negative. Assessment and Plan Assessmemt and Plan Problems Medical Problems: (1) Back pain Status: Acute (2) Colitis Status: Acute (3) Generalized weakness Status: Acute (4) Hypokalemia Status: Acute (5) Hypomagnesemia Status: Acute Plan: Discharge patient on oral vancomycin 125 mg every 6 hours for 10 days, barring he passes a swallow study. Comment Review of Relevant I have reviewed the following items adonis (where applicable) has been applied. Labs Laboratory Tests Test 03/31/20 12:09 04/01/20 06:10 04/01/20 16:15 04/02/20 06:14 Sodium Level 152 mmol/L (136-145) 151 mmol/L (136-145) 148 mmol/L (136-145) Potassium Level 3.3 mmol/L (3.5-5.1) 2.8 mmol/L (3.5-5.1) 3.6 mmol/L (3.5-5.1) 3.7 mmol/L (3.5-5.1) Chloride Level 116 mmol/L (98-107) 115 mmol/L (98-107) 114 mmol/L (98-107) Carbon Dioxide Level 27 mmol/L (21-32) 26 mmol/L (21-32) 24 mmol/L (21-32) Anion Gap 9 (6-14) 10 (6-14) 10 (6-14) Blood Urea Nitrogen 4 mg/dL (8-26) 3 mg/dL (8-26) 2 mg/dL (8-26) Creatinine 1.4 mg/dL (0.7-1.3) 1.5 mg/dL (0.7-1.3) 1.4 mg/dL (0.7-1.3) Estimated GFR (Cockcroft-Gault) 63.0 58.2 63.0 Glucose Level 87 mg/dL (70-99) 100 mg/dL (70-99) 102 mg/dL (70-99) Calcium Level 8.4 mg/dL (8.5-10.1) 8.2 mg/dL (8.5-10.1) 8.2 mg/dL (8.5-10.1) Magnesium Level 1.8 mg/dL (1.8-2.4) White Blood Count 8.9 x10^3/uL (4.0-11.0) 10.3 x10^3/uL (4.0-11.0) Red Blood Count 2.53 x10^6/uL (4.30-5.70) 2.40 x10^6/uL (4.30-5.70) Hemoglobin 9.3 g/dL (13.0-17.5) 9.0 g/dL (13.0-17.5) Hematocrit 27.8 % (39.0-53.0) 26.2 % (39.0-53.0) Mean Corpuscular Volume 110 fL (79-100) 109 fL (79-100) Mean Corpuscular Hemoglobin 37 pg (25-35) 38 pg (25-35) Mean Corpuscular Hemoglobin Concent 33 g/dL (31-37) 34 g/dL (31-37) Red Cell Distribution Width 16.6 % (11.5-14.5) 16.7 % (11.5-14.5) Platelet Count 435 x10^3/uL (140-400) 407 x10^3/uL (140-400) Neutrophils (%) (Auto) 52 % (31-73) 58 % (31-73) Lymphocytes (%) (Auto) 34 % (24-48) 31 % (24-48) Monocytes (%) (Auto) 9 % (0-9) 7 % (0-9) Eosinophils (%) (Auto) 4 % (0-3) 4 % (0-3) Basophils (%) (Auto) 1 % (0-3) 1 % (0-3) Neutrophils # (Auto) 4.6 x10^3/uL (1.8-7.7) 5.9 x10^3/uL (1.8-7.7) Lymphocytes # (Auto) 3.0 x10^3/uL (1.0-4.8) 3.2 x10^3/uL (1.0-4.8) Monocytes # (Auto) 0.8 x10^3/uL (0.0-1.1) 0.7 x10^3/uL (0.0-1.1) Eosinophils # (Auto) 0.3 x10^3/uL (0.0-0.7) 0.4 x10^3/uL (0.0-0.7) Basophils # (Auto) 0.1 x10^3/uL (0.0-0.2) 0.1 x10^3/uL (0.0-0.2) Phosphorus Level 4.3 mg/dL (2.6-4.7) Laboratory Tests Test 04/01/20 16:15 04/02/20 06:14 Potassium Level 3.6 mmol/L (3.5-5.1) 3.7 mmol/L (3.5-5.1) White Blood Count 10.3 x10^3/uL (4.0-11.0) Red Blood Count 2.40 x10^6/uL (4.30-5.70) Hemoglobin 9.0 g/dL (13.0-17.5) Hematocrit 26.2 % (39.0-53.0) Mean Corpuscular Volume 109 fL (79-100) Mean Corpuscular Hemoglobin 38 pg (25-35) Mean Corpuscular Hemoglobin Concent 34 g/dL (31-37) Red Cell Distribution Width 16.7 % (11.5-14.5) Platelet Count 407 x10^3/uL (140-400) Neutrophils (%) (Auto) 58 % (31-73) Lymphocytes (%) (Auto) 31 % (24-48) Monocytes (%) (Auto) 7 % (0-9) Eosinophils (%) (Auto) 4 % (0-3) Basophils (%) (Auto) 1 % (0-3) Neutrophils # (Auto) 5.9 x10^3/uL (1.8-7.7) Lymphocytes # (Auto) 3.2 x10^3/uL (1.0-4.8) Monocytes # (Auto) 0.7 x10^3/uL (0.0-1.1) Eosinophils # (Auto) 0.4 x10^3/uL (0.0-0.7) Basophils # (Auto) 0.1 x10^3/uL (0.0-0.2) Sodium Level 148 mmol/L (136-145) Chloride Level 114 mmol/L (98-107) Carbon Dioxide Level 24 mmol/L (21-32) Anion Gap 10 (6-14) Blood Urea Nitrogen 2 mg/dL (8-26) Creatinine 1.4 mg/dL (0.7-1.3) Estimated GFR (Cockcroft-Gault) 63.0 Glucose Level 102 mg/dL (70-99) Calcium Level 8.2 mg/dL (8.5-10.1) Phosphorus Level 4.3 mg/dL (2.6-4.7) Microbiology 03/26/20 Urine Culture - Final, Complete 03/25/20 Fecal Leukocyte Stain - Final, Complete 03/24/20 Blood Culture - Final, Complete NO GROWTH AFTER 5 DAYS Medications Current Medications Magnesium Sulfate 50 ml @ 25 mls/hr 1X ONCE IV Last administered on 03/25/20at 01:16; Start 03/25/20 at 00:45; Stop 03/25/20 at 02:44; Status DC Potassium Chloride/Water 100 ml @ 50 mls/hr 1X ONCE IV Last administered on 03/25/20at 01:16; Start 03/25/20 at 01:00; Stop 03/25/20 at 02:59; Status DC Potassium Chloride (Klor-Con) 40 meq 1X ONCE PO Last administered on 03/25/20at 01:15; Start 03/25/20 at 00:45; Stop 03/25/20 at 00:46; Status DC Potassium Chloride/Water 100 ml @ 50 mls/hr 1X ONCE IV Last administered on 03/25/20at 02:48; Start 03/25/20 at 03:00; Stop 03/25/20 at 04:59; Status DC Metronidazole 100 ml @ 100 mls/hr 1X ONCE IV Last administered on 03/25/20at 02:47; Start 03/25/20 at 01:30; Stop 03/25/20 at 02:29; Status DC Levofloxacin/ Dextrose 150 ml @ 100 mls/hr 1X ONCE IV Last administered on 03/25/20at 02:46; Start 03/25/20 at 01:30; Stop 03/25/20 at 02:59; Status DC Sodium Chloride 1,000 ml @ 1,000 mls/hr 1X ONCE IV Last administered on 03/25/20at 02:46; Start 03/25/20 at 01:30; Stop 03/25/20 at 02:29; Status DC Ondansetron HCl (Zofran) 4 mg PRN Q8HRS PRN IV NAUSEA/VOMITING; Start 03/25/20 at 02:00; Stop 03/25/20 at 16:47; Status DC Potassium Chloride (Klor-Con) 40 meq TIDWMEALS ONCE PO Last administered on 03/25/20at 13:01; Start 03/25/20 at 08:00; Stop 03/25/20 at 08:01; Status DC Potassium Chloride (Klor-Con) 40 meq 1X ONCE PO Last administered on 03/25/20at 05:42; Start 03/25/20 at 05:30; Stop 03/25/20 at 05:31; Status DC Potassium Chloride/Water 100 ml @ 100 mls/hr Q1H IV Last administered on 03/25/20at 13:00; Start 03/25/20 at 05:30; Stop 03/25/20 at 07:29; Status DC Magnesium Sulfate 100 ml @ 25 mls/hr 1X ONCE IV Last administered on 03/25/20at 05:41; Start 03/25/20 at 05:30; Stop 03/25/20 at 09:29; Status DC Potassium Chloride/Dextrose/ Sod Cl 1,000 ml @ 100 mls/hr Q10H IV Last administered on 03/26/20at 02:23; Start 03/25/20 at 08:00; Stop 03/26/20 at 09:31; Status DC Vitamin B Complex (Folbic Tablet) 1 tab DAILY PO Last administered on 04/02/20at 08:54; Start 03/25/20 at 09:00 Thiamine Mononitrate (Vitamin B-1) 100 mg DAILY PO Last administered on 03/26/20at 09:00; Start 03/25/20 at 09:00; Stop 03/27/20 at 15:58; Status DC Sodium Chloride (Normal Saline Flush) 3 ml QSHIFT PRN IV AFTER MEDS AND BLOOD DRAWS; Start 03/25/20 at 14:45 Sodium Chloride 1,000 ml @ 100 mls/hr Q10H IV Last administered on 03/29/20at 08:23; Start 03/25/20 at 14:31; Stop 03/29/20 at 09:37; Status DC Ondansetron HCl (Zofran) 4 mg PRN Q4HRS PRN IV NAUSEA/VOMITING; Start 03/25/20 at 14:45 Acetaminophen (Tylenol) 650 mg PRN Q4HRS PRN PO TEMP OVER 100.4F OR MILD PAIN; Start 03/25/20 at 14:45 Acetaminophen (Tylenol Supp) 650 mg PRN Q4HRS PRN MO TEMP OVER 100.4F OR MILD PAIN; Start 03/25/20 at 14:45 Al Hydroxide/Mg Hydroxide (Mylanta Plus Xs) 30 ml PRN DAILY PRN PO HEARTBURN / GAS; Start 03/25/20 at 14:45 Docusate Sodium (Colace) 100 mg PRN BID PRN PO HARD STOOLS; Start 03/25/20 at 14:45; Stop 03/26/20 at 09:38; Status DC Albuterol Sulfate (Ventolin Neb Soln) 2.5 mg PRN Q4HRS PRN NEB SHORTNESS OF BR EATH; Start 03/25/20 at 14:45 Guaifenesin (Robitussin) 200 mg PRN Q4HRS PRN PO COUGH; Start 03/25/20 at 14:45 Lorazepam (Ativan) 0.5 mg PRN Q4HRS PRN PO ANXIETY / AGITATION Last administered on 04/01/20at 08:56; Start 03/25/20 at 14:45 Enoxaparin Sodium (Lovenox 40mg Syringe) 40 mg Q24H SQ Last administered on 03/31/20at 20:24; Start 03/25/20 at 21:00 Pantoprazole Sodium (Protonix) 40 mg DAILYAC PO Last administered on 03/26/20at 07:30; Start 03/25/20 at 16:30; Stop 03/27/20 at 07:43; Status DC Multi-Ingredient Mouthwash/Gargle (Gi Cocktail) 20 ml PRN QID PRN PO epigastric pain Last administered on 03/25/20at 20:23; Start 03/25/20 at 16:15 Potassium Chloride (Klor-Con) 40 meq 1X ONCE PO Last administered on 03/25/20at 17:26; Start 03/25/20 at 16:45; Stop 03/25/20 at 16:46; Status DC Potassium Chloride (Klor-Con) 20 meq 1X ONCE PO Last administered on 03/25/20at 20:22; Start 03/25/20 at 19:00; Stop 03/25/20 at 19:01; Status DC Potassium Chloride/Water 100 ml @ 100 mls/hr Q1H IV Last administered on 03/14 10/03at 20:22; Start 03/25/20 at 17:00; Stop 03/25/20 at 20:59; Status DC Polyethylene Glycol (miraLAX Powder BULK BOTTLE) 238 gm 1X ONCE PO ; Start 03/26/20 at 11:00; Stop 03/26/20 at 09:38; Status DC Magnesium Citrate (Citroma) 296 ml 1X ONCE PO ; Start 03/26/20 at 09:00; Stop 03/26/20 at 09:39; Status DC Bisacodyl (Dulcolax Tab) 10 mg PRN DAILY PRN PO CONSTIPATION; Start 03/26/20 at 10:00; Stop 03/26/20 at 09:39; Status DC Potassium Chloride (Klor-Con) 60 meq 1X ONCE PO Last administered on 03/26/20at 08:30; Start 03/26/20 at 08:30; Stop 03/26/20 at 08:35; Status DC Potassium Chloride (Klor-Con) 40 meq DAILY08 PO Last administered on 04/02/20at 08:54; Start 03/27/20 at 08:00 Potassium Chloride (Klor-Con) 40 meq Q2H PO Last administered on 03/26/20at 16:41; Start 03/26/20 at 10:00; Stop 03/26/20 at 14:01; Status DC Magnesium Sulfate 100 ml @ 25 mls/hr 1X ONCE IV Last administered on 03/26/20at 11:12; Start 03/26/20 at 10:00; Stop 03/26/20 at 13:59; Status DC Hydralazine HCl (Apresoline Inj) 10 mg PRN Q4HRS PRN IVP ELEVATED BP, SEE COMMENTS Last administered on 03/30/20at 08:37; Start 03/26/20 at 13:30 Vancomycin HCl (Vancomycin Oral Solution) 125 mg [id number] PO Last administered on 03/30/20at 08:32; Start 03/26/20 at 17:00; Stop 03/30/20 at 12:04; Status DC Potassium Chloride (Klor-Con) 40 meq Q2H PO ; Start 03/26/20 at 19:00; Stop 03/26/20 at 23:01; Status Cancel Potassium Chloride/Water 100 ml @ 100 mls/hr Q1H IV ; Start 03/26/20 at 18:15; Stop 03/27/20 at 06:14; Status UNV Potassium Chloride/Water 100 ml @ 100 mls/hr Q2H IV Last administered on 03/27/20at 01:53; Start 03/26/20 at 19:00; Stop 03/27/20 at 05:59; Status DC Lorazepam (Ativan Inj) 2 mg PRN Q1HR PRN IV For CIWA 8-14 Last administered on 03/31/20at 23:35; Start 03/26/20 at 19:30 Lorazepam (Ativan Inj) 4 mg PRN Q1HR PRN IV For CIWA 15 or greater Last administered on 03/30/20at 20:41; Start 03/26/20 at 19:30 Nicotine (Nicoderm Cq 21mg) 1 patch DAILY TD Last administered on 04/02/20at 08:59; Start 03/26/20 at 19:30 Haloperidol Lactate (Haldol Inj) 5 mg PRN Q6HRS PRN IVP AGITATION; Start 03/26/20 at 20:15; Status UNV Haloperidol Lactate (Haldol Inj) 5 mg PRN Q4HRS PRN IVP Hallucinatns,Confusn,Delirium Last administered on 03/29/20at 22:18; Start 03/26/20 at 20:15 Diphenhydramine HCl (Benadryl) 25 mg PRN Q15MIN PRN IVP EPS symptoms 2'Haldol admin Last administered on 03/29/20at 23:03; Start 03/26/20 at 20:15 Dexmedetomidine HCl 400 mcg/ Sodium Chloride 100 ml @ 0 mls/hr CONT PRN IV ETOH WITHDRAWAL; Start 03/26/20 at 21:00; Stop 03/29/20 at 13:16; Status DC Potassium Chloride/Water 100 ml @ 100 mls/hr Q1H IV Last administered on 03/27/20at 09:06; Start 03/27/20 at 08:00; Stop 03/27/20 at 09:59; Status DC Multivitamins 10 ml/Thiamine HCl 100 mg/Folic Acid 1 mg/Sodium Chloride 1,011.2 ml @ 100 mls/ hr DAILY IV Last administered on 03/31/20at 08:43; Start 03/27/20 at 09:00; Stop 03/31/20 at 19:07; Status DC Pantoprazole Sodium (PROTONIX VIAL for IV PUSH) 40 mg DAILYAC IVP Last administered on 04/01/20at 05:56; Start 03/27/20 at 08:00; Stop 04/01/20 at 10:58; Status DC Thiamine Mononitrate (Vitamin B-1) 100 mg DAILY PO Last administered on 04/02/20at 08:53; Start 04/01/20 at 09:00 Lactobacillus Rhamnosus (Culturelle) 1 cap BID PO ; Start 03/27/20 at 21:00; Status Cancel Magnesium Sulfate 100 ml @ 25 mls/hr 1X ONCE IV Last administered on 03/28/20at 06:45; Start 03/28/20 at 07:00; Stop 03/28/20 at 10:59; Status DC Potassium Chloride/Water 100 ml @ 100 mls/hr Q1H IV Last administered on 03/28/20at 08:49; Start 03/28/20 at 07:00; Stop 03/28/20 at 08:59; Status DC Potassium Chloride/Water 100 ml @ 100 mls/hr Q1H IV Last administered on 03/29/20at 11:35; Start 03/29/20 at 10:00; Stop 03/29/20 at 11:59; Status DC Potassium Chloride/Dextrose/ Sod Cl 1,000 ml @ 125 mls/hr Q8H IV Last adm inistered on 04/02/20at 08:53; Start 03/29/20 at 09:45 Haloperidol Lactate (Haldol Inj) 5 mg 1X ONCE IVP Last administered on at 11:21; Start 03/29/20 at 11:00; Stop 03/29/20 at 11:01; Status DC Metronidazole 100 ml @ 100 mls/hr Q8HRS IV Last administered on 04/02/20at 06:24; Start 03/29/20 at 14:00 Potassium Chloride/Water 100 ml @ 100 mls/hr Q1H IV Last administered on 03/30/20at 05:48; Start 03/30/20 at 05:00; Stop 03/30/20 at 06:59; Status DC Labetalol HCl (Normodyne Iv Push) 10 mg PRN Q15MIN PRN IVP HYPERTENSION- 2ND CHOICE Last administered on 03/30/20at 12:12; Start 03/30/20 at 11:45 Magnesium Sulfate 50 ml @ 25 mls/hr 1X ONCE IV Last administered on 03/31/20at 05:34; Start 03/31/20 at 06:00; Stop 03/31/20 at 07:59; Status DC Potassium Chloride/Water 100 ml @ 100 mls/hr Q1H IV Last administered on 03/31/20at 07:25; Start 03/31/20 at 06:00; Stop 03/31/20 at 07:59; Status DC Potassium Chloride (Klor-Con) 40 meq 1X PREOP PRN PO SEE COMMENTS; Start 04/01/20 at 08:15 Potassium Bicarbonate (Potassium Effervescent Tablet) 40 meq 1X PRN PRN FT SEE COMMENTS; Start 04/01/20 at 08:15 Magnesium Oxide (Magnesium Oxide) 400 mg PRN BID PRN PO SEE COMMENTS; Start 04/01/20 at 09:00 Potassium Chloride/Water 100 ml @ 100 mls/hr PRN Q1HR PRN IV SEE COMMENTS; Start 04/01/20 at 08:15 Magnesium Sulfate 50 ml @ 25 mls/hr PRN DAILY PRN IV SEE COMMENTS; Start 04/01/20 at 08:15 Potassium Phos/ Sodium Phos (Phos-Nak) 1 pkt PRN BID PRN PO SEE COMMENTS; Start 04/01/20 at 09:00 Potassium Bicarbonate (Potassium Effervescent Tablet) 40 meq PRN Q4HRS PRN PO SEE COMMENTS; Start 04/01/20 at 08:15 Potassium Chloride/Water 100 ml @ 100 mls/hr PRN Q1HR PRN IV SEE COMMENTS; Start 04/01/20 at 08:15 Potassium Chloride/Water 100 ml @ 100 mls/hr Q1HR IV Last administered on 04/01/20at 11:50; Start 04/01/20 at 09:00; Stop 04/01/20 at 12:59; Status DC Lactobacillus Rhamnosus (Culturelle) 1 cap BID PO Last administered on 04/02/20at 08:53; Start 04/01/20 at 21:00 Pantoprazole Sodium (Protonix) 40 mg DAILYAC PO ; Start 04/01/20 at 11:30; Stop 04/01/20 at 11:06; Status DC Pantoprazole Sodium (Protonix) 40 mg DAILYAC PO Last administered on 04/02/20at 06:24; Start 04/02/20 at 07:30 Hydroxyzine HCl (Atarax) 50 mg PRN QHS PRN PO ITCHING Last administered on 04/01/20at 21:56; Start 04/01/20 at 20:15 Active Scripts Active B-1 (Thiamine HCl) 100 Mg Tablet 100 Mg PO DAILY08 30 Days Folic Acid 0.8 Mg Capsule 1 Cap PO DAILY 30 Days Celexa (Citalopram Hydrobromide) 10 Mg Tablet 10 Mg PO DAILY 30 Days Tylenol (Acetaminophen) 325 Mg Tablet 650 Mg PO PRN Q4HRS PRN 10 Days Vitals/I & O Vital Sign - Last 24 Hours 8/1904/01/20 04/01/20 04/01/20 11:00 15:00 19:00 20:00 Temp 97.8 98.3 98.4 97.8 98.3 98.4 Pulse 97 92 98 Resp 16 16 18 B/P (MAP) 157/94 (115) 134/86 (102) 144/89 (107) Pulse Ox 97 92 97 O2 Delivery Room Air Room Air Room Air Room Air 04/01/20 04/02/20 04/02/20 23:00 03:00 07:00 Temp 97.8 98.7 98.5 97.8 98.7 98.5 Pulse 97 96 96 Resp 18 18 18 B/P (MAP) 136/85 (102) 134/89 (104) 143/94 (110) Pulse Ox 93 96 93 O2 Delivery Room Air Room Air Room Air Intake and Output 04/01/20 04/01/20 04/02/20 15:00 23:00 07:00 Output Total 950 ml 1250 ml Balance -950 ml -1250 ml Nutrition Consultation Dietary Evaluation: Recommendations by RD: Dietary education by RD, Increase Calorie Intake, Protein supplementation Comments: REC advance diet as able pending mental status, diet per [employer] with ADA/cardiac per pmhx and offer glucerna supplements If unable to advance diet within 24 - 48 hrs, recommend consideration of short-term nutrition support via dobhoff for TFs Expected Outcomes/Goals: diet advancement- not met, goal onogoing Interpretation of weight loss: >10% in 6 months Malnutrition Findings: Food and Nutrition Intake (Sev: <50% est energy req 5days Weight Status: Underweight Justicifation of Admission Dx: Justifications for Admission: Justification of Admission Dx: Yes BRANDON WATSON MD Apr 02, 2020 10:36
[2020-04-02 11:00] VITALS: BP 149/95
--- NOTE | 2020-04-02 11:06 | PDOC ---
DATE OF SERVICE DATE: 04/02/20 TIME: 11:03 SUBJECTIVE ROS stable OBJECTIVE Vital Signs Vital Signs Date Time Temp Pulse Resp B/P (MAP) Pulse Ox O2 Delivery O2 Flow Rate FiO2 04/02/20 11:00 98.2 92 18 149/95 (113) 96 Room Air 98.2 I & 0 Intake and Output 04/02/20 07:00 Output Total 2200 ml Balance -2200 ml Output Urine Total 2200 ml # Bowel Movements 11 PHYSICAL EXAM Physical Exam Abdomen: Normal bowel sounds, Soft, No tenderness, No hepatosplenomegaly, No masses Heart: Regular rate, Normal S1, Normal S2, No murmurs, Gallops General: Alert, Oriented X3, Cooperative, No acute distress Lungs: Clear to auscultation, Normal air movement Torres + DIAGNOSIS/ASSESSMENT Assessment & Plan HypoKalemia - currently on replacement , better today GI losses , ETOH , malnutrition Hypomg - replace as needed HyperNatremia - improving Recommend start D5W IV or encourage free water intake if not NPO WU - Cr was Normal , now 1,4< -1.5 Suspect 2/2 Diarrhea , recommend IVF Diarrhea- per GI Alcohol abuse and acute withdrawal sepsis, COlitis, c diff, acute toxic and metabolic encephalopathy, concern for [place], has been getting banana bag daily Severe Malnutrition Generalized weakness and debiltiy Macrocytic anemia from alcohol, replacing vitamins Macrocytosis probably from chronic alcohol DM 2 Hypertension- BP stable COMMENT/RELEVANT DATA Meds Current Medications Medications (Trade) Dose Ordered Sig/Steph Start Time Stop Time Status Last Admin Dose Admin Acetaminophen (Tylenol Supp) 650 mg PRN Q4HRS PRN 03/25/20 14:45 Acetaminophen (Tylenol) 650 mg PRN Q4HRS PRN 03/25/20 14:45 Al Hydroxide/Mg Hydroxide (Mylanta Plus Xs) 30 ml PRN DAILY PRN 03/25/20 14:45 Albuterol Sulfate (Ventolin Neb Soln) 2.5 mg PRN Q4HRS PRN 03/25/20 14:45 Bisacodyl (Dulcolax Tab) 10 mg PRN DAILY PRN 03/26/20 10:00 03/26/20 09:39 DC Dexmedetomidine HCl 400 mcg/ Sodium Chloride 100 ml @ 0 mls/hr CONT PRN 03/26/20 21:00 03/29/20 13:16 DC Diphenhydramine HCl (Benadryl) 25 mg PRN Q15MIN PRN 03/26/20 20:15 03/29/20 23:03 25 MG Docusate Sodium (Colace) 100 mg PRN BID PRN 03/25/20 14:45 03/26/20 09:38 DC Enoxaparin Sodium (Lovenox 40mg Syringe) 40 mg Q24H 03/25/20 21:00 03/31/20 20:24 40 MG Guaifenesin (Robitussin) 200 mg PRN Q4HRS PRN 03/25/20 14:45 Haloperidol Lactate (Haldol Inj) 5 mg 1X ONCE 03/29/20 11:00 03/29/20 11:01 DC 03/29/20 11:21 5 MG Hydralazine HCl (Apresoline Inj) 10 mg PRN Q4HRS PRN 03/26/20 13:30 03/30/20 08:37 10 MG Hydroxyzine HCl (Atarax) 50 mg PRN QHS PRN 04/01/20 20:15 04/01/20 21:56 50 MG Labetalol HCl (Normodyne Iv Push) 10 mg PRN Q15MIN PRN 03/30/20 11:45 03/30/20 12:12 10 MG Lactobacillus Rhamnosus (Culturelle) 1 cap BID 04/01/20 21:00 04/02/20 08:53 1 CAP Levofloxacin/ Dextrose 150 ml @ 100 mls/hr 1X ONCE 03/25/20 01:30 03/25/20 02:59 DC 03/25/20 02:46 100 MLS/HR Lorazepam (Ativan Inj) 4 mg PRN Q1HR PRN 03/26/20 19:30 03/30/20 20:41 4 MG Lorazepam (Ativan) 0.5 mg PRN Q4HRS PRN 03/25/20 14:45 04/01/20 08:56 0.5 MG Magnesium Citrate (Citroma) 296 ml 1X ONCE 03/26/20 09:00 03/26/20 09:39 DC Magnesium Oxide (Magnesium Oxide) 400 mg PRN BID PRN 04/01/20 09:00 Magnesium Sulfate 50 ml @ 25 mls/hr PRN DAILY PRN 04/01/20 08:15 Metronidazole 100 ml @ 100 mls/hr Q8HRS 03/29/20 14:00 04/02/20 06:24 100 MLS/HR Multi-Ingredient Mouthwash/Gargle (Gi Cocktail) 20 ml PRN QID PRN 03/25/20 16:15 03/25/20 20:23 20 ML Multivitamins 10 ml/Thiamine HCl 100 mg/Folic Acid 1 mg/Sodium Chloride 1,011.2 ml @ 100 mls/ hr DAILY 03/27/20 09:00 03/31/20 19:07 DC 03/31/20 08:43 100 MLS/HR Nicotine (Nicoderm Cq 21mg) 1 patch DAILY 03/26/20 19:30 04/02/20 08:59 1 PATCH Ondansetron HCl (Zofran) 4 mg PRN Q4HRS PRN 03/25/20 14:45 Pantoprazole Sodium (PROTONIX VIAL for IV PUSH) 40 mg DAILYAC 03/27/20 08:00 04/01/20 10:58 DC 04/01/20 05:56 40 MG Pantoprazole Sodium (Protonix) 40 mg DAILYAC 04/02/20 07:30 04/02/20 06:24 40 MG Polyethylene Glycol (miraLAX Powder BULK BOTTLE) 238 gm 1X ONCE 03/26/20 11:00 03/26/20 09:38 DC Potassium Bicarbonate (Potassium Effervescent Tablet) 40 meq PRN Q4HRS PRN 04/01/20 08:15 Potassium Chloride/Dextrose/ Sod Cl 1,000 ml @ 125 mls/hr Q8H 03/29/20 09:45 04/02/20 08:53 125 MLS/HR Potassium Chloride/Water 100 ml @ 100 mls/hr Q1HR 04/01/20 09:00 04/01/20 12:59 DC 04/01/20 11:50 100 MLS/HR Potassium Chloride (Klor-Con) 40 meq 1X PREOP PRN 04/01/20 08:15 Potassium Phos/ Sodium Phos (Phos-Nak) 1 pkt PRN BID PRN 04/01/20 09:00 Sodium Chloride 1,000 ml @ 100 mls/hr Q10H 03/25/20 14:31 03/29/20 09:37 DC 03/29/20 08:23 100 MLS/HR Sodium Chloride (Normal Saline Flush) 3 ml QSHIFT PRN 03/25/20 14:45 Thiamine Mononitrate (Vitamin B-1) 100 mg DAILY 04/01/20 09:00 04/02/20 08:53 100 MG Vancomycin HCl (Vancomycin Oral Solution) 125 mg [id number] 03/26/20 17:00 03/30/20 12:04 DC 03/30/20 08:32 125 MG Vitamin B Complex (Folbic Tablet) 1 tab DAILY 03/25/20 09:00 04/02/20 08:54 1 TAB Lab Laboratory Tests Test 04/01/20 16:15 04/02/20 06:14 Potassium Level 3.6 mmol/L (3.5-5.1) 3.7 mmol/L (3.5-5.1) White Blood Count 10.3 x10^3/uL (4.0-11.0) Red Blood Count 2.40 x10^6/uL (4.30-5.70) Hemoglobin 9.0 g/dL (13.0-17.5) Hematocrit 26.2 % (39.0-53.0) Mean Corpuscular Volume 109 fL (79-100) Mean Corpuscular Hemoglobin 38 pg (25-35) Mean Corpuscular Hemoglobin Concent 34 g/dL (31-37) Red Cell Distribution Width 16.7 % (11.5-14.5) Platelet Count 407 x10^3/uL (140-400) Neutrophils (%) (Auto) 58 % (31-73) Lymphocytes (%) (Auto) 31 % (24-48) Monocytes (%) (Auto) 7 % (0-9) Eosinophils (%) (Auto) 4 % (0-3) Basophils (%) (Auto) 1 % (0-3) Neutrophils # (Auto) 5.9 x10^3/uL (1.8-7.7) Lymphocytes # (Auto) 3.2 x10^3/uL (1.0-4.8) Monocytes # (Auto) 0.7 x10^3/uL (0.0-1.1) Eosinophils # (Auto) 0.4 x10^3/uL (0.0-0.7) Basophils # (Auto) 0.1 x10^3/uL (0.0-0.2) Sodium Level 148 mmol/L (136-145) Chloride Level 114 mmol/L (98-107) Carbon Dioxide Level 24 mmol/L (21-32) Anion Gap 10 (6-14) Blood Urea Nitrogen 2 mg/dL (8-26) Creatinine 1.4 mg/dL (0.7-1.3) Estimated GFR (Cockcroft-Gault) 63.0 Glucose Level 102 mg/dL (70-99) Calcium Level 8.2 mg/dL (8.5-10.1) Phosphorus Level 4.3 mg/dL (2.6-4.7) Results All relevant outside records, renal labs, imaging studies, telemetry/EKG's were reviewed. Justicifation of Admission Dx: Justifications for Admission: Justification of Admission Dx: Yes TENNILLE BEVERLY MD Apr 02, 2020 11:06
--- NOTE | 2020-04-02 13:08 | PDOC ---
Date of Service: DATE: 04/02/20 TIME: 13:05 Subjective: Subjective: Doing better. Objective: Vital Signs: Vital Signs Date Time Temp Pulse Resp B/P (MAP) Pulse Ox O2 Delivery O2 Flow Rate FiO2 04/02/20 11:00 98.2 92 18 149/95 (113) 96 Room Air 98.2 Labs: Laboratory Tests Test 04/01/20 16:15 04/02/20 06:14 Potassium Level 3.6 mmol/L 3.7 mmol/L White Blood Count 10.3 x10^3/uL Red Blood Count 2.40 x10^6/uL Hemoglobin 9.0 g/dL Hematocrit 26.2 % Mean Corpuscular Volume 109 fL Mean Corpuscular Hemoglobin 38 pg Mean Corpuscular Hemoglobin Concent 34 g/dL Red Cell Distribution Width 16.7 % Platelet Count 407 x10^3/uL Neutrophils (%) (Auto) 58 % Lymphocytes (%) (Auto) 31 % Monocytes (%) (Auto) 7 % Eosinophils (%) (Auto) 4 % Basophils (%) (Auto) 1 % Neutrophils # (Auto) 5.9 x10^3/uL Lymphocytes # (Auto) 3.2 x10^3/uL Monocytes # (Auto) 0.7 x10^3/uL Eosinophils # (Auto) 0.4 x10^3/uL Basophils # (Auto) 0.1 x10^3/uL Sodium Level 148 mmol/L Chloride Level 114 mmol/L Carbon Dioxide Level 24 mmol/L Anion Gap 10 Blood Urea Nitrogen 2 mg/dL Creatinine 1.4 mg/dL Estimated GFR (Cockcroft-Gault) 63.0 Glucose Level 102 mg/dL Calcium Level 8.2 mg/dL Phosphorus Level 4.3 mg/dL PE: GEN: NAD - up in chair eating lunch LUNGS: CTAB HEART: RRR ABD: NABS, S/ND/NT NEURO/PSYCH: A & O 3 A/P: Alcohol withdrawal C Diff -- Will follow-up w/ nurse - okay for thin liquids and PO vanco yet? Justicifation of Admission Dx: Justifications for Admission: Justification of Admission Dx: Yes HOSEA RUBIO Apr 02, 2020 13:08
[2020-04-02] MEDS: VANCOMYCIN 125 MG/2.5 ML ORAL SOLUTION. PO SCH ×2 (14:10→17:54)
[2020-04-02] MEDS ORDERED: VANC125C3 PO (14:18)
[2020-04-02] MEDS ORDERED: METR-34 PO (14:26)
--- NOTE | 2020-04-02 14:27 | DISCH ---
Discharge Medications: Discharge Medications Some of the medications the doctor may prescribe for you are listed below. With any prescribed medications, consult (ask) your doctor BEFORE you stop taking any medications. Stopping all at once may be dangerous to you health. You should ask your Pharmacist about any medication interactions before taking any over the counter medications also. ASPIRN: The dose may be different for you versus someone you know. Take the amount ordered by your Primary Doctor/Electric Refrigerator Preparer. You may be on Aspirin therapy for quite some time or the remainder of your life. This will be determined by your Primary Care Physician/Electric Refrigerator Preparer. Talk with your MD/Electric Refrigerator Preparer before stopping the medication. P2Y12 MEDICATIONS: These are medications such as Plavix or Effient. These medications help to keep your platelets from forming clots that may lead to further heart issues. Please take as directed. The amount of time you will be taking the medication will be determined by your Primary Care Physician or Electric Refrigerator Preparer. Talk with your MD/Electric Refrigerator Preparer before stopping the medication. BETA BLOCKERS: These are medications to help control your hearts rhythm. The amount of time you will be taking this medication will be determined by your Primary Care Physician/Electric Refrigerator Preparer. Talk with your MD/Electric Refrigerator Preparer before stopping the medication. THIERRY INHIBITORS: These medications affect your blood pressure and how your heart pumps blood. The amount of time you will be on the medication will be determined by your Primary Care Physician/Electric Refrigerator Preparer. Talk with your MD/Electric Refrigerator Preparer before stopping the medication. STATIN MEDICATIONS: These medications are used to help you lower your bad cholesterol and elevate your good cholesterol. If you experience any side effects that are listed on your medication education sheet, contact your Primary Care Physician or Electric Refrigerator Preparer. The amount of time you will be on this medication will be determined by your Primary Care Physician/Electric Refrigerator Preparer. Talk with your MD/Electric Refrigerator Preparer before stopping the medication. NITROGLYCERIN SUBLINGUAL (under the tongue): This medication is used to help you with your chest pain. It relieves pain by relaxing the blood vessels so your heart does not have to work as hard to pump. Take the medication only as directed by your doctor. Do not chew, crush, or swallow the pills. They must melt under the tongue. Headaches may occur after you take the nitroglycerin medication. If your chest pain is not better after following the Doctors directions, call your doctor or seek treatment at the nearest Emergency Department. Only discontinue your medications with the direction of your doctor. Heart Disease and Medication Safety One of the goals when you take medication for heart disease is to be sure that your medication helps your heart function as well as possible. One step toward achieving this goal is to avoid some medications. What kinds of problems might these medicines cause? - Some medicine can make blood pressure rise and/or accelerate heart rate placing an extra burden on your heart. - Some medications may interact with your heart disease medicine. This can prevent either medicine from working properly. Some common types of medicines that can make heart disease worse: -Nonsteroidal Anti-Inflammatory Drugs (NSAIDs) NSAIDs include both prescription and over the counter medicine. They are often used to relieve pain or reduce inflammation form conditions such as arthritis. However, NSAIDs can make your body retain fluid and decrease the function of your kidneys. This may cause your blood pressure to rise even higher. The extra fluid and higher blood pressure puts an added problem on your heart. Common NSAIDs include: -Aspirin: If you take Aspirin as a precaution against heart attack or stroke, be sure you take only the amount suggested by your doctor. - Ibuprofen - Naproxen -Cough and Cold medications/Decongestants You may also find NSAIDs in over the counter medications for other maladies, so be sure to check the label. Ask your doctor if any NSAID is okay for you to use. Your doctor may be able to recommend alternatives, such as Acetaminophen ( Tylenol) instead of Ibuprofen. -Migraine Headache Medications Some migraine medications work by tightening blood vessels in your head, this relieves the migraine pain. However, the medication also constricts blood vessels throughout the entire body, making your blood pressure rise, possibly to dangerous levels. If you have high blood pressure or any other type of heart disease, talk with your doctor before taking medication for severe headaches or migraines. Weight Loss Medications: Some weight loss medications may make heart disease worse. Appetite suppressants tend to rev up your body. This can make blood pressure rise, accelerate your heart rate and put more stress on your heart. Other weight loss medications have been shown to have negative effects on the valves of the heart. Before using any weight loss medication, whether prescription or over the counter, be sure to check with your doctor. -Hormone Replacement Therapy (HRT): Estrogen and Progestin or Estrogen alone- Hormone therapy is not recommended as a method to decrease the risk of a second heart attack in postmenopausal women. If you were taking hormone therapy prior to your cardiac diagnosis, you need to speak to your Physician about the associated risks and benefits before resuming this medication. More tips for avoiding medication problems Be sure any medications you choose to use are safe for people with heart disease. These suggestions can help: - Give a list of ALL the medication you use, both prescribed and over the counter to every doctor you visit. - Read medication labels before buying over the counter meds. Make sure the label doesnt contain ingredients that could make your heart disease worse, such as NSAIDs or decongestants. - Talk to your doctor before using any over the counter medication, herbal preparation, vitamins, or other nutritional supplements. Ask for alternatives to potentially harmful medicines. BRANDON WATSON MD Apr 02, 2020 14:27
--- NOTE | 2020-04-02 14:39 | PDOC3 ---
Discharge Summary Visit Information Date of Admission: Mar 25, 2020 Date of Discharge: Apr 02, 2020 Final Diagnosis Problems Medical Problems: (1) Back pain Status: Acute (2) Colitis Status: Acute (3) Generalized weakness Status: Acute (4) Hypokalemia Status: Acute (5) Hypomagnesemia Status: Acute Brief Hospital Course Allergies Allergies Coded Allergies Type Severity Reaction Last Updated Verified No Known Drug Allergies 12/15/19 No Vital Signs Vital Signs Date Time Temp Pulse Resp B/P (MAP) Pulse Ox O2 Delivery O2 Flow Rate FiO2 04/02/20 11:00 98.2 92 18 149/95 (113) 96 Room Air 98.2 Lab Results Laboratory Tests Test 04/01/20 06:10 04/01/20 16:15 04/02/20 06:14 White Blood Count 8.9 x10^3/uL (4.0-11.0) 10.3 x10^3/uL (4.0-11.0) Red Blood Count 2.53 x10^6/uL (4.30-5.70) 2.40 x10^6/uL (4.30-5.70) Hemoglobin 9.3 g/dL (13.0-17.5) 9.0 g/dL (13.0-17.5) Hematocrit 27.8 % (39.0-53.0) 26.2 % (39.0-53.0) Mean Corpuscular Volume 110 fL (79-100) 109 fL (79-100) Mean Corpuscular Hemoglobin 37 pg (25-35) 38 pg (25-35) Mean Corpuscular Hemoglobin Concent 33 g/dL (31-37) 34 g/dL (31-37) Red Cell Distribution Width 16.6 % (11.5-14.5) 16.7 % (11.5-14.5) Platelet Count 435 x10^3/uL (140-400) 407 x10^3/uL (140-400) Neutrophils (%) (Auto) 52 % (31-73) 58 % (31-73) Lymphocytes (%) (Auto) 34 % (24-48) 31 % (24-48) Monocytes (%) (Auto) 9 % (0-9) 7 % (0-9) Eosinophils (%) (Auto) 4 % (0-3) 4 % (0-3) Basophils (%) (Auto) 1 % (0-3) 1 % (0-3) Neutrophils # (Auto) 4.6 x10^3/uL (1.8-7.7) 5.9 x10^3/uL (1.8-7.7) Lymphocytes # (Auto) 3.0 x10^3/uL (1.0-4.8) 3.2 x10^3/uL (1.0-4.8) Monocytes # (Auto) 0.8 x10^3/uL (0.0-1.1) 0.7 x10^3/uL (0.0-1.1) Eosinophils # (Auto) 0.3 x10^3/uL (0.0-0.7) 0.4 x10^3/uL (0.0-0.7) Basophils # (Auto) 0.1 x10^3/uL (0.0-0.2) 0.1 x10^3/uL (0.0-0.2) Sodium Level 151 mmol/L (136-145) 148 mmol/L (136-145) Potassium Level 2.8 mmol/L (3.5-5.1) 3.6 mmol/L (3.5-5.1) 3.7 mmol/L (3.5-5.1) Chloride Level 115 mmol/L (98-107) 114 mmol/L (98-107) Carbon Dioxide Level 26 mmol/L (21-32) 24 mmol/L (21-32) Anion Gap 10 (6-14) 10 (6-14) Blood Urea Nitrogen 3 mg/dL (8-26) 2 mg/dL (8-26) Creatinine 1.5 mg/dL (0.7-1.3) 1.4 mg/dL (0.7-1.3) Estimated GFR (Cockcroft-Gault) 58.2 63.0 Glucose Level 100 mg/dL (70-99) 102 mg/dL (70-99) Calcium Level 8.2 mg/dL (8.5-10.1) 8.2 mg/dL (8.5-10.1) Phosphorus Level 4.3 mg/dL (2.6-4.7) Laboratory Tests Test 04/01/20 16:15 8/20/20 06:14 Potassium Level 3.6 mmol/L (3.5-5.1) 3.7 mmol/L (3.5-5.1) White Blood Count 10.3 x10^3/uL (4.0-11.0) Red Blood Count 2.40 x10^6/uL (4.30-5.70) Hemoglobin 9.0 g/dL (13.0-17.5) Hematocrit 26.2 % (39.0-53.0) Mean Corpuscular Volume 109 fL (79-100) Mean Corpuscular Hemoglobin 38 pg (25-35) Mean Corpuscular Hemoglobin Concent 34 g/dL (31-37) Red Cell Distribution Width 16.7 % (11.5-14.5) Platelet Count 407 x10^3/uL (140-400) Neutrophils (%) (Auto) 58 % (31-73) Lymphocytes (%) (Auto) 31 % (24-48) Monocytes (%) (Auto) 7 % (0-9) Eosinophils (%) (Auto) 4 % (0-3) Basophils (%) (Auto) 1 % (0-3) Neutrophils # (Auto) 5.9 x10^3/uL (1.8-7.7) Lymphocytes # (Auto) 3.2 x10^3/uL (1.0-4.8) Monocytes # (Auto) 0.7 x10^3/uL (0.0-1.1) Eosinophils # (Auto) 0.4 x10^3/uL (0.0-0.7) Basophils # (Auto) 0.1 x10^3/uL (0.0-0.2) Sodium Level 148 mmol/L (136-145) Chloride Level 114 mmol/L (98-107) Carbon Dioxide Level 24 mmol/L (21-32) Anion Gap 10 (6-14) Blood Urea Nitrogen 2 mg/dL (8-26) Creatinine 1.4 mg/dL (0.7-1.3) Estimated GFR (Cockcroft-Gault) 63.0 Glucose Level 102 mg/dL (70-99) Calcium Level 8.2 mg/dL (8.5-10.1) Phosphorus Level 4.3 mg/dL (2.6-4.7) Brief Hospital Course Mr. Barahona is a 59 old male who presented with Hypokalemia, malnutrition, hypomagnesemia, macrocytosis, type 2 diabetes, hypertension, and colitis seen on CT. He was found to be C. difficile positive. Due to his electrolyte abnormality he had difficulty swallowing and severe weakness that complicated the course of his stay. After electrolyte replacement and evaluation with speech therapy it was determined that patient was back to his baseline and able to safely discharge home and continue his therapy outpatient. Due to cost we will discharge patient on Flagyl 500 mg 3 times daily. Patient was specifically instructed not to drink alcohol while taking this medication and for at least 14 days following the completion of this medication. Assessment Assessment Improvement in diarrhea, weakness, and electrolyte abnormality. Stable to discharge home. Discharge Information Disposition/Orders: D/C to Home Scheduled Citalopram Hydrobromide (Celexa) 10 Mg Tablet, 10 MG PO DAILY for DEPRESSION for 30 Days, #30 Prescribed by: CAMILLE GEE MD on 12/18/19 1323 Last Action: Continued on 04/02/20 1416 by BRANDON WATSON MD Folic Acid (Folic Acid) 0.8 Mg Capsule, 1 CAP PO DAILY for SUPPLEMENT for 30 Days, #30 Ref 0 Prescribed by: CAMILLE GEE MD on 12/18/19 1323 Metronidazole (Metronidazole) 500 Mg Tablet, 1 TAB PO TID for C. Diff for 10 Days, #30 Ref 0 Prescribed by: BRANDON WATSON MD on 04/02/20 1426 Thiamine HCl (B-1) 100 Mg Tablet, 100 MG PO DAILY08 for SUPPLEMENT for 30 Days, #30 Prescribed by: CAMILLE GEE MD on 12/18/19 1323 Scheduled PRN Acetaminophen (Tylenol) 325 Mg Tablet, 650 MG PO PRN Q4HRS PRN for TEMP OVER 100.4F OR MILD PAIN for 10 Days, #30 Prescribed by: CAMILLE GEE MD on 12/18/19 1323 Justicifation of Admission Dx: Justifications for Admission: Justification of Admission Dx: Yes BRANDON WATSON MD Apr 02, 2020 14:39
[2020-04-02 15:00] VITALS: BP 166/103
[2020-04-02] MEDS ORDERED: CITALOPRAM 10 MG TABLET. PO SCH (15:00)
--- NOTE | 2020-04-02 19:15 | NUR ---
Pt discharged home with self care. Discharge instructions and prescriptions discussed. Pt verbalized understanding. PICC removed. Pt assisted to wheelchair and was taken to the ED and was secured in car with daughter.
[2020-04-03 16:11] LABS: ALDOSTERONE <1.0 ng/dL (0.0-30.0)
== END 2020-04-02 19:19 | disposition home or self-care (01) | DRG 871 ==
LOC: ER 23:14 → 6 SOUTH 03-25 01:20 → 1 WEST ICU 03-26 09:40 → 4 NORTH 03-28 21:38
PROVIDERS: ADMIT Internal Medicine; ATTEND Internal Medicine
DX: A41.9 Sepsis, unspecified organism (principal); E43 Unspecified severe protein-calorie malnutrition; G92 Toxic encephalopathy; A04.72 Enterocolitis due to Clostridium difficile, not specified as recurrent; Z68.1 Body mass index [BMI] 19.9 or less, adult; E87.0 Hyperosmolality and hypernatremia; E87.3 Alkalosis; F10.239 Alcohol dependence with withdrawal, unspecified; N17.9 Acute kidney failure, unspecified; D53.9 Nutritional anemia, unspecified; E11.9 Type 2 diabetes mellitus without complications; E83.42 Hypomagnesemia; E86.0 Dehydration; E87.6 Hypokalemia; F17.210 Nicotine dependence, cigarettes, uncomplicated; F32.9 Major depressive disorder, single episode, unspecified; F41.9 Anxiety disorder, unspecified; I10 Essential (primary) hypertension; K57.30 Diverticulosis of large intestine without perforation or abscess without bleeding; K76.0 Fatty (change of) liver, not elsewhere classified; M43.06 Spondylolysis, lumbar region; N32.0 Bladder-neck obstruction; Z79.899 Other long term (current) drug therapy; Z80.0 Family history of malignant neoplasm of digestive organs; Z80.7 Family history of other malignant neoplasms of lymphoid, hematopoietic and related tissues; Z82.49 Family history of ischemic heart disease and other diseases of the circulatory system; Z83.3 Family history of diabetes mellitus; Z90.49 Acquired absence of other specified parts of digestive tract; Z20.828 Contact with and (suspected) exposure to other viral communicable diseases; D75.89 Other specified diseases of blood and blood-forming organs; F19.10 Other psychoactive substance abuse, uncomplicated
CPT/HCPCS: 36415; 36569; 36600; 70450; 71045; 72131; 76700; 80048; 80053; 80307; 81001; 82088; 82140; 82533; 82607; 82805; 82962; 83540; 83550; 83605; 83615; 83690; 83735; 83880; 84100; 84132; 84133; 84244; 84443; 84484; 85025; 85610; 85730; 86850; 86900; 86901; 87040; 87086; 87205; 87493; 87505; 93005; 96365; 96368; A4314; C9113; G0480; J0360; J1200; J1630; J1650; J1956; J2060; J3411; J3475; J3480; J3490; J7030; 92526-GN; 92610-GN; 97535-GO; 99291-25; G0378; U0003-CS

== ENCOUNTER 2021-01-17 14:08 | Inpatient (IN) | payer SELFPAY ==
[~2021-01-17] VITALS: Ht 182.9 cm; Wt 67.1 kg
[~2021-01-17 14:08] MED LIST changes: +METR-34 PO; +VANC125C3 PO
--- NOTE | 2021-01-17 15:20 | RAD ---
EXAM: Head and cervical spine CT without contrast. HISTORY: Altered mental status. TECHNIQUE: Computed tomographic images of the head and cervical spine were obtained without contrast. *One or more of the following individualized dose reduction techniques were utilized for this examina tion: 1. Automated exposure control. 2. Adjustment of the mA and/or kV according to patient size. 3. Use of iterative reconstruction technique. COMPARISON: 03/24/2020. FINDINGS: Head: There is no acute hemorrhage. There is no mass effect or midline shift. There is no hydrocephal us. There is cerebral volume loss. There is decreased attenuation within the cerebral white matter du e to chronic small vessel disease. The orbits are unremarkable. There is a left maxillary sinus air-f luid level. There is maxillary and ethmoid sinus because of thickening. The mastoid air cells are osvaldo ar. There is no suspicious calvarial lesion. Spine: There is cervical curvature due to thoracic scoliosis. There is multilevel endplate remodeling and facet arthropathy. There is no acute fracture or suspicious osseous lesion. The combination of d egenerative changes results in minimal foraminal stenosis at multiple levels. There is no significant central canal stenosis. There is calcified atherosclerotic plaque within the carotid bifurcations. T here is pulmonary emphysema. IMPRESSION: 1. No acute intracranial finding or evidence of acute cervical spine trauma. 2. Bilateral cerebral white matter changes, likely due to chronic small vessel disease. Note is made that MRI is more sensitive for acute infarction. 3. Cerebral atrophy. 4. Degenerative change involving the cervical spine, described in detail above. Electronically signed by: Jeannine Burt MD (01/17/2021 3:17 PM) [facility]
[2021-01-17 15:30] LABS: BASO # 0.1 x10^3/uL (0.0-0.2); BASO % 1 % (0-3); EOS % 0 % (0-3); HEMATOCRIT 36.5 % (39.0-53.0); HEMOGLOBIN 12.5 g/dL (13.0-17.5); LYMPH # 0.9 x10^3/uL (1.0-4.8); LYMPH % 10 % (24-48); MEAN CORPUSCULAR HEMOGLOBIN 40 pg (25-35); MEAN CORPUSCULAR HGB CONC 34 g/dL (31-37); MEAN CORPUSCULAR VOLUME 118 fL (79-100); MONO # 0.2 x10^3/uL (0.0-1.1); MONO % 3 % (0-9); NEUT # 7.7 x10^3/uL (1.8-7.7); NEUT % 87 % (31-73); PLATELET COUNT 513 x10^3/uL (140-400); RED CELL DISTRIBUTION WIDTH 17.9 % (11.5-14.5); WHITE BLOOD COUNT 8.9 x10^3/uL (4.0-11.0)
--- NOTE | 2021-01-17 15:40 | PHYS DOC ---
Past Medical History Past Medical History: Anxiety, Diabetes-Type II, Hypertension Additional Past Medical Histor: STROKE IN 2007 Past Surgical History: Other Additional Past Surgical Histo: HERNIA Smoking Status: Current Every Day Smoker Alcohol Use: Heavy Drug Use: Marijuana General Adult EDM: Chief Complaint: HYPOGLYCEMIA HPI: HPI: 60-year-old -Malagasy male past medical history of alcoholism, hypertension, CVA in 2007 and type 2 diabetes, presents the ED brought in by EMS with concern for altered mental status with hypoglycemia. EMS found patient with glucose of 25. D10 was given. Mental status improved. POCT glucose in ed was 260. Pt reports noncompliance with diabetes medications and requests food in the ed. patient reports for members called 911-states he was too weak to get off the floor. Uncertain if he fell and hit his head. Uncertain if on any anticoagulants. Review of Systems: Review of Systems: Constitutional: Denies fever or chills. [] Eyes: Denies change in visual acuity. [] HENT: Denies nasal congestion or sore throat. [] Respiratory: Denies cough or shortness of breath. [] Cardiovascular: Denies chest pain or edema. [] GI: Denies abdominal pain, nausea, vomiting, : Denies dysuria or saddle anesthesia Musculoskeletal: Denies back pain or joint pain. [] Integument: Denies rash or diaphoresis Neurologic: Denies headache, neck pain, focal weakness or sensory changes. [] Endocrine: Denies polyuria or polydipsia. [] Lymphatic: Denies swollen glands. [] Psychiatric: Denies depression or anxiety. [] Heart Score: C/O Chest Pain: No Risk Factors: Risk Factors: DM, Current or recent (<one month) smoker, HTN, HLP, family his tory of CAD, obesity. Risk Scores: Score 0 - 3: 2.5% MACE over next 6 weeks - Discharge Home Score 4 - 6: 20.3% MACE over next 6 weeks - Admit for Clinical Observation Score 7 - 10: 72.7% MACE over next 6 weeks - Early Invasive Strategies Allergies: Allergies: Allergies Coded Allergies Type Severity Reaction Last Updated Verified No Known Drug Allergies 12/15/19 No Physical Exam: PE: Constitutional: Frail/malnourished, no acute distress, non-toxic appearance, lean/thin male, alcohol breath HENT: Normocephalic, atraumatic, no signs of head trauma Eyes: EOMI, conjunctiva normal, no discharge. Neck: Normal range of motion, supple, no midline neck pain Cardiovascular: S1/2 present, regular rhythm Lungs & Thorax: Speaking in full sentences, bilateral equal chest rise, no tachypnea or increased work of breathing Abdomen: soft, no tenderness, Skin: Warm, dry, no erythema, no rash. [] Back: No midline step offs or tenderness, no CVA tenderness. [] Extremities: No tenderness, no cyanosis, no lower extremity edema, tremulous Neurologic: Alert and oriented X 3, normal motor function, normal sensory function, no focal deficits noted. [] Psychologic: Affect normal, judgement normal, mood normal. [] Current Patient Data: Labs: Laboratory Tests Test 01/17/21 14:21 01/17/21 15:21 Glucose (Fingerstick) 144 mg/dL (70-99) H White Blood Count 8.9 x10^3/uL (4.0-11.0) Red Blood Count 3.10 x10^6/uL (4.30-5.70) L Hemoglobin 12.5 g/dL (13.0-17.5) L Hematocrit 36.5 % (39.0-53.0) L Mean Corpuscular Volume 118 fL (79-100) H Mean Corpuscular Hemoglobin 40 pg (25-35) H Mean Corpuscular Hemoglobin Concent 34 g/dL (31-37) Red Cell Distribution Width 17.9 % (11.5-14.5) H Platelet Count 513 x10^3/uL (140-400) H Neutrophils (%) (Auto) 87 % (31-73) H Lymphocytes (%) (Auto) 10 % (24-48) L Monocytes (%) (Auto) 3 % (0-9) Eosinophils (%) (Auto) 0 % (0-3) Basophils (%) (Auto) 1 % (0-3) Neutrophils # (Auto) 7.7 x10^3/uL (1.8-7.7) Lymphocytes # (Auto) 0.9 x10^3/uL (1.0-4.8) L Monocytes # (Auto) 0.2 x10^3/uL (0.0-1.1) Eosinophils # (Auto) 0.0 x10^3/uL (0.0-0.7) Basophils # (Auto) 0.1 x10^3/uL (0.0-0.2) Platelet Estimate Pending Laboratory Tests 01/17/21 15:21 EKG: EKG: [] Radiology/Procedures: Radiology/Procedures: IMAGING REPORT Signed PATIENT: BELLA FLORES TACCOUNT: [id number] : 1960 LOCATION: ER AGE: 60 SEX: M EXAM STATUS: REG ER ORD. PHYSICIAN: JAY PATEL DO REASON: AMS, POOR HISTORIAN PROCEDURE: CT HEAD AND CERVICAL SPINE WO EXAM: Head and cervical spine CT without contrast. HISTORY: Altered mental status. TECHNIQUE: Computed tomographic images of the head and cervical spine were obtained without contrast. *One or more of the following individualized dose reduction techniques were utilized for this examination: 1. Automated exposure control. 2. Adjustment of the mA and/or kV according to patient size. 3. Use of iterative reconstruction technique. COMPARISON: 03/24/2020. FINDINGS: Head: There is no acute hemorrhage. There is no mass effect or midline shift. There is no hydrocephalus. There is cerebral volume loss. There is decreased attenuation within the cerebral white matter due to chronic small vessel disease. The orbits are unremarkable. There is a left maxillary sinus air-fluid level. There is maxillary and ethmoid sinus because of thickening. The mastoid air cells are clear. There is no suspicious calvarial lesion. Spine: There is cervical curvature due to thoracic scoliosis. There is multilevel endplate remodeling and facet arthropathy. There is no acute fracture or suspicious osseous lesion. The combination of degenerative changes results in minimal foraminal stenosis at multiple levels. There is no significant central canal stenosis. There is calcified atherosclerotic plaque within the carotid bifurcations. There is pulmonary emphysema. IMPRESSION: 1. No acute intracranial finding or evidence of acute cervical spine trauma. 2. Bilateral cerebral white matter changes, likely due to chronic small vessel disease. Note is made that MRI is more sensitive for acute infarction. 3. Cerebral atrophy. 4. Degenerative change involving the cervical spine, described in detail above. Electronically signed by: Jeannine Caballero MD (01/17/2021 3:17 PM) [facility] DICTATED and SIGNED BY: JEANNINE CABALLERO MD DATE: 01/17/21 [id number] 0 Course & Med Decision Making: Course & Med Decision Making Pertinent Labs and Imaging studies reviewed. (See chart for details) Concern for alcohol intoxication with hypoglycemia, noncompliant with diabetes medications, tolerating food in ED. Patient reports poor oral intake. Now on reevaluation patient more alert. Potassium 2.5. Magnesium 1.4. Replacement started in the ED. Will admit for further medical management. Patient stable at time of admission and agrees with this plan. I have spoken with the patient and/or caregivers. I have explained the patient's condition, diagnosis and treatment plan based on the information available to me at this time. I have answered the patient's and/or caregivers questions and answered any concerns. The patient and/or caregivers have as good an understanding of the patient's diagnosis, condition and treatment plan as can be expected at this point. The patient has been stabilized within the ca pability of the emergency department. The patient will be transported for further care and management or will be moved to an observation or inpatient service. I have communicated with the staff or medical practitioner taking over this patient's care. Arnulfo Disclaimer: Arnulfo Disclaimer: This electronic medical record was generated, in whole or in part, using a voice recognition dictation system. Departure Departure Impression: Primary Impression: Hypoglycemia Additional Impressions: Alcohol intoxication Hypokalemia Hypomagnesemia Disposition: ADMITTED INPATIENT Admitting Physician: MISSY (Dr. Alcantar) Condition: STABLE Referrals: NO PCP (PCP) JAY PATEL DO Jan 17, 2021 15:40
[2021-01-17 15:41] LABS: CALCIUM 9.1 mg/dL (8.5-10.1); CREATININE 0.8 mg/dL (0.7-1.3); GFR 119.7
[2021-01-17 15:47] LABS: POTASSIUM 2.5 mmol/L (3.5-5.1)
[2021-01-17 16:03] LABS: % BANDS 3 % (0-9); % BASOS 1 % (0-3); % LYMPHS 7 % (24-48); % MONOS 2 % (0-10); % SEGS 87 % (35-66)
[2021-01-17 16:05] LABS: ANISOCYTOSIS SLIGHT; PLT ESTIMATE INCREASED (ADEQUATE)
--- NOTE | 2021-01-17 16:56 | PDOC1 ---
History and Physical Date of Admission Date of Admission DATE: 01/17/21 TIME: 16:54 Identification/Chief Complaint Chief Complaint AMS, ALCOHOL INTAKE, LOW GLUCOSE, confusion History of Present Illness History of Present Illness Mr. Flores is a 60 old male who presented with Hypokalemia, malnutrition, hypomagnesemia, macrocytosis, type 2 diabetes, hypertension , CHRONIC Alcohol abuse EMS found patient with glucose of 25. D10 was given. Mental status improved. POCT glucose in ed was 260. Pt reports noncompliance with diabetes medications and requests food in the ed.// patient reports for members called 911-states he was too weak to get off the floor, states he cannot afford his medications for diabetes k = 2.5 he did not eat breakfast this AM , is eating very small amounts of dinner now Due to his electrolyte abnormality, hypokalemia / he has difficulty swallowing and severe weakness, he is now more alert on my exam at 5:30 PM , but appears frail mg =1.4 iv mgso4 2 gm x 1 in er ,, na -150 hx STROKE [place] [address] ct head Bilateral cerebral white matter changes, likely chronic small vessel disease. MRI is more sensitive for acute infarction. Cerebral atrophy. //severe Hypokalemia, //Alcohol abuse //malnutrition, UNDERWEIGHT /hypomagnesemia, macrocytosis, plan accuchecks // MVI // CIWA PROTOCOL// FOLIC ACID // THIAMINE dvt prophylaxis PAT consult Neurology consult neurochecks q 4 hrs, fall precautions TRANSAMINITIS SEVERE HYPOKALEMIA-GI LOSSES MOST LIKELY // HX DRUG ABUSE Past Medical History Past Medical History Past Medical History Past Medical History: Anxiety, Diabetes-Type II, Hypertension Additional Past Medical Histor: STROKE IN 2006 Past Surgical History: Other Additional Past Surgical Histo: HERNIA Smoking Status: Current Every Day Smoker Alcohol Use: Heavy Drug Use: Marijuana fhx Substance abuse Cardiovascular: HTN Pulmonary: No pertinent hx Psych: Addictions Endocrine: Diabetes Past Surgical History Past Surgical History: Hernia Repair Family History Family History: Cancer, Diabetes, High Cholestrol, Hypertension, Kidney Disease Social History Smoke: <1 pack per day ALCOHOL: heavy Drugs: Marijuana Current Problem List Problem List Problems Medical Problems: (1) Alcohol intoxication Status: Acute (2) Hypoglycemia Status: Acute (3) Hypokalemia Status: Acute Current Medications Current Medications Current Medications Potassium Chloride/Water 100 ml @ 50 mls/hr 1X ONCE IV ; Start 01/17/21 at 17:00; Stop 01/17/21 at 18:59 Potassium Chloride (Klor-Con) 40 meq 1X ONCE PO ; Start 01/17/21 at 17:00; Stop 01/17/21 at 17:01 Active Scripts Active Metronidazole 500 Mg Tablet 1 Tab PO TID 10 Days B-1 (Thiamine HCl) 100 Mg Tablet 100 Mg PO DAILY08 30 Days Folic Acid 0.8 Mg Capsule 1 Cap PO DAILY 30 Days Celexa (Citalopram Hydrobromide) 10 Mg Tablet 10 Mg PO DAILY 30 Days Tylenol (Acetaminophen) 325 Mg Tablet 650 Mg PO PRN Q4HRS PRN 10 Days Allergies Allergies: Coded Allergies: No Known Drug Allergies (Unverified , 12/15/19) ROS Review of System 14 PT ROS OTHERWISE NEG General: YES: Fatigue, Malaise PSYCHOLOGICAL ROS: YES: Anxiety, Depression; No: Behavioral Disorder, Concentration difficultie, Decreased libido, Disorientation, Hallucinations, Hostility, Irritablity, Memory difficulties, Mood Swings, Obsessive thoughts, Physical abuse, Sexual abuse, Sleep disturbances, Suicidal ideation, Other Eyes: No Blurry vision, No Decreased vision, No Double vision, No Dry eyes, No Excessive tearing, No Eye Pain, No Itchy Eyes, No Loss of vision, No Photophobia, No Scotomata, No Uses contacts, No Uses glasses, No Other HEENT: No: Heacaches, Visual Changes, Hearing change, Nasal congestion, Nasal discharge, Oral lesions, Sinus pain, Sore Throat, Epistaxis, Sneezing, Snoring, Tinnitus, Vertigo, Vocal changes, Other ALLERGY AND IMMUNOLOGY: No: Hives, Insect Bite Sensitivity, Itchy/Watery Eyes, Nasal Congestion, Post Nasal Drip, Seasonal Allergies, Other Hematological and Lymphatic: No: Bleeding Problems, Blood Clots, Blood Transfusions, Brusing, Night Sweats, Pallor, Swollen Lymph Nodes, Other Respiratory: YES: Cough, Shortness of breath; No: Hemoptysis, Orthopnea, Pleuritic Pain, SOB with excertion, Sputum Changes, Stridor, Tachypnea, Wheezing, Other Cardiovascular: No Chest Pain, No Palpitations, No Orthopnea, No Paroxysmal Noc. Dyspnea, No Edema, No Lt Headedness, No Other Gastrointestinal: Yes Nausea; No Vomiting, No Abdominal Pain, No Diarrhea, No Constipation, No Melena, No Hematochezia, No Other Musculoskeletal: Yes Gait Disturbance, Yes Joint Stiffness, Yes Muscular Weakness Neurological: Yes Confusion; No Behavorial Changes, No Bowel/Bladder ControlChng, No Dizziness, No Gait Disturbance, No Headaches, No Impaired Coord/balance, No Memory Loss, No Numbness/Tingling, No Seizures, No Speech Problems, No Tremors, No Visual Changes, No Weakness, No Other Skin: Yes Dry Skin; No Eczema, No Hair Changes, No Lumps, No Mole Changes, No Mottling, No Nail Changes, No Pruritus, No Rash, No Skin Lesion Changes, No Other, No Acne Physical Exam Physical Exam thin and frail General: Alert, Oriented X3, Cooperative, No acute distress, mild distress HEENT: Atraumatic, PERRLA, EOMI, Mucous membr. moist/pink Lungs: Clear to auscultation, Normal air movement Heart: S1S2, RRR, no thrills, no rubs, no gallops, no jug vein distention Breasts: Not examined Abdomen: Normal bowel sounds, Soft Rectal Exam: not examined PELVIC: Examination not indicated Extremities: No cyanosis Neuro: Normal speech, Strength at 5/5 X4 ext, Cranial nerves 3-12 NL Psych/Mental Status: Mental status NL Vitals Vitals Vital Signs Date Time Temp Pulse Resp B/P (MAP) Pulse Ox O2 Delivery O2 Flow Rate FiO2 01/17/21 14:08 97.9 83 16 168/99 (122) 97 Room Air 97.9 Labs Labs Laboratory Tests Test 01/17/21 14:21 01/17/21 15:21 Glucose (Fingerstick) 144 mg/dL (70-99) White Blood Count 8.9 x10^3/uL (4.0-11.0) Red Blood Count 3.10 x10^6/uL (4.30-5.70) Hemoglobin 12.5 g/dL (13.0-17.5) Hematocrit 36.5 % (39.0-53.0) Mean Corpuscular Volume 118 fL (79-100) Mean Corpuscular Hemoglobin 40 pg (25-35) Mean Corpuscular Hemoglobin Concent 34 g/dL (31-37) Red Cell Distribution Width 17.9 % (11.5-14.5) Platelet Count 513 x10^3/uL (140-400) Neutrophils (%) (Auto) 87 % (31-73) Lymphocytes (%) (Auto) 10 % (24-48) Monocytes (%) (Auto) 3 % (0-9) Eosinophils (%) (Auto) 0 % (0-3) Basophils (%) (Auto) 1 % (0-3) Neutrophils # (Auto) 7.7 x10^3/uL (1.8-7.7) Lymphocytes # (Auto) 0.9 x10^3/uL (1.0-4.8) Monocytes # (Auto) 0.2 x10^3/uL (0.0-1.1) Eosinophils # (Auto) 0.0 x10^3/uL (0.0-0.7) Basophils # (Auto) 0.1 x10^3/uL (0.0-0.2) Segmented Neutrophils % 87 % (35-66) Band Neutrophils % 3 % (0-9) Lymphocytes % 7 % (24-48) Monocytes % 2 % (0-10) Basophils % 1 % (0-3) Platelet Estimate Increased (ADEQUATE) Anisocytosis Slight Macrocytosis Marked Sodium Level 150 mmol/L (136-145) Potassium Level 2.5 mmol/L (3.5-5.1) Chloride Level 105 mmol/L (98-107) Carbon Dioxide Level 24 mmol/L (21-32) Anion Gap 21 (6-14) Blood Urea Nitrogen 11 mg/dL (8-26) Creatinine 0.8 mg/dL (0.7-1.3) Estimated GFR (Cockcroft-Gault) 119.7 Glucose Level 101 mg/dL (70-99) Calcium Level 9.1 mg/dL (8.5-10.1) Ethyl Alcohol Level 206 mg/dL (0-10) Laboratory Tests Test 01/17/21 14:21 01/17/21 15:21 Glucose (Fingerstick) 144 mg/dL (70-99) White Blood Count 8.9 x10^3/uL (4.0-11.0) Red Blood Count 3.10 x10^6/uL (4.30-5.70) Hemoglobin 12.5 g/dL (13.0-17.5) Hematocrit 36.5 % (39.0-53.0) Mean Corpuscular Volume 118 fL (79-100) Mean Corpuscular Hemoglobin 40 pg (25-35) Mean Corpuscular Hemoglobin Concent 34 g/dL (31-37) Red Cell Distribution Width 17.9 % (11.5-14.5) Platelet Count 513 x10^3/uL (140-400) Neutrophils (%) (Auto) 87 % (31-73) Lymphocytes (%) (Auto) 10 % (24-48) Monocytes (%) (Auto) 3 % (0-9) Eosinophils (%) (Auto) 0 % (0-3) Basophils (%) (Auto) 1 % (0-3) Neutrophils # (Auto) 7.7 x10^3/uL (1.8-7.7) Lymphocytes # (Auto) 0.9 x10^3/uL (1.0-4.8) Monocytes # (Auto) 0.2 x10^3/uL (0.0-1.1) Eosinophils # (Auto) 0.0 x10^3/uL (0.0-0.7) Basophils # (Auto) 0.1 x10^3/uL (0.0-0.2) Segmented Neutrophils % 87 % (35-66) Band Neutrophils % 3 % (0-9) Lymphocytes % 7 % (24-48) Monocytes % 2 % (0-10) Basophils % 1 % (0-3) Platelet Estimate Increased (ADEQUATE) Anisocytosis Slight Macrocytosis Marked Sodium Level 150 mmol/L (136-145) Potassium Level 2.5 mmol/L (3.5-5.1) Chloride Level 105 mmol/L (98-107) Carbon Dioxide Level 24 mmol/L (21-32) Anion Gap 21 (6-14) Blood Urea Nitrogen 11 mg/dL (8-26) Creatinine 0.8 mg/dL (0.7-1.3) Estimated GFR (Cockcroft-Gault) 119.7 Glucose Level 101 mg/dL (70-99) Calcium Level 9.1 mg/dL (8.5-10.1) Ethyl Alcohol Level 206 mg/dL (0-10) Images Images Signed PATIENT: BELLA FLORES TACCOUNT: [id number] : 1960 LOCATION: [address] [place] [address] AGE: 59 SEX: M EXAM STATUS: ADM IN ORD. PHYSICIAN: CAMILLE GEE MD REASON: cirrhosis PROCEDURE: ABDOMEN COMPLETE EXAM: ABDOMINAL ULTRASOUND. HISTORY: Cirrhosis. COMPARISON: Abdomen pelvis CT without IV contrast 12/15/2019. FINDINGS: Sonographic evaluation of the abdomen was performed. The liver appears increased in parenchymal echotexture. It measures 17.8 cm in length.. There are no focal lesions. The spleen measures 9 cm. It contains scattered calcifications. Gallbladder surgically absent. The common duct measures 7 mm. The visualized portions of the pancreas reveal no abnormality. The right kidney measures 10.3 x 4.8 x 4.8 cm. Cortical thickness and echogenicity are preserved. There is no hydronephrosis. The left kidney measures 11.3 x 4.9 x 5.9 cm. Cortical thickness and echogenicity are preserved. There is no hydronephrosis. The visualized portions of the abdominal aorta and inferior vena cava are grossly patent and normal in caliber. Abdominal aortic calcifications are present. Small amount of ascites in the right abdomen. IMPRESSION: 1. Mild fatty liver. No hepatic masses identified. 2. Cholecystectomy with postcholecystectomy biliary prominence to 7 mm. No evidence of choledocholithiasis. 3. Small amount of ascites in the right upper quadrant abdomen. Electronically signed by: Marylin Salazar MD (03/26/2020 2:04 PM) [id number] DICTATED and SIGNED BY: MARYLIN SALAZAR MD DATE: 03/26/20 1404 FINDINGS: The absence of IV contrast limits evaluation of soft tissue pathology. LOWER CHEST: Unremarkable LIVER: Mild diffuse hypoattenuation suggesting fatty infiltration of the liver. BILIARY SYSTEM: Gallbladder is surgically absent. Bile ducts are not dilated. PANCREAS: Unremarkable SPLEEN: Extensive splenic calcifications. No splenomegaly. ADRENALS: Unremarkable KIDNEYS & URETERS: Unremarkable BLADDER: Mild diffuse urinary bladder wall thickening. REPRODUCTIVE ORGANS: Unremarkable GASTROINTESTINAL: There is abnormal wall thickening in the cecum and ascending colon with diffuse collapse of the large bowel along the entirety of its length. There is colonic diverticulosis best appreciated in the sigmoid colon without pericolonic soft tissue stranding suspicious for acute diverticulitis. The stomach and small bowel are unremarkable. The appendix is not well seen. There are no findings of acute appendicitis. MESENTERY/PERITONEUM/RETROPERITONEUM: Unremarkable VASCULAR: Abdominal aortic calcifications. LYMPH NODES: No adenopathy OSSEOUS & SOFT TISSUES: Unremarkable IMPRESSION: Diffuse colonic spasm with wall thickening, suspicious for colitis in the appropriate clinical context. Mild diffuse urinary bladder wall thickening could also reflect cystitis or sequelae of chronic bladder outlet obstruction. Correlate clinically. Otherwise no acute findings on noncontrast abdomen and pelvis CT. Electronically signed by: Marylin Salazar MD (12/15/2019 2:42 PM) [id number] DICTATED and SIGNED BY: MARYLIN SALAZAR MD DATE: 12/15/19 1442 EXAM: Head and cervical spine CT without contrast. HISTORY: Altered mental status. TECHNIQUE: Computed tomographic images of the head and cervical spine were obtained without contrast. *One or more of the following individualized dose reduction techniques were utilized for this examination: 1. Automated exposure control. 2. Adjustment of the mA and/or kV according to patient size. 3. Use of iterative reconstruction technique. COMPARISON: 03/24/2020. FINDINGS: Head: There is no acute hemorrhage. There is no mass effect or midline shift. There is no hydrocephalus. There is cerebral volume loss. There is decreased attenuation within the cerebral white matter due to chronic small vessel disease. The orbits are unremarkable. There is a left maxillary sinus air-fluid level. There is maxillary and ethmoid sinus because of thickening. The mastoid air cells are clear. There is no suspicious calvarial lesion. Spine: There is cervical curvature due to thoracic scoliosis. There is multile shawna endplate remodeling and facet arthropathy. There is no acute fracture or suspicious osseous lesion. The combination of degenerative changes results in minimal foraminal stenosis at multiple levels. There is no significant central canal stenosis. There is calcified atherosclerotic plaque within the carotid bifurcations. There is pulmonary emphysema. IMPRESSION: 1. No acute intracranial finding or evidence of acute cervical spine trauma. 2. Bilateral cerebral white matter changes, likely due to chronic small vessel disease. Note is made that MRI is more sensitive for acute infarction. 3. Cerebral atrophy. 4. Degenerative change involving the cervical spine, described in detail above. Electronically signed by: Jeannine Caballero MD (01/17/2021 3:17 PM) [id number] DICTATED and SIGNED BY: JEANNINE CABALLERO MD DATE: 01/17/21 [id number] 0 VTE Prophylaxis Ordered VTE Prophylaxis Devices: No VTE Pharmacological Prophylaxi: Yes Assessment/Plan Assessment/Plan IMPRESSION severe hypoglycemia ALTERED MENTAL STATUS , improving post iv dextrose hx STROKE IN 2006 Bilateral cerebral white matter changes, likely chronic small vessel disease. MRI is more sensitive for acute infarction. Cerebral atrophy. severe Hypokalemia, Alcohol abuse malnutrition, UNDERWEIGHT hypomagnesemia, TRANSAMINITIS Cholecystectomy with postcholecystectomy biliary prominence to 7 mm. No evidence of choledocholithiasis. RECENT SONO Small amount of ascites macrocytosis, WITH ANEMIA type 2 diabetes, hypertension Hypernatremia, suspect volume depleted WU DUE TO ABOVE SEVERE HYPOKALEMIA-GI LOSSES MOST LIKELY ETOH ABUSE DRUG ABUSE plan ADMIT IV K IV MG PT/OT accuchecks MVI CIWA PROTOCOL FOLIC ACID THIAMINE dvt prophylaxis PAT consult Neurology consult AM LABS AMMONIA ABD SONO D/W ER DR 75 min pt exam, chart review, > 50% of time spent with exam, chart review, pt care coordination Justifications for Admission Other Justification CAMILLE GEE MD Jan 17, 2021 16:56
[2021-01-17] MEDS ORDERED: POTASSIUM CHLORIDE 20 MEQ TABLET.ER. PO ONE (17:00)
[2021-01-17] MEDS ORDERED: POTASSIUM CHLORIDE 20MEQ 100 ML IV ONE (17:00)
[2021-01-17 17:03] LABS: ALBUMIN 3.1 g/dL (3.4-5.0); DIRECT BILIRUBIN 0.3 mg/dL (0.0-0.2); TOTAL BILIRUBIN 0.6 mg/dL (0.2-1.0); TOTAL PROTEIN 6.6 g/dL (6.4-8.2)
[2021-01-17] MEDS ORDERED: MAGNESIUM SULFATE 2GM 50 ML IV ONE (17:15)
[2021-01-17] MEDS ORDERED: ACETAMINOPHEN 325 MG TABLET. PO PRN ×2 (18:00→18:15)
[2021-01-17] MEDS ORDERED: LORazepam 0.5 MG TABLET PO PRN (18:15)
[2021-01-17] MEDS ORDERED: DEXTROSE 50% 25 GM / 50ML DISP.SYRIN. IV PRN (18:15)
[2021-01-17] MEDS ORDERED: cloNIDine HCL 0.1 MG TABLET PO PRN ×2 (18:15)
[2021-01-17] MEDS ORDERED: HALOPERIDOL LACTATE 5 MG/ML VIAL. IVP PRN (18:15)
[2021-01-17] MEDS ORDERED: 0.9 % SODIUM CHLORIDE 10 ML DISP.SYRIN. IV PRN (18:15)
[2021-01-17] MEDS ORDERED: diphenhydrAMINE 50 MG/ML VIAL IVP PRN (18:15)
[2021-01-17] MEDS ORDERED: DOCUSATE SODIUM 100 MG CAPSULE. PO PRN (18:15)
[2021-01-17] MEDS ORDERED: MAG HYDROX/ALUMINUM HYD/SIMETH 30 ML ORAL.SUSP PO PRN (18:15)
[2021-01-17] MEDS ORDERED: ONDANSETRON PF 4 MG/2 ML VIAL. IV PRN (18:15)
[2021-01-17] MEDS ORDERED: ALBUTEROL SULFATE 2.5 MG/3 ML NEBU. NEB PRN (18:15)
[2021-01-17] MEDS ORDERED: POTASSIUM BICARB 10 MEQ EFFERVESCENT TABLET. FT ONE (18:30)
[2021-01-17] MEDS ORDERED: hydrALAZINE 20 MG/ML VIAL. IVP PRN (18:30)
[2021-01-17] MEDS ORDERED: POTASSIUM BICARB 20 MEQ EFFERVESCENT TABLET. PO SCH (18:30)
[2021-01-17] MEDS ORDERED: POTASSIUM BICARB 10 MEQ EFFERVESCENT TABLET. PO SCH (18:30)
[2021-01-17] MEDS ORDERED: MAGNESIUM SULFATE 2GM 50 ML IV SCH (18:30)
[2021-01-17] MEDS ORDERED: POTASSIUM BICARB 20 MEQ EFFERVESCENT TABLET. FT ONE (18:30)
[2021-01-17] MEDS ORDERED: MULTIVIT INFUSN,ADULT 4,VIT K 10 ML, THIAMINE INJ 100 MG, FOLIC ACID INJ 1 MG in IV NOR... IV ONE (19:00)
[2021-01-17] MEDS ORDERED: ELECTROLYTE (NON-ICU) PROTOCOL. MC PRN (19:15)
[2021-01-17 20:30] VITALS: BP 176/100
[2021-01-17 20:36] LABS: PROTHROMBIN TIME PATIENT 13.3 SEC (11.7-14.0)
[2021-01-17 22:51] VITALS: BP 170/92
[2021-01-18] MEDS: NICOTINE 21MG PATCH. TD PRN (00:03)
[2021-01-18] MEDS: ENOXAPARIN 40 MG/0.4 ML SYRINGE. SQ SCH ×2 (00:04→21:39)
[2021-01-18] MEDS: guaiFENesin ORAL 200 MG/10 ML LIQUID. PO PRN ×2 (00:16→21:36)
[2021-01-18] MEDS: POTASSIUM & SODIUM PHOSPHATES PACKET. PO SCH ×2 (00:24→09:02)
[2021-01-18] MEDS: HYDROcodone/APAP 5/325MG 1 TAB TABLET PO PRN ×3 (02:32→21:36)
[2021-01-18 02:54] VITALS: BP 168/97
[2021-01-18 04:58] LABS: BASO # 0.1 x10^3/uL (0.0-0.2); BASO % 1 % (0-3); EOS # 0.1 x10^3/uL (0.0-0.7); EOS % 1 % (0-3); HEMATOCRIT 30.5 % (39.0-53.0); HEMOGLOBIN 10.6 g/dL (13.0-17.5); LYMPH # 1.9 x10^3/uL (1.0-4.8); LYMPH % 20 % (24-48); MEAN CORPUSCULAR HEMOGLOBIN 40 pg (25-35); MEAN CORPUSCULAR HGB CONC 35 g/dL (31-37); MEAN CORPUSCULAR VOLUME 116 fL (79-100); MONO # 0.5 x10^3/uL (0.0-1.1); MONO % 5 % (0-9); NEUT # 6.7 x10^3/uL (1.8-7.7); NEUT % 73 % (31-73); PLATELET COUNT 443 x10^3/uL (140-400); RED BLOOD COUNT 2.64 x10^6/uL (4.30-5.70); RED CELL DISTRIBUTION WIDTH 18.2 % (11.5-14.5); WHITE BLOOD COUNT 9.2 x10^3/uL (4.0-11.0)
[2021-01-18 05:42] LABS: ALBUMIN 2.9 g/dL (3.4-5.0); ALBUMIN/GLOBULIN RATIO 0.9 (1.0-1.7); CALCIUM 8.8 mg/dL (8.5-10.1); CREATININE 0.6 mg/dL (0.7-1.3); GFR 166.9; POTASSIUM 3.3 mmol/L (3.5-5.1); TOTAL BILIRUBIN 1.6 mg/dL (0.2-1.0)
[2021-01-18 07:00] VITALS: BP 181/98
--- NOTE | 2021-01-18 07:43 | RAD ---
Examination: Four-quadrant ultrasound abdomen HISTORY: History of ascites COMPARISON: None available Findings/ impression: Four-quadrant ultrasound of the abdomen demonstrates no evidence of ascites. Electronically signed by: Poncho Kirby MD (01/18/2021 7:40 AM) [id number]
[2021-01-18] MEDS: INSULIN LISPRO 300 UNITS/3 ML VIAL. SQ SCH ×3 (08:00→17:00)
[2021-01-18] MEDS: THIAMINE 100 MG TABLET. PO SCH (09:02)
[2021-01-18] MEDS: FOLIC ACID 1 MG TABLET. PO SCH (09:02)
[2021-01-18] MEDS: CITALOPRAM 10 MG TABLET. PO SCH (09:02)
[2021-01-18] MEDS: IV NORMAL SALINE 1000ML BAG 1,000 ML IV SCH ×3 (09:04→22:51)
[2021-01-18 09:45] LABS: BILIRUBIN,URINE NEGATIVE (NEG); CLARITY,URINE CLEAR; COLOR,URINE YELLOW; NITRITE,URINE NEGATIVE (NEG); PH,URINE 6.5 (<5.0-8.0); PROTEIN,URINE NEGATIVE (NEG-TRACE)
[2021-01-18 09:53] LABS: BACTERIA,URINE 0 /HPF (0-FEW); RBC,URINE OCC /HPF (0-2); WBC,URINE 0 /HPF (0-4)
--- NOTE | 2021-01-18 10:11 | PDOC2 ---
NEUROLOGY CONSULT Date of Service DOS: DATE: 01/18/21 TIME: 10:02 Reason for Consult Reason for Consult: Altered mental status Referring Physician Referring Physician: Dr. Alcantar Source Source: Chart review, Patient History of Present Illness History of Present Illness The patient is a 60-year-old right-handed male who drinks at least a pint of vodka a day and also has a history of stroke in 2006, without residual. He was brought in yesterday by emergency medical services with altered mental status. Glucose was 25. Patient does have diabetes but cannot afford his medications. The mental status improved with D10. Patient denies any history of seizures, significant head injury, or delirium tremens. He says that he was injured at work in 2003 and could not get disability, he has not worked since then. He says that he drinks to assuage his depression about his life situation as well as the fact his brother a few months ago. Past Medical History Cardiovascular: HTN, Hyperlipidemia CENTRAL NERVOUS SYSTEM: CVA GI: Peptic Ulcer disease, Other (Hiatal hernia) Psych: Anxiety, Addictions, Depression, Panic, Other (ADHD, paranoia) Musculoskeletal: Osteoarthritis Rheumatologic: Gout Endocrine: Diabetes Past Surgical History Past Surgical History: Cholecystectomy, Hernia Repair Family History Family History: No pertinent hx Social History Social History Single, unemployed, pint of vodka a day, a few cigarettes a day, occasional marijuana Current Medications Current Medications Current Medications Potassium Chloride/Water 100 ml @ 50 mls/hr 1X ONCE IV Last administered on 01/17/21at 18:14; Start 01/17/21 at 17:00; Stop 01/17/21 at 18:59; Status DC Potassium Chloride (Klor-Con) 40 meq 1X ONCE PO Last administered on 01/17/21at 18:14; Start 01/17/21 at 17:00; Stop 01/17/21 at 17:01; Status DC Magnesium Sulfate 50 ml @ 25 mls/hr 1X ONCE IV Last administered on 01/17/21at 18:14; Start 01/17/21 at 17:15; Stop 01/17/21 at 19:14; Status DC Acetaminophen (Tylenol) 650 mg PRN Q4HRS PRN PO TEMP OVER 100.4F OR MILD PAIN Last administered on 01/18/21at 00:18; Start 01/17/21 at 18:00 Citalopram Hydrobromide (CeleXA) 10 mg DAILY PO Last administered on 01/18/21at 09:02; Start 01/18/21 at 09:00 Folic Acid (Folic Acid) 1 mg DAILY PO Last administered on 01/18/21at 09:02; Start 01/18/21 at 09:00 Thiamine Mononitrate (Vitamin B-1) 100 mg DAILY08 PO Last administered on 01/18/21at 09:02; Start 01/18/21 at 08:00 Insulin Human Lispro (HumaLOG) 0-5 UNITS TIDWMEALS SQ ; Start 01/18/21 at 08:00 Dextrose (Dextrose 50%-Water Syringe) 12.5 gm PRN Q15MIN PRN IV SEE COMMENTS; Start 01/17/21 at 18:15 Sodium Chloride (Normal Saline Flush) 3 ml QSHIFT PRN IV AFTER MEDS AND BLOOD DRAWS; Start 01/17/21 at 18:15 Sodium Chloride 1,000 ml @ 70 mls/hr [id number] IV Last administered on 01/18/21at 09:08; Start 01/17/21 at 18:15 Multivitamins 10 ml/Thiamine HCl 100 mg/Folic Acid 1 mg/Sodium Chloride 1,011.2 ml @ 125 mls/ hr 1X ONCE IV Last administered on 01/18/21at 00:05; Start 01/17/21 at 19:00; Stop 01/18/21 at 03:05; Status DC Ondansetron HCl (Zofran) 4 mg PRN Q4HRS PRN IV NAUSEA/VOMITING; Start 01/17/21 at 18:15 Acetaminophen (Tylenol) 650 mg PRN Q4HRS PRN PO TEMP OVER 100.4F OR MILD PAIN; Start 01/17/21 at 18:15 Al Hydroxide/Mg Hydroxide (Mylanta Plus Xs) 30 ml PRN DAILY PRN PO HEARTBURN / GAS; Start 01/17/21 at 18:15 Clonidine HCl (Catapres) 0.1 mg PRN Q6HRS PRN PO SBP>160 OR DBP>90; Start 01/17/21 at 18:15 Docusate Sodium (Colace) 100 mg PRN BID PRN PO HARD STOOLS; Start 01/17/21 at 18:15 Albuterol Sulfate (Ventolin Neb Soln) 2.5 mg PRN Q4HRS PRN NEB SHORTNESS OF BREATH; Start 01/17/21 at 18:15 Guaifenesin (Robitussin) 200 mg PRN Q4HRS PRN PO COUGH Last administered on 01/18/21at 00:16; Start 01/17/21 at 18:15 Lorazepam (Ativan) 0.5 mg PRN Q4HRS PRN PO ANXIETY / AGITATION; Start 01/17/21 at 18:15 Lorazepam (Ativan Inj) 2 mg PRN Q4HRS PRN IV ANXIETY / AGITATION; Start 01/17/21 at 18:15 Enoxaparin Sodium (Lovenox 40mg Syringe) 40 mg Q24H SQ Last administered on 01/18/21at 00:04; Start 01/17/21 at 19:00 Lorazepam (Ativan) 4 mg PRN Q1HR PRN PO For CIWA 8-14; Start 01/17/21 at 18:15 Lorazepam (Ativan) 8 mg PRN Q1HR PRN PO For CIWA 15 or greater; Start 01/17/21 at 18:15 Lorazepam (Ativan Inj) 2 mg PRN Q1HR PRN IV For CIWA 8-14; Start 01/17/21 at 18:15 Lorazepam (Ativan Inj) 4 mg PRN Q1HR PRN IV For CIWA 15 or greater; Start 01/17/21 at 18:15 Haloperidol Lactate (Haldol Inj) 5 mg PRN Q4HRS PRN IVP Hallucinatns,Confusn,Delirium; Start 01/17/21 at 18:15 Diphenhydramine HCl (Benadryl) 25 mg PRN Q15MIN PRN IVP EPS symptoms 2'Haldol admin; Start 01/17/21 at 18:15 Clonidine HCl (Catapres) 0.1 mg PRN Q1HR PRN PO SBP > 180 or DBP > 100, MRX3; Start 01/17/21 at 18:15 Lorazepam (Ativan Inj) 2 mg PRN Q15MIN PRN IV SEE COMMENTS; Start 01/17/21 at 18:15; Status UNV Lorazepam (Ativan Inj) 4 mg PRN Q15MIN PRN IV SEE COMMENTS; Start 01/17/21 at 18:15; Status UNV Potassium Bicarbonate (Potassium Effervescent Tablet) 40 meq 1X ONCE FT ; Start 01/17/21 at 18:30; Stop 01/17/21 at 18:31; Status UNV Potassium Bicarbonate (Potassium Effervescent Tablet) 40 meq 1X ONCE FT ; Start 01/17/21 at 18:30; Stop 01/17/21 at 18:31; Status UNV Magnesium Sulfate 50 ml @ 25 mls/hr Q24H IV ; Start 01/17/21 at 18:30; Stop 01/19/21 at 20:29; Status Cancel Potassium Phos/ Sodium Phos (Phos-Nak) 1 pkt BID PO Last administered on 01/18/21at 09:02; Start 01/17/21 at 21:00; Stop 01/18/21 at 09:01; Status DC Potassium Bicarbonate (Potassium Effervescent Tablet) 40 meq Q4H PO ; Start 01/17/21 at 18:30; Stop 01/17/21 at 22:31; Status UNV Potassium Bicarbonate (Potassium Effervescent Tablet) 40 meq Q4H PO ; Start 01/17/21 at 18:30; Stop 01/17/21 at 22:31; Status UNV Hydralazine HCl (Apresoline Inj) 10 mg PRN Q4HRS PRN IVP ELEVATED BP, SEE COMMENTS Last administered on 01/18/21at 09:09; Start 01/17/21 at 18:30 Info (Non-Icu Electrolyte Protocol) 1 ea CONT PRN PRN MC SEE COMMENTS; Start 01/17/21 at 19:15 Acetaminophen/ Hydrocodone Bitart (Lortab 5/325) 1 tab PRN Q4HRS PRN PO MODERATE PAIN 4-6 Last administered on 01/18/21at 09:08; Start 01/17/21 at 23:45 Nicotine (Nicoderm Cq 21mg) 1 patch PRN DAILY PRN TD SMOKING CESSATION Last administered on 01/18/21at 00:03; Start 01/17/21 at 23:45 Active Scripts Active Metronidazole 500 Mg Tablet 1 Tab PO TID 10 Days B-1 (Thiamine HCl) 100 Mg Tablet 100 Mg PO DAILY08 30 Days Folic Acid 0.8 Mg Capsule 1 Cap PO DAILY 30 Days Celexa (Citalopram Hydrobromide) 10 Mg Tablet 10 Mg PO DAILY 30 Days Tylenol (Acetaminophen) 325 Mg Tablet 650 Mg PO PRN Q4HRS PRN 10 Days Allergies Allergies: Coded Allergies: No Known Drug Allergies (Unverified , 12/15/19) ROS Review of System Negative for fever, chills, weight loss, shortness of breath, chest pain, i ndigestion, hematochezia, melena, and dysuria. Full 14-point review of systems is negative. Physical Exam Physical Examination General: Well-developed, well-nourished black male in no acute distress HEENT: Normocephalic andatraumatic. Tympanic membranes clear.Temporal arteriespulsatile and nontender.Fundoscopic exam unremarkable Neck: Supple without bruit, no meningismus Musculoskeletal: Stability:see neurologic. Gait exam:see neurologic. Tone:see neurologic.Strength:see neurologic. Neurological: Mental Status:intact, orientation, memory, attention span/concentration, language, fund of knowledge normal. CIWA score 0. Cranial Nerves:Pupils equal and reactive to light, extraocular movements areintact, visual berumen are full to confrontation. Facial sensation is normal. There is no facial asymmetry. Vestibulo-ocular reflex is intact. Palate elevates and tongue protrudes in midline. All other cranial related problems are negative except as mentioned before.Reflexes:1+ and symmetric with flexor plantar responses. Motor:4/5 strength with normal tone and bulk. Coordination:Finger-nose finger and [id number] testing are normal. Rapid alternating movements and fine finger movements are intact. Gait:Not tested. Sensory:Stocking loss. Vitals VITALS Vital Signs Date Time Temp Pulse Resp B/P (MAP) Pulse Ox O2 Delivery O2 Flow Rate FiO2 01/18/21 09:09 70 181/98 01/18/21 09:08 Room Air 01/18/21 07:00 98.3 20 96 98.3 Labs Labs Laboratory Tests Test 01/17/21 14:21 01/17/21 15:21 01/17/21 19:50 01/17/21 20:05 Glucose (Fingerstick) 144 mg/dL (70-99) White Blood Count 8.9 x10^3/uL (4.0-11.0) Red Blood Count 3.10 x10^6/uL (4.30-5.70) Hemoglobin 12.5 g/dL (13.0-17.5) Hematocrit 36.5 % (39.0-53.0) Mean Corpuscular Volume 118 fL (79-100) Mean Corpuscular Hemoglobin 40 pg (25-35) Mean Corpuscular Hemoglobin Concent 34 g/dL (31-37) Red Cell Distribution Width 17.9 % (11.5-14.5) Platelet Count 513 x10^3/uL (140-400) Neutrophils (%) (Auto) 87 % (31-73) Lymphocytes (%) (Auto) 10 % (24-48) Monocytes (%) (Auto) 3 % (0-9) Eosinophils (%) (Auto) 0 % (0-3) Basophils (%) (Auto) 1 % (0-3) Neutrophils # (Auto) 7.7 x10^3/uL (1.8-7.7) Lymphocytes # (Auto) 0.9 x10^3/uL (1.0-4.8) Monocytes # (Auto) 0.2 x10^3/uL (0.0-1.1) Eosinophils # (Auto) 0.0 x10^3/uL (0.0-0.7) Basophils # (Auto) 0.1 x10^3/uL (0.0-0.2) Segmented Neutrophils % 87 % (35-66) Band Neutrophils % 3 % (0-9) Lymphocytes % 7 % (24-48) Monocytes % 2 % (0-10) Basophils % 1 % (0-3) Platelet Estimate Increased (ADEQUATE) Anisocytosis Slight Macrocytosis Marked Sodium Level 150 mmol/L (136-145) Potassium Level 2.5 mmol/L (3.5-5.1) Chloride Level 105 mmol/L (98-107) Carbon Dioxide Level 24 mmol/L (21-32) Anion Gap 21 (6-14) Blood Urea Nitrogen 11 mg/dL (8-26) Creatinine 0.8 mg/dL (0.7-1.3) Estimated GFR (Cockcroft-Gault) 119.7 Glucose Level 101 mg/dL (70-99) Calcium Level 9.1 mg/dL (8.5-10.1) Magnesium Level 1.4 mg/dL (1.8-2.4) Total Bilirubin 0.6 mg/dL (0.2-1.0) Direct Bilirubin 0.3 mg/dL (0.0-0.2) Aspartate Amino Transf (AST/SGOT) 629 U/L (15-37) Alanine Aminotransferase (ALT/SGPT) 98 U/L (16-63) Alkaline Phosphatase 177 U/L (46-116) Total Protein 6.6 g/dL (6.4-8.2) Albumin 3.1 g/dL (3.4-5.0) Ethyl Alcohol Level 206 mg/dL (0-10) Prothrombin Time 13.3 SEC (11.7-14.0) Prothromb Time International Ratio 1.1 (0.8-1.1) Ammonia < 10 mcmol/L (11-34) Troponin I Quantitative 0.025 ng/mL (0.000-0.055) Free Thyroxine 0.98 ng/dL (0.76-1.46) Test 01/17/21 21:22 01/18/21 04:15 01/18/21 07:08 01/18/21 09:30 Glucose (Fingerstick) 119 mg/dL (70-99) 149 mg/dL (70-99) White Blood Count 9.2 x10^3/uL (4.0-11.0) Red Blood Count 2.64 x10^6/uL (4.30-5.70) Hemoglobin 10.6 g/dL (13.0-17.5) Hematocrit 30.5 % (39.0-53.0) Mean Corpuscular Volume 116 fL (79-100) Mean Corpuscular Hemoglobin 40 pg (25-35) Mean Corpuscular Hemoglobin Concent 35 g/dL (31-37) Red Cell Distribution Width 18.2 % (11.5-14.5) Platelet Count 443 x10^3/uL (140-400) Neutrophils (%) (Auto) 73 % (31-73) Lymphocytes (%) (Auto) 20 % (24-48) Monocytes (%) (Auto) 5 % (0-9) Eosinophils (%) (Auto) 1 % (0-3) Basophils (%) (Auto) 1 % (0-3) Neutrophils # (Auto) 6.7 x10^3/uL (1.8-7.7) Lymphocytes # (Auto) 1.9 x10^3/uL (1.0-4.8) Monocytes # (Auto) 0.5 x10^3/uL (0.0-1.1) Eosinophils # (Auto) 0.1 x10^3/uL (0.0-0.7) Basophils # (Auto) 0.1 x10^3/uL (0.0-0.2) Sodium Level 144 mmol/L (136-145) Potassium Level 3.3 mmol/L (3.5-5.1) Chloride Level 102 mmol/L (98-107) Carbon Dioxide Level 30 mmol/L (21-32) Anion Gap 12 (6-14) Blood Urea Nitrogen 8 mg/dL (8-26) Creatinine 0.6 mg/dL (0.7-1.3) Estimated GFR (Cockcroft-Gault) 166.9 BUN/Creatinine Ratio 13 (6-20) Glucose Level 133 mg/dL (70-99) Calcium Level 8.8 mg/dL (8.5-10.1) Total Bilirubin 1.6 mg/dL (0.2-1.0) Aspartate Amino Transf (AST/SGOT) 214 U/L (15-37) Alanine Aminotransferase (ALT/SGPT) 61 U/L (16-63) Alkaline Phosphatase 167 U/L (46-116) Total Protein 6.0 g/dL (6.4-8.2) Albumin 2.9 g/dL (3.4-5.0) Albumin/Globulin Ratio 0.9 (1.0-1.7) Urine Collection Type Unknown Urine Color Yellow Urine Clarity Clear Urine pH 6.5 (<5.0-8.0) Urine Specific [place] 1.020 (1.000-1.030) Urine Protein Negative mg/dL (NEG-TRACE) Urine Glucose (UA) Negative mg/dL (NEG) Urine Ketones (Stick) Negative mg/dL (NEG) Urine Blood Negative (NEG) Urine Nitrite Negative (NEG) Urine Bilirubin Negative (NEG) Urine Urobilinogen Dipstick 1.0 mg/dL (0.2 mg/dL) Urine Leukocyte Esterase Negative (NEG) Urine RBC Occ /HPF (0-2) Urine WBC 0 /HPF (0-4) Urine Squamous Epithelial Cells Occ /LPF Urine Bacteria 0 /HPF (0-FEW) Laboratory Tests Test 01/17/21 14:21 01/17/21 15:21 01/17/21 19:50 01/17/21 20:05 Glucose (Fingerstick) 144 mg/dL (70-99) White Blood Count 8.9 x10^3/uL (4.0-11.0) Red Blood Count 3.10 x10^6/uL (4.30-5.70) Hemoglobin 12.5 g/dL (13.0-17.5) Hematocrit 36.5 % (39.0-53.0) Mean Corpuscular Volume 118 fL (79-100) Mean Corpuscular Hemoglobin 40 pg (25-35) Mean Corpuscular Hemoglobin Concent 34 g/dL (31-37) Red Cell Distribution Width 17.9 % (11.5-14.5) Platelet Count 513 x10^3/uL (140-400) Neutrophils (%) (Auto) 87 % (31-73) Lymphocytes (%) (Auto) 10 % (24-48) Monocytes (%) (Auto) 3 % (0-9) Eosinophils (%) (Auto) 0 % (0-3) Basophils (%) (Auto) 1 % (0-3) Neutrophils # (Auto) 7.7 x10^3/uL (1.8-7.7) Lymphocytes # (Auto) 0.9 x10^3/uL (1.0-4.8) Monocytes # (Auto) 0.2 x10^3/uL (0.0-1.1) Eosinophils # (Auto) 0.0 x10^3/uL (0.0-0.7) Basophils # (Auto) 0.1 x10^3/uL (0.0-0.2) Segmented Neutrophils % 87 % (35-66) Band Neutrophils % 3 % (0-9) Lymphocytes % 7 % (24-48) Monocytes % 2 % (0-10) Basophils % 1 % (0-3) Platelet Estimate Increased (ADEQUATE) Anisocytosis Slight Macrocytosis Marked Sodium Level 150 mmol/L (136-145) Potassium Level 2.5 mmol/L (3.5-5.1) Chloride Level 105 mmol/L (98-107) Carbon Dioxide Level 24 mmol/L (21-32) Anion Gap 21 (6-14) Blood Urea Nitrogen 11 mg/dL (8-26) Creatinine 0.8 mg/dL (0.7-1.3) Estimated GFR (Cockcroft-Gault) 119.7 Glucose Level 101 mg/dL (70-99) Calcium Level 9.1 mg/dL (8.5-10.1) Magnesium Level 1.4 mg/dL (1.8-2.4) Total Bilirubin 0.6 mg/dL (0.2-1.0) Direct Bilirubin 0.3 mg/dL (0.0-0.2) Aspartate Amino Transf (AST/SGOT) 629 U/L (15-37) Alanine Aminotransferase (ALT/SGPT) 98 U/L (16-63) Alkaline Phosphatase 177 U/L (46-116) Total Protein 6.6 g/dL (6.4-8.2) Albumin 3.1 g/dL (3.4-5.0) Ethyl Alcohol Level 206 mg/dL (0-10) Prothrombin Time 13.3 SEC (11.7-14.0) Prothromb Time International Ratio 1.1 (0.8-1.1) Ammonia < 10 mcmol/L (11-34) Troponin I Quantitative 0.025 ng/mL (0.000-0.055) Free Thyroxine 0.98 ng/dL (0.76-1.46) Test 01/17/21 21:22 01/18/21 04:15 01/18/21 07:08 01/18/21 09:30 Glucose (Fingerstick) 119 mg/dL (70-99) 149 mg/dL (70-99) White Blood Count 9.2 x10^3/uL (4.0-11.0) Red Blood Count 2.64 x10^6/uL (4.30-5.70) Hemoglobin 10.6 g/dL (13.0-17.5) Hematocrit 30.5 % (39.0-53.0) Mean Corpuscular Volume 116 fL (79-100) Mean Corpuscular Hemoglobin 40 pg (25-35) Mean Corpuscular Hemoglobin Concent 35 g/dL (31-37) Red Cell Distribution Width 18.2 % (11.5-14.5) Platelet Count 443 x10^3/uL (140-400) Neutrophils (%) (Auto) 73 % (31-73) Lymphocytes (%) (Auto) 20 % (24-48) Monocytes (%) (Auto) 5 % (0-9) Eosinophils (%) (Auto) 1 % (0-3) Basophils (%) (Auto) 1 % (0-3) Neutrophils # (Auto) 6.7 x10^3/uL (1.8-7.7) Lymphocytes # (Auto) 1.9 x10^3/uL (1.0-4.8) Monocytes # (Auto) 0.5 x10^3/uL (0.0-1.1) Eosinophils # (Auto) 0.1 x10^3/uL (0.0-0.7) Basophils # (Auto) 0.1 x10^3/uL (0.0-0.2) Sodium Level 144 mmol/L (136-145) Potassium Level 3.3 mmol/L (3.5-5.1) Chloride Level 102 mmol/L (98-107) Carbon Dioxide Level 30 mmol/L (21-32) Anion Gap 12 (6-14) Blood Urea Nitrogen 8 mg/dL (8-26) Creatinine 0.6 mg/dL (0.7-1.3) Estimated GFR (Cockcroft-Gault) 166.9 BUN/Creatinine Ratio 13 (6-20) Glucose Level 133 mg/dL (70-99) Calcium Level 8.8 mg/dL (8.5-10.1) Total Bilirubin 1.6 mg/dL (0.2-1.0) Aspartate Amino Transf (AST/SGOT) 214 U/L (15-37) Alanine Aminotransferase (ALT/SGPT) 61 U/L (16-63) Alkaline Phosphatase 167 U/L (46-116) Total Protein 6.0 g/dL (6.4-8.2) Albumin 2.9 g/dL (3.4-5.0) Albumin/Globulin Ratio 0.9 (1.0-1.7) Urine Collection Type Unknown Urine Color Yellow Urine Clarity Clear Urine pH 6.5 (<5.0-8.0) Urine Specific [place] 1.020 (1.000-1.030) Urine Protein Negative mg/dL (NEG-TRACE) Urine Glucose (UA) Negative mg/dL (NEG) Urine Ketones (Stick) Negative mg/dL (NEG) Urine Blood Negative (NEG) Urine Nitrite Negative (NEG) Urine Bilirubin Negative (NEG) Urine Urobilinogen Dipstick 1.0 mg/dL (0.2 mg/dL) Urine Leukocyte Esterase Negative (NEG) Urine RBC Occ /HPF (0-2) Urine WBC 0 /HPF (0-4) Urine Squamous Epithelial Cells Occ /LPF Urine Bacteria 0 /HPF (0-FEW) Images Images Head and cervical spine CT without contrast. HISTORY: Altered mental status. TECHNIQUE: Computed tomographic images of the head and cervical spine were obtained without contrast. *One or more of the following individualized dose reduction techniques were utilized for this examination: 1. Automated exposure control. 2. Adjustment of the mA and/or kV according to patient size. 3. Use of iterative reconstruction technique. COMPARISON: 03/24/2020. FINDINGS: Head: There is no acute hemorrhage. There is no mass effect or midline shift. There is no hydrocephalus. There is cerebral volume loss. There is decreased attenuation within the cerebral white matter due to chronic small vessel disease. The orbits are unremarkable. There is a left maxillary sinus air-fluid level. There is maxillary and ethmoid sinus because of thickening. The mastoid air cells are clear. There is no suspicious calvarial lesion. Spine: There is cervical curvature due to thoracic scoliosis. There is multilevel endplate remodeling and facet arthropathy. There is no acute fracture or suspicious osseous lesion. The combination of degenerative changes results in minimal foraminal stenosis at multiple levels. There is no significant central canal stenosis. There is calcified atherosclerotic plaque within the carotid bifurcations. There is pulmonary emphysema. IMPRESSION: 1. No acute intracranial finding or evidence of acute cervical spine trauma. 2. Bilateral cerebral white matter changes, likely due to chronic small vessel disease. Note is made that MRI is more sensitive for acute infarction. 3. Cerebral atrophy. 4. Degenerative change involving the cervical spine, described in detail above. 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 Hypokalemia, transaminitis Recommendations: [facility] protocol PT/OT No additional neurological studies needed I will follow at intervals. Thank you for letting me help with the patient's care. HANSEL GONCALVES MD Jan 18, 2021 10:11
[2021-01-18 10:22] LABS: AMPHETAMINE/METHAMPHETAMINE NEG (NEG); BARBITURATES NEG (NEG); BENZODIAZEPINES NEG (NEG); CANNABINOIDS POS (NEG); COCAINE NEG (NEG); METHADONE NEG (NEG); OPIATES POS (NEG); PHENCYCLIDINE NEG (NEG)
--- NOTE | 2021-01-18 10:41 | PDOC ---
[employer] PROGRESS NOTE Date of Service DOS: DATE: 01/18/21 TIME: 10:36 Chief Complaint Chief Complaint EtOH abuse Mental status change with mproving post iv dextrose. (Suspect metabolic encephalopathy) History of stroke Diabetes Hypertension Cholecystectomy with postcholecystectomy biliary prominence to 7 mm. No evidence of choledocholithiasis. Hypernatremia, suspect volume depleted WU Hypokalemia Drug abuse Transaminase-itis Malnutriti Anemia History of Present Illness History of Present Illness 01/18/2021 Patient seen and examined Discussed with RN Discussed with case management Chart reviewed Patient complains of numerous things including a cough diarrhea chills neck pain but clinically I do not see any of this suspect he just likes it here? Nephrology GI and neurology are consulted Vitals/I&O Vitals/I&O: Vital Signs Date Time Temp Pulse Resp B/P (MAP) Pulse Ox O2 Delivery O2 Flow Rate FiO2 01/18/21 09:09 70 181/98 01/18/21 09:08 Room Air 01/18/21 07:00 98.3 20 96 98.3 Physical Exam General: Alert, Oriented X3, Cooperative, No acute distress, mild distress Lungs: Clear Abdomen: Normal bowel sounds, Soft Extremities: No cyanosis Labs Labs: Laboratory Tests Test 01/17/21 14:21 01/17/21 15:21 01/17/21 19:50 01/17/21 20:05 Glucose (Fingerstick) 144 mg/dL (70-99) White Blood Count 8.9 x10^3/uL (4.0-11.0) Red Blood Count 3.10 x10^6/uL (4.30-5.70) Hemoglobin 12.5 g/dL (13.0-17.5) Hematocrit 36.5 % (39.0-53.0) Mean Corpuscular Volume 118 fL (79-100) Mean Corpuscular Hemoglobin 40 pg (25-35) Mean Corpuscular Hemoglobin Concent 34 g/dL (31-37) Red Cell Distribution Width 17.9 % (11.5-14.5) Platelet Count 513 x10^3/uL (140-400) Neutrophils (%) (Auto) 87 % (31-73) Lymphocytes (%) (Auto) 10 % (24-48) Monocytes (%) (Auto) 3 % (0-9) Eosinophils (%) (Auto) 0 % (0-3) Basophils (%) (Auto) 1 % (0-3) Neutrophils # (Auto) 7.7 x10^3/uL (1.8-7.7) Lymphocytes # (Auto) 0.9 x10^3/uL (1.0-4.8) Monocytes # (Auto) 0.2 x10^3/uL (0.0-1.1) Eosinophils # (Auto) 0.0 x10^3/uL (0.0-0.7) Basophils # (Auto) 0.1 x10^3/uL (0.0-0.2) Segmented Neutrophils % 87 % (35-66) Band Neutrophils % 3 % (0-9) Lymphocytes % 7 % (24-48) Monocytes % 2 % (0-10) Basophils % 1 % (0-3) Platelet Estimate Increased (ADEQUATE) Anisocytosis Slight Macrocytosis Marked Sodium Level 150 mmol/L (136-145) Potassium Level 2.5 mmol/L (3.5-5.1) Chloride Level 105 mmol/L (98-107) Carbon Dioxide Level 24 mmol/L (21-32) Anion Gap 21 (6-14) Blood Urea Nitrogen 11 mg/dL (8-26) Creatinine 0.8 mg/dL (0.7-1.3) Estimated GFR (Cockcroft-Gault) 119.7 Glucose Level 101 mg/dL (70-99) Calcium Level 9.1 mg/dL (8.5-10.1) Magnesium Level 1.4 mg/dL (1.8-2.4) Total Bilirubin 0.6 mg/dL (0.2-1.0) Direct Bilirubin 0.3 mg/dL (0.0-0.2) Aspartate Amino Transf (AST/SGOT) 629 U/L (15-37) Alanine Aminotransferase (ALT/SGPT) 98 U/L (16-63) Alkaline Phosphatase 177 U/L (46-116) Total Protein 6.6 g/dL (6.4-8.2) Albumin 3.1 g/dL (3.4-5.0) Ethyl Alcohol Level 206 mg/dL (0-10) Prothrombin Time 13.3 SEC (11.7-14.0) Prothromb Time International Ratio 1.1 (0.8-1.1) Ammonia < 10 mcmol/L (11-34) Troponin I Quantitative 0.025 ng/mL (0.000-0.055) Hepatitis A IgM Antibody Nonreactive (Nonreactive) Hepatitis B Surface Antigen Nonreactive (Nonreactive) Hepatitis B Core IgM Antibody Nonreactive (Nonreactive) Hepatitis C IgG Antibody Nonreactive (Nonreactive) Free Thyroxine 0.98 ng/dL (0.76-1.46) Test 01/17/21 21:22 01/18/21 04:15 01/18/21 07:08 01/18/21 09:30 Glucose (Fingerstick) 119 mg/dL (70-99) 149 mg/dL (70-99) White Blood Count 9.2 x10^3/uL (4.0-11.0) Red Blood Count 2.64 x10^6/uL (4.30-5.70) Hemoglobin 10.6 g/dL (13.0-17.5) Hematocrit 30.5 % (39.0-53.0) Mean Corpuscular Volume 116 fL (79-100) Mean Corpuscular Hemoglobin 40 pg (25-35) Mean Corpuscular Hemoglobin Concent 35 g/dL (31-37) Red Cell Distribution Width 18.2 % (11.5-14.5) Platelet Count 443 x10^3/uL (140-400) Neutrophils (%) (Auto) 73 % (31-73) Lymphocytes (%) (Auto) 20 % (24-48) Monocytes (%) (Auto) 5 % (0-9) Eosinophils (%) (Auto) 1 % (0-3) Basophils (%) (Auto) 1 % (0-3) Neutrophils # (Auto) 6.7 x10^3/uL (1.8-7.7) Lymphocytes # (Auto) 1.9 x10^3/uL (1.0-4.8) Monocytes # (Auto) 0.5 x10^3/uL (0.0-1.1) Eosinophils # (Auto) 0.1 x10^3/uL (0.0-0.7) Basophils # (Auto) 0.1 x10^3/uL (0.0-0.2) Sodium Level 144 mmol/L (136-145) Potassium Level 3.3 mmol/L (3.5-5.1) Chloride Level 102 mmol/L (98-107) Carbon Dioxide Level 30 mmol/L (21-32) Anion Gap 12 (6-14) Blood Urea Nitrogen 8 mg/dL (8-26) Creatinine 0.6 mg/dL (0.7-1.3) Estimated GFR (Cockcroft-Gault) 166.9 BUN/Creatinine Ratio 13 (6-20) Glucose Level 133 mg/dL (70-99) Calcium Level 8.8 mg/dL (8.5-10.1) Total Bilirubin 1.6 mg/dL (0.2-1.0) Aspartate Amino Transf (AST/SGOT) 214 U/L (15-37) Alanine Aminotransferase (ALT/SGPT) 61 U/L (16-63) Alkaline Phosphatase 167 U/L (46-116) Total Protein 6.0 g/dL (6.4-8.2) Albumin 2.9 g/dL (3.4-5.0) Albumin/Globulin Ratio 0.9 (1.0-1.7) Urine Collection Type Unknown Urine Color Yellow Urine Clarity Clear Urine pH 6.5 (<5.0-8.0) Urine Specific [place] 1.020 (1.000-1.030) Urine Protein Negative mg/dL (NEG-TRACE) Urine Glucose (UA) Negative mg/dL (NEG) Urine Ketones (Stick) Negative mg/dL (NEG) Urine Blood Negative (NEG) Urine Nitrite Negative (NEG) Urine Bilirubin Negative (NEG) Urine Urobilinogen Dipstick 1.0 mg/dL (0.2 mg/dL) Urine Leukocyte Esterase Negative (NEG) Urine RBC Occ /HPF (0-2) Urine WBC 0 /HPF (0-4) Urine Squamous Epithelial Cells Occ /LPF Urine Bacteria 0 /HPF (0-FEW) Urine Opiates Screen Pos (NEG) Urine Methadone Screen Neg (NEG) Urine Barbiturates Neg (NEG) Urine Phencyclidine Screen Neg (NEG) Urine Amphetamine/Methamphetamine Neg (NEG) Urine Benzodiazepines Screen Neg (NEG) Urine Cocaine Screen Neg (NEG) Urine Cannabinoids Screen Pos (NEG) Urine Ethyl Alcohol Neg (NEG) Assessment and Plan Assessmemt and Plan Problems Medical Problems: (1) Alcohol intoxication Status: Acute (2) Hypoglycemia Status: Acute (3) Hypokalemia Status: Acute (4) Hypomagnesemia Status: Acute EtOH abuse Mental status change with mproving post iv dextrose. (Suspect metabolic encephalopathy) History of stroke Diabetes Hypertension Cholecystectomy with postcholecystectomy biliary prominence to 7 mm. No evidence of choledocholithiasis. Hypernatremia, suspect volume depleted WU Hypokalemia Drug abuse Transaminase-itis Malnutriti Anemia Plan Alcohol withdrawal protocol Banana bag Vitamins Await subspecialist input Trend labs Home meds DVT prophylaxis Full code I told him he needs to stop drinking Comment Review of Relevant I have reviewed the following items adonis (where applicable) has been applied. Medications: Current Medications Medications (Trade) Dose Ordered Sig/Steph Route PRN Reason Start Time Stop Time Status Last Admin Dose Admin Potassium Chloride/Water 100 ml @ 50 mls/hr 1X ONCE IV 01/17/21 17:00 01/17/21 18:59 DC 01/17/21 18:14 Potassium Chloride (Klor-Con) 40 meq 1X ONCE PO 01/17/21 17:00 01/17/21 17:01 DC 01/17/21 18:14 Magnesium Sulfate 50 ml @ 25 mls/hr 1X ONCE IV 01/17/21 17:15 01/17/21 19:14 DC 01/17/21 18:14 Acetaminophen (Tylenol) 650 mg PRN Q4HRS PRN PO TEMP OVER 100.4F OR MILD PAIN 01/17/21 18:00 01/18/21 00:18 Citalopram Hydrobromide (CeleXA) 10 mg DAILY PO 01/18/21 09:00 01/18/21 09:02 Folic Acid (Folic Acid) 1 mg DAILY PO 01/18/21 09:00 01/18/21 09:02 Thiamine Mononitrate (Vitamin B-1) 100 mg DAILY08 PO 01/18/21 08:00 01/18/21 09:02 Sodium Chloride 1,000 ml @ 70 mls/hr [id number] IV 01/17/21 18:15 01/18/21 09:08 Multivitamins 10 ml/Thiamine HCl 100 mg/Folic Acid 1 mg/Sodium Chloride 1,011.2 ml @ 125 mls/ hr 1X ONCE IV 01/17/21 19:00 01/18/21 03:05 DC 01/18/21 00:05 Guaifenesin (Robitussin) 200 mg PRN Q4HRS PRN PO COUGH 01/17/21 18:15 01/18/21 00:16 Enoxaparin Sodium (Lovenox 40mg Syringe) 40 mg Q24H SQ 01/17/21 19:00 01/18/21 00:04 Potassium Phos/ Sodium Phos (Phos-Nak) 1 pkt BID PO 01/17/21 21:00 01/18/21 09:01 DC 01/18/21 09:02 Hydralazine HCl (Apresoline Inj) 10 mg PRN Q4HRS PRN IVP ELEVATED BP, SEE COMMENTS 01/17/21 18:30 01/18/21 09:09 Acetaminophen/ Hydrocodone Bitart (Lortab 5/325) 1 tab PRN Q4HRS PRN PO MODERATE PAIN 4-6 01/17/21 23:45 01/18/21 09:08 Nicotine (Nicoderm Cq 21mg) 1 patch PRN DAILY PRN TD SMOKING CESSATION 01/17/21 23:45 01/18/21 00:03 Justifications for Admission Other Justification severe electrolyte imbalance BETSY INMAN III DO Jan 18, 2021 10:41
[2021-01-18 11:00] VITALS: BP 157/90
--- NOTE | 2021-01-18 11:18 | PDOC2 ---
CONSULT Date of Consult Date of Consult DATE: 01/18/21 TIME: 11:18 Reason for Consult Reason for Consult: HypoKalemia Source Source: Chart review, Patient History of Present Illness Reason for Visit: Pt is a 60-year-old -[place] male past medical history of alcoholism, hypertension, CVA in 2006 and type 2 diabetes, presents the ED brought in by EMS with concern for altered mental status with hypoglycemia. EMS found patient with glucose of 25. D10 was given. Mental status improved. POCT glucose in ed was 260. Pt reports noncompliance with medications states he cannot afford it . He reports that family members called 911-states he was too weak to get off the floor. Uncertain if he fell and hit his head. He denies any N/V. Had a few loose stools since hospitalization. Denies Hx of Kidney stones. Denies F/C/CP or SOB . Denies any urinary complaints He states his appetite is fair and always eats before starts to drink. He reports he has lost significant weight- Unintentional States he drinks alcohol, recently has been drinking more (1 Pint/day - not every day ). he also uses Marijuana . Past Medical History Cardiovascular: HTN, Hyperlipidemia Pulmonary: No pertinent hx CENTRAL NERVOUS SYSTEM: CVA GI: Peptic Ulcer disease, Other (Hiatal hernia) Psych: Anxiety, Addictions, Depression, Panic, Other (ADHD, paranoia) Musculoskeletal: Osteoarthritis Rheumatologic: Gout Endocrine: Diabetes Past Surgical History Past Surgical History: Cholecystectomy, Hernia Repair Family History Family History: Cancer, Diabetes, High Cholestrol, Hypertension, Kidney Disease Social History <1 pack per day ALCOHOL: heavy Drugs: Marijuana Current Problem List Problem List Problems Medical Problems: (1) Alcohol intoxication Status: Acute (2) Hypoglycemia Status: Acute (3) Hypokalemia Status: Acute (4) Hypomagnesemia Status: Acute Current Medications Current Medications Current Medications Potassium Chloride/Water 100 ml @ 50 mls/hr 1X ONCE IV Last administered on 01/17/21at 18:14; Start 01/17/21 at 17:00; Stop 01/17/21 at 18:59; Status DC Potassium Chloride (Klor-Con) 40 meq 1X ONCE PO Last administered on 01/17/21at 18:14; Start 01/17/21 at 17:00; Stop 01/17/21 at 17:01; Status DC Magnesium Sulfate 50 ml @ 25 mls/hr 1X ONCE IV Last administered on 01/17/21at 18:14; Start 01/17/21 at 17:15; Stop 01/17/21 at 19:14; Status DC Acetaminophen (Tylenol) 650 mg PRN Q4HRS PRN PO TEMP OVER 100.4F OR MILD PAIN Last administered on 01/18/21at 00:18; Start 01/17/21 at 18:00 Citalopram Hydrobromide (CeleXA) 10 mg DAILY PO Last administered on 01/18/21at 09:02; Start 01/18/21 at 09:00 Folic Acid (Folic Acid) 1 mg DAILY PO Last administered on 01/18/21at 09:02; Start 01/18/21 at 09:00 Thiamine Mononitrate (Vitamin B-1) 100 mg DAILY08 PO Last administered on 01/18/21at 09:02; Start 01/18/21 at 08:00 Insulin Human Lispro (HumaLOG) 0-5 UNITS TIDWMEALS SQ ; Start 01/18/21 at 08:00 Dextrose (Dextrose 50%-Water Syringe) 12.5 gm PRN Q15MIN PRN IV SEE COMMENTS; Start 01/17/21 at 18:15 Sodium Chloride (Normal Saline Flush) 3 ml QSHIFT PRN IV AFTER MEDS AND BLOOD DRAWS; Start 01/17/21 at 18:15 Sodium Chloride 1,000 ml @ 70 mls/hr [id number] IV Last administered on 01/18/21at 09:08; Start 01/17/21 at 18:15 Multivitamins 10 ml/Thiamine HCl 100 mg/Folic Acid 1 mg/Sodium Chloride 1,011.2 ml @ 125 mls/ hr 1X ONCE IV Last administered on 01/18/21at 00:05; Start 01/17/21 at 19:00; Stop 01/18/21 at 03:05; Status DC Ondansetron HCl (Zofran) 4 mg PRN Q4HRS PRN IV NAUSEA/VOMITING; Start 01/17/21 at 18:15 Acetaminophen (Tylenol) 650 mg PRN Q4HRS PRN PO TEMP OVER 100.4F OR MILD PAIN; Start 01/17/21 at 18:15 Al Hydroxide/Mg Hydroxide (Mylanta Plus Xs) 30 ml PRN DAILY PRN PO HEARTBURN / GAS; Start 01/17/21 at 18:15 Clonidine HCl (Catapres) 0.1 mg PRN Q6HRS PRN PO SBP>160 OR DBP>90; Start 01/17/21 at 18:15 Docusate Sodium (Colace) 100 mg PRN BID PRN PO HARD STOOLS; Start 01/17/21 at 18:15 Albuterol Sulfate (Ventolin Neb Soln) 2.5 mg PRN Q4HRS PRN NEB SHORTNESS OF BREATH; Start 01/17/21 at 18:15 Guaifenesin (Robitussin) 200 mg PRN Q4HRS PRN PO COUGH Last administered on 01/18/21at 00:16; Start 01/17/21 at 18:15 Lorazepam (Ativan) 0.5 mg PRN Q4HRS PRN PO ANXIETY / AGITATION; Start 01/17/21 at 18:15 Lorazepam (Ativan Inj) 2 mg PRN Q4HRS PRN IV ANXIETY / AGITATION; Start 01/17/21 at 18:15 Enoxaparin Sodium (Lovenox 40mg Syringe) 40 mg Q24H SQ Last administered on 01/18/21at 00:04; Start 01/17/21 at 19:00 Lorazepam (Ativan) 4 mg PRN Q1HR PRN PO For CIWA 8-14; Start 01/17/21 at 18:15 Lorazepam (Ativan) 8 mg PRN Q1HR PRN PO For CIWA 15 or greater; Start 01/17/21 at 18:15 Lorazepam (Ativan Inj) 2 mg PRN Q1HR PRN IV For CIWA 8-14; Start 01/17/21 at 18:15 Lorazepam (Ativan Inj) 4 mg PRN Q1HR PRN IV For CIWA 15 or greater; Start 01/17/21 at 18:15 Haloperidol Lactate (Haldol Inj) 5 mg PRN Q4HRS PRN IVP Hallucinatns,Confusn,Delirium; Start 01/17/21 at 18:15 Diphenhydramine HCl (Benadryl) 25 mg PRN Q15MIN PRN IVP EPS symptoms 2'Haldol admin; Start 01/17/21 at 18:15 Clonidine HCl (Catapres) 0.1 mg PRN Q1HR PRN PO SBP > 180 or DBP > 100, MRX3; Start 01/17/21 at 18:15 Lorazepam (Ativan Inj) 2 mg PRN Q15MIN PRN IV SEE COMMENTS; Start 01/17/21 at 18:15; Status UNV Lorazepam (Ativan Inj) 4 mg PRN Q15MIN PRN IV SEE COMMENTS; Start 01/17/21 at 18:15; Status UNV Potassium Bicarbonate (Potassium Effervescent Tablet) 40 meq 1X ONCE FT ; Start 01/17/21 at 18:30; Stop 01/17/21 at 18:31; Status UNV Potassium Bicarbonate (Potassium Effervescent Tablet) 40 meq 1X ONCE FT ; Start 01/17/21 at 18:30; Stop 01/17/21 at 18:31; Status UNV Magnesium Sulfate 50 ml @ 25 mls/hr Q24H IV ; Start 01/17/21 at 18:30; Stop 01/19/21 at 20:29; Status Cancel Potassium Phos/ Sodium Phos (Phos-Nak) 1 pkt BID PO Last administered on 01/18/21at 09:02; Start 01/17/21 at 21:00; Stop 01/18/21 at 09:01; Status DC Potassium Bicarbonate (Potassium Effervescent Tablet) 40 meq Q4H PO ; Start 01/17/21 at 18:30; Stop 01/17/21 at 22:31; Status UNV Potassium Bicarbonate (Potassium Effervescent Tablet) 40 meq Q4H PO ; Start 01/17/21 at 18:30; Stop 01/17/21 at 22:31; Status UNV Hydralazine HCl (Apresoline Inj) 10 mg PRN Q4HRS PRN IVP ELEVATED BP, SEE COMMENTS Last administered on 01/18/21at 09:09; Start 01/17/21 at 18:30 Info (Non-Icu Electrolyte Protocol) 1 ea CONT PRN PRN MC SEE COMMENTS; Start 01/17/21 at 19:15 Acetaminophen/ Hydrocodone Bitart (Lortab 5/325) 1 tab PRN Q4HRS PRN PO MODERATE PAIN 4-6 Last administered on 01/18/21at 09:08; Start 01/17/21 at 23:45 Nicotine (Nicoderm Cq 21mg) 1 patch PRN DAILY PRN TD SMOKING CESSATION Last administered on 01/18/21at 00:03; Start 01/17/21 at 23:45 Amlodipine Besylate (Norvasc) 10 mg DAILY PO ; Start 01/18/21 at 11:00 Active Scripts Active Metronidazole 500 Mg Tablet 1 Tab PO TID 10 Days B-1 (Thiamine HCl) 100 Mg Tablet 100 Mg PO DAILY08 30 Days Folic Acid 0.8 Mg Capsule 1 Cap PO DAILY 30 Days Celexa (Citalopram Hydrobromide) 10 Mg Tablet 10 Mg PO DAILY 30 Days Tylenol (Acetaminophen) 325 Mg Tablet 650 Mg PO PRN Q4HRS PRN 10 Days Allergies Allergies: Coded Allergies: No Known Drug Allergies (Unverified , 12/15/19) ROS Review of System As per HPI, rest of the ROS is negative Physical Exam Physical Exam General- NAD, sitting up in chair HEEN OM moist, no icterus Neck Supple Lungs CTA, Non labored CV S1S2 Abd Soft, NT Neuro AXOX3, grossly normal psych Depression + No Torres, No CVA or SP tenderness Integumentary No rash Vital Signs Vital Signs Date Time Temp Pulse Resp B/P (MAP) Pulse Ox O2 Delivery O2 Flow Rate FiO2 01/18/21 10:00 Room Air 01/18/21 09:09 70 181/98 01/18/21 07:00 98.3 20 96 98.3 Assessment & Plan HypoKalemia- severe at Presentation suspect 2/2 Poor PO intake, excessive alcohol, GI Losses . Prior Hx as well , seen in 2019. SANCHEZ including Ur K not suggestive of renal losses Replace as indicated , Monitor Mental status change POA- improved post iv dextrose Alcohol abuse History of stroke Diabetes Hypertension- Unable to afford meds Hypernatremia POA , suspect volume depleted Drug abuse- UDS positive for Cannabinoids, Opioids Malnutritition - c/o Wt loss, defer to primary Anemia- sanchez per primary. Pt reports Colonoscopy in the apst at [facility] Labs Labs Laboratory Tests Test 01/17/21 14:21 01/17/21 15:21 01/17/21 19:50 01/17/21 20:05 Glucose (Fingerstick) 144 mg/dL (70-99) White Blood Count 8.9 x10^3/uL (4.0-11.0) Red Blood Count 3.10 x10^6/uL (4.30-5.70) Hemoglobin 12.5 g/dL (13.0-17.5) Hematocrit 36.5 % (39.0-53.0) Mean Corpuscular Volume 118 fL (79-100) Mean Corpuscular Hemoglobin 40 pg (25-35) Mean Corpuscular Hemoglobin Concent 34 g/dL (31-37) Red Cell Distribution Width 17.9 % (11.5-14.5) Platelet Count 513 x10^3/uL (140-400) Neutrophils (%) (Auto) 87 % (31-73) Lymphocytes (%) (Auto) 10 % (24-48) Monocytes (%) (Auto) 3 % (0-9) Eosinophils (%) (Auto) 0 % (0-3) Basophils (%) (Auto) 1 % (0-3) Neutrophils # (Auto) 7.7 x10^3/uL (1.8-7.7) Lymphocytes # (Auto) 0.9 x10^3/uL (1.0-4.8) Monocytes # (Auto) 0.2 x10^3/uL (0.0-1.1) Eosinophils # (Auto) 0.0 x10^3/uL (0.0-0.7) Basophils # (Auto) 0.1 x10^3/uL (0.0-0.2) Segmented Neutrophils % 87 % (35-66) Band Neutrophils % 3 % (0-9) Lymphocytes % 7 % (24-48) Monocytes % 2 % (0-10) Basophils % 1 % (0-3) Platelet Estimate Increased (ADEQUATE) Anisocytosis Slight Macrocytosis Marked Sodium Level 150 mmol/L (136-145) Potassium Level 2.5 mmol/L (3.5-5.1) Chloride Level 105 mmol/L (98-107) Carbon Dioxide Level 24 mmol/L (21-32) Anion Gap 21 (6-14) Blood Urea Nitrogen 11 mg/dL (8-26) Creatinine 0.8 mg/dL (0.7-1.3) Estimated GFR (Cockcroft-Gault) 119.7 Glucose Level 101 mg/dL (70-99) Calcium Level 9.1 mg/dL (8.5-10.1) Magnesium Level 1.4 mg/dL (1.8-2.4) Total Bilirubin 0.6 mg/dL (0.2-1.0) Direct Bilirubin 0.3 mg/dL (0.0-0.2) Aspartate Amino Transf (AST/SGOT) 629 U/L (15-37) Alanine Aminotransferase (ALT/SGPT) 98 U/L (16-63) Alkaline Phosphatase 177 U/L (46-116) Total Protein 6.6 g/dL (6.4-8.2) Albumin 3.1 g/dL (3.4-5.0) Ethyl Alcohol Level 206 mg/dL (0-10) Prothrombin Time 13.3 SEC (11.7-14.0) Prothromb Time International Ratio 1.1 (0.8-1.1) Ammonia < 10 mcmol/L (11-34) Troponin I Quantitative 0.025 ng/mL (0.000-0.055) Hepatitis A IgM Antibody Nonreactive (Nonreactive) Hepatitis B Surface Antigen Nonreactive (Nonreactive) Hepatitis B Core IgM Antibody Nonreactive (Nonreactive) Hepatitis C IgG Antibody Nonreactive (Nonreactive) Free Thyroxine 0.98 ng/dL (0.76-1.46) Test 01/17/21 21:22 01/18/21 04:15 01/18/21 07:08 01/18/21 09:30 Glucose (Fingerstick) 119 mg/dL (70-99) 149 mg/dL (70-99) White Blood Count 9.2 x10^3/uL (4.0-11.0) Red Blood Count 2.64 x10^6/uL (4.30-5.70) Hemoglobin 10.6 g/dL (13.0-17.5) Hematocrit 30.5 % (39.0-53.0) Mean Corpuscular Volume 116 fL (79-100) Mean Corpuscular Hemoglobin 40 pg (25-35) Mean Corpuscular Hemoglobin Concent 35 g/dL (31-37) Red Cell Distribution Width 18.2 % (11.5-14.5) Platelet Count 443 x10^3/uL (140-400) Neutrophils (%) (Auto) 73 % (31-73) Lymphocytes (%) (Auto) 20 % (24-48) Monocytes (%) (Auto) 5 % (0-9) Eosinophils (%) (Auto) 1 % (0-3) Basophils (%) (Auto) 1 % (0-3) Neutrophils # (Auto) 6.7 x10^3/uL (1.8-7.7) Lymphocytes # (Auto) 1.9 x10^3/uL (1.0-4.8) Monocytes # (Auto) 0.5 x10^3/uL (0.0-1.1) Eosinophils # (Auto) 0.1 x10^3/uL (0.0-0.7) Basophils # (Auto) 0.1 x10^3/uL (0.0-0.2) Sodium Level 144 mmol/L (136-145) Potassium Level 3.3 mmol/L (3.5-5.1) Chloride Level 102 mmol/L (98-107) Carbon Dioxide Level 30 mmol/L (21-32) Anion Gap 12 (6-14) Blood Urea Nitrogen 8 mg/dL (8-26) Creatinine 0.6 mg/dL (0.7-1.3) Estimated GFR (Cockcroft-Gault) 166.9 BUN/Creatinine Ratio 13 (6-20) Glucose Level 133 mg/dL (70-99) Calcium Level 8.8 mg/dL (8.5-10.1) Total Bilirubin 1.6 mg/dL (0.2-1.0) Aspartate Amino Transf (AST/SGOT) 214 U/L (15-37) Alanine Aminotransferase (ALT/SGPT) 61 U/L (16-63) Alkaline Phosphatase 167 U/L (46-116) Total Protein 6.0 g/dL (6.4-8.2) Albumin 2.9 g/dL (3.4-5.0) Albumin/Globulin Ratio 0.9 (1.0-1.7) Urine Collection Type Unknown Urine Color Yellow Urine Clarity Clear Urine pH 6.5 (<5.0-8.0) Urine Specific [place] 1.020 (1.000-1.030) Urine Protein Negative mg/dL (NEG-TRACE) Urine Glucose (UA) Negative mg/dL (NEG) Urine Ketones (Stick) Negative mg/dL (NEG) Urine Blood Negative (NEG) Urine Nitrite Negative (NEG) Urine Bilirubin Negative (NEG) Urine Urobilinogen Dipstick 1.0 mg/dL (0.2 mg/dL) Urine Leukocyte Esterase Negative (NEG) Urine RBC Occ /HPF (0-2) Urine WBC 0 /HPF (0-4) Urine Squamous Epithelial Cells Occ /LPF Urine Bacteria 0 /HPF (0-FEW) Urine Opiates Screen Pos (NEG) Urine Methadone Screen Neg (NEG) Urine Barbiturates Neg (NEG) Urine Phencyclidine Screen Neg (NEG) Urine Amphetamine/Methamphetamine Neg (NEG) Urine Benzodiazepines Screen Neg (NEG) Urine Cocaine Screen Neg (NEG) Urine Cannabinoids Screen Pos (NEG) Urine Ethyl Alcohol Neg (NEG) Test 01/18/21 10:40 Glucose (Fingerstick) 124 mg/dL (70-99) Laboratory Tests Test 01/17/21 14:21 01/17/21 15:21 01/17/21 19:50 01/17/21 20:05 Glucose (Fingerstick) 144 mg/dL (70-99) White Blood Count 8.9 x10^3/uL (4.0-11.0) Red Blood Count 3.10 x10^6/uL (4.30-5.70) Hemoglobin 12.5 g/dL (13.0-17.5) Hematocrit 36.5 % (39.0-53.0) Mean Corpuscular Volume 118 fL (79-100) Mean Corpuscular Hemoglobin 40 pg (25-35) Mean Corpuscular Hemoglobin Concent 34 g/dL (31-37) Red Cell Distribution Width 17.9 % (11.5-14.5) Platelet Count 513 x10^3/uL (140-400) Neutrophils (%) (Auto) 87 % (31-73) Lymphocytes (%) (Auto) 10 % (24-48) Monocytes (%) (Auto) 3 % (0-9) Eosinophils (%) (Auto) 0 % (0-3) Basophils (%) (Auto) 1 % (0-3) Neutrophils # (Auto) 7.7 x10^3/uL (1.8-7.7) Lymphocytes # (Auto) 0.9 x10^3/uL (1.0-4.8) Monocytes # (Auto) 0.2 x10^3/uL (0.0-1.1) Eosinophils # (Auto) 0.0 x10^3/uL (0.0-0.7) Basophils # (Auto) 0.1 x10^3/uL (0.0-0.2) Segmented Neutrophils % 87 % (35-66) Band Neutrophils % 3 % (0-9) Lymphocytes % 7 % (24-48) Monocytes % 2 % (0-10) Basophils % 1 % (0-3) Platelet Estimate Increased (ADEQUATE) Anisocytosis Slight Macrocytosis Marked Sodium Level 150 mmol/L (136-145) Potassium Level 2.5 mmol/L (3.5-5.1) Chloride Level 105 mmol/L (98-107) Carbon Dioxide Level 24 mmol/L (21-32) Anion Gap 21 (6-14) Blood Urea Nitrogen 11 mg/dL (8-26) Creatinine 0.8 mg/dL (0.7-1.3) Estimated GFR (Cockcroft-Gault) 119.7 Glucose Level 101 mg/dL (70-99) Calcium Level 9.1 mg/dL (8.5-10.1) Magnesium Level 1.4 mg/dL (1.8-2.4) Total Bilirubin 0.6 mg/dL (0.2-1.0) Direct Bilirubin 0.3 mg/dL (0.0-0.2) Aspartate Amino Transf (AST/SGOT) 629 U/L (15-37) Alanine Aminotransferase (ALT/SGPT) 98 U/L (16-63) Alkaline Phosphatase 177 U/L (46-116) Total Protein 6.6 g/dL (6.4-8.2) Albumin 3.1 g/dL (3.4-5.0) Ethyl Alcohol Level 206 mg/dL (0-10) Prothrombin Time 13.3 SEC (11.7-14.0) Prothromb Time International Ratio 1.1 (0.8-1.1) Ammonia < 10 mcmol/L (11-34) Troponin I Quantitative 0.025 ng/mL (0.000-0.055) Hepatitis A IgM Antibody Nonreactive (Nonreactive) Hepatitis B Surface Antigen Nonreactive (Nonreactive) Hepatitis B Core IgM Antibody Nonreactive (Nonreactive) Hepatitis C IgG Antibody Nonreactive (Nonreactive) Free Thyroxine 0.98 ng/dL (0.76-1.46) Test 01/17/21 21:22 01/18/21 04:15 01/18/21 07:08 01/18/21 09:30 Glucose (Fingerstick) 119 mg/dL (70-99) 149 mg/dL (70-99) White Blood Count 9.2 x10^3/uL (4.0-11.0) Red Blood Count 2.64 x10^6/uL (4.30-5.70) Hemoglobin 10.6 g/dL (13.0-17.5) Hematocrit 30.5 % (39.0-53.0) Mean Corpuscular Volume 116 fL (79-100) Mean Corpuscular Hemoglobin 40 pg (25-35) Mean Corpuscular Hemoglobin Concent 35 g/dL (31-37) Red Cell Distribution Width 18.2 % (11.5-14.5) Platelet Count 443 x10^3/uL (140-400) Neutrophils (%) (Auto) 73 % (31-73) Lymphocytes (%) (Auto) 20 % (24-48) Monocytes (%) (Auto) 5 % (0-9) Eosinophils (%) (Auto) 1 % (0-3) Basophils (%) (Auto) 1 % (0-3) Neutrophils # (Auto) 6.7 x10^3/uL (1.8-7.7) Lymphocytes # (Auto) 1.9 x10^3/uL (1.0-4.8) Monocytes # (Auto) 0.5 x10^3/uL (0.0-1.1) Eosinophils # (Auto) 0.1 x10^3/uL (0.0-0.7) Basophils # (Auto) 0.1 x10^3/uL (0.0-0.2) Sodium Level 144 mmol/L (136-145) Potassium Level 3.3 mmol/L (3.5-5.1) Chloride Level 102 mmol/L (98-107) Carbon Dioxide Level 30 mmol/L (21-32) Anion Gap 12 (6-14) Blood Urea Nitrogen 8 mg/dL (8-26) Creatinine 0.6 mg/dL (0.7-1.3) Estimated GFR (Cockcroft-Gault) 166.9 BUN/Creatinine Ratio 13 (6-20) Glucose Level 133 mg/dL (70-99) Calcium Level 8.8 mg/dL (8.5-10.1) Total Bilirubin 1.6 mg/dL (0.2-1.0) Aspartate Amino Transf (AST/SGOT) 214 U/L (15-37) Alanine Aminotransferase (ALT/SGPT) 61 U/L (16-63) Alkaline Phosphatase 167 U/L (46-116) Total Protein 6.0 g/dL (6.4-8.2) Albumin 2.9 g/dL (3.4-5.0) Albumin/Globulin Ratio 0.9 (1.0-1.7) Urine Collection Type Unknown Urine Color Yellow Urine Clarity Clear Urine pH 6.5 (<5.0-8.0) Urine Specific [place] 1.020 (1.000-1.030) Urine Protein Negative mg/dL (NEG-TRACE) Urine Glucose (UA) Negative mg/dL (NEG) Urine Ketones (Stick) Negative mg/dL (NEG) Urine Blood Negative (NEG) Urine Nitrite Negative (NEG) Urine Bilirubin Negative (NEG) Urine Urobilinogen Dipstick 1.0 mg/dL (0.2 mg/dL) Urine Leukocyte Esterase Negative (NEG) Urine RBC Occ /HPF (0-2) Urine WBC 0 /HPF (0-4) Urine Squamous Epithelial Cells Occ /LPF Urine Bacteria 0 /HPF (0-FEW) Urine Opiates Screen Pos (NEG) Urine Methadone Screen Neg (NEG) Urine Barbiturates Neg (NEG) Urine Phencyclidine Screen Neg (NEG) Urine Amphetamine/Methamphetamine Neg (NEG) Urine Benzodiazepines Screen Neg (NEG) Urine Cocaine Screen Neg (NEG) Urine Cannabinoids Screen Pos (NEG) Urine Ethyl Alcohol Neg (NEG) Test 01/18/21 10:40 Glucose (Fingerstick) 124 mg/dL (70-99) Review All relevant outside records, renal labs, imaging studies, telemetry/EKG's were reviewed. Images Images CT Scan abdomen 2020 Diffuse colonic spasm with wall thickening, suspicious for colitis in the appropriate clinical context. Mild diffuse urinary bladder wall thickening could also reflect cystitis or sequelae of chronic bladder outlet obstruction. Correlate clinically. Otherwise no acute findings on noncontrast abdomen and pelvis CT. TENNILLE BEVERLY MD Jan 18, 2021 11:18
[2021-01-18 15:00] VITALS: BP 159/97
--- NOTE | 2021-01-18 15:17 | NUR ---
SW following. Discussed with RN, pt from home. Etienne (BERNARDINO) met with pt, pt stating he drinks because he is depressed and can't afford his meds. Pt provided with resources for [facility] and [employer]. SW to provide self pay resources and [employer] coupon card. Med Assist following for self pay status. SW will continue to follow.
--- NOTE | 2021-01-18 15:41 | PDOC2 ---
GI CONSULT Date of Service: DATE: 01/18/21 TIME: 15:25 Reason For Consult: Transaminitis HPI: HPI: 60 y/o male brought to ER due to AMS associated with hypoglycemia; responded to IV dextrose. Also with elevated alcohol level. Admitted due to unsteadiness and possible withdrawal issues. Asked to see re: abnormal LFT's. Not a very forthcoming historian today and seemingly denies any issues GI-campos. Says was doing OK alcohol-campos until the anniversary of his brother's . No h/o heartburn, dysphagia, or PUD. S/p cholecystectomy. H/o heavy alcohol use with hepatic steatosis on past imaging. Hepatitis markers negative now. Alcoholic pancreatitis in the past. Still smokes and drinks. H/o some loose stools w/o ongoing diarrhea. No constipation, overt GI bleeding. No prior endoscopy. GIFH positive for brother with colon cancer. Diverticulosis on past imaging. PMH: PMH: HTN, DM, anxiety/depression, ADHD, Gout, osteoarthritis, hyperlipidemia, TIA's, Suicidal ideation. S/p michelle, LIH repair. FH: Family History: No pertinent hx Social History: Smoke: <1 pack per day ALCOHOL: heavy Drugs: Marijuana, Other (from tox screen) ROS: GEN: Denies fevers, chills, sweats HEENT: Denies blurred vision, sore throat CV: Denies chest pain RESP: Denies shortness of air, cough GI: Per HPI : Denies hematuria, dysuria ENDO: Denies weight changes NEURO: Denies confusion, dizziness MSK: Denies weakness, joint pain/swelling SKIN: Denies jaundice, pruritus Vitals: Vitals: Vital Signs Date Time Temp Pulse Resp B/P (MAP) Pulse Ox O2 Delivery O2 Flow Rate FiO2 01/18/21 15:00 98.0 80 20 159/97 (117) 94 Room Air 98.0 Labs: Labs: Laboratory Tests Test 01/17/21 19:50 01/17/21 20:05 01/17/21 21:22 01/18/21 04:15 Prothrombin Time 13.3 SEC (11.7-14.0) Prothromb Time International Ratio 1.1 (0.8-1.1) Ammonia < 10 mcmol/L (11-34) Troponin I Quantitative 0.025 ng/mL (0.000-0.055) Hepatitis A IgM Antibody Nonreactive (Nonreactive) Hepatitis B Surface Antigen Nonreactive (Nonreactive) Hepatitis B Core IgM Antibody Nonreactive (Nonreactive) Hepatitis C IgG Antibody Nonreactive (Nonreactive) Free Thyroxine 0.98 ng/dL (0.76-1.46) Glucose (Fingerstick) 119 mg/dL (70-99) White Blood Count 9.2 x10^3/uL (4.0-11.0) Red Blood Count 2.64 x10^6/uL (4.30-5.70) Hemoglobin 10.6 g/dL (13.0-17.5) Hematocrit 30.5 % (39.0-53.0) Mean Corpuscular Volume 116 fL (79-100) Mean Corpuscular Hemoglobin 40 pg (25-35) Mean Corpuscular Hemoglobin Concent 35 g/dL (31-37) Red Cell Distribution Width 18.2 % (11.5-14.5) Platelet Count 443 x10^3/uL (140-400) Neutrophils (%) (Auto) 73 % (31-73) Lymphocytes (%) (Auto) 20 % (24-48) Monocytes (%) (Auto) 5 % (0-9) Eosinophils (%) (Auto) 1 % (0-3) Basophils (%) (Auto) 1 % (0-3) Neutrophils # (Auto) 6.7 x10^3/uL (1.8-7.7) Lymphocytes # (Auto) 1.9 x10^3/uL (1.0-4.8) Monocytes # (Auto) 0.5 x10^3/uL (0.0-1.1) Eosinophils # (Auto) 0.1 x10^3/uL (0.0-0.7) Basophils # (Auto) 0.1 x10^3/uL (0.0-0.2) Sodium Level 144 mmol/L (136-145) Potassium Level 3.3 mmol/L (3.5-5.1) Chloride Level 102 mmol/L (98-107) Carbon Dioxide Level 30 mmol/L (21-32) Anion Gap 12 (6-14) Blood Urea Nitrogen 8 mg/dL (8-26) Creatinine 0.6 mg/dL (0.7-1.3) Estimated GFR (Cockcroft-Gault) 166.9 BUN/Creatinine Ratio 13 (6-20) Glucose Level 133 mg/dL (70-99) Calcium Level 8.8 mg/dL (8.5-10.1) Total Bilirubin 1.6 mg/dL (0.2-1.0) Aspartate Amino Transf (AST/SGOT) 214 U/L (15-37) Alanine Aminotransferase (ALT/SGPT) 61 U/L (16-63) Alkaline Phosphatase 167 U/L (46-116) Total Protein 6.0 g/dL (6.4-8.2) Albumin 2.9 g/dL (3.4-5.0) Albumin/Globulin Ratio 0.9 (1.0-1.7) Test 01/18/21 07:08 01/18/21 09:30 01/18/21 10:40 Glucose (Fingerstick) 149 mg/dL (70-99) 124 mg/dL (70-99) Urine Collection Type Unknown Urine Color Yellow Urine Clarity Clear Urine pH 6.5 (<5.0-8.0) Urine Specific [place] 1.020 (1.000-1.030) Urine Protein Negative mg/dL (NEG-TRACE) Urine Glucose (UA) Negative mg/dL (NEG) Urine Ketones (Stick) Negative mg/dL (NEG) Urine Blood Negative (NEG) Urine Nitrite Negative (NEG) Urine Bilirubin Negative (NEG) Urine Urobilinogen Dipstick 1.0 mg/dL (0.2 mg/dL) Urine Leukocyte Esterase Negative (NEG) Urine RBC Occ /HPF (0-2) Urine WBC 0 /HPF (0-4) Urine Squamous Epithelial Cells Occ /LPF Urine Bacteria 0 /HPF (0-FEW) Urine Opiates Screen Pos (NEG) Urine Methadone Screen Neg (NEG) Urine Barbiturates Neg (NEG) Urine Phencyclidine Screen Neg (NEG) Urine Amphetamine/Methamphetamine Neg (NEG) Urine Benzodiazepines Screen Neg (NEG) Urine Cocaine Screen Neg (NEG) Urine Cannabinoids Screen Pos (NEG) Urine Ethyl Alcohol Neg (NEG) AST>ALT, minimal hyperbilirubinemia, mild macrocytic anemia. INR OK. Allergies: Coded Allergies: No Known Drug Allergies (Unverified , 12/15/19) Medications: Current Medications Medications (Trade) Dose Ordered Sig/Steph Route PRN Reason Start Time Stop Time Status Last Admin Dose Admin Potassium Chloride/Water 100 ml @ 50 mls/hr 1X ONCE IV 01/17/21 17:00 01/17/21 18:59 DC 01/17/21 18:14 Potassium Chloride (Klor-Con) 40 meq 1X ONCE PO 01/17/21 17:00 01/17/21 17:01 DC 01/17/21 18:14 Magnesium Sulfate 50 ml @ 25 mls/hr 1X ONCE IV 01/17/21 17:15 01/17/21 19:14 DC 01/17/21 18:14 Acetaminophen (Tylenol) 650 mg PRN Q4HRS PRN PO TEMP OVER 100.4F OR MILD PAIN 01/17/21 18:00 01/18/21 00:18 Citalopram Hydrobromide (CeleXA) 10 mg DAILY PO 01/18/21 09:00 01/18/21 09:02 Folic Acid (Folic Acid) 1 mg DAILY PO 01/18/21 09:00 01/18/21 09:02 Thiamine Mononitrate (Vitamin B-1) 100 mg DAILY08 PO 01/18/21 08:00 01/18/21 09:02 Sodium Chloride 1,000 ml @ 70 mls/hr [id number] IV 01/17/21 18:15 01/18/21 09:08 Multivitamins 10 ml/Thiamine HCl 100 mg/Folic Acid 1 mg/Sodium Chloride 1,011.2 ml @ 125 mls/ hr 1X ONCE IV 01/17/21 19:00 01/18/21 03:05 DC 01/18/21 00:05 Guaifenesin (Robitussin) 200 mg PRN Q4HRS PRN PO COUGH 01/17/21 18:15 01/18/21 00:16 Enoxaparin Sodium (Lovenox 40mg Syringe) 40 mg Q24H SQ 01/17/21 19:00 01/18/21 00:04 Potassium Phos/ Sodium Phos (Phos-Nak) 1 pkt BID PO 01/17/21 21:00 01/18/21 09:01 DC 01/18/21 09:02 Hydralazine HCl (Apresoline Inj) 10 mg PRN Q4HRS PRN IVP ELEVATED BP, SEE COMMENTS 01/17/21 18:30 01/18/21 09:09 Acetaminophen/ Hydrocodone Bitart (Lortab 5/325) 1 tab PRN Q4HRS PRN PO MODERATE PAIN 4-6 01/17/21 23:45 01/18/21 09:08 Nicotine (Nicoderm Cq 21mg) 1 patch PRN DAILY PRN TD SMOKING CESSATION 01/17/21 23:45 01/18/21 00:03 Amlodipine Besylate (Norvasc) 10 mg DAILY PO 01/18/21 11:00 01/18/21 12:49 PE: GEN: NAD, thin HEENT: Atraumatic, PERRLA LUNGS: CTAB HEART: RRR, no murmurs ABD: NABS, S/ND/NT, no masses EXTREMITY: No edema SKIN: No rashes, no jaundice NEURO/PSYCH: A & O 3 A/P: A/P: IMP: Abnormal LFT's; pattern suggests alcohol-related. Suspect some element of alcoholic hepatitis. Fatty liver; probably mix of alcohol and diabetes. FH colon cancer. H/o alcoholic pancreatitis. Diverticulosis, asymptomatic Macrocytic anemia c/w alcohol abuse. REC: Would keep in-house a couple days to be sure not withdrawing. Stop drinking. Merits screening colonoscopy at some point; need not occur this admision. Other pending. Thanks.. TERA BENOIT MD Jan 18, 2021 15:41
[2021-01-18 19:00] VITALS: BP 163/90
[2021-01-18 23:00] VITALS: BP 158/84
[2021-01-19 02:43] VITALS: BP 161/97
[2021-01-19 07:00] VITALS: BP 171/96
[2021-01-19] MEDS: INSULIN LISPRO 300 UNITS/3 ML VIAL. SQ SCH ×3 (08:00→17:00)
[2021-01-19 08:22] LABS: CALCIUM 8.6 mg/dL (8.5-10.1); CREATININE 0.8 mg/dL (0.7-1.3); GFR 119.7
[2021-01-19 08:48] LABS: POTASSIUM 2.3 mmol/L (3.5-5.1)
[2021-01-19] MEDS: FOLIC ACID 1 MG TABLET. PO SCH (08:48)
[2021-01-19] MEDS: THIAMINE 100 MG TABLET. PO SCH (08:48)
[2021-01-19] MEDS: HYDROcodone/APAP 5/325MG 1 TAB TABLET PO PRN ×2 (08:49→21:20)
[2021-01-19] MEDS: CITALOPRAM 10 MG TABLET. PO SCH (08:49)
[2021-01-19] MEDS ORDERED: POTASSIUM CHLORIDE 20 MEQ TABLET.ER. PO ONE ×3 (09:15→17:00)
[2021-01-19] MEDS: NICOTINE 21MG PATCH. TD PRN (10:36)
[2021-01-19] MEDS: POTASSIUM CHLORIDE 10MEQ 100 ML IV SCH ×2 (10:37→12:18)
[2021-01-19 11:00] VITALS: BP 160/90
--- NOTE | 2021-01-19 11:15 | PDOC ---
DATE OF SERVICE DATE: 01/19/21 TIME: 11:12 SUBJECTIVE ROS No complaints this morning OBJECTIVE Vital Signs Vital Signs Date Time Temp Pulse Resp B/P (MAP) Pulse Ox O2 Delivery O2 Flow Rate FiO2 01/19/21 10:37 Room Air 01/19/21 08:49 75 171/96 01/19/21 07:00 98.5 18 94 98.5 I & 0 Intake and Output 01/19/21 07:00 Intake Total 740 ml Balance 740 ml Intake Oral 740 ml # Voids 3 # Bowel Movements 4 PHYSICAL EXAM Physical Exam General- NAD, sitting up in chair HEEN OM moist, no icterus Neck Supple Lungs CTA, Non labored CV S1S2 Abd Soft, NT Neuro AXOX3, grossly normal psych Depression + No Trores, No CVA or SP tenderness Integumentary No rash DIAGNOSIS/ASSESSMENT Assessment & Plan HypoKalemia- severe suspect 2/2 Poor PO intake, excessive alcohol, GI Losses . Prior Hx as well , seen in 2019. SANCHEZ including Ur K not suggestive of renal losses Replace as indicated , Monitor Mental status change POA- improved post iv dextrose Alcohol abuse History of stroke Diabetes Hypertension- Unable to afford meds Hypernatremia POA , suspect volume depletion , maintain Hydration , encourage PO free water intake Drug abuse- UDS positive for Cannabinoids, Opioids Malnutritition - c/o Wt loss, defer to primary Anemia- sanchez per primary. Pt reports Colonoscopy in the apst at [facility] COMMENT/RELEVANT DATA Meds Current Medications Medications (Trade) Dose Ordered Sig/Steph Start Time Stop Time Status Last Admin Dose Admin Acetaminophen (Tylenol) 650 mg PRN Q4HRS PRN 01/17/21 18:15 Acetaminophen/ Hydrocodone Bitart (Lortab 5/325) 1 tab PRN Q4HRS PRN 01/17/21 23:45 01/19/21 08:49 1 TAB Al Hydroxide/Mg Hydroxide (Mylanta Plus Xs) 30 ml PRN DAILY PRN 01/17/21 18:15 Albuterol Sulfate (Ventolin Neb Soln) 2.5 mg PRN Q4HRS PRN 01/17/21 18:15 Amlodipine Besylate (Norvasc) 10 mg DAILY 01/18/21 11:00 01/19/21 08:49 10 MG Citalopram Hydrobromide (CeleXA) 10 mg DAILY 01/18/21 09:00 01/19/21 08:49 10 MG Clonidine HCl (Catapres) 0.1 mg PRN Q1HR PRN 01/17/21 18:15 Dextrose (Dextrose 50%-Water Syringe) 12.5 gm PRN Q15MIN PRN 01/17/21 18:15 Diphenhydramine HCl (Benadryl) 25 mg PRN Q15MIN PRN 01/17/21 18:15 Docusate Sodium (Colace) 100 mg PRN BID PRN 01/17/21 18:15 Enoxaparin Sodium (Lovenox 40mg Syringe) 40 mg Q24H 01/17/21 19:00 01/18/21 21:39 40 MG Folic Acid (Folic Acid) 1 mg DAILY 01/18/21 09:00 01/19/21 08:48 1 MG Guaifenesin (Robitussin) 200 mg PRN Q4HRS PRN 01/17/21 18:15 01/18/21 21:36 200 MG Haloperidol Lactate (Haldol Inj) 5 mg PRN Q4HRS PRN 01/17/21 18:15 Hydralazine HCl (Apresoline Inj) 10 mg PRN Q4HRS PRN 01/17/21 18:30 01/18/21 09:09 10 MG Info (Non-Icu Electrolyte Protocol) 1 ea CONT PRN PRN 01/17/21 19:15 Insulin Human Lispro (HumaLOG) 0-5 UNITS TIDWMEALS 01/18/21 08:00 Lorazepam (Ativan Inj) 4 mg PRN Q15MIN PRN 01/17/21 18:15 UNV Lorazepam (Ativan) 8 mg PRN Q1HR PRN 01/17/21 18:15 Magnesium Sulfate 50 ml @ 25 mls/hr Q24H 01/17/21 18:30 01/19/21 20:29 Cancel Multivitamins 10 ml/Thiamine HCl 100 mg/Folic Acid 1 mg/Sodium Chloride 1,011.2 ml @ 125 mls/ hr 1X ONCE 01/17/21 19:00 01/18/21 03:05 DC 01/18/21 00:05 125 MLS/HR Nicotine (Nicoderm Cq 21mg) 1 patch PRN DAILY PRN 01/17/21 23:45 6/8/21 10:36 1 PATCH Ondansetron HCl (Zofran) 4 mg PRN Q4HRS PRN 01/17/21 18:15 Potassium Bicarbonate (Potassium Effervescent Tablet) 40 meq Q4H 01/17/21 18:30 01/17/21 22:31 UNV Potassium Chloride/Water 100 ml @ 100 mls/hr Q1H 01/19/21 10:00 01/19/21 11:59 01/19/21 10:37 100 MLS/HR Potassium Chloride (Klor-Con) 40 meq 1X ONCE 01/19/21 12:00 01/19/21 12:01 Potassium Phos/ Sodium Phos (Phos-Nak) 1 pkt BID 01/17/21 21:00 01/18/21 09:01 DC 01/18/21 09:02 1 PKT Sodium Chloride 1,000 ml @ 70 mls/hr [id number] 01/17/21 18:15 01/18/21 22:51 70 MLS/HR Sodium Chloride (Normal Saline Flush) 3 ml QSHIFT PRN 01/17/21 18:15 Thiamine Mononitrate (Vitamin B-1) 100 mg DAILY08 01/18/21 08:00 01/19/21 08:48 100 MG Lab Laboratory Tests Test 01/18/21 16:37 01/18/21 19:12 01/19/21 07:37 01/19/21 07:40 Glucose (Fingerstick) 104 mg/dL (70-99) 114 mg/dL (70-99) 92 mg/dL (70-99) Sodium Level 146 mmol/L (136-145) Potassium Level 2.3 mmol/L (3.5-5.1) Chloride Level 105 mmol/L (98-107) Carbon Dioxide Level 34 mmol/L (21-32) Anion Gap 7 (6-14) Blood Urea Nitrogen 6 mg/dL (8-26) Creatinine 0.8 mg/dL (0.7-1.3) Estimated GFR (Cockcroft-Gault) 119.7 Glucose Level 88 mg/dL (70-99) Calcium Level 8.6 mg/dL (8.5-10.1) Results All relevant outside records, renal labs, imaging studies, telemetry/EKG's were reviewed. Ernestofation of Admission Dx: Justifications for Admission: Justification of Admission Dx: Yes TENNILLE BEVERLY MD Jan 19, 2021 11:15
[2021-01-19] MEDS: MAGNESIUM OXIDE 400 MG TABLET PO SCH (12:09)
[2021-01-19] MEDS ORDERED: CYCLOBENZAPRINE 10 MG TABLET. PO ONE (12:15)
--- NOTE | 2021-01-19 12:23 | PDOC ---
[employer] PROGRESS NOTE Date of Service DOS: DATE: 01/19/21 TIME: 12:22 Chief Complaint Chief Complaint EtOH abuse Mental status change with mproving post iv dextrose. (Suspect metabolic encephalopathy) History of stroke Diabetes Hypertension Cholecystectomy with postcholecystectomy biliary prominence to 7 mm. No evidence of choledocholithiasis. Hypernatremia, suspect volume depleted WU Hypokalemia Drug abuse Transaminase-itis Malnutriti Anemia History of Present Illness History of Present Illness 01/19/2021 Patient seen and examined DC tele, DC bed alarm repalce K and Mag, severe probleems back pain Discussed with RN Discussed with case management Chart reviewed Vitals/I&O Vitals/I&O: Vital Signs Date Time Temp Pulse Resp B/P (MAP) Pulse Ox O2 Delivery O2 Flow Rate FiO2 01/19/21 11:00 97.8 78 18 160/90 (113) 96 Room Air 97.8 I & O 01/18/21 01/18/21 01/19/21 15:00 23:00 07:00 Intake Total 240 ml 500 ml Balance 240 ml 500 ml Physical Exam General: Alert, Oriented X3, Cooperative, No acute distress, mild distress Heart: Regular rate Lungs: Clear Abdomen: Normal bowel sounds, Soft Extremities: No cyanosis Labs Labs: Laboratory Tests Test 01/18/21 16:37 01/18/21 19:12 01/19/21 07:37 01/19/21 07:40 Glucose (Fingerstick) 104 mg/dL (70-99) 114 mg/dL (70-99) 92 mg/dL (70-99) Sodium Level 146 mmol/L (136-145) Potassium Level 2.3 mmol/L (3.5-5.1) Chloride Level 105 mmol/L (98-107) Carbon Dioxide Level 34 mmol/L (21-32) Anion Gap 7 (6-14) Blood Urea Nitrogen 6 mg/dL (8-26) Creatinine 0.8 mg/dL (0.7-1.3) Estimated GFR (Cockcroft-Gault) 119.7 Glucose Level 88 mg/dL (70-99) Calcium Level 8.6 mg/dL (8.5-10.1) Magnesium Level 1.0 mg/dL (1.8-2.4) Test 01/19/21 11:57 Glucose (Fingerstick) 134 mg/dL (70-99) Assessment and Plan Assessmemt and Plan Problems Medical Problems: (1) Alcohol intoxication Status: Acute (2) Hypoglycemia Status: Acute (3) Hypokalemia Status: Acute (4) Hypomagnesemia Status: Acute Comment Review of Relevant I have reviewed the following items adonis (where applicable) has been applied. Medications: Current Medications Medications (Trade) Dose Ordered Sig/Steph Route PRN Reason Start Time Stop Time Status Last Admin Dose Admin Potassium Chloride (Klor-Con) 40 meq 1X ONCE PO 01/19/21 09:15 01/19/21 09:16 DC 01/19/21 10:36 Potassium Chloride (Klor-Con) 40 meq 1X ONCE PO 01/19/21 12:00 01/19/21 12:01 DC 01/19/21 12:09 Potassium Chloride/Water 100 ml @ 100 mls/hr Q1H IV 01/19/21 10:00 01/19/21 11:59 DC 01/19/21 12:18 Magnesium Oxide (Magnesium Oxide) 400 mg DAILY PO 01/19/21 12:00 01/19/21 12:09 Cyclobenzaprine HCl (Flexeril) 10 mg 1X ONCE PO 01/19/21 12:15 01/19/21 12:16 DC 01/19/21 12:09 Justifications for Admission Other Justification severe electrolyte imbalance OBEY ERNST MD Jan 19, 2021 12:23
[2021-01-19] MEDS ORDERED: MAGNESIUM SULFATE 4GM 100 ML IV ONE (12:30)
[2021-01-19] MEDS: IV NORMAL SALINE 1000ML BAG 1,000 ML IV SCH (13:09)
--- NOTE | 2021-01-19 13:14 | PDOC ---
G I PROGRESS NOTE Subjective Says feeling better. Eating more. Physical Exam Lungs clear anteriorly. RRR Abdomen soft, not tender. Review of Relevant I have reviewed the following items adonis (where applicable) has been applied. Labs Laboratory Tests Test 01/17/21 14:21 01/17/21 15:21 01/17/21 19:50 01/17/21 20:05 Glucose (Fingerstick) 144 mg/dL (70-99) White Blood Count 8.9 x10^3/uL (4.0-11.0) Red Blood Count 3.10 x10^6/uL (4.30-5.70) Hemoglobin 12.5 g/dL (13.0-17.5) Hematocrit 36.5 % (39.0-53.0) Mean Corpuscular Volume 118 fL (79-100) Mean Corpuscular Hemoglobin 40 pg (25-35) Mean Corpuscular Hemoglobin Concent 34 g/dL (31-37) Red Cell Distribution Width 17.9 % (11.5-14.5) Platelet Count 513 x10^3/uL (140-400) Neutrophils (%) (Auto) 87 % (31-73) Lymphocytes (%) (Auto) 10 % (24-48) Monocytes (%) (Auto) 3 % (0-9) Eosinophils (%) (Auto) 0 % (0-3) Basophils (%) (Auto) 1 % (0-3) Neutrophils # (Auto) 7.7 x10^3/uL (1.8-7.7) Lymphocytes # (Auto) 0.9 x10^3/uL (1.0-4.8) Monocytes # (Auto) 0.2 x10^3/uL (0.0-1.1) Eosinophils # (Auto) 0.0 x10^3/uL (0.0-0.7) Basophils # (Auto) 0.1 x10^3/uL (0.0-0.2) Segmented Neutrophils % 87 % (35-66) Band Neutrophils % 3 % (0-9) Lymphocytes % 7 % (24-48) Monocytes % 2 % (0-10) Basophils % 1 % (0-3) Platelet Estimate Increased (ADEQUATE) Anisocytosis Slight Macrocytosis Marked Sodium Level 150 mmol/L (136-145) Potassium Level 2.5 mmol/L (3.5-5.1) Chloride Level 105 mmol/L (98-107) Carbon Dioxide Level 24 mmol/L (21-32) Anion Gap 21 (6-14) Blood Urea Nitrogen 11 mg/dL (8-26) Creatinine 0.8 mg/dL (0.7-1.3) Estimated GFR (Cockcroft-Gault) 119.7 Glucose Level 101 mg/dL (70-99) Calcium Level 9.1 mg/dL (8.5-10.1) Magnesium Level 1.4 mg/dL (1.8-2.4) Total Bilirubin 0.6 mg/dL (0.2-1.0) Direct Bilirubin 0.3 mg/dL (0.0-0.2) Aspartate Amino Transf (AST/SGOT) 629 U/L (15-37) Alanine Aminotransferase (ALT/SGPT) 98 U/L (16-63) Alkaline Phosphatase 177 U/L (46-116) Total Protein 6.6 g/dL (6.4-8.2) Albumin 3.1 g/dL (3.4-5.0) Ethyl Alcohol Level 206 mg/dL (0-10) Prothrombin Time 13.3 SEC (11.7-14.0) Prothromb Time International Ratio 1.1 (0.8-1.1) Ammonia < 10 mcmol/L (11-34) Troponin I Quantitative 0.025 ng/mL (0.000-0.055) Hepatitis A IgM Antibody Nonreactive (Nonreactive) Hepatitis B Surface Antigen Nonreactive (Nonreactive) Hepatitis B Core IgM Antibody Nonreactive (Nonreactive) Hepatitis C IgG Antibody Nonreactive (Nonreactive) Free Thyroxine 0.98 ng/dL (0.76-1.46) Test 01/17/21 21:22 01/18/21 04:15 01/18/21 07:08 01/18/21 09:30 Glucose (Fingerstick) 119 mg/dL (70-99) 149 mg/dL (70-99) White Blood Count 9.2 x10^3/uL (4.0-11.0) Red Blood Count 2.64 x10^6/uL (4.30-5.70) Hemoglobin 10.6 g/dL (13.0-17.5) Hematocrit 30.5 % (39.0-53.0) Mean Corpuscular Volume 116 fL (79-100) Mean Corpuscular Hemoglobin 40 pg (25-35) Mean Corpuscular Hemoglobin Concent 35 g/dL (31-37) Red Cell Distribution Width 18.2 % (11.5-14.5) Platelet Count 443 x10^3/uL (140-400) Neutrophils (%) (Auto) 73 % (31-73) Lymphocytes (%) (Auto) 20 % (24-48) Monocytes (%) (Auto) 5 % (0-9) Eosinophils (%) (Auto) 1 % (0-3) Basophils (%) (Auto) 1 % (0-3) Neutrophils # (Auto) 6.7 x10^3/uL (1.8-7.7) Lymphocytes # (Auto) 1.9 x10^3/uL (1.0-4.8) Monocytes # (Auto) 0.5 x10^3/uL (0.0-1.1) Eosinophils # (Auto) 0.1 x10^3/uL (0.0-0.7) Basophils # (Auto) 0.1 x10^3/uL (0.0-0.2) Sodium Level 144 mmol/L (136-145) Potassium Level 3.3 mmol/L (3.5-5.1) Chloride Level 102 mmol/L (98-107) Carbon Dioxide Level 30 mmol/L (21-32) Anion Gap 12 (6-14) Blood Urea Nitrogen 8 mg/dL (8-26) Creatinine 0.6 mg/dL (0.7-1.3) Estimated GFR (Cockcroft-Gault) 166.9 BUN/Creatinine Ratio 13 (6-20) Glucose Level 133 mg/dL (70-99) Calcium Level 8.8 mg/dL (8.5-10.1) Total Bilirubin 1.6 mg/dL (0.2-1.0) Aspartate Amino Transf (AST/SGOT) 214 U/L (15-37) Alanine Aminotransferase (ALT/SGPT) 61 U/L (16-63) Alkaline Phosphatase 167 U/L (46-116) Total Protein 6.0 g/dL (6.4-8.2) Albumin 2.9 g/dL (3.4-5.0) Albumin/Globulin Ratio 0.9 (1.0-1.7) Urine Collection Type Unknown Urine Color Yellow Urine Clarity Clear Urine pH 6.5 (<5.0-8.0) Urine Specific [place] 1.020 (1.000-1.030) Urine Protein Negative mg/dL (NEG-TRACE) Urine Glucose (UA) Negative mg/dL (NEG) Urine Ketones (Stick) Negative mg/dL (NEG) Urine Blood Negative (NEG) Urine Nitrite Negative (NEG) Urine Bilirubin Negative (NEG) Urine Urobilinogen Dipstick 1.0 mg/dL (0.2 mg/dL) Urine Leukocyte Esterase Negative (NEG) Urine RBC Occ /HPF (0-2) Urine WBC 0 /HPF (0-4) Urine Squamous Epithelial Cells Occ /LPF Urine Bacteria 0 /HPF (0-FEW) Urine Opiates Screen Pos (NEG) Urine Methadone Screen Neg (NEG) Urine Barbiturates Neg (NEG) Urine Phencyclidine Screen Neg (NEG) Urine Amphetamine/Methamphetamine Neg (NEG) Urine Benzodiazepines Screen Neg (NEG) Urine Cocaine Screen Neg (NEG) Urine Cannabinoids Screen Pos (NEG) Urine Ethyl Alcohol Neg (NEG) Test 01/18/21 10:40 01/18/21 16:37 01/18/21 19:12 01/19/21 07:37 Glucose (Fingerstick) 124 mg/dL (70-99) 104 mg/dL (70-99) 114 mg/dL (70-99) 92 mg/dL (70-99) Test 01/19/21 07:40 01/19/21 11:57 Sodium Level 146 mmol/L (136-145) Potassium Level 2.3 mmol/L (3.5-5.1) Chloride Level 105 mmol/L (98-107) Carbon Dioxide Level 34 mmol/L (21-32) Anion Gap 7 (6-14) Blood Urea Nitrogen 6 mg/dL (8-26) Creatinine 0.8 mg/dL (0.7-1.3) Estimated GFR (Cockcroft-Gault) 119.7 Glucose Level 88 mg/dL (70-99) Calcium Level 8.6 mg/dL (8.5-10.1) Magnesium Level 1.0 mg/dL (1.8-2.4) Glucose (Fingerstick) 134 mg/dL (70-99) Laboratory Tests Test 01/18/21 16:37 01/18/21 19:12 01/19/21 07:37 01/19/21 07:40 Glucose (Fingerstick) 104 mg/dL (70-99) 114 mg/dL (70-99) 92 mg/dL (70-99) Sodium Level 146 mmol/L (136-145) Potassium Level 2.3 mmol/L (3.5-5.1) Chloride Level 105 mmol/L (98-107) Carbon Dioxide Level 34 mmol/L (21-32) Anion Gap 7 (6-14) Blood Urea Nitrogen 6 mg/dL (8-26) Creatinine 0.8 mg/dL (0.7-1.3) Estimated GFR (Cockcroft-Gault) 119.7 Glucose Level 88 mg/dL (70-99) Calcium Level 8.6 mg/dL (8.5-10.1) Magnesium Level 1.0 mg/dL (1.8-2.4) Test 01/19/21 11:57 Glucose (Fingerstick) 134 mg/dL (70-99) Microbiology 01/17/21 Blood Culture - Preliminary, Resulted NO GROWTH AFTER 1 DAY Vitals/I & O Vital Sign - Last 24 Hours 01/18/21 01/18/21 01/18/21 01/18/21 15:00 19:00 20:10 21:36 Temp 98.0 98.4 98.0 98.4 Pulse 80 87 Resp 20 18 B/P (MAP) 159/97 (117) 163/90 (114) Pulse Ox 94 94 94 O2 Delivery Room Air Room Air Room Air Room Air 01/18/21 01/18/21 01/19/21 01/19/21 23:00 23:09 02:43 07:00 Temp 98.2 97.8 98.5 98.2 97.8 98.5 Pulse 80 80 75 Resp 18 18 18 B/P (MAP) 158/84 (108) 161/97 (118) 171/96 (121) Pulse Ox 94 94 94 94 O2 Delivery Room Air Room Air Room Air Room Air 01/19/21 01/19/21 01/19/21 01/19/21 07:55 08:49 08:49 10:37 Pulse 75 B/P (MAP) 171/96 O2 Delivery Room Air Room Air Room Air 01/19/21 11:00 Temp 97.8 97.8 Pulse 78 Resp 18 B/P (MAP) 160/90 (113) Pulse Ox 96 O2 Delivery Room Air Intake and Output 01/18/21 01/18/21 01/19/21 15:00 23:00 07:00 Intake Total 240 ml 500 ml Balance 240 ml 500 ml Problem List Problems Medical Problems: (1) Alcohol intoxication Status: Acute (2) Hypoglycemia Status: Acute (3) Hypokalemia Status: Acute (4) Hypomagnesemia Status: Acute Assessment Alcohol abuse/liver disease. Improved clinically. Plan of Care Note Continue support. Home soon? Justicifation of Admission Dx: Justifications for Admission: Justification of Admission Dx: Yes TERA BENOIT MD Jan 19, 2021 13:14
[2021-01-19 15:00] VITALS: BP 171/89
[2021-01-19] MEDS: ENOXAPARIN 40 MG/0.4 ML SYRINGE. SQ SCH (17:51)
[2021-01-19 19:00] VITALS: BP 146/95
[2021-01-19] MEDS ORDERED: ZOLPIDEM 5 MG TABLET. PO SCH (21:00)
[2021-01-19 22:35] VITALS: BP 154/94
[2021-01-20 07:00] VITALS: BP 163/100
[2021-01-20] MEDS ORDERED: POTASSIUM CHLORIDE 20 MEQ TABLET.ER. PO SCH (08:00)
[2021-01-20] MEDS: INSULIN LISPRO 300 UNITS/3 ML VIAL. SQ SCH ×2 (08:00→12:00)
[2021-01-20] MEDS ORDERED: AMLO-187 PO (08:44)
[2021-01-20] MEDS ORDERED: VITA1TAB19 PO (08:44)
[2021-01-20] MEDS: MAGNESIUM OXIDE 400 MG TABLET PO SCH (09:10)
[2021-01-20] MEDS: CITALOPRAM 10 MG TABLET. PO SCH (09:10)
[2021-01-20] MEDS: FOLIC ACID 1 MG TABLET. PO SCH (09:10)
[2021-01-20] MEDS: THIAMINE 100 MG TABLET. PO SCH (09:10)
--- NOTE | 2021-01-20 10:16 | PDOC ---
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 Hypokalemia, transaminitis Plan PAT team saw CIWA protocol PT/OT No additional neurological studies needed Okay for discharge neuro-campos Subjective No complaints, wants to go home Objective Vital Signs Date Time Temp Pulse Resp B/P (MAP) Pulse Ox O2 Delivery O2 Flow Rate FiO2 01/20/21 09:10 76 163/100 01/20/21 07:00 98.0 18 96 Room Air 98.0 Intake and Output 01/20/21 07:00 Intake Total 720 ml Output Total 300 ml Balance 420 ml Intake Oral 720 ml Output Urine Total 300 ml PHYSICAL EXAM Alert. Oriented to time, place and person. CIWA score 0 PERRL. EOMI. CN: no focal findings. Muscle tone: normal. Muscle strength: 5-/5 DTR: 1+ Plantar reflex: flexor Gait: normal. Sensory exam: stocking loss. No cerebellar signs elicited. Review of Relevant I have reviewed the following items adonis (where applicable) has been applied. Labs Laboratory Tests Test 01/18/21 10:40 01/18/21 13:47 01/18/21 16:37 01/18/21 19:12 Glucose (Fingerstick) 124 mg/dL (70-99) 104 mg/dL (70-99) 114 mg/dL (70-99) Clostridium difficile Toxin (PCR) Negative (NEGATIVE) Test 01/19/21 07:37 01/19/21 07:40 01/19/21 11:57 01/19/21 17:06 Glucose (Fingerstick) 92 mg/dL (70-99) 134 mg/dL (70-99) 126 mg/dL (70-99) Sodium Level 146 mmol/L (136-145) Potassium Level 2.3 mmol/L (3.5-5.1) Chloride Level 105 mmol/L (98-107) Carbon Dioxide Level 34 mmol/L (21-32) Anion Gap 7 (6-14) Blood Urea Nitrogen 6 mg/dL (8-26) Creatinine 0.8 mg/dL (0.7-1.3) Estimated GFR (Cockcroft-Gault) 119.7 Glucose Level 88 mg/dL (70-99) Calcium Level 8.6 mg/dL (8.5-10.1) Magnesium Level 1.0 mg/dL (1.8-2.4) Test 01/19/21 18:56 01/20/21 04:00 01/20/21 07:19 Glucose (Fingerstick) 143 mg/dL (70-99) 86 mg/dL (70-99) Magnesium Level 1.8 mg/dL (1.8-2.4) Laboratory Tests Test 01/19/21 11:57 01/19/21 17:06 01/19/21 18:56 01/20/21 04:00 Glucose (Fingerstick) 134 mg/dL (70-99) 126 mg/dL (70-99) 143 mg/dL (70-99) Magnesium Level 1.8 mg/dL (1.8-2.4) Test 01/20/21 07:19 Glucose (Fingerstick) 86 mg/dL (70-99) Microbiology 01/17/21 Blood Culture - Preliminary, Resulted NO GROWTH AFTER 2 DAYS Medications Current Medications Potassium Chloride/Water 100 ml @ 50 mls/hr 1X ONCE IV Last administered on 01/17/21at 18:14; Start 01/17/21 at 17:00; Stop 01/17/21 at 18:59; Status DC Potassium Chloride (Klor-Con) 40 meq 1X ONCE PO Last administered on 01/17/21at 18:14; Start 01/17/21 at 17:00; Stop 01/17/21 at 17:01; Status DC Magnesium Sulfate 50 ml @ 25 mls/hr 1X ONCE IV Last administered on 01/17/21at 18:14; Start 01/17/21 at 17:15; Stop 01/17/21 at 19:14; Status DC Acetaminophen (Tylenol) 650 mg PRN Q4HRS PRN PO TEMP OVER 100.4F OR MILD PAIN Last administered on 01/18/21at 00:18; Start 01/17/21 at 18:00 Citalopram Hydrobromide (CeleXA) 10 mg DAILY PO Last administered on 01/20/21at 09:10; Start 01/18/21 at 09:00 Folic Acid (Folic Acid) 1 mg DAILY PO Last administered on 01/20/21at 09:10; Start 01/18/21 at 09:00 Thiamine Mononitrate (Vitamin B-1) 100 mg DAILY08 PO Last administered on 01/20/21at 09:10; Start 01/18/21 at 08:00 Insulin Human Lispro (HumaLOG) 0-5 UNITS TIDWMEALS SQ ; Start 01/18/21 at 08:00 Dextrose (Dextrose 50%-Water Syringe) 12.5 gm PRN Q15MIN PRN IV SEE COMMENTS; Start 01/17/21 at 18:15 Sodium Chloride (Normal Saline Flush) 3 ml QSHIFT PRN IV AFTER MEDS AND BLOOD DRAWS; Start 01/17/21 at 18:15 Sodium Chloride 1,000 ml @ 70 mls/hr [id number] IV Last administered on 01/18/21at 22:51; Start 01/17/21 at 18:15; Stop 01/19/21 at 13:21; Status DC Multivitamins 10 ml/Thiamine HCl 100 mg/Folic Acid 1 mg/Sodium Chloride 1,011.2 ml @ 125 mls/ hr 1X ONCE IV Last administered on 01/18/21at 00:05; Start 01/17/21 at 19:00; Stop 01/18/21 at 03:05; Status DC Ondansetron HCl (Zofran) 4 mg PRN Q4HRS PRN IV NAUSEA/VOMITING; Start 01/17/21 at 18:15 Acetaminophen (Tylenol) 650 mg PRN Q4HRS PRN PO TEMP OVER 100.4F OR MILD PAIN; Start 01/17/21 at 18:15 Al Hydroxide/Mg Hydroxide (Mylanta Plus Xs) 30 ml PRN DAILY PRN PO HEARTBURN / GAS; Start 01/17/21 at 18:15 Clonidine HCl (Catapres) 0.1 mg PRN Q6HRS PRN PO SBP>160 OR DBP>90; Start 01/17/21 at 18:15 Docusate Sodium (Colace) 100 mg PRN BID PRN PO HARD STOOLS; Start 01/17/21 at 18:15 Albuterol Sulfate (Ventolin Neb Soln) 2.5 mg PRN Q4HRS PRN NEB SHORTNESS OF BREATH; Start 01/17/21 at 18:15 Guaifenesin (Robitussin) 200 mg PRN Q4HRS PRN PO COUGH Last administered on 01/18/21at 21:36; Start 01/17/21 at 18:15 Lorazepam (Ativan) 0.5 mg PRN Q4HRS PRN PO ANXIETY / AGITATION; Start 01/17/21 at 18:15 Lorazepam (Ativan Inj) 2 mg PRN Q4HRS PRN IV ANXIETY / AGITATION; Start 01/17/21 at 18:15 Enoxaparin Sodium (Lovenox 40mg Syringe) 40 mg Q24H SQ Last administered on 01/19/21at 17:51; Start 01/17/21 at 19:00 Lorazepam (Ativan) 4 mg PRN Q1HR PRN PO For CIWA 8-14; Start 01/17/21 at 18:15 Lorazepam (Ativan) 8 mg PRN Q1HR PRN PO For CIWA 15 or greater; Start 01/17/21 at 18:15 Lorazepam (Ativan Inj) 2 mg PRN Q1HR PRN IV For CIWA 8-14; Start 01/17/21 at 18:15 Lorazepam (Ativan Inj) 4 mg PRN Q1HR PRN IV For CIWA 15 or greater; Start 01/17/21 at 18:15 Haloperidol Lactate (Haldol Inj) 5 mg PRN Q4HRS PRN IVP Hallucinatns,Confusn,Delirium; Start 01/17/21 at 18:15 Diphenhydramine HCl (Benadryl) 25 mg PRN Q15MIN PRN IVP EPS symptoms 2'Haldol admin; Start 01/17/21 at 18:15 Clonidine HCl (Catapres) 0.1 mg PRN Q1HR PRN PO SBP > 180 or DBP > 100, MRX3; Start 01/17/21 at 18:15 Lorazepam (Ativan Inj) 2 mg PRN Q15MIN PRN IV SEE COMMENTS; Start 01/17/21 at 18:15; Status UNV Lorazepam (Ativan Inj) 4 mg PRN Q15MIN PRN IV SEE COMMENTS; Start 01/17/21 at 18:15; Status UNV Potassium Bicarbonate (Potassium Effervescent Tablet) 40 meq 1X ONCE FT ; Start 01/17/21 at 18:30; Stop 01/17/21 at 18:31; Status UNV Potassium Bicarbonate (Potassium Effervescent Tablet) 40 meq 1X ONCE FT ; Start 01/17/21 at 18:30; Stop 01/17/21 at 18:31; Status UNV Magnesium Sulfate 50 ml @ 25 mls/hr Q24H IV ; Start 01/17/21 at 18:30; Stop 01/19/21 at 20:29; Status Cancel Potassium Phos/ Sodium Phos (Phos-Nak) 1 pkt BID PO Last administered on 01/18/21at 09:02; Start 01/17/21 at 21:00; Stop 01/18/21 at 09:01; Status DC Potassium Bicarbonate (Potassium Effervescent Tablet) 40 meq Q4H PO ; Start 01/17/21 at 18:30; Stop 01/17/21 at 22:31; Status UNV Potassium Bicarbonate (Potassium Effervescent Tablet) 40 meq Q4H PO ; Start 01/17/21 at 18:30; Stop 01/17/21 at 22:31; Status UNV Hydralazine HCl (Apresoline Inj) 10 mg PRN Q4HRS PRN IVP ELEVATED BP, SEE COMMENTS Last administered on 01/18/21at 09:09; Start 01/17/21 at 18:30 Info (Non-Icu Electrolyte Protocol) 1 ea CONT PRN PRN MC SEE COMMENTS; Start 01/17/21 at 19:15 Acetaminophen/ Hydrocodone Bitart (Lortab 5/325) 1 tab PRN Q4HRS PRN PO MODERATE PAIN 4-6 Last administered on 01/19/21at 21:20; Start 01/17/21 at 23:45 Nicotine (Nicoderm Cq 21mg) 1 patch PRN DAILY PRN TD SMOKING CESSATION Last administered on 01/19/21at 10:36; Start 01/17/21 at 23:45 Amlodipine Besylate (Norvasc) 10 mg DAILY PO Last administered on 01/20/21at 09:10; Start 01/18/21 at 11:00 Potassium Chloride (Klor-Con) 40 meq 1X ONCE PO Last administered on 01/19/21at 10:36; Start 01/19/21 at 09:15; Stop 01/19/21 at 09:16; Status DC Potassium Chloride (Klor-Con) 40 meq 1X ONCE PO Last administered on 01/19/21at 12:09; Start 01/19/21 at 12:00; Stop 01/19/21 at 12:01; Status DC Potassium Chloride/Water 100 ml @ 100 mls/hr Q1H IV Last administered on 01/19/21at 12:18; Start 01/19/21 at 10:00; Stop 01/19/21 at 11:59; Status DC Magnesium Oxide (Magnesium Oxide) 400 mg DAILY PO Last administered on 01/20/21at 09:10; Start 01/19/21 at 12:00 Cyclobenzaprine HCl (Flexeril) 10 mg 1X ONCE PO Last administered on 01/19/21at 12:09; Start 01/19/21 at 12:15; Stop 01/19/21 at 12:16; Status DC Magnesium Sulfate 100 ml @ 25 mls/hr 1X ONCE IV Last administered on 01/19/21at 14:03; Start 01/19/21 at 12:30; Stop 01/19/21 at 16:29; Status DC Potassium Chloride (Klor-Con) 20 meq [id number] PO Last administered on 01/20/21at 09:11; Start 01/20/21 at 08:00 Potassium Chloride (Klor-Con) 20 meq 1X ONCE PO Last administered on 01/19/21at 17:52; Start 01/19/21 at 17:00; Stop 01/19/21 at 17:01; Status DC Zolpidem Tartrate (Ambien) 5 mg HS PO Last administered on 01/19/21at 21:19; Start 01/19/21 at 21:00 Active Scripts Active Metronidazole 500 Mg Tablet 1 Tab PO TID 10 Days B-1 (Thiamine HCl) 100 Mg Tablet 100 Mg PO DAILY08 30 Days Folic Acid 0.8 Mg Capsule 1 Cap PO DAILY 30 Days Celexa (Citalopram Hydrobromide) 10 Mg Tablet 10 Mg PO DAILY 30 Days Tylenol (Acetaminophen) 325 Mg Tablet 650 Mg PO PRN Q4HRS PRN 10 Days Vitals/I & O Vital Sign - Last 24 Hours 01/19/21 01/19/21 01/19/21 01/19/21 10:37 11:00 15:00 19:00 Temp 97.8 98.0 97.8 97.8 98.0 97.8 Pulse 78 77 94 Resp 18 18 18 B/P (MAP) 160/90 (113) 171/89 (116) 146/95 (112) Pulse Ox 96 97 95 O2 Delivery Room Air Room Air Room Air Room Air 01/19/21 01/19/21 01/19/21 01/19/21 20:20 21:20 21:50 22:35 Temp 97.8 97.8 Pulse 87 Resp 18 B/P (MAP) 154/94 (114) Pulse Ox 95 97 97 O2 Delivery Room Air Room Air Room Air Room Air 01/20/21 01/20/21 07:00 09:10 Temp 98.0 98.0 Pulse 76 76 Resp 18 B/P (MAP) 163/100 (121) 163/100 Pulse Ox 96 O2 Delivery Room Air Intake and Output 01/19/21 01/19/21 01/20/21 15:00 23:00 07:00 Intake Total 720 ml Output Total 300 ml Balance -300 ml 720 ml Justicifation of Admission Dx: Justifications for Admission: Justification of Admission Dx: Yes HANSEL GONCALVES MD Jan 20, 2021 10:16
--- NOTE | 2021-01-20 10:18 | PDOC ---
G I PROGRESS NOTE Subjective No complaints. Hoping to go home today. Physical Exam Lungs clear. RRR Abdomen soft, not tender nor distended. Review of Relevant I have reviewed the following items adonis (where applicable) has been applied. Labs Laboratory Tests Test 01/18/21 10:40 01/18/21 13:47 01/18/21 16:37 01/18/21 19:12 Glucose (Fingerstick) 124 mg/dL (70-99) 104 mg/dL (70-99) 114 mg/dL (70-99) Clostridium difficile Toxin (PCR) Negative (NEGATIVE) Test 01/19/21 07:37 01/19/21 07:40 01/19/21 11:57 01/19/21 17:06 Glucose (Fingerstick) 92 mg/dL (70-99) 134 mg/dL (70-99) 126 mg/dL (70-99) Sodium Level 146 mmol/L (136-145) Potassium Level 2.3 mmol/L (3.5-5.1) Chloride Level 105 mmol/L (98-107) Carbon Dioxide Level 34 mmol/L (21-32) Anion Gap 7 (6-14) Blood Urea Nitrogen 6 mg/dL (8-26) Creatinine 0.8 mg/dL (0.7-1.3) Estimated GFR (Cockcroft-Gault) 119.7 Glucose Level 88 mg/dL (70-99) Calcium Level 8.6 mg/dL (8.5-10.1) Magnesium Level 1.0 mg/dL (1.8-2.4) Test 01/19/21 18:56 01/20/21 04:00 01/20/21 07:19 Glucose (Fingerstick) 143 mg/dL (70-99) 86 mg/dL (70-99) Magnesium Level 1.8 mg/dL (1.8-2.4) Laboratory Tests Test 01/19/21 11:57 01/19/21 17:06 01/19/21 18:56 01/20/21 04:00 Glucose (Fingerstick) 134 mg/dL (70-99) 126 mg/dL (70-99) 143 mg/dL (70-99) Magnesium Level 1.8 mg/dL (1.8-2.4) Test 01/20/21 07:19 Glucose (Fingerstick) 86 mg/dL (70-99) Microbiology 01/17/21 Blood Culture - Preliminary, Resulted NO GROWTH AFTER 2 DAYS Vitals/I & O Vital Sign - Last 24 Hours 01/19/21 01/19/21 01/19/21 01/19/21 10:37 11:00 15:00 19:00 Temp 97.8 98.0 97.8 97.8 98.0 97.8 Pulse 78 77 94 Resp 18 18 18 B/P (MAP) 160/90 (113) 171/89 (116) 146/95 (112) Pulse Ox 96 97 95 O2 Delivery Room Air Room Air Room Air Room Air 01/19/21 01/19/21 01/19/21 01/19/21 20:20 21:20 21:50 22:35 Temp 97.8 97.8 Pulse 87 Resp 18 B/P (MAP) 154/94 (114) Pulse Ox 95 97 97 O2 Delivery Room Air Room Air Room Air Room Air 01/20/21 01/20/21 07:00 09:10 Temp 98.0 98.0 Pulse 76 76 Resp 18 B/P (MAP) 163/100 (121) 163/100 Pulse Ox 96 O2 Delivery Room Air Intake and Output 01/19/21 01/19/21 01/20/21 15:00 23:00 07:00 Intake Total 720 ml Output Total 300 ml Balance -300 ml 720 ml Problem List Problems Medical Problems: (1) Alcohol intoxication Status: Acute (2) Hypoglycemia Status: Acute (3) Hypokalemia Status: Acute (4) Hypomagnesemia Status: Acute Assessment Alcohol abuse. Macrocytic anemia c/w this. FH colon cancer in brother; merits colonoscopy at some point. Plan of Care Note OK with me to dismiss. Admonished to stop drinking. Justicifation of Admission Dx: Justifications for Admission: Justification of Admission Dx: Yes TERA BENOIT MD Jan 20, 2021 10:18
[2021-01-20] MEDS ORDERED: CITA10TA8 PO (10:20)
--- NOTE | 2021-01-20 10:50 | PDOC ---
DATE OF SERVICE DATE: 01/20/21 TIME: 10:48 SUBJECTIVE ROS No complaints this morning OBJECTIVE Vital Signs Vital Signs Date Time Temp Pulse Resp B/P (MAP) Pulse Ox O2 Delivery O2 Flow Rate FiO2 01/20/21 09:10 76 163/100 01/20/21 07:00 98.0 18 96 Room Air 98.0 I & 0 Intake and Output 01/20/21 07:00 Intake Total 720 ml Output Total 300 ml Balance 420 ml Intake Oral 720 ml Output Urine Total 300 ml PHYSICAL EXAM Physical Exam General- NAD, sitting up in chair HEEN OM moist, no icterus Neck Supple Lungs CTA, Non labored CV S1S2 Abd Soft, NT Neuro AXOX3, grossly normal psych Depression + No Torres, No CVA or SP tenderness Integumentary No rash DIAGNOSIS/ASSESSMENT Assessment & Plan HypoKalemia- severe suspect 2/2 Poor PO intake, excessive alcohol, GI Losses . Prior Hx as well , seen in 2019. SANCHEZ including Ur K not suggestive of renal losses Replace as indicated , Monitor , Labs pending .Probably will need KCL supplement PO - Follow up with PCP post discharge Mental status change POA- resolved Alcohol abuse History of stroke Diabetes Hypertension-Antihypertensives , consider adding Aldactone - will need monitoring of K and renal function with PCP Unable to afford meds Hypernatremia POA , suspect volume depletion , maintain Hydration , encourage PO free water intake Drug abuse- UDS positive for Cannabinoids, Opioids Malnutritition - c/o Wt loss, defer to primary Anemia- sanchez per primary. Pt reports Colonoscopy in the apst at [facility] COMMENT/RELEVANT DATA Meds Current Medications Medications (Trade) Dose Ordered Sig/Steph Start Time Stop Time Status Last Admin Dose Admin Acetaminophen (Tylenol) 650 mg PRN Q4HRS PRN 01/17/21 18:15 Acetaminophen/ Hydrocodone Bitart (Lortab 5/325) 1 tab PRN Q4HRS PRN 01/17/21 23:45 01/19/21 21:20 1 TAB Al Hydroxide/Mg Hydroxide (Mylanta Plus Xs) 30 ml PRN DAILY PRN 01/17/21 18:15 Albuterol Sulfate (Ventolin Neb Soln) 2.5 mg PRN Q4HRS PRN 01/17/21 18:15 Amlodipine Besylate (Norvasc) 10 mg DAILY 01/18/21 11:00 01/20/21 09:10 10 MG Citalopram Hydrobromide (CeleXA) 10 mg DAILY 01/18/21 09:00 01/20/21 09:10 10 MG Clonidine HCl (Catapres) 0.1 mg PRN Q1HR PRN 01/17/21 18:15 Cyclobenzaprine HCl (Flexeril) 10 mg 1X ONCE 01/19/21 12:15 01/19/21 12:16 DC 01/19/21 12:09 10 MG Dextrose (Dextrose 50%-Water Syringe) 12.5 gm PRN Q15MIN PRN 01/17/21 18:15 Diphenhydramine HCl (Benadryl) 25 mg PRN Q15MIN PRN 01/17/21 18:15 Docusate Sodium (Colace) 100 mg PRN BID PRN 01/17/21 18:15 Enoxaparin Sodium (Lovenox 40mg Syringe) 40 mg Q24H 01/17/21 19:00 01/19/21 17:51 40 MG Folic Acid (Folic Acid) 1 mg DAILY 01/18/21 09:00 01/20/21 09:10 1 MG Guaifenesin (Robitussin) 200 mg PRN Q4HRS PRN 01/17/21 18:15 01/18/21 21:36 200 MG Haloperidol Lactate (Haldol Inj) 5 mg PRN Q4HRS PRN 01/17/21 18:15 Hydralazine HCl (Apresoline Inj) 10 mg PRN Q4HRS PRN 01/17/21 18:30 01/18/21 09:09 10 MG Info (Non-Icu Electrolyte Protocol) 1 ea CONT PRN PRN 01/17/21 19:15 Insulin Human Lispro (HumaLOG) 0-5 UNITS TIDWMEALS 01/18/21 08:00 Lorazepam (Ativan Inj) 4 mg PRN Q15MIN PRN 01/17/21 18:15 UNV Lorazepam (Ativan) 8 mg PRN Q1HR PRN 01/17/21 18:15 Magnesium Oxide (Magnesium Oxide) 400 mg DAILY 01/19/21 12:00 01/20/21 09:10 400 MG Magnesium Sulfate 100 ml @ 25 mls/hr 1X ONCE 01/19/21 12:30 01/19/21 16:29 DC 01/19/21 14:03 25 MLS/HR Multivitamins 10 ml/Thiamine HCl 100 mg/Folic Acid 1 mg/Sodium Chloride 1,011.2 ml @ 125 mls/ hr 1X ONCE 01/17/21 19:00 01/18/21 03:05 DC 01/18/21 00:05 125 MLS/HR Nicotine (Nicoderm Cq 21mg) 1 patch PRN DAILY PRN 01/17/21 23:45 01/19/21 10:36 1 PATCH Ondansetron HCl (Zofran) 4 mg PRN Q4HRS PRN 01/17/21 18:15 Potassium Bicarbonate (Potassium Effervescent Tablet) 40 meq Q4H 01/17/21 18:30 01/17/21 22:31 UNV Potassium Chloride/Water 100 ml @ 100 mls/hr Q1H 01/19/21 10:00 01/19/21 11:59 DC 01/19/21 12:18 100 MLS/HR Potassium Chloride (Klor-Con) 20 meq 1X ONCE 01/19/21 17:00 01/19/21 17:01 DC 01/19/21 17:52 20 MEQ Potassium Phos/ Sodium Phos (Phos-Nak) 1 pkt BID 01/17/21 21:00 01/18/21 09:01 DC 01/18/21 09:02 1 PKT Sodium Chloride 1,000 ml @ 70 mls/hr [id number] 01/17/21 18:15 01/19/21 13:21 DC 01/18/21 22:51 70 MLS/HR Sodium Chloride (Normal Saline Flush) 3 ml QSHIFT PRN 01/17/21 18:15 Thiamine Mononitrate (Vitamin B-1) 100 mg DAILY08 01/18/21 08:00 01/20/21 09:10 100 MG Zolpidem Tartrate (Ambien) 5 mg HS 01/19/21 21:00 01/19/21 21:19 5 MG Lab Laboratory Tests Test 01/19/21 11:57 01/19/21 17:06 01/19/21 18:56 01/20/21 04:00 Glucose (Fingerstick) 134 mg/dL (70-99) 126 mg/dL (70-99) 143 mg/dL (70-99) Magnesium Level 1.8 mg/dL (1.8-2.4) Test 01/20/21 07:19 Glucose (Fingerstick) 86 mg/dL (70-99) Results All relevant outside records, renal labs, imaging studies, telemetry/EKG's were reviewed. Justicifation of Admission Dx: Justifications for Admission: Justification of Admission Dx: Yes TENNILLE BEVERLY MD Jan 20, 2021 10:50
[2021-01-20 11:00] VITALS: BP 151/90
--- NOTE | 2021-01-20 11:19 | NUR ---
SW following. Discussed with RN, pt from home, room air, ada diet. SW met with pt to provide self pay resources. Med Assist working with pt. Pt declined any further SW needs. Discharge order for home with self care.
[2021-01-20] MEDS: NICOTINE 21MG PATCH. TD PRN (14:11)
--- NOTE | 2021-01-20 16:51 | PDOC3 ---
Discharge Summary Visit Information Date of Admission: Jan 17, 2021 Date of Discharge: Jan 20, 2021 Final Diagnosis EtOH abuse Mental status change - metabolic encephalopathy on admit improved, History of stroke Diabetes Hypertension hx of Cholecystectomy Hypernatremia, suspect volume depleted WU Hypokalemia Drug abuse Transaminase-itis Malnutrition Anemia Problems Medical Problems: (1) Alcohol intoxication Status: Acute (2) Hypoglycemia Status: Acute (3) Hypokalemia Status: Acute (4) Hypomagnesemia Status: Acute Brief Hospital Course Allergies Allergies Coded Allergies Type Severity Reaction Last Updated Verified No Known Drug Allergies 12/15/19 No Vital Signs Vital Signs Date Time Temp Pulse Resp B/P (MAP) Pulse Ox O2 Delivery O2 Flow Rate FiO2 01/20/21 11:00 98.1 81 18 151/90 (110) 97 Room Air 98.1 Lab Results Laboratory Tests Test 01/18/21 19:12 01/19/21 07:37 01/19/21 07:40 01/19/21 11:57 Glucose (Fingerstick) 114 mg/dL (70-99) 92 mg/dL (70-99) 134 mg/dL (70-99) Sodium Level 146 mmol/L (136-145) Potassium Level 2.3 mmol/L (3.5-5.1) Chloride Level 105 mmol/L (98-107) Carbon Dioxide Level 34 mmol/L (21-32) Anion Gap 7 (6-14) Blood Urea Nitrogen 6 mg/dL (8-26) Creatinine 0.8 mg/dL (0.7-1.3) Estimated GFR (Cockcroft-Gault) 119.7 Glucose Level 88 mg/dL (70-99) Calcium Level 8.6 mg/dL (8.5-10.1) Magnesium Level 1.0 mg/dL (1.8-2.4) Test 01/19/21 17:06 01/19/21 18:56 01/20/21 04:00 01/20/21 07:19 Glucose (Fingerstick) 126 mg/dL (70-99) 143 mg/dL (70-99) 86 mg/dL (70-99) Magnesium Level 1.8 mg/dL (1.8-2.4) Test 01/20/21 11:31 Glucose (Fingerstick) 133 mg/dL (70-99) Laboratory Tests Test 01/19/21 17:06 01/19/21 18:56 01/20/21 04:00 01/20/21 07:19 Glucose (Fingerstick) 126 mg/dL (70-99) 143 mg/dL (70-99) 86 mg/dL (70-99) Magnesium Level 1.8 mg/dL (1.8-2.4) Test 01/20/21 11:31 Glucose (Fingerstick) 133 mg/dL (70-99) Brief Hospital Course Mr. Barahona is a 60 old admit with confusion associated with hypoglycemia; responded to IV dextrose. Noted with high alcohol level, and treated for Acute EtOH withdrawl, LFTs up, alcohol abuse, GI and Neuro eval, standard EtOH therapy pt improved, he did not want referral to AA or PAT team or sobriety follow us, he reports he will do it himself, I discussed at length, that this plan usually fails, and most people do not maintain sobriety without a plan. Discharge Information Condition at Discharge: Improved Follow Up: Weeks Disposition/Orders: D/C to Home Scheduled Amlodipine Besylate (Amlodipine Besylate) 10 Mg Tablet, 10 MG PO DAILY for hypertension, #30 Prescribed by: OBEY ERNST on 01/20/21 0844 Citalopram Hydrobromide (Celexa) 10 Mg Tablet, 10 MG PO DAILY for DEPRESSION for 30 Days, #30 Ref 5 Prescribed by: OBEY ERNST on 01/20/21 1020 Folic Acid (Folic Acid) 0.8 Mg Capsule, 1 CAP PO DAILY for SUPPLEMENT for 30 Days, #30 Ref 0 Prescribed by: CAMILLE GEE MD on 12/18/19 132 Last Action: Converted on 01/17/21 1800 by CAMILLE GEE MD Thiamine HCl (B-1) 100 Mg Tablet, 100 MG PO DAILY08 for SUPPLEMENT for 30 Days, #30 Prescribed by: CAMILLE GEE MD on 12/18/19 132 Last Action: Converted on 01/17/21 1800 by CAMILLE GEE MD Vitamin B Complex (B Complex) 1 Each Tablet, 1 TAB PO DAILY for nutrition for 30 Days, #30 Ref 0 Prescribed by: OBEY ERNST on 01/20/21 0844 Scheduled PRN Acetaminophen (Tylenol) 325 Mg Tablet, 650 MG PO PRN Q4HRS PRN for TEMP OVER 100.4F OR MILD PAIN for 10 Days, #30 Prescribed by: CAMILLE GEE MD on 12/18/19 1323 Last Action: Continued on 01/17/21 1800 by CAMILLE GEE MD Discontinued Medications Metronidazole (Metronidazole) 500 Mg Tablet, 1 TAB PO TID for C. Diff for 10 Days, #30 Ref 0 Prescribed by: BRANDON WATSON MD on 04/02/20 1426 Last Action: HELD on 01/17/21 1800 by CAMILLE GEE MD Patient Instructions Patient Instructions > 30 min pt seen face to face Justicifation of Admission Dx: Justifications for Admission: Justification of Admission Dx: Yes OBEY ERNST MD Jan 20, 2021 16:51
== END 2021-01-20 15:04 | disposition home or self-care (01) | DRG 637 ==
LOC: ER 14:08 → 6 SOUTH 16:41
PROVIDERS: ADMIT Family Medicine; ATTEND Family Medicine
DX: E11.649 Type 2 diabetes mellitus with hypoglycemia without coma (principal); G93.41 Metabolic encephalopathy; E46 Unspecified protein-calorie malnutrition; E87.0 Hyperosmolality and hypernatremia; E87.6 Hypokalemia; N17.9 Acute kidney failure, unspecified; D53.9 Nutritional anemia, unspecified; E11.40 Type 2 diabetes mellitus with diabetic neuropathy, unspecified; Z68.20 Body mass index [BMI] 20.0-20.9, adult; E78.5 Hyperlipidemia, unspecified; E83.42 Hypomagnesemia; F10.229 Alcohol dependence with intoxication, unspecified; F17.210 Nicotine dependence, cigarettes, uncomplicated; I10 Essential (primary) hypertension; J43.9 Emphysema, unspecified; F32.9 Major depressive disorder, single episode, unspecified; F41.9 Anxiety disorder, unspecified; M19.90 Unspecified osteoarthritis, unspecified site; F19.10 Other psychoactive substance abuse, uncomplicated; D75.89 Other specified diseases of blood and blood-forming organs; K80.50 Calculus of bile duct without cholangitis or cholecystitis without obstruction; R74.01 Elevation of levels of liver transaminase levels; G31.9 Degenerative disease of nervous system, unspecified; K76.0 Fatty (change of) liver, not elsewhere classified; K57.90 Diverticulosis of intestine, part unspecified, without perforation or abscess without bleeding; Z80.0 Family history of malignant neoplasm of digestive organs; Z82.49 Family history of ischemic heart disease and other diseases of the circulatory system; Z83.3 Family history of diabetes mellitus; Z86.73 Personal history of transient ischemic attack (TIA), and cerebral infarction without residual deficits; Z87.11 Personal history of peptic ulcer disease; Z90.49 Acquired absence of other specified parts of digestive tract; Z91.14 Patient's other noncompliance with medication regimen
CPT/HCPCS: 36415; 70450; 72125; 76705; 80048; 80053; 80076; 80307; 81001; 82140; 82962; 83735; 84439; 84484; 85007; 85025; 85610; 86705; 86709; 86803; 87040; 87340; 87493; 96365; G0480; J0360; J1650; J1815; J3411; J3475; J3480; J3490; J7030; 97116-GP; 97530-GP; 97535-GO; 99285-25; G0378

== ENCOUNTER 2021-04-14 19:40 | Emergency (ER) | payer SELFPAY ==
[~2021-04-14] VITALS: Ht 182.9 cm; Wt 68.0 kg
[~2021-04-14 19:40] MED LIST changes: +AMLO-187 PO; +VITA1TAB19 PO
[2021-04-14 20:41] LABS: BILIRUBIN,URINE NEGATIVE (NEG); CLARITY,URINE CLEAR; COLOR,URINE YELLOW; NITRITE,URINE NEGATIVE (NEG); PROTEIN,URINE NEGATIVE (NEG-TRACE); UROBILINOGEN,URINE 0.2 mg/dL (0.2 mg/dL)
--- NOTE | 2021-04-14 20:45 | RAD ---
INDICATION: Reason: cough covid + / Spl. Instructions: / History: COMPARISON: April 12, 2021 FINDINGS: Single view of chest obtained. Cardiac silhouette is unremarkable. There are some calcified lymph nodes which could be sequela of chronic granulomatous disease. Callus formation at right ribs from prior fracture. Mild haziness at the right lung base IMPRESSION: * Mild haziness right lung base. Could be secondary to atelectasis or early infiltrate. Electronically signed by: Gerard Almazan MD (04/14/2021 8:43 PM) [id number]
[2021-04-14 20:48] LABS: AMPHETAMINE/METHAMPHETAMINE NEG (NEG); BARBITURATES NEG (NEG); BENZODIAZEPINES NEG (NEG); CANNABINOIDS POS (NEG); COCAINE NEG (NEG); METHADONE NEG (NEG); OPIATES NEG (NEG); PHENCYCLIDINE NEG (NEG)
[2021-04-14 20:50] LABS: BACTERIA,URINE 0 /HPF (0-FEW); RBC,URINE 0 /HPF (0-2); WBC,URINE 0 /HPF (0-4)
[2021-04-14 20:56] LABS: BASO # 0.1 x10^3/uL (0.0-0.2); BASO % 2 % (0-3); EOS % 0 % (0-3); LYMPH # 3.3 x10^3/uL (1.0-4.8); LYMPH % 40 % (24-48); MEAN CORPUSCULAR HEMOGLOBIN 37 pg (25-35); MEAN CORPUSCULAR HGB CONC 34 g/dL (31-37); MEAN CORPUSCULAR VOLUME 109 fL (79-100); MONO # 0.6 x10^3/uL (0.0-1.1); MONO % 8 % (0-9); NEUT # 4.1 x10^3/uL (1.8-7.7); NEUT % 51 % (31-73); PLATELET COUNT 592 x10^3/uL (140-400); RED BLOOD COUNT 3.77 x10^6/uL (4.30-5.70); RED CELL DISTRIBUTION WIDTH 18.8 % (11.5-14.5); WHITE BLOOD COUNT 8.2 x10^3/uL (4.0-11.0)
[2021-04-14 21:11] LABS: ALBUMIN 3.2 g/dL (3.4-5.0); ALBUMIN/GLOBULIN RATIO 0.8 (1.0-1.7); CALCIUM 9.1 mg/dL (8.5-10.1); CREATININE 1.3 mg/dL (0.7-1.3); GFR 68.4; TOTAL BILIRUBIN 0.4 mg/dL (0.2-1.0); TOTAL PROTEIN 7.2 g/dL (6.4-8.2)
[2021-04-14 21:17] LABS: POTASSIUM 2.9 mmol/L (3.5-5.1)
[2021-04-14] MEDS ORDERED: POTASSIUM CHLORIDE 20 MEQ TABLET.ER. PO ONE ×2 (21:30→22:45)
[2021-04-14 21:42] VITALS: BP 148/94
--- NOTE | 2021-04-14 22:45 | PHYS DOC ---
Past Medical History Past Medical History: Anxiety, Diabetes-Type II, Hypertension, Stroke Additional Past Medical Histor: STROKE IN 2007 Past Surgical History: Other Additional Past Surgical Histo: HERNIA Smoking Status: Current Every Day Smoker Alcohol Use: Heavy Drug Use: Marijuana General Adult EDM: Chief Complaint: ALCOHOL INTOXICATION HPI: HPI: Patient is a 60 year old male with history of diabetes type 2, hypertension, anxiety, who presents to the ED today to be evaluated after signing out AMA yesterday from inpatient. Patient states he was admitted for COVID-19, he signed out AMA because he needed to go home and pay bills. He presents today appearing intoxicated. He states he had half a pint of vodka yesterday. He states he has not drank any alcohol today. He states he continues to have cough and fatigue. Review of Systems: Review of Systems: Constitutional: Reports fatigue. Denies fever or chills. [] Eyes: Denies change in visual acuity. [] HENT: Denies nasal congestion or sore throat. [] Respiratory: Reports cough, denies shortness of breath. [] Cardiovascular: Denies chest pain or edema. [] GI: Denies abdominal pain, nausea, vomiting, bloody stools or diarrhea. [] : Denies dysuria. [] Musculoskeletal: Denies back pain or joint pain. [] Integument: Denies rash. [] Neurologic: Denies headache, focal weakness or sensory changes. [] Psychiatric: Appears intoxicated Heart Score: C/O Chest Pain: N/A Risk Factors: Risk Factors: DM, Current or recent (<one month) smoker, HTN, HLP, family history of CAD, obesity. Risk Scores: Score 0 - 3: 2.5% MACE over next 6 weeks - Discharge Home Score 4 - 6: 20.3% MACE over next 6 weeks - Admit for Clinical Observation Score 7 - 10: 72.7% MACE over next 6 weeks - Early Invasive Strategies Current Medications: Current Medications Medications (Trade) Dose Ordered Sig/Steph Start Time Stop Time Status Last Admin Dose Admin Potassium Chloride (Klor-Con) 40 meq 1X ONCE 04/14/21 21:30 04/14/21 21:31 DC 04/14/21 21:48 40 MEQ Allergies: Allergies: Allergies Coded Allergies Type Severity Reaction Last Updated Verified No Known Drug Allergies 12/15/19 No Physical Exam: PE: Constitutional: Well developed, well nourished, no acute distress, non-toxic appearance. [] HENT: Normocephalic, atraumatic, bilateral external ears normal, oropharynx moist, no oral exudates, nose normal. [] Eyes: PERRLA, EOMI, conjunctiva normal, no discharge. [] Neck: Normal range of motion, no tenderness, supple, no stridor. [] Cardiovascular:Heart rate regular rhythm Lungs & Thorax: Bilateral breath sounds clear to auscultation [] Abdomen: Bowel sounds normal, soft, no tenderness, no masses, no pulsatile masses. [] Skin: Warm, dry, no erythema, no rash. [] Back: No tenderness, no CVA tenderness. [] Extremities: No tenderness, no cyanosis, no clubbing, ROM intact, no edema. [] Neurologic: Alert and oriented X 3, normal motor function, normal sensory function, no focal deficits noted. [] Psychologic: Flat affect, appears intoxicated on alcohol Current Patient Data: Labs: Laboratory Tests Test 04/14/21 20:25 04/14/21 20:47 Urine Collection Type Unknown Urine Color Yellow Urine Clarity Clear Urine pH 6.0 (<5.0-8.0) Urine Specific Thelma <=1.005 (1.000-1.030) Urine Protein Negative mg/dL (NEG-TRACE) Urine Glucose (UA) Negative mg/dL (NEG) Urine Ketones (Stick) Negative mg/dL (NEG) Urine Blood Negative (NEG) Urine Nitrite Negative (NEG) Urine Bilirubin Negative (NEG) Urine Urobilinogen Dipstick 0.2 mg/dL (0.2 mg/dL) Urine Leukocyte Esterase Negative (NEG) Urine RBC 0 /HPF (0-2) Urine WBC 0 /HPF (0-4) Urine Bacteria 0 /HPF (0-FEW) Urine Opiates Screen Neg (NEG) Urine Methadone Screen Neg (NEG) Urine Barbiturates Neg (NEG) Urine Phencyclidine Screen Neg (NEG) Urine Amphetamine/Methamphetamine Neg (NEG) Urine Benzodiazepines Screen Neg (NEG) Urine Cocaine Screen Neg (NEG) Urine Cannabinoids Screen Pos (NEG) Urine Ethyl Alcohol Pos (NEG) White Blood Count 8.2 x10^3/uL (4.0-11.0) Red Blood Count 3.77 x10^6/uL (4.30-5.70) L Hemoglobin 14.0 g/dL (13.0-17.5) Hematocrit 41.0 % (39.0-53.0) Mean Corpuscular Volume 109 fL (79-100) H Mean Corpuscular Hemoglobin 37 pg (25-35) H Mean Corpuscular Hemoglobin Concent 34 g/dL (31-37) Red Cell Distribution Width 18.8 % (11.5-14.5) H Platelet Count 592 x10^3/uL (140-400) H Neutrophils (%) (Auto) 51 % (31-73) Lymphocytes (%) (Auto) 40 % (24-48) Monocytes (%) (Auto) 8 % (0-9) Eosinophils (%) (Auto) 0 % (0-3) Basophils (%) (Auto) 2 % (0-3) Neutrophils # (Auto) 4.1 x10^3/uL (1.8-7.7) Lymphocytes # (Auto) 3.3 x10^3/uL (1.0-4.8) Monocytes # (Auto) 0.6 x10^3/uL (0.0-1.1) Eosinophils # (Auto) 0.0 x10^3/uL (0.0-0.7) Basophils # (Auto) 0.1 x10^3/uL (0.0-0.2) Sodium Level 143 mmol/L (136-145) Potassium Level 2.9 mmol/L (3.5-5.1) *L Chloride Level 102 mmol/L (98-107) Carbon Dioxide Level 29 mmol/L (21-32) Anion Gap 12 (6-14) Blood Urea Nitrogen 16 mg/dL (8-26) Creatinine 1.3 mg/dL (0.7-1.3) Estimated GFR (Cockcroft-Gault) 68.4 BUN/Creatinine Ratio 12 (6-20) Glucose Level 90 mg/dL (70-99) Calcium Level 9.1 mg/dL (8.5-10.1) Total Bilirubin 0.4 mg/dL (0.2-1.0) Aspartate Amino Transferase (AST) 26 U/L (15-37) Alanine Aminotransferase (ALT) 9 U/L (16-63) L Alkaline Phosphatase 106 U/L (46-116) Total Protein 7.2 g/dL (6.4-8.2) Albumin 3.2 g/dL (3.4-5.0) L Albumin/Globulin Ratio 0.8 (1.0-1.7) L Lipase 197 U/L (73-393) Ethyl Alcohol Level 310 mg/dL (0-10) H Laboratory Tests 04/14/21 20:47 Laboratory Tests 04/14/21 20:47 Vital Signs: Vital Signs Date Time Temp Pulse Resp B/P (MAP) Pulse Ox O2 Delivery O2 Flow Rate FiO2 04/14/21 21:42 88 20 148/94 (112) 98 Room Air 04/14/21 19:45 98.1 98.1 EKG: EKG: [] Radiology/Procedures: Radiology/Procedures: []PROCEDURE: CHEST AP ONLY INDICATION: Reason: cough covid + / Spl. Instructions: / History: COMPARISON: April 12, 2021 FINDINGS: Single view of chest obtained. Cardiac silhouette is unremarkable. There are some calcified lymph nodes which could be sequela of chronic gra nulomatous disease. Callus formation at right ribs from prior fracture. Mild haziness at the right lung base IMPRESSION: * Mild haziness right lung base. Could be secondary to atelectasis or early infiltrate. Electronically signed by: Dafne Almazan MD (04/14/2021 8:43 PM) [id number] DICTATED and SIGNED BY: DAFNE ALMAZAN MD DATE: 04/14/21 [id number] Course & Med Decision Making: Course & Med Decision Making Pertinent Labs and Imaging studies reviewed. (See chart for details) This is a 60-year-old male patient presented to the ED today to be evaluated for cough and fatigue after signing out AGAINST MEDICAL ADVICE yesterday from the hospital. He was admitted for COVID-19 symptoms. Patient appears intoxicated on arrival to the ED. He is up and ambulating on his own with no difficulties. CBC with no acute findings, CMP with potassium of 2.9,Patient was given oral potassium replacement. Chest x-ray noted for atelectasis or an early infiltrate. Alcohol level 310. Positive for marijuana use. I spoke to patient at length, he refuses help with alcoholism. He is up ambulating in the ED with no difficulties. He is clinically sober to go home. He was instructed to follow-up with his own primary care doctor. He was reminded he is Covid positive and needs to quarantine for 12 more days. His vitals are stable with O2 sats above 96% on room air. He is afebrile. Dragon Disclaimer: Dragon Disclaimer: This electronic medical record was generated, in whole or in part, using a voice recognition dictation system. Departure Departure Impression: Primary Impression: Cough Additional Impressions: Lab test positive for detection of COVID-19 virus Hypokalemia ETOH abuse Disposition: HOME / SELF CARE / HOMELESS Condition: STABLE Referrals: NO PCP (PCP) Follow-up in 1 week Patient Instructions: Alcohol Intoxication, [id number], Cough, Adult, [id number] Additional Instructions: You were evaluated in the emergency room, your potassium was slightly low. Increase your dietary potassium intake through foods like bananas. You were also noted to be drunk. Please consider getting help for alcoholism through [facility]. PRAVIN WARREN [employer] Apr 14, 2021 22:45
== END 2021-04-14 23:58 | disposition home or self-care (01) ==
LOC: ER 19:40
DX: F10.229 Alcohol dependence with intoxication, unspecified (principal); Y90.8 Blood alcohol level of 240 mg/100 ml or more; R05 Cough; E87.6 Hypokalemia; E11.9 Type 2 diabetes mellitus without complications; I10 Essential (primary) hypertension; Z86.73 Personal history of transient ischemic attack (TIA), and cerebral infarction without residual deficits; F17.200 Nicotine dependence, unspecified, uncomplicated
CPT/HCPCS: 36415; 71045; 80053; 80307; 81001; 83690; 85025; 99285; G0480